=== PATIENT | female | born 1970 | race Caucasian/White ===

== ENCOUNTER → 2016-07-26 | Outpatient (CLI) | payer MEDICARE ==
[~2016-07-26] MED LIST: ALPR.25T PO; ALPR0.25 PO; ASPI-954 PO; BUTA1TAB55 PO; CEFP250T2 PO; CPR500T PO; CYCL10TA9 PO; DEXT10TA9 PO; DICL50TA4 PO; DICY10CA12 PO; DOXY100C42 PO; KETO-22 PO; METH4TAB PO; MILN50TA6 PO; MTP25TSR PO; OMEP20TA2 PO; OXYC-12 PO; SAVELLA PO; TPR100T PO; TRM50T PO; [UNRECOGNIZED DRUG - OTHER] PO; [UNRECOGNIZED DRUG - OTHER] PR
--- NOTE | 2016-07-26 11:39 | Diagnostic Imaging Report ---
PROCEDURE: MRI right joint lower extremity without contrast. TECHNIQUE: Multiplanar, multisequence non contrast-enhanced MRI of the right lower extremity was accomplished. INDICATION: Knee bent sideways and has now developed pain posteriorly and superiorly. FINDINGS: The anterior and posterior cruciate ligaments are intact. Medial collateral ligament is intact. The lateral collateral ligament iliotibial band complex are intact. The quadriceps tendon and patellar ligament are normal. Medial meniscus is intact. The lateral meniscus is intact. There is good preservation of articulating cartilage. The patella is in good alignment with the trochlea. There is no evidence of marrow edema. No evidence of cortical fractures. There is small joint effusion present. No loose bodies are demonstrated. The surrounding muscles and tendons appear normal. No evidence of popliteal cyst. IMPRESSION: 1. There is a small joint effusion present with no internal derangements demonstrated. 2. No evidence of popliteal cyst. Dictated by: Dictated on workstation # [id number]
== END ==
LOC: RAD 10:21
PROVIDERS: ATTEND Nurse Practitioner Adult Health
DX: M25.561 Pain in right knee (principal)
CPT/HCPCS: 73721

== ENCOUNTER 2016-10-22 18:00 | Emergency (ER) | payer MEDICARE ==
[2016-10-22] MEDS ORDERED: NS 100 ML (IVPB) BAG IV ONE (18:15)
[2016-10-22] MEDS ORDERED: CATHETER FLUSH 10 ML SYR IV PRN (18:15)
[2016-10-22] MEDS ORDERED: IOHEXOL 350 MG/ML 150 ML (OMNIPAQUE 350) VIAL IV ONE (18:15)
[2016-10-22] MEDS ORDERED: AZIT250T5 PO (19:46)
[2016-10-22] MEDS ORDERED: DICL35CA PO (19:46)
== END 2016-10-22 19:50 | disposition home or self-care (01) ==
DX: R07.81 Pleurodynia (principal); J45.909 Unspecified asthma, uncomplicated; F32.9 Major depressive disorder, single episode, unspecified; Z86.73 Personal history of transient ischemic attack (TIA), and cerebral infarction without residual deficits; Z86.79 Personal history of other diseases of the circulatory system; Z87.891 Personal history of nicotine dependence

== ENCOUNTER 2016-11-24 12:01 | Emergency (ER) | payer MEDICARE ==
[~2016-11-24] VITALS: Ht 170.2 cm; Wt 95.3 kg
[~2016-11-24 12:01] MED LIST changes: +AZIT250T5 PO; +DICL35CA PO
[2016-11-24 12:29] LABS: BASOPHILS # (AUTO) 0.1 10^3/uL (0.0-0.1); BASOPHILS % (AUTO) 1 % (0-10); EOSINOPHILS # (AUTO) 0.2 10^3/uL (0.0-0.3); EOSINOPHILS % (AUTO) 2 % (0-10); LYMPHOCYTES # (AUTO) 3.3 X 10^3 (1.0-4.0); LYMPHOCYTES % (AUTO) 28 % (12-44); MEAN CORPUSCULAR HEMOGLOBIN 30 PG (25-34); MEAN CORPUSCULAR HGB CONC 34 G/DL (32-36); MEAN CORPUSCULAR VOLUME 90 FL (80-99); MEAN PLATELET VOLUME 9.9 FL (7.4-10.4); MONOCYTES % (AUTO) 9 % (0-12); NEUTROPHILS % (AUTO) 60 % (42-75); PLATELET COUNT 294 10^3/uL (130-400); RED BLOOD COUNT 5.29 10^6/uL (4.35-5.85); RED CELL DISTRIBUTION WIDTH 14.2 % (10.0-14.5); WHITE BLOOD COUNT 11.6 10^3/uL (4.3-11.0)
[2016-11-24] MEDS ORDERED: RX-NITROGLYCERIN 0.4 MG TAB BTL 25'S SL PRN (12:30)
[2016-11-24] MEDS ORDERED: ASPIRIN 81 MG CHEW (CHILDREN'S ASA) PO ONE (12:30)
[2016-11-24] MEDS ORDERED: LISI-552 PO (12:31)
[2016-11-24] MEDS ORDERED: RT-ALBUINH IH (12:31)
[2016-11-24 12:34] LABS: PROTHROMBIN TIME PATIENT 12.9 SEC (12.2-14.7)
[2016-11-24 12:40] LABS: ALANINE AMINOTRANSFERASE 21 U/L (0-55); ALBUMIN 4.1 GM/DL (3.2-4.5); ANION GAP 9 MMOL/L (5-14); ASPARTATE AMINO TRANSFERASE 14 U/L (5-34); BILIRUBIN,TOTAL 0.5 MG/DL (0.1-1.0); BLOOD UREA NITROGEN 12 MG/DL (7-18); BUN/CREATININE RATIO 16; CALCIUM 9.2 MG/DL (8.5-10.1); CARBON DIOXIDE 23 MMOL/L (21-32); CHLORIDE 106 MMOL/L (98-107); CREATININE SERUM 0.77 MG/DL (0.60-1.30); GFR ESTIMATED > 60; GLUCOSE 101 MG/DL (70-105); POTASSIUM 3.6 MMOL/L (3.6-5.0); SODIUM 138 MMOL/L (135-145); TOTAL PROTEIN 7.3 GM/DL (6.4-8.2)
[2016-11-24 12:46] LABS: MYOGLOBIN SERUM 23.8 NG/ML (10.0-92.0)
--- NOTE | 2016-11-24 12:52 | Diagnostic Imaging Report ---
INDICATION: Hypertension. EXAMINATION: Portable upright view of the chest is obtained with comparison made to study of 10/22/2016. FINDINGS: Heart size and pulmonary vascularity are within normal limits, and the lungs are clear, bilaterally. IMPRESSION: Unremarkable chest. Dictated by: Dictated on workstation # [id number]
[2016-11-24] MEDS ORDERED: NS IV 1000 ML 1,000 ML IV ONE (13:08)
--- NOTE | 2016-11-24 13:21 | ED Chest Pain ---
General Chief Complaint: Chest Pain Stated Complaint: sob/abd-chest pain/should pain Nursing Triage Note: pt reports medial epigastric/cp that radiates to l shoulder blade starting at 0830 this am. Nursing Sepsis Screen: No Definite Risk Source: patient Exam Limitations: no limitations History of Present Illness Time seen by provider: 13:00 Initial Comments Here with complaint of epigastric pain that radiates to the left shoulder starting about 830 this morning. Not better with rest, Tums or time. Also notes hypertension and states that makes her red and feel dizzy. Patient does have history of lupus. Reports taking her meds as directed. She is very concerned about heart attack and has nothing else seems to be ruling out per her. Was seen a few weeks ago and diagnosed with pleurisy but she states that she was having a heart attack at the time and they told her to come back if it worsened. She states that it's worse and now. 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 NTG SL LOCOMOTIVE SWITCH OPERATOR: No Associated Symptoms: abdominal pain, No back pain, No fever/chills, No nausea/ vomiting, shortness of breath, No weakness Allergies and Home Medications Allergies Coded Allergies: carbamazepine (Verified Allergy, Unknown, 08/27/15) hydrocodone (Verified Allergy, Unknown, 11/16/08) Home Medications Albuterol Sulfate 1 Puff Puff, 1 PUFF IH Q4H, (Reported) 1 PUFF = 90 MCG Alprazolam 0.25 Mg Tablet, 0.25 MG PO for ANXIETY, (Reported) Azithromycin 250 Mg Tablet, 250 MG PO UD, #6 TAKE 2 TABLETS ON DAY ONE THEN TAKE 1 TABLET DAILY FOR FOUR MORE DAYS Prescribed by: ROMAIN AUGUSTIN on 10/22/161945 Cyclobenzaprine HCl 10 Mg Tablet, 10 MG PO TID, (Reported) Dextroamphetamine/Amphetamine 10 Mg Tablet, 5 MG PO DAILY, (Reported) Diclofenac Submicronized 35 Mg Capsule, 35 MG PO BID PRN, #20 Prescribed by: ROMAIN AUGUSTIN on 10/22/161945 Lisinopril 20 Mg Tablet, 20 MG PO DAILY, (Reported) [Zoverlex] , 35 MG PO PRN, (Reported) Review of Systems Constitutional: see HPI, No chills, No fever, No weakness EENTM: No Symptoms Reported Respiratory: No Symptoms Reported, Denies SOA at Rest, Denies Wheezing Cardiovascular: Chest Pain, Edema, Denies Lightheadedness Gastrointestinal: Abdominal Pain (epigastric), Denies Nausea, Denies Vomiting Genitourinary: No Symptoms Reported Musculoskeletal: see HPI, No joint pain, muscle pain Skin: change in color, No lesions Psychiatric/Neurological: No Symptoms Reported All Other Systems Reviewed Negative Unless Noted: Yes Past Gsetdwl-Fsxamq-Tiuppr Hx Patient Social History Alcohol Use: Rarely Uses Recreational Drug Use: No Smoking Status: Current Everyday Smoker Type Used: Cigarettes Recent Foreign Travel: No Contact w/Someone Who Travel: No Recent Infectious Disease Expo: No Immunizations Up To Date Tetanus Booster (TDap): Less than 5yrs Date of Pneumonia Vaccine: Feb 02, 2012 Seasonal Allergies Seasonal Allergies: Yes Surgeries HX Surgeries: Yes (COLON RESECTION, VAGINAL SEPTUM, ) Surgeries: Appendectomy, Gallbladder, Hysterectomy Respiratory Hx Respiratory Disorders: Yes (Tobaccoism) Respiratory Disorders: Asthma Cardiovascular Hx Cardiac Disorders: Yes (Raynaud's syndrome) Cardiac Disorders: Heart Attack, Hypertension, Palpitations Neurological Hx Neurological Disorders: Yes (HX STROKE) Neurological Disorders: Stroke Reproductive System Hx 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: No Sexually Transmitted Disease: No HIV/AIDS: No 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 Genitourinary Hx Genitourinary Disorders: No Gastrointestinal Hx Gastrointestinal Disorders: Yes (History of perforated colon s/p partial resection) Gastrointestinal Disorders: Diverticulosis, Polyps, Irritable Bowel Musculoskeletal Hx Musculoskeletal Disorders: Yes Musculoskeletal Disorders: Fibromyalgia Endocrine Hx Endocrine Disorders: Yes Endocrine Disorders: Lupus Psychosocial Hx Psychiatric Problems: Yes Behavioral Health Disorders: Depression Reviewed Nursing Assessment Reviewed/Agree w Nursing PMH: Yes Family Medical History Significant Family History: Heart Disease, Cancer Physical Exam Vital Signs Vital Sign - Last 12Hours 11/24/16 12:20 Temp 97.3 Pulse 91 Resp 16 B/P (MAP) 136/97 Pulse Ox 96 O2 Delivery Room Air Capillary Refill : Less Than 3 Seconds General Appearance: WD/WN, Anxious HEENT: PERRL/EOMI, Pharynx Normal Neck: Non Tender, Supple Respiratory: Lungs Clear, Normal Breath Sounds Cardiovascular: No Murmur, Tachycardia Gastrointestinal: Non Tender, Soft Extremity: Normal Range of Motion, Non Tender, No Calf Tenderness, No Pedal Edema, Swelling (reports swelling to her hands) Neurologic/Psychiatric: Alert, Oriented x3 Skin: Warm/Dry, Erythema (reddish coloring to scan overall) Progress/Results/Core Measures Results/Orders Lab Results Laboratory Tests Test 11/24/16 12:10 11/24/16 15:45 Range/Units White Blood Count 11.6 H 4.3-11.0 10^3/uL Red Blood Count 5.29 4.35-5.85 10^6/uL Hemoglobin 16.1 H 11.5-16.0 G/DL Hematocrit 48 35-52 % Mean Corpuscular Volume 90 80-99 FL Mean Corpuscular Hemoglobin 30 25-34 PG Mean Corpuscular Hemoglobin Concent 34 32-36 G/DL Red Cell Distribution Width 14.2 10.0-14.5 % Platelet Count 294 130-400 10^3/uL Mean Platelet Volume 9.9 7.4-10.4 FL Neutrophils (%) (Auto) 60 42-75 % Lymphocytes (%) (Auto) 28 12-44 % Monocytes (%) (Auto) 9 0-12 % Eosinophils (%) (Auto) 2 0-10 % Basophils (%) (Auto) 1 0-10 % Neutrophils # (Auto) 7.0 1.8-7.8 X 10^3 Lymphocytes # (Auto) 3.3 1.0-4.0 X 10^3 Monocytes # (Auto) 1.0 0.0-1.0 X 10^3 Eosinophils # (Auto) 0.2 0.0-0.3 10^3/uL Basophils # (Auto) 0.1 0.0-0.1 10^3/uL Prothrombin Time 12.9 12.2-14.7 SEC INR Comment 1.0 0.8-1.4 Activated Partial Thromboplast Time 29 24-35 SEC D-Dimer 0.30 0.00-0.49 UG/ML Sodium Level 138 135-145 MMOL/L Potassium Level 3.6 3.6-5.0 MMOL/L Chloride Level 106 98-107 MMOL/L Carbon Dioxide Level 23 21-32 MMOL/L Anion Gap 9 5-14 MMOL/L Blood Urea Nitrogen 12 7-18 MG/DL Creatinine 0.77 0.60-1.30 MG/DL Estimat Glomerular Filtration Rate > 60 BUN/Creatinine Ratio 16 Glucose Level 101 70-105 MG/DL Calcium Level 9.2 8.5-10.1 MG/DL Magnesium Level 2.0 1.8-2.4 MG/DL Total Bilirubin 0.5 0.1-1.0 MG/DL Aspartate Amino Transf (AST/SGOT) 14 5-34 U/L Alanine Aminotransferase (ALT/SGPT) 21 0-55 U/L Alkaline Phosphatase 79 40-136 U/L Myoglobin 23.8 20.2 10.0-92.0 NG/ML Troponin I < 0.30 < 0.30 <0.30 NG/ML Total Protein 7.3 6.4-8.2 GM/DL Albumin 4.1 3.2-4.5 GM/DL Amylase Level 63 25-125 U/L Lipase 23 8-78 U/L My Orders Orders - JUAN SYKES MD Cbc With Automated Diff (11/24/16 12:20) Magnesium (11/24/16 12:20) Chest 1 View, Ap/Pa Only (11/24/16 12:20) Ekg Tracing (11/24/16 12:20) Cardiac Profile 1 (11/24/16 12:20) Comprehensive Metabolic Panel (11/24/16 12:20) Myoglobin Serum (11/24/16 12:20) Protime With Inr (11/24/16 12:20) Partial Thromboplastin Time (11/24/16 12:20) O2 (11/24/16 12:20) Monitor-Rhythm Ecg Trace Only (11/24/16 12:20) Aspirin Chewable Tablet (Baby Aspirin Ch (11/24/16 12:30) Rx-Nitroglycerin Sl Tabs (Rx-Nitrostat S (11/24/16 12:30) Saline Lock/Iv-Start (11/24/16 12:20) Ns Iv 1000 Ml (Sodium Chloride 0.9%) (11/24/16 13:08) Fibrin Degradation Products (11/24/16 13:08) Amylase (11/24/16 13:21) Lipase (11/24/16 13:21) Troponin I (11/24/16 14:38) Ekg Tracing (11/24/16 14:38) Myoglobin Serum (11/24/16 14:38) Medications Given in ED Current Medications Medications Dose Ordered Sig/Jatinder Route Start Time Stop Time Status Last Admin Dose Admin Aspirin 324 mg ONCE ONCE PO 11/24/16 12:30 11/24/16 12:31 DC 11/24/16 12:54 324 MG Nitroglycerin 0.4 mg PRN PRN SL 11/24/16 12:30 11/24/16 16:32 DC 11/24/16 12:54 0.4 MG Sodium Chloride 1,000 ml @ 0 mls/hr Q0M ONCE IV 11/24/16 13:08 11/24/16 13:10 DC 11/24/16 14:01 0 MLS/HR Vital Signs/I&O Vital Sign - Last 12Hours 11/24/16 11/24/16 12:20 12:20 Temp 97.3 Pulse 91 Resp 16 B/P (MAP) 136/97 Pulse Ox 96 O2 Delivery Room Air Blood Pressure Mean: 110 Progress Note : Progress Note Seen and evaluated. IV, labs, EKG and chest x-ray ordered. ASA 324 mg by mouth and nitroglycerin sublingual ordered. Normal saline 1 L bolus. We will check a d-dimer and pancreatic enzymes as patient has history of lupus and is having epigastric pain radiating to the left shoulder. Monitor patient. No acute findings. We will recheck her 2 hour troponin and EKG. 1610: Repeat EKG negative. No acute findings. Discharged home with return precautions. Patient verbalize understanding instructions and agreement with plan. ECG Initial ECG Impression Date: Nov 24, 2016 Initial ECG Impression Time: 12:12 Initial ECG Rate: 88 Initial ECG Rhythm: Normal Sinus Initial ECG Comparisson: Unchanged Comment Sinus rhythm with normal axis. No evidence of ST elevation PA. Overall similar to previous of 05/31/14. Interpreted by me. EKG : EKG Time: 15:38 Rate: 74 Rhythm: Normal Sinus ECG Comparisson: Unchanged ECG Impression: Normal Comment Sinus rhythm with left atrial abnormality. Leftward axis. No evidence of ST elevation PA. Similar to previous done earlier today. Interpreted by me. Diagnostic Imaging Diagonstic Imaging: Xray Plain Films/CT/US/NM/MRI: chest Comments NAME: TALITA SAMAYOADiandra Robin [facility] REC#: [id number] PT STATUS: REG ER : 1970 PHYSICIAN: JUAN SYKES MD ADMIT DATE: 11/24/16/ER Draft Date of Exam:11/24/16 CHEST 1 VIEW, AP/PA ONLY INDICATION: Hypertension. EXAMINATION: Portable upright view of the chest is obtained with comparison made to study of 10/22/2016. FINDINGS: Heart size and pulmonary vascularity are within normal limits, and the lungs are clear, bilaterally. IMPRESSION: Unremarkable chest. Dictated on workstation # [id number] Dict: 11/24/16 1247 Trans: 11/24/16 1251 [facility] [id number] Interpreted by: JU PEREZ MD Electronically signed by: Departure Impression Impression: Primary Impression: Chest pain Qualified Codes: R07.9 - Chest pain, unspecified Disposition: ADMITTED INPATIENT Condition: Improved Departure-Patient Inst. Decision time for Depature: 16:12 Referrals: OLAMIDE BLANKENSHIP DO (PCP) Primary Care Physician JUAN CARLOS STEVENSON (Family) Primary Care Physician Patient Instructions: Chest Pain (DC) Add. Discharge Instructions: All discharge instructions reviewed with patient and/or family. Voiced understanding. Continue home medications as directed. Follow up with your Dr. in one to 2 days for recheck. Return for worse pain, fever, vomiting, weakness, breathing problems or other concerns as needed. Copy Copies To 1: OLAMIDE BLANKENSHIP DO Copies To 2: OLIVIA SANTOS MD FACP [facility] JUAN SYKES MD Nov 24, 2016 13:21
[2016-11-24 13:38] LABS: AMYLASE 63 U/L (25-125); LIPASE 23 U/L (8-78)
[2016-11-24 16:27] LABS: MYOGLOBIN SERUM 20.2 NG/ML (10.0-92.0); TROPONIN I < 0.30 NG/ML (<0.30)
[2016-11-24 16:32] VITALS: BP 131/98
== END 2016-11-24 16:32 | disposition other institution (70) ==
LOC: EDUNIT# 12:01 → ER 12:04
DX: R07.9 Chest pain, unspecified (principal); F32.9 Major depressive disorder, single episode, unspecified; I10 Essential (primary) hypertension; I25.2 Old myocardial infarction; J45.909 Unspecified asthma, uncomplicated; F17.210 Nicotine dependence, cigarettes, uncomplicated; Z90.49 Acquired absence of other specified parts of digestive tract; Z86.73 Personal history of transient ischemic attack (TIA), and cerebral infarction without residual deficits; Z90.710 Acquired absence of both cervix and uterus; Z87.19 Personal history of other diseases of the digestive system; Z80.9 Family history of malignant neoplasm, unspecified; Z82.49 Family history of ischemic heart disease and other diseases of the circulatory system
CPT/HCPCS: 36415; 71010; 80053; 82150; 83690; 83735; 83874; 84484; 85025; 85379; 85610; 85730; 93005; 93041; 96360

== ENCOUNTER 2017-02-28 09:44 | Inpatient (IN) | payer MEDICARE ==
[~2017-02-28] VITALS: Ht 170.2 cm; Wt 95.3 kg
[~2017-02-28 09:44] MED LIST changes: +LISI-552 PO; +RT-ALBUINH IH
--- OUTSIDE RECORDS SUMMARY | 2017-02-28 09:49 | XMS REPORT | Clinical Summary ---
Author Author [facility] Organization [facility] Address Unknown Phone Unavailable Care Team Providers Care Heater Tender Name Role Phone PCP Unavailable Source Comments Some departments are not documenting in the electronic medical record. If you do not see the information that you expected, contact Release of Information in the Health Information Management department at [phone] for further assistance in locating additional records.[facility] Allergies Not on File Current Medications Not on file Active Problems Not on file Social History Tobacco Use Types Packs/Day Years Used Date Never Assessed Sex Assigned at Date Recorded Not on file Last Filed Vital Signs Not on file Plan of Treatment Health Maintenance Due Date Last Done Comments PHYSICAL (COMPREHENSIVE) 1977 EXAM PERTUSSIS VACCINE 1981 TETANUS VACCINE 12/05/1987 CERVICAL CANCER SCREENING 2000 BREAST CANCER SCREENING 2010 INFLUENZA VACCINE 12/02/2016 Results Not on filefrom Last 3 Months
--- OUTSIDE RECORDS SUMMARY | 2017-02-28 09:52 | XMS REPORT ---
Author Author JUAN CARLOS STEVENSON Organization [facility] Address [address] [place] [address] Care Team Providers Care Respite Care Provider Name Role Phone PATRICE STEVENSONE Unavailable PROBLEMS Type Condition ICD9-CM Code [id number] Code Onset Dates Condition Status SNOMED Code Problem Somatic complaints, multiple R68.89 Active 934935164 Problem Chronic obstructive pulmonary disease, unspecified COPD type J44.9 Active 01323882 Problem Secondary hypertension I15.9 Active 16210902 Problem Personality disorder F60.9 Active 74353611 Problem Post traumatic stress disorder F43.10 Active 87049628 Problem Major depressive disorder, recurrent, moderate F33.1 Active 168273390 Problem Attention deficit disorder F90.0 Active 551348711 ALLERGIES Substance Reaction Event Type Date Status Tegretol seizure Drug Allergy Jun, Active Hydrocodone-Acetaminophen hives Drug Allergy Jun, Active SOCIAL HISTORY No smoking Hx information available PLAN OF CARE Activity Details Follow Up 3 Months, prn Reason: VITAL SIGNS Height 67 in 2016-06-09 Weight 212 lbs 2016-06-09 Temperature 98.2 degrees Fahrenheit 2016-06-09 Heart Rate 80 bpm 2016-06-09 Respiratory Rate 22 2016-06-09 BMI 33.20 kg/m2 2016-06-09 Blood pressure systolic 112 mmHg 2016-06-09 Blood pressure diastolic 80 mmHg 2016-06-09 MEDICATIONS Medication Instructions Dosage Frequency Start Date End Date Duration Status Lisinopril 10 mg Orally Once a day TAKE ONE TABLET BY MOUTH ONCE DAILY 24h 30 Active Diclofenac Potassium 75 mg Orally Twice a day 1 tablet 12h Nov, Active Proventil HFA 108 (90 Base) MCG/ACT Inhalation every 4 hrs 2 puffs as needed 4h Feb, Active Diclofenac Sodium 75 MG TAKE ONE TABLET BY MOUTH TWICE DAILY 30 Active Zyrtec Allergy 10 mg Orally Once a day 1 tablet 24h Active Wellbutrin XL 300 MG Orally Once a day TAKE ONE TABLET BY MOUTH ONCE DAILY IN THE MORNING 24h 30 Active Albuterol Sulfate (2.5 MG/3ML) 0.083% Inhalation 4 times a day 3 ml 6h Jul, Active RESULTS Name Result Date Reference Range CBC 2016-06-09 WBC 8.8 3.4-10.8 RBC 4.94 3.77-5.28 Hemoglobin 14.8 11.1-15.9 Hematocrit 44.9 34.0-46.6 MCV 91 79-97 MCH 30.0 26.6-33.0 MCHC 33.0 31.5-35.7 RDW 14.1 12.3-15.4 Platelets 300 150-379 Neutrophils 56 Lymphs 35 Monocytes 6 Eos 2 Basos 1 Neutrophils (Absolute) 4.9 1.4-7.0 Lymphs (Absolute) 3.1 0.7-3.1 Monocytes(Absolute) 0.6 0.1-0.9 Eos (Absolute) 0.2 0.0-0.4 Baso (Absolute) 0.1 0.0-0.2 Immature Granulocytes 0 Immature Grans (Abs) 0.0 0.0-0.1 LIPID PANEL 2016-06-09 Cholesterol, Total 212 100-199 Triglycerides 72 0-149 HDL Cholesterol 45 >39 VLDL Cholesterol Hiren 14 5-40 LDL Cholesterol Calc 153 0-99 Comment: CMP 2016-06-09 Glucose, Serum 86 65-99 BUN 13 6-24 Creatinine, Serum 0.66 0.57-1.00 eGFR If NonAfricn Am 107 >59 eGFR If Africn Am 123 >59 BUN/Creatinine Ratio 20 9-23 Sodium, Serum 140 134-144 Potassium, Serum 3.9 3.5-5.2 Chloride, Serum 98 96-106 Carbon Dioxide, Total 18 18-29 Calcium, Serum 9.2 8.7-10.2 Protein, Total, Serum 7.1 6.0-8.5 Albumin, Serum 4.4 3.5-5.5 Globulin, Total 2.7 1.5-4.5 A/G Ratio 1.6 1.1-2.5 Bilirubin, Total <0.2 0.0-1.2 Alkaline Phosphatase, S 88 39-117 AST (SGOT) 15 0-40 ALT (SGPT) 18 0-32 PROCEDURES Procedure Date Ordered Related Diagnosis Body Site LAB NOT BILLED BY [facility] Jun 09, 2016 [facility] VISIT ESTABLISHED PATIENT Jun 09, 2016 VENIPUNCT, ROUTINE* Jun 09, 2016 DEXAMETHASONE 4MG/ML (PER 1 MG) Jun 09, 2016 Office Visit, Est Pt., Level 4 Jun 09, 2016 DEPO MEDROL 40 MG/ML Jun 09, 2016 THER/PROPH/DIAG INJ, SC/IM Jun 09, 2016 IMMUNIZATIONS Vaccine Route Administration Date Status DEXAMETHASONE 4MG/ML (PER 1 MG) Unknown Jun 09, 2016 Administered DEPO MEDROL 40 MG/ML Unknown Jun 09, 2016 Administered
--- OUTSIDE RECORDS SUMMARY | 2017-02-28 09:52 | XMS REPORT ---
Author Author REBECCA KAPLAN Organization [facility] Address [address] [place] [address] Care Team Providers Care Instructional Assistant Name Role Phone REBECCA KAPLAN Unavailable PROBLEMS Type Condition ICD9-CM Code VFL29-LQ Code Onset Dates Condition Status SNOMED Code Problem Somatic complaints, multiple R68.89 Active 474644652 Problem Chronic obstructive pulmonary disease, unspecified COPD type J44.9 Active 63365201 Problem Secondary hypertension I15.9 Active 47083446 Problem Personality disorder F60.9 Active 21866259 Problem Post traumatic stress disorder F43.10 Active 88627481 Problem Major depressive disorder, recurrent, moderate F33.1 Active 876850843 Problem Attention deficit disorder F90.0 Active 307040792 ALLERGIES Substance Reaction Event Type Date Status Tegretol seizure Drug Allergy September, Active Hydrocodone-Acetaminophen hives Drug Allergy September, Active SOCIAL HISTORY Never Assessed PLAN OF CARE Activity Details Follow Up prn Reason: VITAL SIGNS Height 67 in 2016-09-01 Weight 215.6 lbs 2016-09-01 Temperature 97.0 degrees Fahrenheit 2016-09-01 Heart Rate 80 bpm 2016-09-01 Respiratory Rate 18 2016-09-01 BMI 33.76 kg/m2 2016-09-01 Blood pressure systolic 136 mmHg 2016-09-01 Blood pressure diastolic 82 mmHg 2016-09-01 MEDICATIONS Medication Instructions Dosage Frequency Start Date End Date Duration Status Wellbutrin XL 300 MG Orally Once a day TAKE ONE TABLET BY MOUTH ONCE DAILY IN THE MORNING 24h 30 Active Advil Active Ibuprofen Active Proventil HFA 108 (90 Base) MCG/ACT Inhalation every 4 hrs 2 puffs as needed 4h Feb, Active Lisinopril 10 mg Orally Once a day TAKE ONE TABLET BY MOUTH ONCE DAILY 24h 30 Active Albuterol Sulfate (2.5 MG/3ML) 0.083% Inhalation 4 times a day 3 ml 6h Jul, Active Zyrtec Allergy 10 mg Orally Once a day 1 tablet 24h Active Diclofenac Sodium 75 MG TAKE ONE TABLET BY MOUTH TWICE DAILY 30 Active PredniSONE 20 MG Orally Once a day 2 tablet 24h September, September, 5 days Active Tramadol HCl 50 MG Orally every 6 hrs 1 tablet as needed 6h Jul, Active RESULTS No Results PROCEDURES Procedure Date Ordered Result Body Site [facility] VISIT ESTABLISHED PATIENT September 01, 2016 IMMUNIZATIONS No Known Immunizations MEDICAL (GENERAL) HISTORY Type Description Date Medical History migraines Medical History anxiety Medical History lupus Medical History raynauds Medical History fibromyalgia Medical History Ptsd, ADD, ADHD Surgical History appendectomy Surgical History hysterectomy Surgical History cholecystectomy Surgical History perforated colon Surgical History colonscopy every 2 years since 1993 last one 2011 in [place] Surgical History vaginal septum Hospitalization History fibromyalsia [facility] Hospitalization History lupus/reynauds Hospitalization History pleurisy Hospitalization History Depression, ptsd, anxiety, add, adhd
--- OUTSIDE RECORDS SUMMARY | 2017-02-28 09:52 | XMS REPORT ---
Author Author JUAN CARLOS STEVENSON Organization [facility] Address [address] [place] [address] Care Team Providers Care Certified Rehabilitation Counselor Name Role Phone JUAN CARLOS STEVENSON Unavailable PROBLEMS Type Condition ICD9-CM Code FAO73-BZ Code Onset Dates Condition Status SNOMED Code Problem Somatic complaints, multiple R68.89 Active 530181407 Problem Chronic obstructive pulmonary disease, unspecified COPD type J44.9 Active 14543982 Problem Secondary hypertension I15.9 Active 97289736 Problem Personality disorder F60.9 Active 71241051 Problem Post traumatic stress disorder F43.10 Active 30841012 Problem Major depressive disorder, recurrent, moderate F33.1 Active 659018671 Problem Attention deficit disorder F90.0 Active 378703985 ALLERGIES Unknown Allergies SOCIAL HISTORY No smoking Hx information available PLAN OF CARE VITAL SIGNS MEDICATIONS Medication Instructions Dosage Frequency Start Date End Date Duration Status Lisinopril 10 mg TAKE ONE TABLET BY MOUTH ONCE DAILY 30 Active RESULTS No Results PROCEDURES No Known procedures IMMUNIZATIONS No Known Immunizations
--- OUTSIDE RECORDS SUMMARY | 2017-02-28 09:53 | XMS REPORT ---
Author Author REBECCA KAPLAN Organization [facility] Address [address] [place] [address] Care Team Providers Care Metrology Technician Name Role Phone REBECCA KAPLAN Unavailable PROBLEMS Type Condition ICD9-CM Code [id number] Code Onset Dates Condition Status SNOMED Code Problem Somatic complaints, multiple R68.89 Active 442811499 Problem Chronic obstructive pulmonary disease, unspecified COPD type J44.9 Active 39651857 Problem Secondary hypertension I15.9 Active 37924541 Problem Personality disorder F60.9 Active 79914552 Problem Post traumatic stress disorder F43.10 Active 17391538 Problem Major depressive disorder, recurrent, moderate F33.1 Active 562613559 Problem Attention deficit disorder F90.0 Active 159583215 ALLERGIES Substance Reaction Event Type Date Status Tegretol seizure Drug Allergy Jul, Active Hydrocodone-Acetaminophen hives Drug Allergy Jul, Active SOCIAL HISTORY Never Assessed PLAN OF CARE Activity Details Follow Up prn Reason: VITAL SIGNS Height 67 in 2016-07-17 Weight 215.0 lbs 2016-07-17 Temperature 98.2 degrees Fahrenheit 2016-07-17 Heart Rate 92 bpm 2016-07-17 Respiratory Rate 24 2016-07-17 BMI 33.67 kg/m2 2016-07-17 Blood pressure systolic 126 mmHg 2016-07-17 Blood pressure diastolic 76 mmHg 2016-07-17 MEDICATIONS Medication Instructions Dosage Frequency Start Date End Date Duration Status Albuterol Sulfate (2.5 MG/3ML) 0.083% Inhalation 4 times a day 3 ml 6h Jul, Active Lisinopril 10 mg Orally Once a day TAKE ONE TABLET BY MOUTH ONCE DAILY 24h 30 Active Diclofenac Sodium 75 MG TAKE ONE TABLET BY MOUTH TWICE DAILY 30 Active Proventil HFA 108 (90 Base) MCG/ACT Inhalation every 4 hrs 2 puffs as needed 4h Feb, Active Ibuprofen Active Zyrtec Allergy 10 mg Orally Once a day 1 tablet 24h Active Advil Active Wellbutrin XL 300 MG Orally Once a day TAKE ONE TABLET BY MOUTH ONCE DAILY IN THE MORNING 24h 30 Active Diclofenac Potassium 75 mg Orally Twice a day 1 tablet 12h 07 Nov, 2015 Active RESULTS Name Result Date Reference Range Xray : Knee, Right 3 views (IN HOUSE) 2016-07-17 PROCEDURES Procedure Date Ordered Result Body Site X-RAY EXAM OF KNEE, 3 July 17, 2016 CR[facility]ESS [facility] VISIT ESTABLISHED PATIENT July 17, 2016 IMMUNIZATIONS No Known Immunizations MEDICAL (GENERAL) HISTORY Type Description Date Medical History migraines Medical History anxiety Medical History lupus Medical History raynauds Medical History fibromyalgia Medical History Ptsd, ADD, ADHD Surgical History appendectomy Surgical History hysterectomy Surgical History cholecystectomy Surgical History perforated colon Surgical History colonscopy every 2 years since 1993 last one 2011 in [place] Surgical History vaginal septum Hospitalization History fibromyalsia [facility] Hospitalization History lupus/reynauds Hospitalization History pleurisy Hospitalization History Depression, ptsd, anxiety, add, adhd
[2017-02-28] MEDS ORDERED: DEXTROSE 50% 50 ML (IMS) SYR ONE (09:55)
[2017-02-28 10:06] LABS: BASOPHILS # (AUTO) 0.1 10^3/uL (0.0-0.1); BASOPHILS % (AUTO) 0 % (0-10); EOSINOPHILS # (AUTO) 0.2 10^3/uL (0.0-0.3); EOSINOPHILS % (AUTO) 1 % (0-10); LYMPHOCYTES # (AUTO) 2.8 X 10^3 (1.0-4.0); LYMPHOCYTES % (AUTO) 21 % (12-44); MEAN CORPUSCULAR HEMOGLOBIN 31 PG (25-34); MEAN CORPUSCULAR HGB CONC 34 G/DL (32-36); MEAN CORPUSCULAR VOLUME 91 FL (80-99); MEAN PLATELET VOLUME 9.6 FL (7.4-10.4); MONOCYTES # (AUTO) 0.7 X 10^3 (0.0-1.0); MONOCYTES % (AUTO) 5 % (0-12); NEUTROPHILS # (AUTO) 9.6 X 10^3 (1.8-7.8); NEUTROPHILS % (AUTO) 72 % (42-75); PLATELET COUNT 261 10^3/uL (130-400); RED BLOOD COUNT 5.11 10^6/uL (4.35-5.85); RED CELL DISTRIBUTION WIDTH 14.6 % (10.0-14.5); WHITE BLOOD COUNT 13.3 10^3/uL (4.3-11.0)
[2017-02-28 10:09] LABS: PROTHROMBIN TIME PATIENT 13.2 SEC (12.2-14.7)
--- NOTE | 2017-02-28 10:11 | ED Neurological Problem ---
General Chief Complaint: Neuro-Stroke Like Symptoms Stated Complaint: R SIDE FACIAL DROOP/ PAIN IN FACE Source: patient, family Exam Limitations: no limitations History of Present Illness Time seen by provider: 10:06 Initial Comments This 46-year-old white female presents with strokelike symptoms that began approximately 1 hour prior to presentation emergency department. The patient was cutting wood when she developed a right facial palsy and ataxia of her right leg. 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 This has been attributed to the meds used to rx her lupus. The patient denies associated headache, blurred vision, slurred speech, palpitations or chest pain, shortness of breath, nausea, vomiting, or diarrhea. Patient has hypertension, lupus, and depression. Patient suffers from antiphospholipid syndrome. Allergies and Home Medications Allergies Coded Allergies: carbamazepine (Verified Allergy, Unknown, 08/27/15) hydrocodone (Verified Allergy, Unknown, 11/16/08) Home Medications No Active Prescriptions or Reported Meds Constitutional: No chills, No fever Eyes: Denies Blindness, Denies Blurred Vision Ears, Nose, Mouth, Throat: denies ear pain, denies epistaxis Respiratory: No cough, No short of breath Cardiovascular: No chest pain, No palpitations, No syncope Gastrointestinal: No abdominal pain, No diarrhea, No nausea, No vomiting Genitourinary: no symptoms reported Musculoskeletal: no symptoms reported Skin: no symptoms reported, No rash Endocrine: No Symptoms Reported Hematologic/Lymphatic: No Symptoms Reported Past [id number] Hx Patient Social History Type Used: Cigarettes Recent Foreign Travel: No Contact w/Someone Who Travel: No Immunizations Up To Date Tetanus Booster (TDap): Less than 5yrs Date of Pneumonia Vaccine: Feb 02, 2012 Seasonal Allergies Seasonal Allergies: Yes Surgeries History of Surgeries: Yes (COLON RESECTION, VAGINAL SEPTUM, ) Surgeries: Appendectomy, Gallbladder, Hysterectomy Respiratory History of Respiratory Disorde: Yes (Tobaccoism) Respiratory Disorders: Asthma Cardiovascular History of Cardiac Disorders: Yes (Raynaud's syndrome) Cardiac Disorders: Heart Attack, Hypertension, Palpitations Neurological History of Neurological Disord: Yes (HX STROKE) Neurological Disorders: Stroke Reproductive System Hx 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: No Sexually Transmitted Disease: No HIV/AIDS: No [employer] History: Hysterectomy Gastrointestinal History of Gastrointestinal Di: Yes (History of perforated colon s/p partial resection) Gastrointestinal Disorders: Diverticulosis, Polyps, Irritable Bowel Musculoskeletal History of Musculoskeletal Dis: Yes Musculoskeletal Disorders: Fibromyalgia Endocrine History of Endocrine Disorders: Yes Endocrine Disorders: Lupus Psychosocial History of Psychiatric Problem: Yes Behavioral Health Disorders: Depression Reviewed Nursing Assessment Reviewed/Agree w Nursing PMH: Yes Family Medical History Significant Family History: Heart Disease, Cancer Physical Exam Vital Signs Vital Sign - Last 12Hours 02/28/17 09:50 Temp 98.2 Pulse 84 Resp 18 B/P (MAP) 158/107 Pulse Ox 98 O2 Delivery Room Air Capillary Refill : General Appearance: WD/WN, mild distress HEENT: PERRL/EOMI, other (right sided facial weakness) Neck: non-tender, full range of motion, supple Respiratory: chest non-tender, lungs clear, normal breath sounds Cardiovascular: normal peripheral pulses, regular rate, rhythm Gastrointestinal: normal bowel sounds, non tender Back: normal inspection, no CVA tenderness Extremities: other (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.) Neurologic/Psychiatric: facial droop (right side), motor weakness (right hand) Crainal Nerves: normal hearing, normal speech, PERRL Skin: normal color, warm/dry Stroke NIH Stroke Scale Assessment Select: Initial Level of Consciousness: 0=Alert (0), Level of Consciousness- Questions: 0=Answers both month/age (0), LOC Commands: 0=Performs both tasks (0) , Gaze: Normal (0), Visual Avila: 0=No visual loss (0), Facial Movement ( Facial Paresis): 2=Partial paralysis (2), Motor Function-Arms Right: 0=No drift (0), Motor Function-Arms Left: 0=No drift (0), Motor Function-Legs Right: 0=No drift (0), Motor Function-Legs Left: 0=No drift (0), Limb Ataxia: 0=Absent (0), Sensory: 1=Mild to Moderate loss (1), Best Language: 0=No aphasia (0), Dysarthria: 0=Normal (0), Extinction & Inattention: 0=No abnormality (0), Total : 3 Stroke Thrombolytic Exclusion Age 18 or Over: Yes Acute intenal hemorrhage: No History of CVA: Yes Uncontrolled Coagulation Defec: No Intracranial Hemorrhage: No Severe Hypertension: No GI or Bleed: No Subarachnoid Hemorrhage: No Intracranial Neoplasm/Aneurysm: No Oral Anticoagulants: No Surgery or Trauma: No Puncture of Non-Compressible V: No Recent CPR: No Diabetic Hemorrhagic Retinopat: No Organ Biopsy: No Recent Obstetric Delivery: No Glucose: Yes Significant Hepatic Dysfunctio: No NIH Stoke Scale >22: No Bacterial Endocarditis: No Pericarditis: No Platelets: No TPA Contraindication: No Progress/Results/Core Measures Results/Orders Lab Results Laboratory Tests Test 02/28/17 09:50 02/28/17 10:01 Range/Units White Blood Count 13.3 H 4.3-11.0 10^3/uL Red Blood Count 5.11 4.35-5.85 10^6/uL Hemoglobin 15.7 11.5-16.0 G/DL Hematocrit 46 35-52 % Mean Corpuscular Volume 91 80-99 FL Mean Corpuscular Hemoglobin 31 25-34 PG Mean Corpuscular Hemoglobin Concent 34 32-36 G/DL Red Cell Distribution Width 14.6 H 10.0-14.5 % Platelet Count 261 130-400 10^3/uL Mean Platelet Volume 9.6 7.4-10.4 FL Neutrophils (%) (Auto) 72 42-75 % Lymphocytes (%) (Auto) 21 12-44 % Monocytes (%) (Auto) 5 0-12 % Eosinophils (%) (Auto) 1 0-10 % Basophils (%) (Auto) 0 0-10 % Neutrophils # (Auto) 9.6 H 1.8-7.8 X 10^3 Lymphocytes # (Auto) 2.8 1.0-4.0 X 10^3 Monocytes # (Auto) 0.7 0.0-1.0 X 10^3 Eosinophils # (Auto) 0.2 0.0-0.3 10^3/uL Basophils # (Auto) 0.1 0.0-0.1 10^3/uL Prothrombin Time 13.2 12.2-14.7 SEC INR Comment 1.0 0.8-1.4 Activated Partial Thromboplast Time 30 24-35 SEC D-Dimer 0.27 0.00-0.49 UG/ML Sodium Level 138 135-145 MMOL/L Potassium Level 3.9 3.6-5.0 MMOL/L Chloride Level 104 98-107 MMOL/L Carbon Dioxide Level 26 21-32 MMOL/L Anion Gap 8 5-14 MMOL/L Blood Urea Nitrogen 10 7-18 MG/DL Creatinine 0.70 0.60-1.30 MG/DL Estimat Glomerular Filtration Rate > 60 BUN/Creatinine Ratio 14 Glucose Level 88 70-105 MG/DL Calcium Level 8.9 8.5-10.1 MG/DL Total Bilirubin 0.5 0.1-1.0 MG/DL Aspartate Amino Transf (AST/SGOT) 14 5-34 U/L Alanine Aminotransferase (ALT/SGPT) 14 0-55 U/L Alkaline Phosphatase 76 40-136 U/L Troponin I < 0.30 <0.30 NG/ML Total Protein 6.7 6.4-8.2 GM/DL Albumin 3.9 3.2-4.5 GM/DL Glucometer 71 70-110 MG/DL My Orders Orders - WILTON QUIROZ MD Cbc With Automated Diff (02/28/17 09:58) Protime With Inr (02/28/17 09:58) Partial Thromboplastin Time (02/28/17 09:58) Comprehensive Metabolic Panel (02/28/17:58) Fibrin Degradation Products (02/28/17 09:58) Troponin I (02/28/17 09:58) Ua Culture If Indicated (02/28/17 09:58) Chest 1 View, Ap/Pa Only (02/28/17 09:58) Ekg Tracing (02/28/17 09:58) Nothing By Mouth (02/28/17 Lunch) Accucheck Stat ONCE (02/28/17 09:58) Saline Lock/Iv-Start (02/28/17 09:58) Vital Signs - Stroke Q15M (02/28/17 09:58) Ct Head Wo-R/O Stroke (02/28/17 09:58) O2 (02/28/17 09:58) Intake & Output 06,14,22 (02/28/17 09:58) Monitor-Rhythm Ecg Trace Only (02/28/17 09:58) Dysphagia Screening Tool (02/28/17 09:58) Post Thrombolytic Adminstratio (02/28/17 09:58) D50w (Emergency) Syringe (Dextrose 50% 5 (02/28/17 09:55) D50w (Emergency) Syringe (Dextrose 50% 5 (10/28/17 10:15) Fentanyl Injection (Sublimaze Injection (02/28/17 10:30) Fentanyl Injection (Sublimaze Injection (02/28/17 11:00) Medications Given in ED Current Medications Medications Dose Ordered Sig/Jatinder Route Start Time Stop Time Status Last Admin Dose Admin Dextrose 50 ml STK-MED ONCE .ROUTE 02/28/17 09:55 02/28/17 10:04 DC 02/28/17 10:06 50 ML Fentanyl Citrate 50 mcg ONCE ONCE IVP 02/28/17 10:30 02/28/17 10:31 DC 02/28/17 10:26 50 MCG Vital Signs/I&O Vital Sign - Last 12Hours 02/28/17 02/28/17 09:50 10:49 Temp 98.2 Pulse 84 72 Resp 18 18 B/P (MAP) 158/107 158/98 Pulse Ox 98 99 O2 Delivery Room Air Room Air Point of Care Testing Finger Stick Blood Glucose: 71 Blood Glucose Action Taken: RN Notified Progress Note : Time: 10:19 Progress Note The patient was given D50 without improvement in her symptoms. Her random glucose in the emergency department prior to the D50 had been 70. The patient is complaining of a severe headache and increased weakness in the right leg. Patient was given 50 g of fentanyl IV. Patient's EKG demonstrated a sinus rhythm with poor R-wave progression across the precordium. There was a borderline first degree heart block noted. No acute current of injury was present. 10:[address] of the head was unremarkable. I counseled with , neuro at , fortunately during our combined evaluation of the patient the patient's right-sided facial weakness remarkably improved. Appropriately it was the recommendation of neurology not to administer TPA. Departure Communication (Admissions) Time/Spoke to Admitting Phy: 11:[address] Nye Time/Spoke to Consulting Phy: 10:40 Communication/Consulting Dr. Arrieta, neurologist . Impression Impression: Primary Impression: TIA (transient ischemic attack) Qualified Codes: G45.9 - Transient cerebral ischemic attack, unspecified Disposition: ADMITTED INPATIENT Condition: Improved Admissions Decision to Admit Reason: Admit from ER (General) Decision to Admit/Date: Feb 28, 2017 Time/Decision to Admit Time: 11:05 Departure-Patient Inst. Referrals: OLAMIDE BLANKENSHIP DO (PCP) Primary Care Physician JUAN CARLOS STEVENSON (Family) Primary Care Physician Scripts No Active Prescriptions or Reported Meds WILTON QUIROZ MD Feb 28, 2017 10:11
[2017-02-28] MEDS ORDERED: DEXTROSE 50% 50 ML (IMS) SYR IV ONE (10:15)
[2017-02-28 10:19] LABS: ALANINE AMINOTRANSFERASE 14 U/L (0-55); ALBUMIN 3.9 GM/DL (3.2-4.5); ANION GAP 8 MMOL/L (5-14); ASPARTATE AMINO TRANSFERASE 14 U/L (5-34); BILIRUBIN,TOTAL 0.5 MG/DL (0.1-1.0); BLOOD UREA NITROGEN 10 MG/DL (7-18); BUN/CREATININE RATIO 14; CALCIUM 8.9 MG/DL (8.5-10.1); CARBON DIOXIDE 26 MMOL/L (21-32); CHLORIDE 104 MMOL/L (98-107); GFR ESTIMATED > 60; GLUCOSE 88 MG/DL (70-105); POTASSIUM 3.9 MMOL/L (3.6-5.0); SODIUM 138 MMOL/L (135-145); TOTAL PROTEIN 6.7 GM/DL (6.4-8.2)
[2017-02-28 10:24] LABS: TROPONIN I < 0.30 NG/ML (<0.30)
--- NOTE | 2017-02-28 10:24 | Diagnostic Imaging Report ---
INDICATION: Pressure behind the eyes. Dizziness The ventricles are normal in size, shape and position. There is no acute parenchymal hemorrhage, edema or mass. There is no extra-axial mass or hemorrhage. There is no bony abnormality. IMPRESSION: Normal CT of the head. There is no significant change from 10/11/12. Dictated by: Dictated on workstation # [id number]
--- NOTE | 2017-02-28 10:27 | Diagnostic Imaging Report ---
INDICATION: Pressure behind the eyes. Dizziness Portable chest shows normal heart size and vascularity. The lungs are clear. There is no effusion or pneumothorax. There is no bony abnormality. IMPRESSION: Normal chest with no change from 11/24/16. Dictated by: Dictated on workstation # [id number]
[2017-02-28] MEDS ORDERED: fentaNYL INJECTION 100 MCG/2 ML AMP IVP ONE ×2 (10:30→11:00)
[2017-02-28 10:49] VITALS: BP 158/98
[2017-02-28 11:09] LABS: BILIRUBIN,URINE NEGATIVE (NEGATIVE); KETONES,URINE NEGATIVE (NEGATIVE); LEUKOCYTE ESTERASE ,URINE NEGATIVE (NEGATIVE); NITRITE,URINE NEGATIVE (NEGATIVE); PH,URINE 7 (5-9); PROTEIN,URINE 1+ (NEGATIVE); UROBILINOGEN,URINE NORMAL (NORMAL)
[2017-02-28 11:16] LABS: SQUAMOUS EPITHELIAL CELL,UR 25-50 /HPF; WBC,URINE RARE /HPF
--- OUTSIDE RECORDS SUMMARY | 2017-02-28 11:24 | XMS REPORT | Clinical Summary ---
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 If you do not see the information that you expected, contact Release of Information in the Health Information Management department at [phone] for further assistance in locating additional records.[facility] Allergies Not on File Current [...]
[2017-02-28] MEDS ORDERED: PROMETHAZINE INJ 25 MG/ML (PHENERGAN) AMP IVP ONE (11:45)
[2017-02-28] MEDS ORDERED: diphenhydrAMINE 50 MG/ML INJ (BENADRYL) IM ONE (11:45)
[2017-02-28] MEDS ORDERED: diphenhydrAMINE 50 MG/ML INJ (BENADRYL) IVP ONE (12:00)
[2017-02-28 13:00] VITALS: BP 143/87
[2017-02-28] MEDS ORDERED: INFLUENZA TRIvalent 2017-2018 0.5 ML/45 MCG SYR IM ONE (14:30)
[2017-02-28] MEDS: fentaNYL INJECTION 100 MCG/2 ML AMP IV PRN ×2 (14:37→20:30)
[2017-02-28] MEDS ORDERED: PSEU120T53 PO (14:48)
[2017-02-28] MEDS ORDERED: GUAI-836 PO (14:48)
[2017-02-28] MEDS ORDERED: [UNRECOGNIZED DRUG - CODE] NS (14:51)
[2017-02-28] MEDS ORDERED: GUAI100G2 PO (14:51)
[2017-02-28] MEDS ORDERED: ASPI-999 PO (14:51)
[2017-02-28] MEDS ORDERED: GADOBUTROL 10 MMOL/10 ML (GADAVIST) VIAL IV ONE (15:15)
[2017-02-28] MEDS ORDERED: LORazepam INJ 2 MG/ML (ATIVAN) VIAL IVP ONE (15:30)
--- NOTE | 2017-02-28 16:47 | Diagnostic Imaging Report ---
PROCEDURE: MR imaging of the brain without contrast. TECHNIQUE: Multiplanar, multisequence MR imaging of the brain was performed without contrast. INDICATION: TIA. Pressure behind the eyes, dizziness, right-sided weakness. FINDINGS: The ventricles are normal in size, shape and position. There is no diffusion restriction with no acute parenchymal edema, hemorrhage or mass. There is no extra-axial mass or hemorrhage. IMPRESSION: Normal MRI of the brain. Dictated by: Dictated on workstation # [id number]
--- NOTE | 2017-02-28 16:47 | Diagnostic Imaging Report ---
PROCEDURE: MR angiography of the brain without the use of contrast. TECHNIQUE: 3D [id number] non contrast enhanced MR angiography of the head was performed. A source data was reformatted into rotating MIP projections. INDICATION: TIA. Dizziness. Pressure behind the eyes. Right-sided weakness. FINDINGS: The distal vertebral and internal carotid arteries are widely patent. The basilar artery is widely patent. There is no evidence for aneurysm, AVM, neovascularity or major vessel occlusion. IMPRESSION: Normal MR angiography of the brain. Dictated by: Dictated on workstation # [id number]
[2017-02-28 16:59] VITALS: BP 136/85
--- NOTE | 2017-02-28 18:15 | History & Physicial (CHS) ---
CANJUAN MED STUDENT 02/28/17 1814: HPI History of Present Illness: Desiree is a 46-year old female who was admitted to the floor after arriving to the ED this morning with suspected TIA. Patient was outside cutting wood this morning around 8am when she felt severe pain in her right eye that rated a 10/10, as well as experiencing temporary blindness in both eyes, right- sided facial droop and loss of balance. Patient took 2 Aspirin tablets soon thereafter and brought to the ED by her . Patient says her serum glucose was at 70 in the ED and her BP was elevated. Patient underwent a head CT scan and Dr. Colorado identified a clot behind her right eye. Patient was to undergo a MRI this afternoon to determine whether the current clot is new or a residual from previous CVAs. Patient was put on blood thinner medication and was given both Fentanyl and Phenergan for pain. Patient states that neither pain medication seems to have had great effect in diminishing her pain. Patient says vision has returned to both eyes, although the vision in her right eye is "hazy and not in focus." Patient currently rates her right eye pain 7/10 and says it is especially painful with movement. Patient also c/o a "throbbing," generalized BOLAND. Patient explains that whenever she sits up from a supine position, it feels as though her right eyeball "wants to pop out." Patient mentions on ROS that she has been dealing with sinus infection for the past 2 months, as well as dysphagia for last 2 weeks that, at times, feels like a "choking pain." Patient states she is allergic to Hydrocodone. Patient's primary provider is Amanda España at [facility]. Source: patient Exam Limitations: no limitations Date seen by provider: Feb 28, 2017 Time Seen by Provider: 13:30 Attending Physician Rah Sultana MD PCP Shirley Chapman DO Consult Date of Admission Feb 28, 2017 at 11:00 Home Medications Home Medications Reviewed patient Home Medication Reconciliation Form Allergies Coded Allergies: carbamazepine (Verified Allergy, Unknown, 08/27/15) hydrocodone (Verified Allergy, Unknown, 11/16/08) BWZ-[id number]-Auvbhe Hx Patient Social History Marrital Status: Employed/Student: employed Alcohol Use: Occasionally Uses Recreational Drug Use: No (MARIJUANA IN THE PAST) Smoking Status: Current Everyday Smoker Type Used: Cigarettes Recent Foreign Travel: No Contact w/other who traveled: No Recent Infectious Disease Expo: No Physical Abuse Screen: No Sexual Abuse: No Immunizations Up To Date Tetanus Booster (TDap): Less than 5yrs Date of Pneumonia Vaccine: Feb 02, 2012 Past Medical History Patient states she has had 6 previous CVAs, 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 Family Medical History Significant Family History: Heart Disease, Cancer Family History: Asthma SON PATIENT IS ADOPTED Review of Systems (CHC) Constitutional: see HPI, No chills, No dizziness EENTM: see HPI (sinus infection for last 2 months; dysphagia for last 2 weeks that can feel like she's "choking" at times), eye pain (significant right eye pain) Respiratory: No cough, No short of breath Gastrointestinal: No abdominal pain, No constipation, No diarrhea Psychiatric/Neurological: See HPI, Headache Physical Exam-(CHC) Physical Exam Vital Signs VS - Last 72 Hours, by Label 02/28/17 02/28/17 02/28/17 02/28/17 09:50 10:49 12:37 13:00 Temp 98.2 97.4 Pulse 84 72 73 64 Resp 18 18 18 20 B/P (MAP) 158/107 158/98 143/87 Pulse Ox 98 99 98 98 O2 Delivery Room Air Room Air Room Air Room Air 02/28/17 02/28/17 02/28/17 02/28/17 16:59 19:00 19:15 20:00 Temp 98.0 98.4 Pulse 70 89 75 Resp 20 20 B/P (MAP) 136/85 130/80 Pulse Ox 98 96 O2 Delivery Room Air Room Air Room Air 03/01/17 03/01/17 03/01/17 03/01/17 00:00 01:00 04:00 07:00 Temp 96.4 97.5 Pulse 74 73 70 69 Resp 20 18 B/P (MAP) 127/85 97/57 Pulse Ox 92 100 O2 Delivery Room Air Room Air 03/01/17 03/01/17 08:00 09:00 Temp 98.1 Pulse 79 Resp 22 B/P (MAP) 124/82 Pulse Ox 97 O2 Delivery Room Air Room Air Capillary Refill : Less Than 3 Seconds General Appearance: other (Patient is alert, able to communicate and understand her upcoming treatment plan, and has significant right eye pain and headache) Respiratory: lungs clear, no accessory muscle use Cardiovascular: regular rate, rhythm Neurologic/Psychiatric: coldfusion II-XII nml as tested (right eye pain with movement but no discernable loss in range of motion), alert, oriented x 3 Clinical Quality Measures DVT/VTE Risk/Contraindication: Risk Factor Score Per Nursin RFS Level Per Nursing on Admit: 2=Moderate Stroke: Date of last known well: Feb 28, 2017 Copy Copies To 1: RICHMOND PAZ DO Assessment/Plan Assessment/Plan Admission Dx 1.) TIA 2.) Previos CVA and TIA 3.) Previous AL 4.) SLE 5.) Antiphospholipid syndrome Plan 1.) MRI to determine if clot seen on earlier head CT is residual from previous CVAs or new 2.) Continue on blood thinner medication 3.) Manage pain to tolerable level for patient RAH SULTANA MD 03/01/17 1338: HPI History of Present Illness: Reviewed Student's HPI with patient - Vision changes are new, States that she has never had this before. 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) Family Medical History Family History: Asthma SON PATIENT IS ADOPTED Review of Systems (CHC) Constitutional: no symptoms reported EENTM: blurred vision, double vision, vision loss Respiratory: no symptoms reported Cardiovascular: no symptoms reported, No chest pain, No edema, No palpitations Gastrointestinal: no symptoms reported, No nausea Genitourinary: no symptoms reported, No dysuria, No frequency, No hematuria : No Musculoskeletal: no symptoms reported Skin: no symptoms reported, No lesions, No rash Psychiatric/Neurological: Headache Reviewed Test Results Reviewed Test Results Lab Laboratory Tests Test 02/28/17 09:50 02/28/17 10:01 02/28/17 10:55 Range/Units White Blood Count 13.3 H 4.3-11.0 10^3/uL Red Blood Count 5.11 4.35-5.85 10^6/uL Hemoglobin 15.7 11.5-16.0 G/DL Hematocrit 46 35-52 % Mean Corpuscular Volume 91 80-99 FL Mean Corpuscular Hemoglobin 31 25-34 PG Mean Corpuscular Hemoglobin Concent 34 32-36 G/DL Red Cell Distribution Width 14.6 H 10.0-14.5 % Platelet Count 261 130-400 10^3/uL Mean Platelet Volume 9.6 7.4-10.4 FL Neutrophils (%) (Auto) 72 42-75 % Lymphocytes (%) (Auto) 21 12-44 % Monocytes (%) (Auto) 5 0-12 % Eosinophils (%) (Auto) 1 0-10 % Basophils (%) (Auto) 0 0-10 % Neutrophils # (Auto) 9.6 H 1.8-7.8 X 10^3 Lymphocytes # (Auto) 2.8 1.0-4.0 X 10^3 Monocytes # (Auto) 0.7 0.0-1.0 X 10^3 Eosinophils # (Auto) 0.2 0.0-0.3 10^3/uL Basophils # (Auto) 0.1 0.0-0.1 10^3/uL Prothrombin Time 13.2 12.2-14.7 SEC INR Comment 1.0 0.8-1.4 Activated Partial Thromboplast Time 30 24-35 SEC D-Dimer 0.27 0.00-0.49 UG/ML Sodium Level 138 135-145 MMOL/L Potassium Level 3.9 3.6-5.0 MMOL/L Chloride Level 104 98-107 MMOL/L Carbon Dioxide Level 26 21-32 MMOL/L Anion Gap 8 5-14 MMOL/L Blood Urea Nitrogen 10 7-18 MG/DL Creatinine 0.70 0.60-1.30 MG/DL Estimat Glomerular Filtration Rate > 60 BUN/Creatinine Ratio 14 Glucose Level 88 70-105 MG/DL Calcium Level 8.9 8.5-10.1 MG/DL Total Bilirubin 0.5 0.1-1.0 MG/DL Aspartate Amino Transf (AST/SGOT) 14 5-34 U/L Alanine Aminotransferase (ALT/SGPT) 14 0-55 U/L Alkaline Phosphatase 76 40-136 U/L Troponin I < 0.30 <0.30 NG/ML Total Protein 6.7 6.4-8.2 GM/DL Albumin 3.9 3.2-4.5 GM/DL Glucometer 71 70-110 MG/DL Urine Color YELLOW Urine Clarity SLIGHTLY CLOUDY Urine pH 7 5-9 Urine Specific [place] 1.015 L 1.016-1.022 Urine Protein 1+ H NEGATIVE Urine Glucose (UA) 3+ H NEGATIVE Urine Ketones NEGATIVE NEGATIVE Urine Nitrite NEGATIVE NEGATIVE Urine Bilirubin NEGATIVE NEGATIVE Urine Urobilinogen NORMAL NORMAL MG/DL Urine Leukocyte Esterase NEGATIVE NEGATIVE Urine RBC (Auto) 2+ H NEGATIVE Urine RBC 0-2 /HPF Urine WBC RARE /HPF Urine Squamous Epithelial Cells 25-50 H /HPF Urine Crystals NONE /LPF Urine Bacteria FEW H /HPF Urine Casts NONE /LPF Urine Mucus NEGATIVE /LPF Urine Culture Indicated NO Radiology Date of Exam: 02/28/17 CT HEAD WO-R/O STROKE INDICATION: Pressure behind the eyes. Dizziness The ventricles are normal in size, shape and position. There is no acute parenchymal hemorrhage, edema or mass. There is no extra-axial mass or hemorrhage. There is no bony abnormality. IMPRESSION: Normal CT of the head. There is no significant change from 10/11/12. Date of Exam: 02/28/17 MRA NECK W/WO CONTRAST PROCEDURE: MR angiography neck with and without contrast. TECHNIQUE: Pre and post contrast-enhanced MR angiography of the neck was performed. Source data was reformatted into rotating MIP projections. INDICATION: Dizziness and weakness with pressure behind eyes. FINDINGS: The carotid and vertebral arteries are very tortuous causing considerable artifact with MR angiography. Both vertebral arteries are visualized and are symmetrical with normal takeoff. Both vertebral arteries supply the basilar artery. The common carotid arteries show normal takeoff and appear normal. Carotid bifurcations are normal. There is signal loss in the proximal portion of the internal carotid arteries, bilaterally, which may well be due to tortuosity though could not exclude moderate stenosis upwards of 70% within the internal carotid arteries, especially on the left. The internal carotid arteries along the carotid siphons appear widely patent. IMPRESSION: Considerable artifact. Concern is raised of possible hemodynamic stenosis of the internal carotid arteries versus flow artifact from tortuosity. With patient's symptoms, would consider CT angiography of the neck or conventional angiography and/or Doppler imaging for further evaluation. Date of Exam: 02/28/17 MRA HEAD W/O CONTRAST PROCEDURE: MR angiography of the brain without the use of contrast. TECHNIQUE: 3D [id number] non contrast enhanced MR angiography of the head was performed. A source data was reformatted into rotating MIP projections. INDICATION: TIA. Dizziness. Pressure behind the eyes. Right-sided weakness. FINDINGS: The distal vertebral and internal carotid arteries are widely patent. The basilar artery is widely patent. There is no evidence for aneurysm, AVM, neovascularity or major vessel occlusion. IMPRESSION: Normal MR angiography of the brain. Date of Exam: 02/28/17 MRI BRAIN W/O CONTRAST PROCEDURE: MR imaging of the brain without contrast. TECHNIQUE: Multiplanar, multisequence MR imaging of the brain was performed without contrast. INDICATION: TIA. Pressure behind the eyes, dizziness, right-sided weakness. FINDINGS: The ventricles are normal in size, shape and position. There is no diffusion restriction with no acute parenchymal edema, hemorrhage or mass. There is no extra-axial mass or hemorrhage. IMPRESSION: Normal MRI of the brain. Physical Exam-(CHC) Physical Exam Vital Signs VS - Last 72 Hours, by Label 02/28/17 02/28/17 02/28/17 02/28/17 09:50 10:49 12:37 13:00 Temp 98.2 97.4 Pulse 84 72 73 64 Resp 18 18 18 20 B/P (MAP) 158/107 158/98 143/87 Pulse Ox 98 99 98 98 O2 Delivery Room Air Room Air Room Air Room Air 02/28/17 02/28/17 02/28/17 02/28/17 16:59 19:00 19:15 20:00 Temp 98.0 98.4 Pulse 70 89 75 Resp 20 20 B/P (MAP) 136/85 130/80 Pulse Ox 98 96 O2 Delivery Room Air Room Air Room Air 03/01/17 03/01/17 03/01/17 03/01/17 00:00 01:00 04:00 07:00 Temp 96.4 97.5 Pulse 74 73 70 69 Resp 20 18 B/P (MAP) 127/85 97/57 Pulse Ox 92 100 O2 Delivery Room Air Room Air 03/01/17 03/01/17 08:00 09:00 Temp 98.1 Pulse 79 Resp 22 B/P (MAP) 124/82 Pulse Ox 97 O2 Delivery Room Air Room Air General Appearance: WD/WN, no apparent distress HEENT: PERRL/EOMI Neck: non-tender, full range of motion, supple Respiratory: chest non-tender, lungs clear, no accessory muscle use Cardiovascular: normal peripheral pulses, regular rate, rhythm, no murmur Gastrointestinal: normal bowel sounds, non tender, soft Neurologic/Psychiatric: coldfusion II-XII nml as tested (right eye pain with movement but no discernable loss in range of motion), no motor/sensory deficits, alert, normal mood/affect, oriented x 3, No aphasia, No facial droop, other (Patient states that her vision is blurry) Skin: normal color, warm/dry Lymphatic: no adenopathy Copy Copies To 1: RICHMOND PAZ DO Assessment/Plan Assessment/Plan Plan 46 yo F with Lupus and h/o multiple CVAs that was admitted for vision change and concerns for TIA Plan TIA - MRI/MRA head and neck done - Will continue to monitor with neuro checks Vision Changes - Will continue to monitor - Patient likely needs to follow with Eye doctor as outpatient Lupus with APA - Continue blood thinner CAD with h/o AL - Continue daily ASA FEN: Heart Healthy diet DVT: Lovenox Dispo: Continue admission to get MRI completed, if imaging normal will plan to d /c home tomorrow JUAN NORTH MED STUDENT Feb 28, 2017 18:14 RAH SULTANA MD Mar 01, 2017 13:38
[2017-02-28 19:15] VITALS: BP 130/80
[2017-02-28] MEDS ORDERED: NICOTINE POLACRILEX 2 MG (COMMIT) LOZ MM PRN (20:15)
[2017-03-01] VITALS: BP 127/85
[2017-03-01 04:00] VITALS: BP 97/57
[2017-03-01] MEDS: fentaNYL INJECTION 100 MCG/2 ML AMP IV PRN ×2 (04:46→10:42)
[2017-03-01 06:00] VITALS: BP 97/57
[2017-03-01 08:00] VITALS: BP 124/82
--- NOTE | 2017-03-01 12:04 | Discharge Summary ---
Diagnosis/Chief Complaint Date of Admission Feb 28, 2017 at 11:00 Date of Discharge 03/01/2017 Admission Diagnosis Admission Diagnosis Vision changes concerning for TIA Discharge Diagnosis See Above Chief Complaint/HPI Chief Complaint/HPI Desiree is a 46-year old female who was admitted to the floor after arriving to the ED this morning with suspected TIA. Patient was outside cutting wood this morning around 8am when she felt severe pain in her right eye that rated a 10/10, as well as experiencing temporary blindness in both eyes, right- sided facial droop and loss of balance. Patient took 2 Aspirin tablets soon thereafter and brought to the ED by her . Patient says her serum glucose was at 70 in the ED and her BP was elevated. Patient underwent a head CT scan and Dr. [place] identified a clot behind her right eye. Patient was to undergo a MRI this afternoon to determine whether the current clot is new or a residual from previous CVAs. Patient was put on blood thinner medication and was given both Fentanyl and Phenergan for pain. Patient states that neither pain medication seems to have had great effect in diminishing her pain. Patient says vision has returned to both eyes, although the vision in her right eye is "hazy and not in focus." Patient currently rates her right eye pain 7/10 and says it is especially painful with movement. Patient also c/o a "throbbing," generalized BOLAND. Patient explains that whenever she sits up from a supine position, it feels as though her right eyeball "wants to pop out." Patient mentions on ROS that she has been dealing with sinus infection for the past 2 months, as well as dysphagia for last 2 weeks that, at times, feels like a "choking pain." Patient states she is allergic to Hydrocodone. Patient's primary provider is Amanda España at [facility]. Discharge Summary-Simple/Stand Consultations Stroke Center was called in ED Discharge Physical Examination Allergies: Coded Allergies: carbamazepine (Verified Allergy, Unknown, 08/27/15) hydrocodone (Verified Allergy, Unknown, 11/16/08) Vitals & I&Os Vital Sign - Last 12Hours Date Time Temp Pulse Resp B/P (MAP) Pulse Ox O2 Delivery O2 Flow Rate FiO2 03/01/17 09:00 Room Air 03/01/17 08:00 98.1 79 22 124/82 97 General Appearance: Alert, Oriented X3, Cooperative, No Acute Distress HEENT: PERRLA Respiratory: Clear to Auscultation Cardiovascular: Regular Rate, No Murmurs Abdominal: Normal Bowel Sounds, Soft, No Tenderness Extremities: No Edema, No Tenderness/Swelling Skin: No Rashes Neuro: Normal Gait, Normal Speech, Strength at 5/5 X4 Ext, Sensation Intact, Cranial Nerves 3-12 NL, Other (Blurry vision improving, normal field of vision) Psych/Mental Status: Mental Status NL, Mood NL Hospital Course See final discharge diagnosis. Other pending tests Needs: Carotid Ultrasound and Referral Ophtho Discussion & Recommendations 46 yo F with h/o multiple TIAs that presented with vision changes and severe BOLAND. MRI head/Neck was normal except radiology was unable to tell if the carotid' s were stenosed or if they are tortuous and unable to follow. Patient needs followup Carotid Doppler. Vision changes have improved but she is still having some blurry vision, Recommend outpatient referral to Ophtho. Patient was d/c home and will be contacted for close follow up Discharge Condition at discharge stable Instructions to patient/family Please see electronic discharge instructions given to patient. Discharge Medications Reviewed and agree with Discharge Medication list on patient's Discharge Instruction sheet Clinical Quality Measures DVT/VTE Risk/Contraindication: Risk Factor Score Per Nursin RFS Level Per Nursing on Admit: 2=Moderate Stroke: Date of last known well: Feb 28, 2017 Copy Copies To 1: RICHMOND PAZ HOLLY R MD Mar 01, 2017 12:04
--- NOTE | 2017-03-01 12:09 | Discharge Instructions ---
Discharge Inst-[facility] Discharge Medications New, Converted or Re-Newed RX: Other (No new scripts) Continued Medications: Aspirin (Aspirin) 81 Mg Tab.chew 81 MG PO DAILY, #1 TAB Pseudoephedrine HCl (Sudafed 12 Hour) 120 Mg Tablet.er 120 MG PO PRN, #1 TAB Discontinued Medications: Guaifen/Phenyleph/Acetaminophn (Tylenol Sinus Severe Caplet) 1 Each Tablet 1 EACH PO PRN PRN for HEADACHE, #1 TAB Guaifenesin (Mucinex) 100 Mg Gran.pack 100 MG PO PRN, #1 EA Mesal/Menth/Camph/Siber[place] Fir (Vicks Vapoinhaler) 1 Each Inhaler 1 EACH NS PRN, #1 INHALER Patient Instructions Goal/Follow Up Appt: You will be called Thursday for a hospital follow up appt with you PCP Patient Instructions: - Make sure to stay well hydrated - You will be called to get your US scheduled Return to The Hospital For: - TIA symptoms - Intractable headache Activity & Diet Discharge Diet: No Restrictions Activity as Tolerated: Yes Copy Copies To 1: Tena MARIO HOLLY R MD Mar 01, 2017 12:09
[2017-03-01 14:15] VITALS: BP 124/82
== END 2017-03-01 13:00 | disposition home or self-care (01) | DRG 69 ==
LOC: EDUNIT# 09:44 → ER 09:45 → 4TH 11:00 → UNDOADMIN 11:00
PROVIDERS: ADMIT Family Medicine; ATTEND Family Medicine
DX: G45.9 Transient cerebral ischemic attack, unspecified (principal); R51 Headache; D68.61 Antiphospholipid syndrome; M32.9 Systemic lupus erythematosus, unspecified; I25.10 Atherosclerotic heart disease of native coronary artery without angina pectoris; R13.10 Dysphagia, unspecified; F17.210 Nicotine dependence, cigarettes, uncomplicated; I25.2 Old myocardial infarction
CPT/HCPCS: 36415; 70450; 70544; 70549; 70551; 71010; 80053; 81000; 82962; 84484; 85025; 85379; 85610; 85730; 93005; 93041; 96374; 96375; 96376

== ENCOUNTER 2017-03-23 13:39 | Emergency (ER) | payer MEDICARE ==
[~2017-03-23] VITALS: Ht 165.1 cm; Wt 83.9 kg
[~2017-03-23 13:39] MED LIST changes: +ASPI-999 PO; +AZIT250T12 PO; -AZIT250T5 PO; +GUAI-836 PO; +GUAI100G2 PO; +PSEU120T53 PO; +[UNRECOGNIZED DRUG - CODE] NS
--- OUTSIDE RECORDS SUMMARY | 2017-03-23 13:45 | XMS REPORT | Clinical Summary ---
Author Author [facility] Organization [facility] Address Unknown Phone Unavailable Care Team Providers Care Mold Checker Name Role Phone PCP Unavailable Source Comments Some departments are not documenting in the electronic medical record. If you do not see the information that you expected, contact Release of Information in the Health Information Management department at [phone] for further assistance in locating additional records.[facility] Allergies Not on File Current Medications Not [...]
[2017-03-23 13:51] LABS: BASOPHILS # (AUTO) 0.1 10^3/uL (0.0-0.1); BASOPHILS % (AUTO) 1 % (0-10); EOSINOPHILS # (AUTO) 0.2 10^3/uL (0.0-0.3); EOSINOPHILS % (AUTO) 2 % (0-10); LYMPHOCYTES # (AUTO) 3.1 X 10^3 (1.0-4.0); LYMPHOCYTES % (AUTO) 29 % (12-44); MEAN CORPUSCULAR HEMOGLOBIN 31 PG (25-34); MEAN CORPUSCULAR HGB CONC 34 G/DL (32-36); MEAN CORPUSCULAR VOLUME 90 FL (80-99); MEAN PLATELET VOLUME 9.7 FL (7.4-10.4); MONOCYTES # (AUTO) 0.7 X 10^3 (0.0-1.0); MONOCYTES % (AUTO) 6 % (0-12); NEUTROPHILS # (AUTO) 6.6 X 10^3 (1.8-7.8); NEUTROPHILS % (AUTO) 62 % (42-75); PLATELET COUNT 306 10^3/uL (130-400); RED BLOOD COUNT 5.14 10^6/uL (4.35-5.85); RED CELL DISTRIBUTION WIDTH 14.9 % (10.0-14.5); WHITE BLOOD COUNT 10.5 10^3/uL (4.3-11.0)
--- OUTSIDE RECORDS SUMMARY | 2017-03-23 13:52 | XMS REPORT ---
Author Author JUAN CARLOS STEVENSON Organization [facility] Address [address] [place] [address] Care Team Providers Care Real Estate Sales Associate Name Role Phone PATRICE STEVENSONE Unavailable PROBLEMS Type Condition ICD9-CM Code [id number] Code Onset Dates Condition Status SNOMED Code Problem Somatic complaints, multiple R68.89 Active 211573352 Problem Chronic obstructive pulmonary disease, unspecified COPD type J44.9 Active 78606659 Problem Secondary hypertension I15.9 Active 02802797 Problem Personality disorder F60.9 Active 91508219 Problem Post traumatic stress disorder F43.10 Active 81361896 Problem Major depressive disorder, recurrent, moderate F33.1 Active 399699258 Problem Attention deficit disorder F90.0 Active 052262862 ALLERGIES Substance Reaction Event Type Date Status Tegretol seizure Drug Allergy Jul, Active Hydrocodone-Acetaminophen hives Drug Allergy Jul, Active SOCIAL HISTORY Never Assessed PLAN OF CARE Activity Details Follow Up 2 Weeks, Reason:dr. velez VITAL SIGNS Height 67 in 2016-07-24 Weight 208 lbs 2016-07-24 Temperature 98.6 degrees Fahrenheit 2016-07-24 Heart Rate 82 bpm 2016-07-24 Respiratory Rate 18 2016-07-24 BMI 32.57 kg/m2 2016-07-24 Blood pressure systolic 130 mmHg 2016-07-24 Blood pressure diastolic 80 mmHg 2016-07-24 MEDICATIONS Medication Instructions Dosage Frequency Start Date End Date Duration Status Zyrtec Allergy 10 mg Orally Once a day 1 tablet 24h Active Advil Active Ibuprofen Active Tramadol HCl 50 MG Orally every 6 hrs 1 tablet as needed 6h Jul, Active Proventil HFA 108 (90 Base) MCG/ACT Inhalation every 4 hrs 2 puffs as needed 4h Feb, Active Wellbutrin XL 300 MG Orally Once a day TAKE ONE TABLET BY MOUTH ONCE DAILY IN THE MORNING 24h 30 Active Lisinopril 10 mg Orally Once a day TAKE ONE TABLET BY MOUTH ONCE DAILY 24h 30 Active Albuterol Sulfate (2.5 MG/3ML) 0.083% Inhalation 4 times a day 3 ml 6h Jul, Active PredniSONE 20 MG Orally Twice a day 1 tablet 12h Jul, Jul, 7 days Active Diclofenac Sodium 75 MG TAKE ONE TABLET BY MOUTH TWICE DAILY 30 Active RESULTS Name Result Date Reference Range MRI : Knee, Right w/o contrast 2016-07-26 PROCEDURES Procedure Date Ordered Result Body Site [facility] VISIT ESTABLISHED PATIENT July 24, 2016 IMMUNIZATIONS No Known Immunizations MEDICAL (GENERAL) HISTORY Type Description Date Medical History migraines Medical History anxiety Medical History lupus Medical History raynauds Medical History fibromyalgia Medical History Ptsd, ADD, ADHD Surgical History appendectomy Surgical History hysterectomy Surgical History cholecystectomy Surgical History perforated colon Surgical History colonscopy every 2 years since 1993 last one 2011 in [place] Surgical History vaginal septum Hospitalization History fibromyalsia [facility] Hospitalization History lupus/reynauds Hospitalization History pleurisy Hospitalization History Depression, ptsd, anxiety, add, adhd
--- NOTE | 2017-03-23 13:56 | ED Neurological Problem ---
General Chief Complaint: Neurological Problems Stated Complaint: RIGHT SIDE WEAKNESS Nursing Triage Note: ARRIVED VIA WC TO ROOM 08. 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 Nursing Sepsis Screen: No Definite Risk Source: patient, other (son) Exam Limitations: no limitations History of Present Illness Time seen by provider: 13:39 Initial Comments 46-year-old female patient presents to the emergency department with complaints of right arm and right leg numbness/weakness. Symptom onset at 1130 today. Approximately 20 minutes prior to arrival patient noticed right facial drooping and difficulty with speech. Allergies and Home Medications Allergies Coded Allergies: carbamazepine (Verified Allergy, Unknown, 08/27/15) hydrocodone (Verified Allergy, Unknown, 11/16/08) Home Medications Aspirin 81 Mg Tab.chew, 81 MG PO DAILY, #1 Prescribed by: ADALBERTO DIOR on 02/28/17 1451 Pseudoephedrine HCl 120 Mg Tablet.er, 120 MG PO PRN, #1 Prescribed by: ADALBERTO DIOR on 02/28/17 1448 Past Ysjueer-Sjyflx-Vefubu Hx Patient Social History Type Used: Cigarettes Recent Foreign Travel: No Contact w/Someone Who Travel: No Recent Infectious Disease Expo: No Immunizations Up To Date Tetanus Booster (TDap): Less than 5yrs Date of Pneumonia Vaccine: Feb 02, 2012 Seasonal Allergies Seasonal Allergies: Yes Surgeries History of Surgeries: Yes (COLON RESECTION, VAGINAL SEPTUM, ) Surgeries: Appendectomy, Gallbladder, Hysterectomy Respiratory History of Respiratory Disorde: Yes (Tobaccoism) Respiratory Disorders: Asthma Currently Using CPAP: No Currently Using BIPAP: No Cardiovascular History of Cardiac Disorders: Yes (Raynaud's syndrome) Cardiac Disorders: Heart Attack, Hypertension, Palpitations Neurological History of Neurological Disord: Yes (HX STROKE) Neurological Disorders: Stroke Reproductive System Hx 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: No Sexually Transmitted Disease: No 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/AIDS: 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 Genitourinary History of Genitourinary Disor: Yes (STRESS INCONT) Gastrointestinal History of Gastrointestinal Di: Yes (History of perforated colon s/p partial resection) Gastrointestinal Disorders: Diverticulosis, Polyps, Irritable Bowel Musculoskeletal History of Musculoskeletal Dis: Yes Musculoskeletal Disorders: Fibromyalgia Endocrine History of Endocrine Disorders: Yes Endocrine Disorders: Lupus HEENT History of HEENT Disorders: No Cancer History of Cancer: No Psychosocial History of Psychiatric Problem: Yes Behavioral Health Disorders: Depression Blood Transfusions History of Blood Disorders: Yes (ANTIPHOSLIPID PER PATIENT) Family Medical History Significant Family History: Heart Disease, Cancer Family Medial History: Asthma SON PATIENT IS ADOPTED Physical Exam Vital Signs Vital Sign - Last 12Hours 03/23/17 13:39 Temp 98.0 Pulse 104 Resp 18 B/P (MAP) 143/101 Pulse Ox 98 O2 Delivery Room Air Capillary Refill : Less Than 3 Seconds Stroke NIH Stroke Scale Assessment Gaze: Normal (0), Total: Stroke Thrombolytic Exclusion Age 18 or Over: Yes Acute intenal hemorrhage: No History of CVA: Yes Uncontrolled Coagulation Defec: No Intracranial Hemorrhage: No Severe Hypertension: No GI or Bleed: No Subarachnoid Hemorrhage: No Intracranial Neoplasm/Aneurysm: No Oral Anticoagulants: No Surgery or Trauma: No Puncture of Non-Compressible V: No Recent CPR: No Diabetic Hemorrhagic Retinopat: No Organ Biopsy: No Recent Obstetric Delivery: No Glucose: Yes Significant Hepatic Dysfunctio: No NIH Stoke Scale >22: No Bacterial Endocarditis: No Pericarditis: No Platelets: No Progress/Results/Core Measures Results/Orders Lab Results Laboratory Tests Test 03/23/17 13:45 03/23/17 14:00 03/23/17 14:40 Range/Units White Blood Count 10.5 4.3-11.0 10^3/uL Red Blood Count 5.14 4.35-5.85 10^6/uL Hemoglobin 15.9 11.5-16.0 G/DL Hematocrit 46 35-52 % Mean Corpuscular Volume 90 80-99 FL Mean Corpuscular Hemoglobin 31 25-34 PG Mean Corpuscular Hemoglobin Concent 34 32-36 G/DL Red Cell Distribution Width 14.9 H 10.0-14.5 % Platelet Count 306 130-400 10^3/uL Mean Platelet Volume 9.7 7.4-10.4 FL Neutrophils (%) (Auto) 62 42-75 % Lymphocytes (%) (Auto) 29 12-44 % Monocytes (%) (Auto) 6 0-12 % Eosinophils (%) (Auto) 2 0-10 % Basophils (%) (Auto) 1 0-10 % Neutrophils # (Auto) 6.6 1.8-7.8 X 10^3 Lymphocytes # (Auto) 3.1 1.0-4.0 X 10^3 Monocytes # (Auto) 0.7 0.0-1.0 X 10^3 Eosinophils # (Auto) 0.2 0.0-0.3 10^3/uL Basophils # (Auto) 0.1 0.0-0.1 10^3/uL Prothrombin Time 13.0 12.2-14.7 SEC INR Comment 1.0 0.8-1.4 Activated Partial Thromboplast Time 28 24-35 SEC D-Dimer 0.36 0.00-0.49 UG/ML Sodium Level 138 135-145 MMOL/L Potassium Level 3.6 3.6-5.0 MMOL/L Chloride Level 105 98-107 MMOL/L Carbon Dioxide Level 23 21-32 MMOL/L Anion Gap 10 5-14 MMOL/L Blood Urea Nitrogen 13 7-18 MG/DL Creatinine 0.73 0.60-1.30 MG/DL Estimat Glomerular Filtration Rate > 60 BUN/Creatinine Ratio 18 Glucose Level 113 H 70-105 MG/DL Calcium Level 9.0 8.5-10.1 MG/DL Total Bilirubin 0.5 0.1-1.0 MG/DL Aspartate Amino Transf (AST/SGOT) 24 5-34 U/L Alanine Aminotransferase (ALT/SGPT) 30 0-55 U/L Alkaline Phosphatase 75 40-136 U/L Troponin I < 0.30 <0.30 NG/ML Total Protein 7.3 6.4-8.2 GM/DL Albumin 4.1 3.2-4.5 GM/DL Glucometer 126 H 70-110 MG/DL Urine Color YELLOW Urine Clarity CLEAR Urine pH 6 5-9 Urine Specific [place] 1.020 1.016-1.022 Urine Protein NEGATIVE NEGATIVE Urine Glucose (UA) NEGATIVE NEGATIVE Urine Ketones NEGATIVE NEGATIVE Urine Nitrite NEGATIVE NEGATIVE Urine Bilirubin NEGATIVE NEGATIVE Urine Urobilinogen 1 NORMAL MG/DL Urine Leukocyte Esterase 1+ H NEGATIVE Urine RBC (Auto) 1+ H NEGATIVE Urine RBC RARE /HPF Urine WBC NONE /HPF Urine Squamous Epithelial Cells 5-10 /HPF Urine Crystals NONE /LPF Urine Bacteria NEGATIVE /HPF Urine Casts NONE /LPF Urine Mucus NEGATIVE /LPF Urine Culture Indicated NO My Orders Orders - ZANE SAMAYOA Cbc With Automated Diff (03/23/17 13:46) Protime With Inr (03/23/17 13:46) Partial Thromboplastin Time (03/23/17 13:46) Comprehensive Metabolic Panel (03/23/17 13:46) Fibrin Degradation Products (03/23/17 13:46) Troponin I (03/23/17 13:46) Ua Culture If Indicated (03/23/17 13:46) Chest 1 View, Ap/Pa Only (03/23/17 13:46) Ekg Tracing (03/23/17 13:46) Nothing By Mouth (03/23/17 Dinner) Accucheck Stat ONCE (03/23/17 13:46) Saline Lock/Iv-Start (03/23/17 13:46) Saline Lock/Iv-Start (03/23/17 13:46) Vital Signs - Stroke Q15M (03/23/17 13:46) Ct Head Wo-R/O Stroke (03/23/17 13:46) O2 (03/23/17 13:46) Intake & Output 06,14,22 (03/23/17 13:46) Monitor-Rhythm Ecg Trace Only (03/23/17 13:46) Dysphagia Screening Tool (03/23/17 13:46) Fentanyl Injection (Sublimaze Injection (03/23/17 14:31) Mri Brain W/O Contrast (03/23/17 14:58) Lorazepam Injection (Ativan Injection) (03/23/17 15:15) Labetalol Injection (Normodyne Injection (03/23/17 15:15) Medications Given in ED Current Medications Medications Dose Ordered Sig/Jatinder Route Start Time Stop Time Status Last Admin Dose Admin Lorazepam 1 mg ONCE ONCE IVP 03/23/17 15:15 03/23/17 15:16 DC 03/23/17 15:20 1 MG Vital Signs/I&O Vital Sign - Last 12Hours 03/23/17 13:39 Temp 98.0 Pulse 104 Resp 18 B/P (MAP) 143/101 Pulse Ox 98 O2 Delivery Room Air Blood Pressure Mean: 115 Departure Impression Impression: Primary Impression: TIA (transient ischemic attack) Additional Impressions: Arm pain, right Stress reaction H/O systemic lupus erythematosus (SLE) Disposition: 01 HOME, SELF-CARE Condition: Improved Departure-Patient Inst. Decision time for Depature: 17:08 Referrals: OLAMIDE BLANKENSHIP DO (PCP/Family) Primary Care Physician Patient Instructions: Cervical Muscle Strain (DC), Stress, Transient Ischemic Attack (DC) Add. Discharge Instructions: All discharge instructions reviewed with patient and/or family. Voiced understanding. Continue usual home medications. Follow-up with [facility] tomorrow for recheck, call first thing in the morning for appointment time. Return to the emergency department immediately for worsened numbness, weakness, changes in behavior, changes in vision, changes in speech, facial drooping, one-sided weakness, fever, shortness of air, chest pain, vomiting, headache, or any other concerns. Scripts Hydroxyzine Pamoate (Vistaril) 25 Mg Capsule 25 MG PO Q6H Y for ANXIETY, #14 CAP 0 Refills Prov: ZANE SAMAYOA 03/23/17 Work/School Note: Work Release Form Date Seen in the Emergency Department: Mar 23, 2017 Return to Work: Mar 23, 2017 Other Restrictions Listed Below: Please excuse patient's son due to patient's illness. Thank you ZANE SAMAYOA Mar 23, 2017 13:56
--- NOTE | 2017-03-23 14:02 | Diagnostic Imaging Report ---
EXAMINATION: Portable upright radiograph of the chest. INDICATION: Right-sided weakness. FINDINGS: The lungs are clear. The heart size is normal. No effusion or pneumothorax. The mediastinum and je appear unremarkable. IMPRESSION: Unremarkable exam. Dictated by: Dictated on workstation # [id number]
--- NOTE | 2017-03-23 14:04 | Diagnostic Imaging Report ---
INDICATION: Right-sided weakness and left eye pain. Possible stroke. COMPARISON: 02/28/2017. FINDINGS: No acute intracranial hemorrhage, mass effect, or edema is seen. The castillo/white junction is preserved. The ventricles appear normal. No focal abnormality is demonstrated. The paranasal sinuses and mastoids are clear as visualized. IMPRESSION: No evidence of an acute intracranial abnormality. The findings were phoned to the [facility] Emergency Room at the time of dictation by Dr. Nithya Nelson. Dictated by: Dictated on workstation # [id number]
[2017-03-23 14:10] LABS: ALANINE AMINOTRANSFERASE 30 U/L (0-55); ALBUMIN 4.1 GM/DL (3.2-4.5); ANION GAP 10 MMOL/L (5-14); ASPARTATE AMINO TRANSFERASE 24 U/L (5-34); BILIRUBIN,TOTAL 0.5 MG/DL (0.1-1.0); BLOOD UREA NITROGEN 13 MG/DL (7-18); BUN/CREATININE RATIO 18; CARBON DIOXIDE 23 MMOL/L (21-32); CHLORIDE 105 MMOL/L (98-107); CREATININE SERUM 0.73 MG/DL (0.60-1.30); GFR ESTIMATED > 60; GLUCOSE 113 MG/DL (70-105); POTASSIUM 3.6 MMOL/L (3.6-5.0); SODIUM 138 MMOL/L (135-145); TOTAL PROTEIN 7.3 GM/DL (6.4-8.2)
[2017-03-23 14:18] LABS: TROPONIN I < 0.30 NG/ML (<0.30)
[2017-03-23] MEDS ORDERED: fentaNYL INJECTION 100 MCG/2 ML AMP IVP STA (14:31)
[2017-03-23 14:57] LABS: BILIRUBIN,URINE NEGATIVE (NEGATIVE); KETONES,URINE NEGATIVE (NEGATIVE); LEUKOCYTE ESTERASE ,URINE 1+ (NEGATIVE); NITRITE,URINE NEGATIVE (NEGATIVE); PH,URINE 6 (5-9); PROTEIN,URINE NEGATIVE (NEGATIVE); UROBILINOGEN,URINE 1 MG/DL (NORMAL)
[2017-03-23] MEDS ORDERED: LABETALOL HCL 20 MG/4 ML VIAL IV ONE (15:15)
[2017-03-23] MEDS ORDERED: LORazepam INJ 2 MG/ML (ATIVAN) VIAL IVP ONE (15:15)
--- NOTE | 2017-03-23 16:22 | Diagnostic Imaging Report ---
Exam: MRI of the brain without contrast Technique: Multiplanar multisequence MRI of the brain performed without intravenous contrast. Indication: Right-sided weakness. Right-sided facial droop. Slurred speech. FINDINGS: There is no diffusion restriction to suggest an acute infarct or other diffusion abnormality. The castillo-white matter differentiation is preserved with normal signal seen. No demyelinating lesion or brain edema is seen. There is no hydrocephalus. No extra-axial fluid collection seen. The pituitary gland is normal in size. No hypothalamic or pineal region mass. The central vascular flow-voids appear grossly unremarkable. The internal auditory canals and inner ear structures appear unremarkable. The orbits and paranasal sinuses appear symmetric. IMPRESSION: Unremarkable exam. Dictated by: Dictated on workstation # [id number]
[2017-03-23] MEDS ORDERED: HYDR25CA PO (17:09)
[2017-03-23] MEDS ORDERED: ALPR0.25 PO (17:22)
[2017-03-23 17:25] VITALS: BP 131/74
== END 2017-03-23 17:25 | disposition home or self-care (01) ==
LOC: EDUNIT# 13:39 → ER 13:41
DX: G45.9 Transient cerebral ischemic attack, unspecified (principal); F43.9 Reaction to severe stress, unspecified; M79.601 Pain in right arm; K58.9 Irritable bowel syndrome, unspecified; I25.2 Old myocardial infarction; I10 Essential (primary) hypertension; J45.909 Unspecified asthma, uncomplicated; Z90.710 Acquired absence of both cervix and uterus; Z86.73 Personal history of transient ischemic attack (TIA), and cerebral infarction without residual deficits; Z86.19 Personal history of other infectious and parasitic diseases; Z80.9 Family history of malignant neoplasm, unspecified; Z82.49 Family history of ischemic heart disease and other diseases of the circulatory system
CPT/HCPCS: 36415; 70450; 70551; 71010; 80053; 81000; 82962; 84484; 85025; 85379; 85610; 85730; 93005; 93041; 96374; 96375

== ENCOUNTER → 2017-04-02 | Outpatient (CLI) | payer MEDICARE ==
[~2017-04-02] MED LIST changes: +HYDR25CA PO
[2017-04-02 08:24] LABS: ALANINE AMINOTRANSFERASE 18 U/L (0-55); ALBUMIN 4.2 GM/DL (3.2-4.5); ANION GAP 9 MMOL/L (5-14); ASPARTATE AMINO TRANSFERASE 12 U/L (5-34); BILIRUBIN,TOTAL 0.6 MG/DL (0.1-1.0); BLOOD UREA NITROGEN 12 MG/DL (7-18); BUN/CREATININE RATIO 18; CALCIUM 9.2 MG/DL (8.5-10.1); CARBON DIOXIDE 25 MMOL/L (21-32); CHLORIDE 104 MMOL/L (98-107); CHOLESTEROL 216 MG/DL (< 200); CREATININE SERUM 0.68 MG/DL (0.60-1.30); DIRECT LDL 164 MG/DL (1-129); GFR ESTIMATED > 60; GLUCOSE 98 MG/DL (70-105); POTASSIUM 3.9 MMOL/L (3.6-5.0); SODIUM 138 MMOL/L (135-145); TOTAL PROTEIN 7.3 GM/DL (6.4-8.2); TRIGLYCERIDES 96 MG/DL (<150); VLDL CHOLESTEROL 19 MG/DL (5-40); hs C REACTIVE PROTEIN 1.36 MG/DL (0.00-0.50)
[2017-04-02 08:43] LABS: THYROID STIMULATING HORMONE 1.74 UIU/ML (0.35-4.94)
== END ==
LOC: LAB 07:45
PROVIDERS: ATTEND Family Medicine
DX: M32.9 Systemic lupus erythematosus, unspecified (principal); I25.10 Atherosclerotic heart disease of native coronary artery without angina pectoris; G45.9 Transient cerebral ischemic attack, unspecified
CPT/HCPCS: 36415; 80053; 80061; 84443; 85652; 86038; 86141

== ENCOUNTER 2017-04-06 11:30 | Emergency (ER) | payer MEDICARE ==
[~2017-04-06] VITALS: Ht 165.1 cm; Wt 83.9 kg
[2017-04-06 11:30] VITALS: BP 163/98
[2017-04-06] MEDS ORDERED: NITROGLYCERIN 0.4 MG SL TABS BTL 25'S SL PRN (11:45)
[2017-04-06] MEDS ORDERED: ASPIRIN 81 MG CHEW (CHILDREN'S ASA) PO ONE (11:45)
[2017-04-06 11:57] LABS: BASOPHILS # (AUTO) 0.1 10^3/uL (0.0-0.1); BASOPHILS % (AUTO) 1 % (0-10); EOSINOPHILS # (AUTO) 0.4 10^3/uL (0.0-0.3); EOSINOPHILS % (AUTO) 3 % (0-10); LYMPHOCYTES # (AUTO) 3.3 X 10^3 (1.0-4.0); LYMPHOCYTES % (AUTO) 29 % (12-44); MEAN CORPUSCULAR HEMOGLOBIN 30 PG (25-34); MEAN CORPUSCULAR HGB CONC 34 G/DL (32-36); MEAN CORPUSCULAR VOLUME 90 FL (80-99); MONOCYTES # (AUTO) 0.8 X 10^3 (0.0-1.0); MONOCYTES % (AUTO) 7 % (0-12); NEUTROPHILS # (AUTO) 6.9 X 10^3 (1.8-7.8); NEUTROPHILS % (AUTO) 60 % (42-75); PLATELET COUNT 290 10^3/uL (130-400); RED BLOOD COUNT 5.31 10^6/uL (4.35-5.85); RED CELL DISTRIBUTION WIDTH 14.7 % (10.0-14.5); WHITE BLOOD COUNT 11.5 10^3/uL (4.3-11.0)
[2017-04-06 12:04] LABS: PROTHROMBIN TIME PATIENT 12.9 SEC (12.2-14.7)
[2017-04-06] MEDS ORDERED: NS IV 1000 ML 1,000 ML IV ONE ×2 (12:04→14:17)
[2017-04-06] MEDS ORDERED: DIAZEPAM INJ 10 MG/2 ML (VALIUM) SYR IV STA (12:04)
[2017-04-06 12:08] LABS: MAGNESIUM 2.2 MG/DL (1.8-2.4)
--- NOTE | 2017-04-06 12:15 | Diagnostic Imaging Report ---
EXAM: CT head. TECHNIQUE: Noncontrast axial images of the brain were obtained. INDICATION: Tingling in the upper spine and head. FINDINGS: There is no intracranial hemorrhage, edema or mass effect. The brain parenchyma appears unremarkable. No hydrocephalus. The visualized portions of the orbits and paranasal sinuses appear unremarkable. IMPRESSION: Unremarkable study. Dictated by: Dictated on workstation # [id number]
[2017-04-06 12:17] LABS: ALANINE AMINOTRANSFERASE 15 U/L (0-55); ALBUMIN 4.4 GM/DL (3.2-4.5); ANION GAP 11 MMOL/L (5-14); ASPARTATE AMINO TRANSFERASE 16 U/L (5-34); BILIRUBIN,TOTAL 0.4 MG/DL (0.1-1.0); BLOOD UREA NITROGEN 12 MG/DL (7-18); BUN/CREATININE RATIO 16; CALCIUM 9.3 MG/DL (8.5-10.1); CARBON DIOXIDE 22 MMOL/L (21-32); CHLORIDE 105 MMOL/L (98-107); CREATININE SERUM 0.76 MG/DL (0.60-1.30); GFR ESTIMATED > 60; GLUCOSE 95 MG/DL (70-105); POTASSIUM 4.1 MMOL/L (3.6-5.0); SODIUM 138 MMOL/L (135-145); TOTAL PROTEIN 8.4 GM/DL (6.4-8.2)
[2017-04-06 12:23] LABS: MYOGLOBIN SERUM 23.3 NG/ML (10.0-92.0)
--- NOTE | 2017-04-06 12:34 | Diagnostic Imaging Report ---
Portable upright radiograph of the chest. Indication tingling. Findings: The lungs are clear. The heart size is normal. There is no effusion or pneumothorax The mediastinum and je appear unremarkable. Impression: Unremarkable study. Dictated by: Dictated on workstation # [id number]
[2017-04-06] MEDS ORDERED: KETOROLAC 30 MG/ML VIAL IVP STA (14:48)
[2017-04-06 15:10] LABS: BILIRUBIN,URINE NEGATIVE (NEGATIVE); KETONES,URINE NEGATIVE (NEGATIVE); LEUKOCYTE ESTERASE ,URINE NEGATIVE (NEGATIVE); NITRITE,URINE NEGATIVE (NEGATIVE); PH,URINE 6 (5-9); PROTEIN,URINE NEGATIVE (NEGATIVE); UROBILINOGEN,URINE NORMAL (NORMAL)
[2017-04-06] MEDS ORDERED: GABA100C PO (15:52)
--- NOTE | 2017-04-06 15:53 | ED Neurological Problem ---
General Chief Complaint: Neuro-Stroke Like Symptoms Stated Complaint: STROKE SYMPTOMS Nursing Triage Note: pt reports r arm dropping, and speech is forced. pt appears anxious at this time and breathing is rapid. 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 Nursing Sepsis Screen: No Definite Risk Allergies and Home Medications Allergies Coded Allergies: carbamazepine (Verified Allergy, Unknown, 08/27/15) hydrocodone (Verified Allergy, Unknown, 11/16/08) Home Medications Alprazolam 0.25 Mg Tablet, 0.25 MG PO Q6H PRN for ANXIETY, #10 Ref 0 Prescribed by: ZANE SAMAYOA on 03/23/17 1722 Aspirin 81 Mg Tab.chew, 81 MG PO DAILY, #1 Prescribed by: ADALBERTO DIOR on 02/28/17 1451 Hydroxyzine Pamoate 25 Mg Capsule, 25 MG PO Q6H PRN for ANXIETY, #14 Ref 0 Prescribed by: ZANE SAMAYOA on 03/23/17 1709 Pseudoephedrine HCl 120 Mg Tablet.er, 120 MG PO PRN, #1 Prescribed by: ADALBERTO DIOR on 02/28/17 1448 Past Frlhxzj-Yhbwkr-Bnvuuf Hx Patient Social History Alcohol Use: Denies Use Recreational Drug Use: No Smoking Status: Current Everyday Smoker Type Used: Cigarettes Recent Foreign Travel: No Contact w/Someone Who Travel: No Recent Infectious Disease Expo: No Physical Abuse: No Sexual Abuse: No Mistreated: No Fear: No Immunizations Up To Date Tetanus Booster (TDap): Unknown Date of Pneumonia Vaccine: Feb 02, 2012 Seasonal Allergies Seasonal Allergies: Yes Surgeries History of Surgeries: Yes (COLON RESECTION, VAGINAL SEPTUM, ) Surgeries: Appendectomy, Gallbladder, Hysterectomy Respiratory History of Respiratory Disorde: Yes (Tobaccoism) Respiratory Disorders: Asthma Currently Using CPAP: No Currently Using BIPAP: No Cardiovascular History of Cardiac Disorders: Yes (Raynaud's syndrome) Cardiac Disorders: Heart Attack, Hypertension, Palpitations Neurological History of Neurological Disord: Yes (HX STROKE) Neurological Disorders: Stroke Reproductive System : No Hx 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: No Sexually Transmitted Disease: No HIV/AIDS: No 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 Genitourinary History of Genitourinary Disor: Yes (STRESS INCONT) Gastrointestinal History of Gastrointestinal Di: Yes (History of perforated colon s/p partial resection) Gastrointestinal Disorders: Diverticulosis, Polyps, Irritable Bowel Musculoskeletal History of Musculoskeletal Dis: Yes Musculoskeletal Disorders: Fibromyalgia Endocrine History of Endocrine Disorders: Yes Endocrine Disorders: Lupus HEENT History of HEENT Disorders: No Cancer History of Cancer: No Psychosocial History of Psychiatric Problem: Yes Behavioral Health Disorders: Depression Suicide Risk Score: 0 Blood Transfusions History of Blood Disorders: Yes (ANTIPHOSLIPID PER PATIENT) Family Medical History Significant Family History: Heart Disease, Cancer Family Medial History: Asthma SON PATIENT IS ADOPTED Physical Exam Vital Signs Vital Sign - Last 12Hours Capillary Refill : Less Than 3 Seconds Stroke Onset of Symptoms Date of Onset of Symptoms: Apr 06, 2017 NIH Stroke Scale Assessment Level of Consciousness: 0=Alert (0), Level of Consciousness-Questions: 0= Answers both month/age (0), LOC Commands: 0=Performs both tasks (0), Gaze: Normal (0), Visual [place]ila: 0=No visual loss (0), Facial Movement (Facial Paresis ): 0=Normal symmetrical mnt (0), Motor Function-Arms Right: 0=No drift (0), Motor Function-Arms Left: 0=No drift (0), Motor Function-Legs Right: 0=No drift (0), Motor Function-Legs Left: 0=No drift (0), Limb Ataxia: 0=Absent (0), Sensory: 0=Normal:no loss (0), Best Language: 1=Mild to moderat aphasia (1), Dysarthria: 0=Normal (0), Extinction & Inattention: 0=No abnormality (0), Total : Stroke Thrombolytic Exclusion Age 18 or Over: Yes Acute intenal hemorrhage: No History of CVA: Yes Uncontrolled Coagulation Defec: No Intracranial Hemorrhage: No Severe Hypertension: No GI or Bleed: No Subarachnoid Hemorrhage: No Intracranial Neoplasm/Aneurysm: No Oral Anticoagulants: No Surgery or Trauma: No Puncture of Non-Compressible V: No Recent CPR: No Diabetic Hemorrhagic Retinopat: No Organ Biopsy: No Recent Obstetric Delivery: No Glucose: Yes Significant Hepatic Dysfunctio: No NIH Stoke Scale >22: No Bacterial Endocarditis: No Pericarditis: No Improving Symptoms: Yes Platelets: No Progress/Results/Core Measures Results/Orders Lab Results Laboratory Tests Test 04/06/17 11:35 04/06/17 11:43 04/06/17 15:00 Range/Units White Blood Count 11.5 H 4.3-11.0 10^3/uL Red Blood Count 5.31 4.35-5.85 10^6/uL Hemoglobin 16.1 H 11.5-16.0 G/DL Hematocrit 48 35-52 % Mean Corpuscular Volume 90 80-99 FL Mean Corpuscular Hemoglobin 30 25-34 PG Mean Corpuscular Hemoglobin Concent 34 32-36 G/DL Red Cell Distribution Width 14.7 H 10.0-14.5 % Platelet Count 290 130-400 10^3/uL Mean Platelet Volume 10.0 7.4-10.4 FL Neutrophils (%) (Auto) 60 42-75 % Lymphocytes (%) (Auto) 29 12-44 % Monocytes (%) (Auto) 7 0-12 % Eosinophils (%) (Auto) 3 0-10 % Basophils (%) (Auto) 1 0-10 % Neutrophils # (Auto) 6.9 1.8-7.8 X 10^3 Lymphocytes # (Auto) 3.3 1.0-4.0 X 10^3 Monocytes # (Auto) 0.8 0.0-1.0 X 10^3 Eosinophils # (Auto) 0.4 H 0.0-0.3 10^3/uL Basophils # (Auto) 0.1 0.0-0.1 10^3/uL Prothrombin Time 12.9 12.2-14.7 SEC INR Comment 1.0 0.8-1.4 Activated Partial Thromboplast Time 30 24-35 SEC D-Dimer 0.38 0.00-0.49 UG/ML Sodium Level 138 135-145 MMOL/L Potassium Level 4.1 3.6-5.0 MMOL/L Chloride Level 105 98-107 MMOL/L Carbon Dioxide Level 22 21-32 MMOL/L Anion Gap 11 5-14 MMOL/L Blood Urea Nitrogen 12 7-18 MG/DL Creatinine 0.76 0.60-1.30 MG/DL Estimat Glomerular Filtration Rate > 60 BUN/Creatinine Ratio 16 Glucose Level 95 70-105 MG/DL Calcium Level 9.3 8.5-10.1 MG/DL Magnesium Level 2.2 1.8-2.4 MG/DL Total Bilirubin 0.4 0.1-1.0 MG/DL Aspartate Amino Transf (AST/SGOT) 16 5-34 U/L Alanine Aminotransferase (ALT/SGPT) 15 0-55 U/L Alkaline Phosphatase 87 40-136 U/L Myoglobin 23.3 10.0-92.0 NG/ML Troponin I < 0.30 <0.30 NG/ML Total Protein 8.4 H 6.4-8.2 GM/DL Albumin 4.4 3.2-4.5 GM/DL Glucometer 101 70-110 MG/DL Urine Color YELLOW Urine Clarity CLEAR Urine pH 6 5-9 Urine Specific [place] 1.020 1.016-1.022 Urine Protein NEGATIVE NEGATIVE Urine Glucose (UA) NEGATIVE NEGATIVE Urine Ketones NEGATIVE NEGATIVE Urine Nitrite NEGATIVE NEGATIVE Urine Bilirubin NEGATIVE NEGATIVE Urine Urobilinogen NORMAL NORMAL MG/DL Urine Leukocyte Esterase NEGATIVE NEGATIVE Urine RBC (Auto) 2+ H NEGATIVE Urine RBC NONE /HPF Urine WBC NONE /HPF Urine Squamous Epithelial Cells 5-10 /HPF Urine Crystals NONE /LPF Urine Bacteria 2+ /HPF Urine Casts NONE /LPF Urine Mucus NEGATIVE /LPF Urine Culture Indicated NO My Orders Orders - ZANE SAMAYOA Ns Iv 1000 Ml (Sodium Chloride 0.9%) (04/06/17 12:04) Diazepam Injection (Valium Injection) (04/06/17 12:04) Ns Iv 1000 Ml (Sodium Chloride 0.9%) (04/06/17 14:17) Ketorolac Injection (Toradol Injection) (04/06/17 14:48) Medications Given in ED Current Medications Medications Dose Ordered Sig/Jatinder Route Start Time Stop Time Status Last Admin Dose Admin Aspirin 324 mg ONCE ONCE PO 04/06/17 11:45 04/06/17 11:46 DC 04/06/17 12:05 324 MG Sodium Chloride 1,000 ml @ 0 mls/hr Q0M ONCE IV 04/06/17 12:04 04/06/17 12:06 DC 04/06/17 12:12 0 MLS/HR Sodium Chloride 1,000 ml @ 0 mls/hr Q0M ONCE IV 04/06/17 14:17 04/06/17 14:18 DC 04/06/17 14:59 0 MLS/HR Vital Signs/I&O Vital Sign - Last 12Hours 04/06/17 04/06/17 11:30 11:30 Temp 98.0 Pulse 102 102 Resp 27 27 B/P (MAP) 163/98 (119) 163/98 Pulse Ox 100 100 Blood Pressure Mean: 119 Point of Care Testing Finger Stick Blood Glucose: 101 Departure Communication (Admissions) Progress Notes 1537 D/W Dr. Durant Impression Impression: Primary Impression: Chest wall pain Additional Impressions: Ataxia Aphasia Disposition: HOME, SELF-CARE Condition: Improved Departure-Patient Inst. Decision time for Depature: 15:51 Referrals: WASHINGTON DURANT DO (PCP/Family) Primary Care Physician Patient Instructions: Chest Pain (DC), Chest Pain That Is Not Caused by the Heart (DC), Costochondritis (DC), Transient Ischemic Attack (DC) Add. Discharge Instructions: All discharge instructions reviewed with patient and/or family. Voiced understanding. Medications as instructed. Continue usual medications. Follow- up with Dr. Durant tomorrow as previously scheduled. Call his office to confirm your appointment time. Return to the emergency department for worsened symptoms, headache, dizziness, changes in vision, slurred speech, facial drooping, numbness, weakness, one-sided weakness, bowel incontinence, bladder incontinence, shortness of air, seizure, chest pain, or any other concerns. Scripts Gabapentin (Neurontin) 100 Mg Capsule 100 MG PO TID, #21 CAP 0 Refills Prov: ZANE SAMAYOA 04/06/17 Work/School Note: Work Release Form Date Seen in the Emergency Department: Apr 06, 2017 Return to Work: Apr 06, 2017 Restrictions: Need Release from Doctor ZANE SAMAYOA Apr 06, 2017 15:53
[2017-04-06 16:01] VITALS: BP 126/78
== END 2017-04-06 16:01 | disposition home or self-care (01) ==
LOC: EDUNIT# 11:30 → ER 11:32
DX: R07.89 Other chest pain (principal); R27.0 Ataxia, unspecified; R47.01 Aphasia; F32.9 Major depressive disorder, single episode, unspecified; I25.2 Old myocardial infarction; I10 Essential (primary) hypertension; J45.909 Unspecified asthma, uncomplicated; F17.210 Nicotine dependence, cigarettes, uncomplicated; Z90.49 Acquired absence of other specified parts of digestive tract; Z86.73 Personal history of transient ischemic attack (TIA), and cerebral infarction without residual deficits; Z90.710 Acquired absence of both cervix and uterus; Z79.82 Long term (current) use of aspirin; Z82.49 Family history of ischemic heart disease and other diseases of the circulatory system; Z80.9 Family history of malignant neoplasm, unspecified
CPT/HCPCS: 36415; 70450; 71010; 80053; 81000; 82962; 83735; 83874; 84484; 85025; 85379; 85610; 85730; 93005; 93041

== ENCOUNTER 2017-04-30 09:31 | Outpatient (RCR) | payer MEDICARE ==
[~2017-04-30 09:31] MED LIST changes: +GABA100C PO
[2017-07-07] MEDS ORDERED: TRAM50TA2 PO (12:42)
== END 2017-07-29 | disposition home or self-care (01) ==
LOC: CARD 09:31
PROVIDERS: ATTEND Family Medicine
DX: R00.0 Tachycardia, unspecified (principal)
CPT/HCPCS: 93225; 93226

== ENCOUNTER 2017-07-07 11:32 | Emergency (ER) | payer MEDICARE ==
[~2017-07-07] VITALS: Ht 170.2 cm; Wt 95.3 kg
--- OUTSIDE RECORDS SUMMARY | 2017-07-07 11:38 | XMS REPORT | Clinical Summary ---
Author Author [facility] Organization [facility] Address Unknown Phone Unavailable Care Team Providers Care Keg Header Name Role Phone Chucho Headley PCP Source Comments Some departments are not documenting in the electronic medical record. If you do not see the information that you expected, contact Release of Information in the Health Information Management department at [phone] for further assistance in locating additional records.[facility] Allergies Active Allergy Reactions Severity Noted Date Comments Adhesive Tape (Rosins) HIVES Medium 05/08/2017 Hydrocodone ITCHING, AGITATION Low 05/08/2017 Current Medications Prescription Sig. Disp. Refills Start End Date Status Date LOTEMAX 0.5 % ophthalmic INSTILL ONE DROP INTO 0 03/04/20 Active suspension BOTH EYES FOUR TIMES PER 17 DAY FOR 2 WEEKS traMADol (ULTRAM) 50 mg Take 100 mg by mouth Active tablet twice daily. ALPRAZolam (XANAX) 0.25 Take 0.25 mg by mouth Active mg tablet three times daily as needed for Anxiety. pseudoephedrine (SUDAFED) Take 60 mg by mouth every Active 30 mg tablet 4 hours as needed for Congestion. venlafaxine XR (EFFEXOR Take 1 capsule by mouth 30 capsule 5 05/15/19 Active XR) 37.5 mg daily. Take with food. 18 capsuleIndications: Post traumatic stress disorder (PTSD) Active Problems Problem Noted Date Post traumatic stress disorder (PTSD) 05/15/2017 Encounters Date Type Specialty Care Team Description 05/20/2017 Ancillary Radiology Outpatient, Radiologist Diagnosis unknown Orders 05/15/2017 Office Visit Neurology Doyle De La Torre MD Post traumatic stress disorder (PTSD) 05/08/2017 Telephone Neurology Doyle De La Torre MD Pre-Visit Planning ( Dr. 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 Pulse 93 05/15/2017 8:51 AM 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 Temperature - - Respiratory Rate - - Oxygen Saturation 100% 05/15/2017 8:51 AM 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
--- OUTSIDE RECORDS SUMMARY | 2017-07-07 11:38 | XMS REPORT | Continuity of Care Document ---
Author Author [employer] Organization [employer] Address Unknown Phone Unavailable Care Team Providers Care Electrical Controls Assembler Name Role Phone [employer] Unavailable Unavailable Problems Medications Allergies, Adverse Reactions, Alerts Immunizations Results Vital Signs Encounters Location Location Details Encounter Type Encounter Number Reason For Visit Attending Provider ADM Date DC Date Status Source O [id number] WALI FERRELL 12/07/2007 12/07/2007 Active [facility] O 04/06/2017 04/06/2017 Active [facility] OUTPATIENT [id number] DEMAR SULLIVAN 05/15/2017 05/15/2017 Active [facility] Procedures Plan of Care Social History Assessment and Plan Family History Advance Directives Functional Status
--- OUTSIDE RECORDS SUMMARY | 2017-07-07 11:39 | XMS REPORT | Encounter Summary ---
Author Author [facility] Organization [facility] Address Unknown Phone Unavailable Care Team Providers Care Smart Grid Engineer Name Role Phone Chucho Headley PCP Encounter Details Date Type Department Care Team Description 05/20/2017 Ancillary Rad Outpatient, Radiologist Diagnosis unknown Orders [address] [place] [address] Social History Tobacco Use Types Packs/Day Years Used Date Current Every Day Smoker 1 32 Smokeless Tobacco: Never Used Alcohol Use Drinks/Week oz/Week Comments Yes rarely Sex Assigned at Date Recorded Not on file as of this encounter Plan of Treatment Not on fileas of this encounter Results * GENERAL RAD CHEST EXTERNAL IMAGING (04/06/2017 12:15 AM) Narrative This order has been auto finalized and does not contain a result. * CT HEAD EXTERNAL IMAGING (04/06/2017) Narrative This order has been auto finalized and does not contain a result. in this encounter Visit Diagnoses Diagnosis Diagnosis unknown Other unknown and unspecified cause of morbidity or mortality
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
--- OUTSIDE RECORDS SUMMARY | 2017-07-07 11:39 | XMS REPORT | Encounter Summary ---
Author Author [facility] Organization [facility] Address Unknown Phone Unavailable Care Team Providers Care Sales Stock Associate Name Role Phone Chucho Headley DO PCP Reason for Visit * Reason Comments Pre-Visit Planning Dr. De La Torre 05/15/17 Encounter Details Date Type Department Care Team Description 05/08/2017 Telephone [facility] Doyle De La Torre MD Pre- Visit Planning ( [facility] Neurology [address] [facility] [place] 05/15/17) [address] [place] [address] [facility] [address] [place] [address] [phone] Social History Tobacco Use Types Packs/Day Years Used Date Current Every Day Smoker 1 32 Smokeless Tobacco: Never Used Alcohol Use Drinks/Week oz/Week Comments Yes rarely Sex Assigned at Date Recorded Not on file as of this encounter Miscellaneous Notes * Telephone Encounter - Desiree Carvalho RN - 05/08/2017 12:21 PM ENGINEERING SCIENTIST Initial Visit Date: 05/15/17 Reason for Visit: hx stroke x6 since 02/28/17 Is this transfer of care or 2nd opinion? transfer of care Is this as a result of an injury? none Physician Information PCP: Dr. Chucho Guaman Referring Physician: Dr. Colt Grimes Previous Neurologist: none Other providers seen: Dr. Guaman- [facility] Previous Imaging/Procedures: MRI Brain 03/[address] Head 03/2017 records in clinic XRay none EMG none EEG ~10yrs [facility] [place], [place] ED/Hospitalizations: 03/23/2017 & 02/28/2017 both @ [facility], admission on 02/28/17; 05/02/17 [place], [place] ED only Current Meds: none Medications, Allergies, History Updated Clinic address and phone number provided to patient. Appointment date, time and arrival time verified with patient. in this encounter Plan of Treatment Not on fileas of this encounter Visit Diagnoses Not on filein this encounter
--- OUTSIDE RECORDS SUMMARY | 2017-07-07 11:44 | XMS REPORT | Continuity of Care Document ---
Author Author [facility] Address Unknown Phone Unavailable Allergies Active Description Code Type Severity Reaction Onset Reported/Identified Relationship to Patient Clinical Status Yes hydrocodone [id number] Drug Allergy Unknown N/A 11/16/2008 Yes carbamazepine [id number] Drug Allergy Unknown N/A 08/27/2015 Medications There is no data. Problems Date Dx Coded Attending Type Code Diagnosis Diagnosed By 11/29/2010 EVA COHEN PSYD L 300.02 An Gen Anxiety 11/29/2010 EVA COHEN PSYD L 300.02 An Gen Anxiety 11/29/2010 300.02 An Gen Anxiety 09/01/2011 EVA COHEN PSYD L 296.89 Mo Bipolar Ii 09/01/2011 EVA COHEN PSYD L 309.81 AN PTSD 09/01/2011 EVA COHEN PSYD L 296.89 Mo Bipolar Ii 09/01/2011 EVA COHEN PSYD L 309.81 AN PTSD 09/01/2011 296.89 Mo Bipolar Ii 09/01/2011 309.81 AN PTSD 09/17/2011 EVA COHEN PSYD L 300.82 SO SOMATOFORM NOS 09/17/2011 EVA COHEN PSYD L 300.82 SO SOMATOFORM NOS 09/17/2011 300.82 SO SOMATOFORM NOS 10/03/2011 Ot 564.00 UNSPEC CONSTIPATION 10/03/2011 Ot 569.42 ANAL OR RECTAL PAIN 10/03/2011 Ot 789.01 ABDOMINAL PAIN, RIGHT UPPER QUADRANT 10/13/2011 Ot 787.99 OTHER GI SYSTEM SYMPTOMS 10/13/2011 Ot 789.04 ABDOMINAL PAIN, LEFT LOWER QUADRANT 12/02/2011 EVA COHEN PSYD L 296.89 Mo Bipolar Ii 12/02/2011 EVA COHEN PSYD L 296.89 Mo Bipolar Ii 12/02/2011 296.89 Mo Bipolar Ii 12/16/2011 EVA COHEN PSYD L 301.9 PD PERS DIS NOS 12/16/2011 EVA COHEN PSYD ANN L 301.9 PD PERS DIS NOS 12/16/2011 301.9 PD PERS DIS NOS 01/07/2012 EVA COHEN PSYD L 300.01 AN PANIC DIS W/O AGORA 01/07/2012 EVA COHEN PSYD ANN L 300.01 AN PANIC DIS W/O AGORA 01/07/2012 300.01 AN PANIC DIS W/O AGORA 01/25/2012 Ot 784.0 HEADACHE 02/10/2012 Ot 346.90 MIGRAINE UNSPECIFIED W/O INTRACT MGRN W/ 02/10/2012 Ot 791.9 ABN URINE FINDINGS NEC 10/11/2012 SUPRIYA FELIZ, RAYSA Reno Ot 784.0 HEADACHE 10/11/2012 SUPRIYA FELIZ, RAYSA [place] Ot 786.59 CHEST PAIN NEC 10/05/2013 ASHA BRUMFIELD DO Ot 305.1 TOBACCO USE DISORDER 10/05/2013 ASHA BRUMFIELD DO Ot 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 10/05/2013 ASHA BRUMFIELD DO Ot 473.9 CHRONIC SINUSITIS NOS 10/05/2013 ASHA BRUMFIELD DO Ot 493.90 ASTHMA, UNSPECIFIED 10/05/2013 ASHA BRUMFIELD DO Ot 562.10 DIVERTICULOSIS COLON (W/O MENT OF HEMORR 10/05/2013 ASHA BRUMFIELD DO Ot 564.1 IRRITABLE BOWEL SYNDROME 10/05/2013 ASHA BRUMFIELD DO Ot 729.1 MYALGIA AND MYOSITIS NOS 10/05/2013 ASHA BRUMFIELD DO Ot 780.4 DIZZINESS AND GIDDINESS 10/05/2013 ASHA BRUMFIELD DO Ot 780.79 OTH MALAISE FATIGUE 10/05/2013 ASHA BRUMFIELD DO Ot 780.96 GENERALIZED PAIN 10/05/2013 ASHA BRUMFIELD DO Ot 784.0 HEADACHE 03/16/2014 JUAN CARLOS STEVENSON REVIEWER SALES Ot 611.72 05/31/2014 RAYSA EPPS MD Ot 288.60 LEUKOCYTOSIS, UNSPECIFIED 05/31/2014 RAYSA EPPS MD Ot 401.9 HYPERTENSION NOS 05/31/2014 SUPRIYA FELIZ, RAYSA [place] Ot 796.3 LOW BLOOD PRESS READING 11/27/2014 JOSEFINA FELIZ, JANAE Dowd Ot 789.00 12/14/2014 JOSEFINA FELIZ, JANAE Dowd Ot 789.00 08/27/2015 JUAN SYKES MD Ot F17.210 NICOTINE DEPENDENCE, CIGARETTES, UNCOMPL 08/27/2015 JUAN SYKES MD Ot K42.9 UMBILICAL HERNIA WITHOUT OBSTRUCTION OR 08/27/2015 JUAN SYKES MD Ot K57.90 DVRTCLOS OF INTEST, PART UNSP, W/O PERF 08/27/2015 JUAN SYKES MD Ot K59.00 CONSTIPATION, UNSPECIFIED 08/29/2015 JUAN SYKES MD Ot F17.210 NICOTINE DEPENDENCE, CIGARETTES, UNCOMPL 08/29/2015 JUAN SYKES MD, Ot K42.9 UMBILICAL HERNIA WITHOUT OBSTRUCTION OR 08/29/2015 JUAN SYKES MD Ot K57.90 DVRTCLOS OF INTEST, PART UNSP, W/O PERF 08/29/2015 JUAN SYKES MD Ot K59.00 CONSTIPATION, UNSPECIFIED 04/10/2016 Ot 789.02 ABDOMINAL PAIN, LEFT UPPER QUADRANT 04/10/2016 Ot 578.1 BLOOD IN STOOL 04/10/2016 Ot 787.99 OTHER GI SYSTEM SYMPTOMS 04/10/2016 Ot V72.84 EXAM PRE- OPERATIVE NOS 04/10/2016 Ot V76.12 OTH SCREEN MAMMO-MALIGN NEOPLASM OF TRAN 04/10/2016 Ot 793.80 UNSPEC ABNORMAL MAMMOGRAM 04/10/2016 Ot 564.00 UNSPEC CONSTIPATION 04/10/2016 CLARISSE BRODERICK MD Ot 272.4 HYPERLIPIDEMIA NEC/NOS 04/10/2016 CLARISSE BRODERICK MD Ot 397.0 TRICUSPID VALVE DISEASE 04/10/2016 CLARISSE BRODERICK MD Ot 401.9 HYPERTENSION NOS 04/10/2016 CLARISES BRODERICK MD Ot 424.0 MITRAL VALVE DISORDER 04/10/2016 CLARISSE BRODERICK MD Ot 786.50 CHEST PAIN NOS 04/10/2016 CLINT STUART Ot 272.4 HYPERLIPIDEMIA NEC/NOS 04/10/2016 CLINT STUART Ot 305.1 TOBACCO USE DISORDER 04/10/2016 CLINT STUART Ot 401.9 HYPERTENSION NOS 04/10/2016 CLINT STUART Ot 785.1 PALPITATIONS 04/10/2016 CLINT STUART Ot 786.09 RESPIRATORY ABNORM NEC 04/10/2016 JUAN CARLOS STEVENSON REVIEWER SALES Ot 611.72 LUMP OR MASS IN BREAST 04/10/2016 JOSEFINA FELIZ, JANAE Dowd Ot 789.00 ABDOMINAL PAIN, UNSPECIFIED SITE 05/02/2016 ASHWINLESA RODRIGUEZ, JUAN Crowell Ot M25.551 PAIN IN RIGHT HIP 05/02/2016 ASHIWN RODRIGUEZ, JUAN Crowell Ot M25.552 PAIN IN LEFT HIP 08/19/2016 JUAN CARLOS STEVENSON REVIEWER SALES Ot M25.561 PAIN IN RIGHT KNEE 10/22/2016 Ot 789.02 ABDOMINAL PAIN, LEFT UPPER QUADRANT 10/22/2016 Ot 578.1 BLOOD IN STOOL 10/22/2016 Ot 787.99 OTHER GI SYSTEM SYMPTOMS 10/22/2016 Ot V72.84 EXAM PRE- OPERATIVE NOS 10/22/2016 Ot V76.12 OTH SCREEN MAMMO-MALIGN NEOPLASM OF TRAN 10/22/2016 Ot 793.80 UNSPEC ABNORMAL MAMMOGRAM 10/22/2016 Ot 564.00 UNSPEC CONSTIPATION 10/22/2016 CLARISSE BRODERICK MD Ot 272.4 HYPERLIPIDEMIA NEC/NOS 10/22/2016 CLARISSE BRODERICK MD Ot 397.0 TRICUSPID VALVE DISEASE 10/22/2016 CLARISSE BRODERICK MD Ot 401.9 HYPERTENSION NOS 10/22/2016 CLARISSE BRODERICK MD Ot 424.0 MITRAL VALVE DISORDER 10/22/2016 CLARISSE BRODERICK MD Ot 786.50 CHEST PAIN NOS 10/22/2016 CLINT STUART Ot 272.4 HYPERLIPIDEMIA NEC/NOS 10/22/2016 CLINT STUART Ot 305.1 TOBACCO USE DISORDER 10/22/2016 CLINT STUART Ot 401.9 HYPERTENSION NOS 10/22/2016 CLINT STUART Ot 785.1 PALPITATIONS 10/22/2016 CLINT STUART Ot 786.09 RESPIRATORY ABNORM NEC 10/22/2016 JUAN CARLOS STEVENSON REVIEWER SALES Ot 611.72 LUMP OR MASS IN BREAST 10/22/2016 JOSEFINA FELIZ, JANAE Dowd Ot 789.00 ABDOMINAL PAIN, UNSPECIFIED SITE 10/22/2016 ASHWINLESA RODRIGUEZ, JUAN Crowell Ot M25.551 PAIN IN RIGHT HIP 10/22/2016 ASHWIN JENNIFER, JUAN Crowell Ot M25.552 PAIN IN LEFT HIP 10/22/2016 JUAN CARLOS STEVENSON REVIEWER SALES Ot M25.561 PAIN IN RIGHT KNEE 10/22/2016 ROMAIN AUGUSTIN APRN Ot F32.9 MAJOR DEPRESSIVE DISORDER, SINGLE EPISOD 10/22/2016 ROMAIN AUGUSTIN APRN Ot J45.909 UNSPECIFIED ASTHMA, UNCOMPLICATED 10/22/2016 ROMAIN AUGUSTIN APRN Ot R07.81 PLEURODYNIA 10/22/2016 ROMAIN AUGUSTIN APRN Ot R07.9 CHEST PAIN, UNSPECIFIED 10/22/2016 ROMAIN AUGUSTIN APRN Ot 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 TIA (TIA), AND CEREB INFRC W 10/22/2016 ROMAIN AUGUSTIN APRN Ot Z86.79 PERSONAL HISTORY OF OTHER DISEASES OF TH 10/22/2016 ROMAIN AUGUSTIN APRN Ot Z87.891 PERSONAL HISTORY OF NICOTINE DEPENDENCE 11/24/2016 JUAN SYKES MD Ot F17.210 NICOTINE DEPENDENCE, CIGARETTES, UNCOMPL 11/24/2016 JUAN SYKES MD Ot F32.9 MAJOR DEPRESSIVE DISORDER, SINGLE EPISOD 11/24/2016 JUAN SYKES MD Ot I10 ESSENTIAL (PRIMARY) HYPERTENSION 11/24/2016 JUAN SYKES MD Ot I25.2 OLD MYOCARDIAL INFARCTION 11/24/2016 JUAN SYKES MD, Ot J45.909 UNSPECIFIED ASTHMA, UNCOMPLICATED 11/24/2016 JUAN SYKES MD Ot R07.9 CHEST PAIN, UNSPECIFIED 11/24/2016 JUAN SYKES MD Ot R10.13 EPIGASTRIC PAIN 11/24/2016 JUAN SYKES MD Ot Z80.9 FAMILY HISTORY OF MALIGNANT NEOPLASM, UN 11/24/2016 JUAN SYKES MD Ot Z82.49 FAMILY HX OF ISCHEM HEART DIS AND OTH DI 11/24/2016 JUAN SYKES MD Ot 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 TIA (TIA), AND CEREB INFRC W 11/24/2016 JUAN SYKES MD Ot Z87.19 PERSONAL HISTORY OF OTHER DISEASES OF TH 11/24/2016 JUAN SYKES MD Ot Z90.49 ACQUIRED ABSENCE OF OTHER SPECIFIED PART 11/24/2016 JUAN SYKES MD Ot Z90.710 ACQUIRED ABSENCE OF BOTH CERVIX AND UTER 11/25/2016 JUAN SYKES MD Ot F17.210 NICOTINE DEPENDENCE, CIGARETTES, UNCOMPL 11/25/2016 JUAN SYKES MD Ot F32.9 MAJOR DEPRESSIVE DISORDER, SINGLE EPISOD 11/25/2016 JUAN SYKES MD Ot I10 ESSENTIAL (PRIMARY) HYPERTENSION 11/25/2016 JUAN SYKES MD Ot I25.2 OLD MYOCARDIAL INFARCTION 11/25/2016 JUAN SYKES MD Ot J45.909 UNSPECIFIED ASTHMA, UNCOMPLICATED 11/25/2016 JUAN SYKES MD Ot R07.9 CHEST PAIN, UNSPECIFIED 11/25/2016 JUAN SYKES MD Ot R10.13 EPIGASTRIC PAIN 11/25/2016 JUAN SYKES MD Ot Z80.9 FAMILY HISTORY OF MALIGNANT NEOPLASM, UN 11/25/2016 JUAN SYKES MD Ot Z82.49 FAMILY HX OF ISCHEM HEART DIS AND OTH DI 11/25/2016 JUAN SYKES MD Ot 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 TIA (TIA), AND CEREB INFRC W 11/25/2016 JUAN SYKES MD Ot Z87.19 PERSONAL HISTORY OF OTHER DISEASES OF TH 11/25/2016 JUAN SYKES MD Ot Z90.49 ACQUIRED ABSENCE OF OTHER SPECIFIED PART 11/25/2016 JUAN SYKES MD Ot Z90.710 ACQUIRED ABSENCE OF BOTH CERVIX AND UTER 03/01/2017 RAH SULTANA MD Ot D68.61 ANTIPHOSPHOLIPID SYNDROME 03/01/2017 RAH SULTANA MD Ot F17.210 NICOTINE DEPENDENCE, CIGARETTES, UNCOMPL 03/01/2017 RAH SULTANA MD Ot 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 ATTACK, UNSP 03/01/2017 RD FELIZ, RAH Esparza Ot I25.10 ATHSCL HEART DISEASE OF [place] CORONARY 03/01/2017 RD FELIZ, RAH Esparza Ot I25.2 OLD MYOCARDIAL INFARCTION 03/01/2017 RD FELIZ, RAH Esparza Ot M32.9 SYSTEMIC LUPUS ERYTHEMATOSUS, UNSPECIFIE 03/01/2017 RD FELIZ, RHA Esparza Ot R13.10 DYSPHAGIA, UNSPECIFIED 03/01/2017 RAH SULTANA MD Ot R51 HEADACHE 03/03/2017 RAH SULTANA MD Ot 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 ATTACK, UNSP 03/03/2017 RD FELIZ, RAH Esparza Ot 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 ATTACK, UNSP 03/04/2017 RAH SULTANA MD Ot 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 ATTACK, UNSP 03/23/2017 ZANE STEWART Ot F43.9 REACTION TO SEVERE STRESS, UNSPECIFIED 03/23/2017 ZANE STEWART Ot 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 ATTACK, UNSP 03/23/2017 ZANE STEWART Ot I10 ESSENTIAL (PRIMARY) HYPERTENSION 03/23/2017 ZANE STEWART Ot I25.2 OLD MYOCARDIAL INFARCTION 03/23/2017 ZANE STEWART Ot J45.909 UNSPECIFIED ASTHMA, UNCOMPLICATED 03/23/2017 ZANE STEWART Ot K58.9 IRRITABLE BOWEL SYNDROME WITHOUT DIARRHE 03/23/2017 ZANE STEWART Ot M79.601 PAIN IN RIGHT ARM 03/23/2017 ZANE STEWART Ot R53.1 WEAKNESS 03/23/2017 ZANE STEWART Ot Z80.9 FAMILY HISTORY OF MALIGNANT NEOPLASM, UN 03/23/2017 ZANE STEWART Ot Z82.49 FAMILY HX OF ISCHEM HEART DIS AND OTH DI 03/23/2017 ZANE STEWART Ot Z86.19 PERSONAL HISTORY OF OTHER INFECTIOUS AND 03/23/2017 ZANE STEWART Ot 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 TIA (TIA), AND CEREB INFRC W 03/23/2017 ZANE STEWART Ot Z90.710 ACQUIRED ABSENCE OF BOTH CERVIX AND UTER 03/27/2017 GAULT MD, RAH R Ot 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 ATTACK, UNSP 03/31/2017 ZANE STEWART Ot F43.9 REACTION TO SEVERE STRESS, UNSPECIFIED 03/31/2017 ZANE STEWART Ot 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 ATTACK, UNSP 03/31/2017 ZANE STEWART Ot I10 ESSENTIAL (PRIMARY) HYPERTENSION 03/31/2017 ZANE STEWART Ot I25.2 OLD MYOCARDIAL INFARCTION 03/31/2017 ZANE STEWART Ot J45.909 UNSPECIFIED ASTHMA, UNCOMPLICATED 03/31/2017 ZANE STEWART Ot K58.9 IRRITABLE BOWEL SYNDROME WITHOUT DIARRHE 03/31/2017 ZANE STEWART Ot M79.601 PAIN IN RIGHT ARM 03/31/2017 ZANE STEWART Ot R53.1 WEAKNESS 03/31/2017 ZANE STEWART Ot Z80.9 FAMILY HISTORY OF MALIGNANT NEOPLASM, UN 03/31/2017 ZANE STEWART Ot Z82.49 FAMILY HX OF ISCHEM HEART DIS AND OTH DI 03/31/2017 ZANE STEWART Ot Z86.19 PERSONAL HISTORY OF OTHER INFECTIOUS AND 03/31/2017 ZANE STEWART Ot 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 TIA (TIA), AND CEREB INFRC W 03/31/2017 ZANE STEWART Ot Z90.710 ACQUIRED ABSENCE OF BOTH CERVIX AND UTER 04/03/2017 [place] DURANT DO Ot 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 ATTACK, UNSP 04/03/2017 [place] DURANT DO Ot I25.10 ATHSCL HEART DISEASE OF [place] CORONARY 04/03/2017 [place] DURANT DO Ot M32.9 SYSTEMIC LUPUS ERYTHEMATOSUS, UNSPECIFIE 04/06/2017 ZANE STEWART Ot F17.210 NICOTINE DEPENDENCE, CIGARETTES, UNCOMPL 04/06/2017 ZANE STEWART Ot F32.9 MAJOR DEPRESSIVE DISORDER, SINGLE EPISOD 04/06/2017 ZANE STEWART Ot I10 ESSENTIAL (PRIMARY) HYPERTENSION 04/06/2017 ZANE STEWART Ot I25.2 OLD MYOCARDIAL INFARCTION 04/06/2017 ZANE STEWART Ot J45.909 UNSPECIFIED ASTHMA, UNCOMPLICATED 04/06/2017 ZANE STEWART Ot R07.89 OTHER CHEST PAIN 04/06/2017 ZANE STEWART Ot R27.0 ATAXIA, UNSPECIFIED 04/06/2017 ZANE STEWART Ot R29.810 FACIAL WEAKNESS 04/06/2017 ZANE STEWART Ot R47.01 APHASIA 04/06/2017 ZANE STEWART Ot Z79.82 DIRECTOR OPERATIONS BROADCAST (CURRENT) USE OF ASPIRIN 04/06/2017 ZANE STEWART Ot Z80.9 FAMILY HISTORY OF MALIGNANT NEOPLASM, UN 04/06/2017 ZANE STEWART Ot Z82.49 FAMILY HX OF ISCHEM HEART DIS AND OTH DI 04/06/2017 ZANE STEWART Ot 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 TIA (TIA), AND CEREB INFRC W 04/06/2017 ZANE STEWART Ot Z90.49 ACQUIRED ABSENCE OF OTHER SPECIFIED PART 04/06/2017 ZANE STEWART Ot Z90.710 ACQUIRED ABSENCE OF BOTH CERVIX AND UTER 04/08/2017 ZANE STEWART Ot F17.210 NICOTINE DEPENDENCE, CIGARETTES, UNCOMPL 04/08/2017 ZANE STEWART Ot F32.9 MAJOR DEPRESSIVE DISORDER, SINGLE EPISOD 04/08/2017 ZANE STEWART Ot I10 ESSENTIAL (PRIMARY) HYPERTENSION 04/08/2017 ZANE STEWART Ot I25.2 OLD MYOCARDIAL INFARCTION 04/08/2017 ZANE STEWART Ot J45.909 UNSPECIFIED ASTHMA, UNCOMPLICATED 04/08/2017 ZANE STEWART Ot R07.89 OTHER CHEST PAIN 04/08/2017 ZANE STEWART Ot R27.0 ATAXIA, UNSPECIFIED 04/08/2017 ZANE STEWART Ot R29.810 FACIAL WEAKNESS 04/08/2017 ZANE STEWART Ot R47.01 APHASIA 04/08/2017 ZANE STEWART Ot Z79.82 DIRECTOR OPERATIONS BROADCAST (CURRENT) USE OF ASPIRIN 04/08/2017 ZANE STEWART Ot Z80.9 FAMILY HISTORY OF MALIGNANT NEOPLASM, UN 04/08/2017 ZANE STEWART Ot Z82.49 FAMILY HX OF ISCHEM HEART DIS AND OTH DI 04/08/2017 ZANE STEWART Ot 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 TIA (TIA), AND CEREB INFRC W 04/08/2017 ZANE STEWART Ot Z90.49 ACQUIRED ABSENCE OF OTHER SPECIFIED PART 04/08/2017 ZANE STEWART Ot Z90.710 ACQUIRED ABSENCE OF BOTH CERVIX AND UTER 04/24/2017 BHARGVA MONTALVOWASHINGTON Ot 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 ATTACK, UNSP 04/24/2017 BHARGAV MONTALVOWASHINGTON Ot I25.10 ATHSCL HEART DISEASE OF [place] CORONARY 04/24/2017 BHARGAV MONTALV[place] Ot M32.9 SYSTEMIC LUPUS ERYTHEMATOSUS, UNSPECIFIE 04/30/2017 BHARGAV MONTALVOW[place] Ot R00.0 TACHYCARDIA, UNSPECIFIED 05/22/2017 BHARGAV MONTALVO [place] Dowd Ot R00.0 TACHYCARDIA, UNSPECIFIED Procedures Code Description [place] [address] INDIV PSYTX 45/50 MIN 03/05/2012 14031 INDIV PSYTX 45/50 MIN 04/14/2012 12433 INDIV PSYTX 45/50 MIN 04/22/2012 Results Test Result Range Complete blood count (CBC) with automated white blood cell (WBC) differential - 10/22/16 18:06 Blood leukocytes automated count (number/volume) 7.4 10*3/uL 4.3-11.0 Blood erythrocytes automated count (number/volume) 4.80 10*6/uL 4.35-5.85 Venous blood hemoglobin measurement (mass/volume) 14.7 g/dL 11.5-16.0 Blood hematocrit (volume fraction) 44 % 35-52 Automated erythrocyte mean corpuscular volume 92 [foz_us] 80-99 Automated erythrocyte mean corpuscular hemoglobin (mass per erythrocyte) 31 pg 25-34 Automated erythrocyte mean corpuscular hemoglobin concentration measurement ( mass/volume) 33 g/dL 32-36 Automated erythrocyte distribution width ratio 14.3 % 10.0-14.5 Automated blood platelet count (count/volume) 272 10*3/uL 130-400 Automated blood platelet mean volume measurement 10.0 [foz_us] 7.4-10.4 Automated blood neutrophils/100 leukocytes 48 % 42-75 Automated blood lymphocytes/100 leukocytes 42 % 12-44 Blood monocytes/100 leukocytes 8 % 0-12 Automated blood eosinophils/100 leukocytes 2 % 0-10 Automated blood basophils/100 leukocytes 1 % 0-10 Blood neutrophils automated count (number/volume) 3.5 10*3 1.8-7.8 Blood lymphocytes automated count (number/volume) 3.1 10*3 1.0-4.0 Blood monocytes automated count (number/volume) 0.6 10*3 0.0-1.0 Automated eosinophil count 0.1 10*3/uL 0.0-0.3 Automated blood basophil count (count/volume) 0.0 10*3/uL 0.0-0.1 PT panel in platelet poor plasma by coagulation assay - 10/22/16 18:06 Prothrombin time (PT) in platelet poor plasma by coagulation assay 12.9 s 12.2-14.7 INR in platelet poor plasma or blood by coagulation assay 1.0 0.8-1.4 Activated partial thromboplastin time (aPTT) in platelet poor plasma bycoagulation assay - 10/22/16 18:06 Activated partial thromboplastin time (aPTT) in platelet poor plasma bycoagulation assay 30 s 24-35 Comprehensive metabolic panel - 10/22/16 18:06 Serum or plasma sodium measurement (moles/volume) 141 mmol/L 135-145 Serum or plasma potassium measurement (moles/volume) 3.6 mmol/L 3.6-5.0 Serum or plasma chloride measurement (moles/volume) 108 mmol/L 98-107 Carbon dioxide 24 mmol/L 21-32 Serum or plasma anion gap determination (moles/volume) 9 mmol/L 5-14 Serum or plasma urea nitrogen measurement (mass/volume) 13 mg/dL 7-18 Serum or plasma creatinine measurement (mass/volume) 0.73 mg/dL 0.60-1.30 Serum or plasma urea nitrogen/creatinine mass ratio 18 0 -20 Serum or plasma creatinine measurement with calculation of estimated glomerular filtration rate > NRG Serum or plasma glucose measurement (mass/volume) 101 mg/dL 70-105 Serum or plasma calcium measurement (mass/volume) 9.1 mg/dL 8.5-10.1 Serum or plasma total bilirubin measurement (mass/volume) 0.5 mg/dL 0.1-1.0 Serum or plasma alkaline phosphatase measurement (enzymatic activity/volume) 70 U/L 40-136 Serum or plasma aspartate aminotransferase measurement (enzymatic activity/ volume) 14 U/L 5-34 Serum or plasma alanine aminotransferase measurement (enzymatic activity/volume ) 14 U/L 0-55 Serum or plasma protein measurement (mass/volume) 6.8 g/dL 6.4-8.2 Serum or plasma albumin measurement (mass/volume) 4.0 g/dL 3.2-4.5 Magnesium - 10/22/16 18:06 Magnesium 1.8 mg/dL 1.8-2.4 Serum or plasma troponin i.cardiac measurement (mass/volume) - 10/22/16 18:06 Serum or plasma troponin i.cardiac measurement (mass/volume) < ng/ mL <0.30 Myoglobin, serum - 10/22/16 18:06 Myoglobin, serum 34.3 ng/mL 10.0-92.0 Serum or plasma lithium measurement (moles/volume) - 10/22/16 18:06 BNP level < pg/mL <100.0 THYROID STIMULATING HORMONE - 10/22/16 18:06 THYROID STIMULATING HORMONE 1.29 u[iU]/mL 0.35-4.94 Complete blood count (CBC) with automated white blood cell (WBC) differential - 11/24/16 12:10 Blood leukocytes automated count (number/volume) 11.6 10*3/uL 4.3-11.0 Blood erythrocytes automated count (number/volume) 5.29 10*6/uL 4.35-5.85 Venous blood hemoglobin measurement (mass/volume) 16.1 g/dL 11.5-16.0 Blood hematocrit (volume fraction) 48 % 35-52 Automated erythrocyte mean corpuscular volume 90 [foz_us] 80-99 Automated erythrocyte mean corpuscular hemoglobin (mass per erythrocyte) 30 pg 25-34 Automated erythrocyte mean corpuscular hemoglobin concentration measurement ( mass/volume) 34 g/dL 32-36 Automated erythrocyte distribution width ratio 14.2 % 10.0-14.5 Automated blood platelet count (count/volume) 294 10*3/uL 130-400 Automated blood platelet mean volume measurement 9.9 [foz_us] 7.4-10.4 Automated blood neutrophils/100 leukocytes 60 % 42-75 Automated blood lymphocytes/100 leukocytes 28 % 12-44 Blood monocytes/100 leukocytes 9 % 0-12 Automated blood eosinophils/100 leukocytes 2 % 0-10 Automated blood basophils/100 leukocytes 1 % 0-10 Blood neutrophils automated count (number/volume) 7.0 10*3 1.8-7.8 Blood lymphocytes automated count (number/volume) 3.3 10*3 1.0-4.0 Blood monocytes automated count (number/volume) 1.0 10*3 0.0-1.0 Automated eosinophil count 0.2 10*3/uL 0.0-0.3 Automated blood basophil count (count/volume) 0.1 10*3/uL 0.0-0.1 PT panel in platelet poor plasma by coagulation assay - 11/24/16 12:10 Prothrombin time (PT) in platelet poor plasma by coagulation assay 12.9 s 12.2-14.7 INR in platelet poor plasma or blood by coagulation assay 1.0 0.8-1.4 Activated partial thromboplastin time (aPTT) in platelet poor plasma bycoagulation assay - 11/24/16 12:10 Activated partial thromboplastin time (aPTT) in platelet poor plasma bycoagulation assay 29 s 24-35 Comprehensive metabolic panel - 11/24/16 12:10 Serum or plasma sodium measurement (moles/volume) 138 mmol/L 135-145 Serum or plasma potassium measurement (moles/volume) 3.6 mmol/L 3.6-5.0 Serum or plasma chloride measurement (moles/volume) 106 mmol/L 98-107 Carbon dioxide 23 mmol/L 21-32 Serum or plasma anion gap determination (moles/volume) 9 mmol/L 5-14 Serum or plasma urea nitrogen measurement (mass/volume) 12 mg/dL 7-18 Serum or plasma creatinine measurement (mass/volume) 0.77 mg/dL 0.60-1.30 Serum or plasma urea nitrogen/creatinine mass ratio 16 NRG Serum or plasma creatinine measurement with calculation of estimated glomerular filtration rate > NRG Serum or plasma glucose measurement (mass/volume) 101 mg/dL 70-105 Serum or plasma calcium measurement (mass/volume) 9.2 mg/dL 8.5-10.1 Serum or plasma total bilirubin measurement (mass/volume) 0.5 mg/dL 0.1-1.0 Serum or plasma alkaline phosphatase measurement (enzymatic activity/volume) 79 U/L 40-136 Serum or plasma aspartate aminotransferase measurement (enzymatic activity/ volume) 14 U/L 5-34 Serum or plasma alanine aminotransferase measurement (enzymatic activity/volume ) 21 U/L 0-55 Serum or plasma protein measurement (mass/volume) 7.3 g/dL 6.4-8.2 Serum or plasma albumin measurement (mass/volume) 4.1 g/dL 3.2-4.5 Magnesium - 11/24/16 12:10 Magnesium 2.0 mg/dL 1.8-2.4 Serum or plasma troponin i.cardiac measurement (mass/volume) - 11/24/16 12:10 Serum or plasma troponin i.cardiac measurement (mass/volume) < ng/ mL <0.30 Myoglobin, serum - 11/24/16 12:10 Myoglobin, serum 23.8 ng/mL 10.0-92.0 Fibrin D-dimer FEU measurement in platelet poor plasma (mass/volume) - 12:10 Fibrin D-dimer FEU measurement in platelet poor plasma (mass/volume) 0.30 ug/mL 0.00-0.49 Serum or plasma amylase measurement (enzymatic activity/volume) - 11/24/16 12: 10 Serum or plasma amylase measurement (enzymatic activity/volume) 63 U /L 25-125 Lipase - 11/24/16 12:10 Lipase 23 U/L 8-78 Serum or plasma troponin i.cardiac measurement (mass/volume) - 11/24/16 15:45 Serum or plasma troponin i.cardiac measurement (mass/volume) < ng/ mL <0.30 Myoglobin, serum - 11/24/16 15:45 Myoglobin, serum 20.2 ng/mL 10.0-92.0 Complete blood count (CBC) with automated white blood cell (WBC) differential - 02/28/17 09:50 Blood leukocytes automated count (number/volume) 13.3 10*3/uL 4.3-11.0 Blood erythrocytes automated count (number/volume) 5.11 10*6/uL 4.35-5.85 Venous blood hemoglobin measurement (mass/volume) 15.7 g/dL 11.5-16.0 Blood hematocrit (volume fraction) 46 % 35-52 Automated erythrocyte mean corpuscular volume 91 [foz_us] 80-99 Automated erythrocyte mean corpuscular hemoglobin (mass per erythrocyte) 31 pg 25-34 Automated erythrocyte mean corpuscular hemoglobin concentration measurement ( mass/volume) 34 g/dL 32-36 Automated erythrocyte distribution width ratio 14.6 % 10.0-14.5 Automated blood platelet count (count/volume) 261 10*3/uL 130-400 Automated blood platelet mean volume measurement 9.6 [foz_us] 7.4-10.4 Automated blood neutrophils/100 leukocytes 72 % 42-75 Automated blood lymphocytes/100 leukocytes 21 % 12-44 Blood monocytes/100 leukocytes 5 % 0-12 Automated blood eosinophils/100 leukocytes 1 % 0-10 Automated blood basophils/100 leukocytes 0 % 0-10 Blood neutrophils automated count (number/volume) 9.6 10*3 1.8-7.8 Blood lymphocytes automated count (number/volume) 2.8 10*3 1.0-4.0 Blood monocytes automated count (number/volume) 0.7 10*3 0.0-1.0 Automated eosinophil count 0.2 10*3/uL 0.0-0.3 Automated blood basophil count (count/volume) 0.1 10*3/uL 0.0-0.1 PT panel in platelet poor plasma by coagulation assay - 02/28/17 09:50 Prothrombin time (PT) in platelet poor plasma by coagulation assay 13.2 s 12.2-14.7 INR in platelet poor plasma or blood by coagulation assay 1.0 0.8-1.4 Activated partial thromboplastin time (aPTT) in platelet poor plasma bycoagulation assay - 02/28/17 09:50 Activated partial thromboplastin time (aPTT) in platelet poor plasma bycoagulation assay 30 s 24-35 Fibrin D-dimer FEU measurement in platelet poor plasma (mass/volume) - 09:50 Fibrin D-dimer FEU measurement in platelet poor plasma (mass/volume) 0.27 ug/mL 0.00-0.49 Comprehensive metabolic panel - 02/28/17 09:50 Serum or plasma sodium measurement (moles/volume) 138 mmol/L 135-145 Serum or plasma potassium measurement (moles/volume) 3.9 mmol/L 3.6-5.0 Serum or plasma chloride measurement (moles/volume) 104 mmol/L 98-107 Carbon dioxide 26 mmol/L 21-32 Serum or plasma anion gap determination (moles/volume) 8 mmol/L 5-14 Serum or plasma urea nitrogen measurement (mass/volume) 10 mg/dL 7-18 Serum or plasma creatinine measurement (mass/volume) 0.70 mg/dL 0.60-1.30 Serum or plasma urea nitrogen/creatinine mass ratio 14 NRG Serum or plasma creatinine measurement with calculation of estimated glomerular filtration rate > NRG Serum or plasma glucose measurement (mass/volume) 88 mg/dL 70-105 Serum or plasma calcium measurement (mass/volume) 8.9 mg/dL 8.5-10.1 Serum or plasma total bilirubin measurement (mass/volume) 0.5 mg/dL 0.1-1.0 Serum or plasma alkaline phosphatase measurement (enzymatic activity/volume) 76 U/L 40-136 Serum or plasma aspartate aminotransferase measurement (enzymatic activity/ volume) 14 U/L 5-34 Serum or plasma alanine aminotransferase measurement (enzymatic activity/volume ) 14 U/L 0-55 Serum or plasma protein measurement (mass/volume) 6.7 g/dL 6.4-8.2 Serum or plasma albumin measurement (mass/volume) 3.9 g/dL 3.2-4.5 Serum or plasma troponin i.cardiac measurement (mass/volume) - 02/28/17 09:50 Serum or plasma troponin i.cardiac measurement (mass/volume) < ng/ mL <0.30 Capillary blood glucose measurement by glucometer (mass/volume) - 02/28/17 10: 01 Capillary blood glucose measurement by glucometer (mass/volume) 71 mg/dL 70-110 Complete urinalysis with reflex to culture - 02/28/17 10:55 Urine color determination YELLOW NRG Urine clarity determination SLIGHTLY CLOUDY NRG Urine pH measurement by test strip 7 5-9 Specific gravity of urine by test strip 1.015 1.016- 1.022 Urine protein assay by test strip, semi-quantitative 1+ NEGATIVE Urine glucose detection by automated test strip 3+ NEGATIVE Erythrocytes detection in urine sediment by light microscopy 2+ NEGATIVE Urine ketones detection by automated test strip NEGATIVE NEGATIVE Urine nitrite detection by test strip NEGATIVE NEGATIVE Urine total bilirubin detection by test strip NEGATIVE NEGATIVE Urine urobilinogen measurement by automated test strip (mass/volume) NORMAL NORMAL Urine leukocyte esterase detection by dipstick NEGATIVE NEGATIVE Automated urine sediment erythrocyte count by microscopy (number/high power field) [HPF] NRG Automated urine sediment leukocyte count by microscopy (number/high power field ) RARE NRG Bacteria detection in urine sediment by light microscopy FEW NRG Squamous epithelial cells detection in urine sediment by light microscopy 25-50 NRG Crystals detection in urine sediment by light microscopy NONE NRG Casts detection in urine sediment by light microscopy NONE NRG Mucus detection in urine sediment by light microscopy NEGATIVE NRG Complete urinalysis with reflex to culture NO NRG Complete blood count (CBC) with automated white blood cell (WBC) differential - 03/23/17 13:45 Blood leukocytes automated count (number/volume) 10.5 10*3/uL 4.3-11.0 Blood erythrocytes automated count (number/volume) 5.14 10*6/uL 4.35-5.85 Venous blood hemoglobin measurement (mass/volume) 15.9 g/dL 11.5-16.0 Blood hematocrit (volume fraction) 46 % 35-52 Automated erythrocyte mean corpuscular volume 90 [foz_us] 80-99 Automated erythrocyte mean corpuscular hemoglobin (mass per erythrocyte) 31 pg 25-34 Automated erythrocyte mean corpuscular hemoglobin concentration measurement ( mass/volume) 34 g/dL 32-36 Automated erythrocyte distribution width ratio 14.9 % 10.0-14.5 Automated blood platelet count (count/volume) 306 10*3/uL 130-400 Automated blood platelet mean volume measurement 9.7 [foz_us] 7.4-10.4 Automated blood neutrophils/100 leukocytes 62 % 42-75 Automated blood lymphocytes/100 leukocytes 29 % 12-44 Blood monocytes/100 leukocytes 6 % 0-12 Automated blood eosinophils/100 leukocytes 2 % 0-10 Automated blood basophils/100 leukocytes 1 % 0-10 Blood neutrophils automated count (number/volume) 6.6 10*3 1.8-7.8 Blood lymphocytes automated count (number/volume) 3.1 10*3 1.0-4.0 Blood monocytes automated count (number/volume) 0.7 10*3 0.0-1.0 Automated eosinophil count 0.2 10*3/uL 0.0-0.3 Automated blood basophil count (count/volume) 0.1 10*3/uL 0.0-0.1 PT panel in platelet poor plasma by coagulation assay - 03/23/17 13:45 Prothrombin time (PT) in platelet poor plasma by coagulation assay 13.0 s 12.2-14.7 INR in platelet poor plasma or blood by coagulation assay 1.0 0.8-1.4 Activated partial thromboplastin time (aPTT) in platelet poor plasma bycoagulation assay - 03/23/17 13:45 Activated partial thromboplastin time (aPTT) in platelet poor plasma bycoagulation assay 28 s 24-35 Fibrin D-dimer FEU measurement in platelet poor plasma (mass/volume) - 13:45 Fibrin D-dimer FEU measurement in platelet poor plasma (mass/volume) 0.36 ug/mL 0.00-0.49 Comprehensive metabolic panel - 03/23/17 13:45 Serum or plasma sodium measurement (moles/volume) 138 mmol/L 135-145 Serum or plasma potassium measurement (moles/volume) 3.6 mmol/L 3.6-5.0 Serum or plasma chloride measurement (moles/volume) 105 mmol/L 98-107 Carbon dioxide 23 mmol/L 21-32 Serum or plasma anion gap determination (moles/volume) 10 mmol/L 5-14 Serum or plasma urea nitrogen measurement (mass/volume) 13 mg/dL 7-18 Serum or plasma creatinine measurement (mass/volume) 0.73 mg/dL 0.60-1.30 Serum or plasma urea nitrogen/creatinine mass ratio 18 NRG Serum or plasma creatinine measurement with calculation of estimated glomerular filtration rate > NRG Serum or plasma glucose measurement (mass/volume) 113 mg/dL 70-105 Serum or plasma calcium measurement (mass/volume) 9.0 mg/dL 8.5-10.1 Serum or plasma total bilirubin measurement (mass/volume) 0.5 mg/dL 0.1-1.0 Serum or plasma alkaline phosphatase measurement (enzymatic activity/volume) 75 U/L 40-136 Serum or plasma aspartate aminotransferase measurement (enzymatic activity/ volume) 24 U/L 5-34 Serum or plasma alanine aminotransferase measurement (enzymatic activity/volume ) 30 U/L 0-55 Serum or plasma protein measurement (mass/volume) 7.3 g/dL 6.4-8.2 Serum or plasma albumin measurement (mass/volume) 4.1 g/dL 3.2-4.5 Serum or plasma troponin i.cardiac measurement (mass/volume) - 03/23/17 13:45 Serum or plasma troponin i.cardiac measurement (mass/volume) < ng/ mL <0.30 Capillary blood glucose measurement by glucometer (mass/volume) - 03/23/17 14: 00 Capillary blood glucose measurement by glucometer (mass/volume) 126 mg/dL 70-110 Complete urinalysis with reflex to culture - 03/23/17 14:40 Urine color determination YELLOW NRG Urine clarity determination CLEAR NRG Urine pH measurement by test strip 6 5-9 Specific gravity of urine by test strip 1.020 1.016- 1.022 Urine protein assay by test strip, semi-quantitative NEGATIVE NEGATIVE Urine glucose detection by automated test strip NEGATIVE NEGATIVE Erythrocytes detection in urine sediment by light microscopy 1+ NEGATIVE Urine ketones detection by automated test strip NEGATIVE NEGATIVE Urine nitrite detection by test strip NEGATIVE NEGATIVE Urine total bilirubin detection by test strip NEGATIVE NEGATIVE Urine urobilinogen measurement by automated test strip (mass/volume) 1 mg/dL NORMAL Urine leukocyte esterase detection by dipstick 1+ NEGATIVE Automated urine sediment erythrocyte count by microscopy (number/high power field) RARE NRG Automated urine sediment leukocyte count by microscopy (number/high power field ) NONE NRG Bacteria detection in urine sediment by light microscopy NEGATIVE NRG Squamous epithelial cells detection in urine sediment by light microscopy 5-10 NRG Crystals detection in urine sediment by light microscopy NONE NRG Casts detection in urine sediment by light microscopy NONE NRG Mucus detection in urine sediment by light microscopy NEGATIVE NRG Complete urinalysis with reflex to culture NO NRG Erythrocyte sedimentation rate by westergren method - 04/02/17 07:51 Erythrocyte sedimentation rate by westergren method 3 mm 0-20 Comprehensive metabolic panel - 04/02/17 07:51 Serum or plasma sodium measurement (moles/volume) 138 mmol/L 135-145 Serum or plasma potassium measurement (moles/volume) 3.9 mmol/L 3.6-5.0 Serum or plasma chloride measurement (moles/volume) 104 mmol/L 98-107 Carbon dioxide 25 mmol/L 21-32 Serum or plasma anion gap determination (moles/volume) 9 mmol/L 5-14 Serum or plasma urea nitrogen measurement (mass/volume) 12 mg/dL 7-18 Serum or plasma creatinine measurement (mass/volume) 0.68 mg/dL 0.60-1.30 Serum or plasma urea nitrogen/creatinine mass ratio 18 NRG Serum or plasma creatinine measurement with calculation of estimated glomerular filtration rate > NRG Serum or plasma glucose measurement (mass/volume) 98 mg/dL 70-105 Serum or plasma calcium measurement (mass/volume) 9.2 mg/dL 8.5-10.1 Serum or plasma total bilirubin measurement (mass/volume) 0.6 mg/dL 0.1-1.0 Serum or plasma alkaline phosphatase measurement (enzymatic activity/volume) 86 U/L 40-136 Serum or plasma aspartate aminotransferase measurement (enzymatic activity/ volume) 12 U/L 5-34 Serum or plasma alanine aminotransferase measurement (enzymatic activity/volume ) 18 U/L 0-55 Serum or plasma protein measurement (mass/volume) 7.3 g/dL 6.4-8.2 Serum or plasma albumin measurement (mass/volume) 4.2 g/dL 3.2-4.5 Lipid 1996 panel - 04/02/17 07:51 Serum or plasma triglyceride measurement (mass/volume) 96 mg/dL <150 Serum or plasma cholesterol measurement (mass/volume) 216 mg/dL < 200 Serum or plasma cholesterol in HDL measurement (mass/volume) 36 mg/ dL 40-60 Cholesterol in LDL [mass/volume] in serum or plasma by direct assay 164 mg/dL 1-129 Serum or plasma cholesterol in VLDL measurement (mass/volume) 19 mg/ dL 5-40 THYROID STIMULATING HORMONE - 04/02/17 07:51 THYROID STIMULATING HORMONE 1.74 u[iU]/mL 0.35-4.94 Serum or plasma thyrotropin measurement by detection limit <=0.05 miu/l (units/ volume) - 04/02/17 07:51 Serum or plasma thyrotropin measurement by detection limit <=0.05 miu/l (units/ volume) 1.74 u[iU]/mL 0.35-4.94 Serum or plasma C reactive protein measurement (mass/volume) - 04/02/17 07:51 Serum or plasma C reactive protein measurement (mass/volume) 1.36 mg /dL 0.00-0.50 [id number] - 04/02/17 07:51 Screening antinuclear antibody (PAMELA) assay by enzyme immunoassay <1: 80 <1:80 Complete blood count (CBC) with automated white blood cell (WBC) differential - 04/06/17 11:35 Blood leukocytes automated count (number/volume) 11.5 10*3/uL 4.3-11.0 Blood erythrocytes automated count (number/volume) 5.31 10*6/uL 4.35-5.85 Venous blood hemoglobin measurement (mass/volume) 16.1 g/dL 11.5-16.0 Blood hematocrit (volume fraction) 48 % 35-52 Automated erythrocyte mean corpuscular volume 90 [foz_us] 80-99 Automated erythrocyte mean corpuscular hemoglobin (mass per erythrocyte) 30 pg 25-34 Automated erythrocyte mean corpuscular hemoglobin concentration measurement ( mass/volume) 34 g/dL 32-36 Automated erythrocyte distribution width ratio 14.7 % 10.0-14.5 Automated blood platelet count (count/volume) 290 10*3/uL 130-400 Automated blood platelet mean volume measurement 10.0 [foz_us] 7.4-10.4 Automated blood neutrophils/100 leukocytes 60 % 42-75 Automated blood lymphocytes/100 leukocytes 29 % 12-44 Blood monocytes/100 leukocytes 7 % 0-12 Automated blood eosinophils/100 leukocytes 3 % 0-10 Automated blood basophils/100 leukocytes 1 % 0-10 Blood neutrophils automated count (number/volume) 6.9 10*3 1.8-7.8 Blood lymphocytes automated count (number/volume) 3.3 10*3 1.0-4.0 Blood monocytes automated count (number/volume) 0.8 10*3 0.0-1.0 Automated eosinophil count 0.4 10*3/uL 0.0-0.3 Automated blood basophil count (count/volume) 0.1 10*3/uL 0.0-0.1 Magnesium - 04/06/17 11:35 Magnesium 2.2 mg/dL 1.8-2.4 Comprehensive metabolic panel - 04/06/17 11:35 Serum or plasma sodium measurement (moles/volume) 138 mmol/L 135-145 Serum or plasma potassium measurement (moles/volume) 4.1 mmol/L 3.6-5.0 Serum or plasma chloride measurement (moles/volume) 105 mmol/L 98-107 Carbon dioxide 22 mmol/L 21-32 Serum or plasma anion gap determination (moles/volume) 11 mmol/L 5-14 Serum or plasma urea nitrogen measurement (mass/volume) 12 mg/dL 7-18 Serum or plasma creatinine measurement (mass/volume) 0.76 mg/dL 0.60-1.30 Serum or plasma urea nitrogen/creatinine mass ratio 16 NRG Serum or plasma creatinine measurement with calculation of estimated glomerular filtration rate > NRG Serum or plasma glucose measurement (mass/volume) 95 mg/dL 70-105 Serum or plasma calcium measurement (mass/volume) 9.3 mg/dL 8.5-10.1 Serum or plasma total bilirubin measurement (mass/volume) 0.4 mg/dL 0.1-1.0 Serum or plasma alkaline phosphatase measurement (enzymatic activity/volume) 87 U/L 40-136 Serum or plasma aspartate aminotransferase measurement (enzymatic activity/ volume) 16 U/L 5-34 Serum or plasma alanine aminotransferase measurement (enzymatic activity/volume ) 15 U/L 0-55 Serum or plasma protein measurement (mass/volume) 8.4 g/dL 6.4-8.2 Serum or plasma albumin measurement (mass/volume) 4.4 g/dL 3.2-4.5 PT panel in platelet poor plasma by coagulation assay - 04/06/17 11:35 Prothrombin time (PT) in platelet poor plasma by coagulation assay 12.9 s 12.2-14.7 INR in platelet poor plasma or blood by coagulation assay 1.0 0.8-1.4 Activated partial thromboplastin time (aPTT) in platelet poor plasma bycoagulation assay - 04/06/17 11:35 Activated partial thromboplastin time (aPTT) in platelet poor plasma bycoagulation assay 30 s 24-35 Serum or plasma troponin i.cardiac measurement (mass/volume) - 04/06/17 11:35 Serum or plasma troponin i.cardiac measurement (mass/volume) < ng/ mL <0.30 Myoglobin, serum - 04/06/17 11:35 Myoglobin, serum 23.3 ng/mL 10.0-92.0 Fibrin D-dimer FEU measurement in platelet poor plasma (mass/volume) - 11:35 Fibrin D-dimer FEU measurement in platelet poor plasma (mass/volume) 0.38 ug/mL 0.00-0.49 Capillary blood glucose measurement by glucometer (mass/volume) - 04/06/17 11: 43 Capillary blood glucose measurement by glucometer (mass/volume) 101 mg/dL 70-110 Encounters ACCT No. Visit Date/Time Discharge Status Pt. Type Provider Facility Loc./Unit Complaint [id number] 04/22/2012 13:29:00 04/22/2012 23:59:59 CLS Outpatient [id number] 04/08/2012 13:32:00 04/08/2012 23:59:59 CLS Outpatient EVA COHEN PSYD [id number] 03/05/2012 15:41:00 03/05/2012 23:59:59 CLS Outpatient EVA COHEN PSYD [id number] 04/30/2017 09:31:00 04/30/2017 23:59:59 CLS Outpatient WASHINGTON DURANT DO [facility] CARD TACHYCARDIA [id number] 04/06/2017 11:32:00 04/06/2017 16:01:00 DIS Emergency ZANE STEWART [facility] ER STROKE SYMPTOMS [id number] 04/02/2017 07:45:00 04/02/2017 23:59:59 CLS Outpatient WASHINGTON DURANT DO [facility] LAB LUPUS,CAD,TIA [id number] 03/23/2017 13:41:00 03/23/2017 17:25:00 DIS Emergency ZANE STEWART [facility] ER RIGHT SIDE WEAKNESS [id number] 03/04/2017 10:23:00 03/04/2017 23:59:59 CLS Outpatient RAH SULTANA MD [facility] RAD TIA G45.9 [id number] 02/28/2017 11:00:00 03/01/2017 13:00:00 DIS Inpatient RAH SULTANA MD [facility] 4TH ACUTE TIA [id number] 11/24/2016 12:04:00 11/24/2016 16:32:00 DIS Emergency JUAN SYKES MD [facility] ER SOB/ABD-CHEST PAIN/ SHOULDER PAIN [id number] 10/22/2016 18:02:00 10/22/2016 19:50:00 DIS Emergency ROMAIN AUGUSTIN APRN [facility] ER CHEST PAIN [id number] 09/24/2016 08:00:00 09/24/2016 23:59:59 CLS Preadmit DELBERT FELIZ, SIMONE Askew [facility] SDC RIGHT KNEE CHONDROMYLASIA [id number] 09/22/2016 08:00:00 09/22/2016 23:59:59 CLS Preadmit DELBERT FELIZ, SIMONE Askew [facility] PREOP RIGHT KNEE SCOPE [id number] 07/26/2016 10:21:00 07/26/2016 23:59:59 CLS Outpatient JUAN CARLOS STEVENSON [employer] [facility] RAD ACUTE PAIN OF RIGHT KNEE [id number] 04/10/2016 14:37:00 04/10/2016 23:59:59 CLS Outpatient JUAN CHRISTOPHER DC [facility] RAD ACUTE LEFT HIP PAIN [id number] 08/27/2015 14:05:00 08/27/2015 18:40:00 DIS Emergency JUAN SYKES MD [facility] ER CONSTIPATION [id number] 11/20/2014 17:30:00 11/20/2014 23:59:59 CLS Outpatient JANAE ROCHA MD [facility] LAB ABD PAIN [id number] 05/31/2014 07:34:00 05/31/2014 10:13:00 DIS Emergency RAYSA EPPS MD [facility] ER LOW BP [id number] 02/20/2014 09:05:00 02/20/2014 23:59:59 CLS Outpatient JUAN CARLOS STEVENSON [employer] [facility] RAD BREAST LUMP [id number] 10/04/2013 22:53:00 10/05/2013 01:28:00 DIS Emergency ASHA BRUMFIELD DO [facility] ER MULTIPLE COMPLAINTS [id number] 11/03/2012 15:08:00 11/03/2012 23:59:59 CLS Outpatient CLINT STUART [facility] RT DYSPNEA, TOBACCOISM,PALPITATIONS,HTN [id number] 11/02/2012 07:58:00 11/02/2012 23:59:59 CLS Outpatient CLINT STUART [facility] LAB HLP [id number] 10/18/2012 10:25:00 10/18/2012 23:59:59 CLS Outpatient MEGGAN FELIZ, CLARISSE Crowell [facility] CARD CP,HTN,HYPERLIPIDEMIA [id number] 10/11/2012 11:36:00 10/11/2012 16:34:00 DIS Emergency SUPRIYA FELIZ, RAYSA Reno [facility] ER HEAD PAIN ON THE LEFT SIDE/ CP PAIN ON AND OFF [id number] 02/10/2012 09:52:00 Document Registration [id number] 01/25/2012 14:33:00 Document Registration [id number] 12/15/2011 10:20:00 Document Registration [id number] 12/10/2011 10:04:00 Document Registration [id number] 11/27/2011 07:26:00 Document Registration [id number] 10/13/2011 10:55:00 Document Registration [id number] 10/09/2011 13:47:00 Document Registration [id number] 10/03/2011 08:15:00 Document Registration [id number] 07/09/2011 07:58:00 Document Registration
[2017-07-07] MEDS ORDERED: LORazepam INJ 2 MG/ML (ATIVAN) VIAL IVP ONE (11:45)
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
[2017-07-07 11:59] LABS: BASOPHILS # (AUTO) 0.1 10^3/uL (0.0-0.1); BASOPHILS % (AUTO) 1 % (0-10); EOSINOPHILS # (AUTO) 0.1 10^3/uL (0.0-0.3); EOSINOPHILS % (AUTO) 1 % (0-10); HEMATOCRIT 46 % (35-52); HEMOGLOBIN 15.8 G/DL (11.5-16.0); LYMPHOCYTES # (AUTO) 2.6 X 10^3 (1.0-4.0); LYMPHOCYTES % (AUTO) 27 % (12-44); MEAN CORPUSCULAR HEMOGLOBIN 31 PG (25-34); MEAN CORPUSCULAR HGB CONC 34 G/DL (32-36); MEAN CORPUSCULAR VOLUME 90 FL (80-99); MEAN PLATELET VOLUME 9.8 FL (7.4-10.4); MONOCYTES # (AUTO) 0.8 X 10^3 (0.0-1.0); MONOCYTES % (AUTO) 8 % (0-12); NEUTROPHILS # (AUTO) 6.1 X 10^3 (1.8-7.8); NEUTROPHILS % (AUTO) 63 % (42-75); PLATELET COUNT 250 10^3/uL (130-400); RED BLOOD COUNT 5.16 10^6/uL (4.35-5.85); RED CELL DISTRIBUTION WIDTH 14.8 % (10.0-14.5); WHITE BLOOD COUNT 9.7 10^3/uL (4.3-11.0)
[2017-07-07] MEDS ORDERED: ONDANSETRON 4 MG/2 ML (SDV) Z0FRAN IVP ONE (12:15)
[2017-07-07 12:19] LABS: ALANINE AMINOTRANSFERASE 25 U/L (0-55); ALBUMIN 4.1 GM/DL (3.2-4.5); ALKALINE PHOSPHATASE 72 U/L (40-136); BILIRUBIN,TOTAL 0.5 MG/DL (0.1-1.0); BUN/CREATININE RATIO 13; CALCIUM 9.1 MG/DL (8.5-10.1); CARBON DIOXIDE 21 MMOL/L (21-32); CHLORIDE 106 MMOL/L (98-107); CREATININE SERUM 0.78 MG/DL (0.60-1.30); GFR ESTIMATED > 60; GLUCOSE 99 MG/DL (70-105); POTASSIUM 3.8 MMOL/L (3.6-5.0); SODIUM 139 MMOL/L (135-145); TOTAL PROTEIN 7.2 GM/DL (6.4-8.2)
--- NOTE | 2017-07-07 12:36 | Diagnostic Imaging Report ---
EXAMINATION: PA chest obtained at 1213 hours. INDICATION: None given. FINDINGS: The heart and mediastinal silhouette are normal in appearance. There are mild chronic appearing increased interstitial markings which appear similar to the prior study of 04/06/2017. There is no pneumothorax or pleural fluid. IMPRESSION: Mild chronic appearing increased interstitial markings are present which appear similar to the prior study. There is no new infiltrate, pneumothorax, or pleural fluid. Dictated by: Dictated on workstation # [id number]
[2017-07-07] MEDS ORDERED: TRAM50TA2 PO (12:42)
[2017-07-07 12:59] VITALS: BP 107/73
== END 2017-07-07 12:58 | disposition home or self-care (01) ==
LOC: EDUNIT# 11:32 → ER 11:34
DX: R07.89 Other chest pain (principal); I10 Essential (primary) hypertension; F41.9 Anxiety disorder, unspecified; F32.9 Major depressive disorder, single episode, unspecified; I25.10 Atherosclerotic heart disease of native coronary artery without angina pectoris; Z86.73 Personal history of transient ischemic attack (TIA), and cerebral infarction without residual deficits; Z90.710 Acquired absence of both cervix and uterus; Z90.49 Acquired absence of other specified parts of digestive tract; Z79.82 Long term (current) use of aspirin; Z88.5 Allergy status to narcotic agent; Z88.8 Allergy status to other drugs, medicaments and biological substances
CPT/HCPCS: 36415; 71045; 80053; 84484; 85025; 93005; 96374; 96375

== ENCOUNTER 2017-11-03 19:45 | Emergency (ER) | payer MEDICARE ==
[~2017-11-03] VITALS: Ht 170.2 cm; Wt 95.3 kg
[~2017-11-03 19:45] MED LIST changes: +PSEU120T17 PO; -PSEU120T53 PO; +TRAM50TA2 PO
--- NOTE | 2017-11-03 20:07 | ED EENT ---
History of Present Illness General Chief Complaint: Dental Problems/Pain Stated Complaint: MOUTH BLEEDING Source: patient Exam Limitations: no limitations History of Present Illness Date Seen by Provider: Nov 03, 2017 Time Seen by Provider: 20:04 Initial Comments To ER with reports of bleeding from her gums. She had 21 teeth extracted at [facility] in [place] and was fitted for dentures. She states that she is allergic to hydrocodone but she was given hydrocodone for pain control. It causes hives but she is okay as long as she takes Benadryl. She states that she can't swallow because of all the blood in her mouth. Timing/Duration: abrupt Severity: moderate Location: mouth, dental Prearrival Treatment: no prearrival treatment Allergies and Home Medications Allergies Coded Allergies: carbamazepine (Verified Allergy, Unknown, 08/27/15) hydrocodone (Verified Allergy, Unknown, 11/16/08) Home Medications Alprazolam 0.25 Mg Tablet, 0.25 MG PO Q6H PRN for ANXIETY Prescribed by: ZANE SAMAYOA on 03/23/17 1722 Aspirin 81 Mg Tab.chew, 81 MG PO DAILY Prescribed by: ADALBERTO DIOR on 02/28/17 1451 Patient Home Medication List Home Medication List Reviewed: Yes Review of Systems Constitutional: see HPI Eyes: No Symptoms Reported Nose: no symptoms reported Mouth: see HPI, pain Throat: no symptoms reported Respiratory: no symptoms reported Cardiovascular: no symptoms reported Musculoskeletal: no symptoms reported Past Jrnwdyk-Srfduq-Coxcgt Hx Patient Social History Alcohol Use: Denies Use Recreational Drug Use: No Smoking Status: Former Smoker Type Used: Cigarettes Recent Foreign Travel: No Contact w/Someone Who Travel: No Recent Hopitalizations: No Immunizations Up To Date Tetanus Booster (TDap): Unknown Date of Pneumonia Vaccine: Feb 02, 2012 Seasonal Allergies Seasonal Allergies: Yes Past Medical History Surgeries: Yes (COLON RESECTION, VAGINAL SEPTUM, ) Appendectomy, Gallbladder, Hysterectomy Respiratory: Yes (Tobaccoism) Asthma Currently Using CPAP: No Currently Using BIPAP: No Cardiac: Yes (Raynaud's syndrome) Heart Attack, Hypertension, Palpitations Neurological: Yes (HX STROKE) Headaches /Migraines, Stroke 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: 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 Sexually Transmitted Disease: No HIV/AIDS: No Genitourinary: Yes (STRESS INCONT) Gastrointestinal: Yes (History of perforated colon s/p partial resection) Diverticulosis, Polyps, Irritable Bowel Musculoskeletal: Yes Fibromyalgia Endocrine: Yes Lupus HEENT: No Cancer: No Psychosocial: Yes Depression Blood Disorders: Yes (ANTIPHOSLIPID PER PATIENT) Family Medical History Asthma SON PATIENT IS ADOPTED Heart Disease, Cancer Physical Exam Vital Signs Vital Signs - First Documented 11/03/17 19:55 Temp 98.5 Pulse 102 Resp 20 B/P (MAP) 160/111 (127) Pulse Ox 97 O2 Delivery Room Air General Appearance: WD/WN, no apparent distress Eyes: bilateral eye normal inspection, bilateral eye PERRL, bilateral eye EOMI Ears: bilateral ear auricle normal, bilateral ear canal normal, bilateral ear TM normal Mouth/Throat: other (there is clot filling each of the tooth sockets from where the teeth were removed. There is minimal active oozing of blood. I'll soak a 2 x 2 ENTXA and have her bite on this for a bit.) Neck: non-tender, full range of motion Cardiovascular: regular rate, rhythm, no murmur Respiratory: no respiratory distress, no accessory muscle use Gastrointestinal: normal bowel sounds, non tender, soft Neurologic/Psychiatric: alert, oriented x 3 Skin: normal color, warm/dry Progress/Results/Core Measures Results/Orders My Orders Orders - ROMAIN AUGUSTIN APRN Morphine Injection (Morphine Injection (11/03/17 20:15) Tranexamic Acid Injection (Cyklokapron I (11/03/17 20:15) Rx-Oxycodone/Apap 5-325 Mg (Rx-Percocet (11/03/17 20:15) Medications Given in ED Current Medications Medications Dose Ordered Sig/Jatinder Route Start Time Stop Time Status Last Admin Dose Admin Morphine Sulfate 10 mg ONCE ONCE IV 11/03/17 20:15 11/03/17 20:16 DC 11/03/17 20:11 10 MG Oxycodone/ Acetaminophen 1 ea Q4H PRN PO 11/03/17 20:15 11/03/17 20:11 1 EA Tranexamic Acid saturate 2x2 gauze sponge... ONCE ONCE IV 11/03/17 20:15 11/03/17 20:16 DC 11/03/17 20:11 1,000 MG Vital Signs/I&O 11/03/17 19:55 Temp 98.5 Pulse 102 Resp 20 B/P (MAP) 160/111 (127) Pulse Ox 97 O2 Delivery Room Air Departure Communication (Admissions) When discussing what she typically uses for pain control since she is allergic to oxycodone she states Demerol. Advised that we don't like to use that much anymore and asked what she uses at home she states "everybody always thinks I'm a drug seeker!" And becomes very hostile and reviewed. Advised her that I just want to know what kind of pain medication I could prescribe that she could safely tolerate at home. Impression Primary Impression: Postoperative bleeding from mouth Disposition: HOME, SELF-CARE Condition: Improved Departure-Patient Inst. Decision time for Depature: 20:06 Referrals: WASHINGTON DURANT DO (PCP/Family) Primary Care Physician Patient Instructions: NO INSTRUCTIONS GIVEN Add. Discharge Instructions: 1. Pain medication as directed. Return to ER for any concerns All discharge instructions reviewed with patient and/or family. Voiced understanding. Scripts Oxycodone HCl/Acetaminophen (Percocet 5-325 mg Tablet) 1 Each Tablet 1 EACH PO Q6H PRN for PAIN-MODERATE TO SEVERE, #20 TAB Prov: ROMAIN AUGUSTIN APRN 11/03/17 ROMAIN AUGUSTIN APRN Nov 03, 2017 20:07
[2017-11-03] MEDS ORDERED: morphine INJ 10 MG/ML 1ML (SYR OR VIAL) IV ONE (20:15)
[2017-11-03] MEDS ORDERED: TRANEXAMIC ACID 100 MG/ML 10 ML INJECTION IV ONE (20:15)
[2017-11-03] MEDS ORDERED: RX-OXYCODONE/APAP 5-325 MG #4 TAB PK PO PRN (20:15)
[2017-11-03] MEDS ORDERED: OXYC-197 PO (20:39)
[2017-11-03 21:05] VITALS: BP 160/111
== END 2017-11-03 21:05 | disposition home or self-care (01) ==
LOC: EDUNIT# 19:45 → ER 19:46
DX: K91.840 Postprocedural hemorrhage of a digestive system organ or structure following a digestive system procedure (principal); J45.909 Unspecified asthma, uncomplicated; I25.2 Old myocardial infarction; I10 Essential (primary) hypertension; G43.909 Migraine, unspecified, not intractable, without status migrainosus; I73.00 Raynaud's syndrome without gangrene; F32.9 Major depressive disorder, single episode, unspecified; Z82.49 Family history of ischemic heart disease and other diseases of the circulatory system; Z86.010 Personal history of colon polyps; Z86.73 Personal history of transient ischemic attack (TIA), and cerebral infarction without residual deficits; Z88.5 Allergy status to narcotic agent; Z88.8 Allergy status to other drugs, medicaments and biological substances; Z79.82 Long term (current) use of aspirin; Z87.891 Personal history of nicotine dependence; Z90.49 Acquired absence of other specified parts of digestive tract; Z90.710 Acquired absence of both cervix and uterus; Z90.89 Acquired absence of other organs; Z98.890 Other specified postprocedural states
CPT/HCPCS: 96374; 96375; 99284

== ENCOUNTER 2018-05-06 08:47 | Emergency (ER) | payer BC, MEDICARE | END 2018-05-06 11:44 | disposition home or self-care (01) | LOC: ER 08:47 ==

== ENCOUNTER 2018-06-05 02:44 | Emergency (ER) | payer BC, MEDICARE ==
[~2018-06-05] VITALS: Ht 170.2 cm; Wt 72.6 kg
[2018-06-05 02:44] VITALS: BP 137/112
[~2018-06-05 02:44] MED LIST changes: +OXYC1TAB87 PO; +PROM25TA14 PO
[2018-06-05] MEDS ORDERED: LACTATED RINGERS 1,000 ML IV ONE (02:53)
[2018-06-05] MEDS ORDERED: QUET50TA55 (03:05)
[2018-06-05 03:12] LABS: BILIRUBIN,URINE NEGATIVE (NEGATIVE); CLARITY,URINE CLEAR; COLOR,URINE YELLOW; GLUCOSE, URINE (UA) NEGATIVE (NEGATIVE); KETONES,URINE NEGATIVE (NEGATIVE); LEUKOCYTE ESTERASE ,URINE NEGATIVE (NEGATIVE); NITRITE,URINE NEGATIVE (NEGATIVE); PH,URINE 7 (5-9); PROTEIN,URINE NEGATIVE (NEGATIVE); UROBILINOGEN,URINE NORMAL (NORMAL)
[2018-06-05 03:18] LABS: BACTERIA,URINE TRACE /HPF
[2018-06-05 03:22] LABS: AMPHETAMINE SCREEN, URINE NEGATIVE (NEGATIVE); BARBITURATE SCREEN URINE NEGATIVE (NEGATIVE); BENZODIAZEPINES SCREEN URINE NEGATIVE (NEGATIVE); CANNABINOID SCREEN, URINE POSITIVE (NEGATIVE); COCAINE SCREEN URINE NEGATIVE (NEGATIVE); METHADONE STAT NEGATIVE (NEGATIVE); METHAMPHETAMINE SCREEN URINE S NEGATIVE (NEGATIVE); OPIATE SCREEN URINE NEGATIVE (NEGATIVE); OXYCODONE STAT NEGATIVE (NEGATIVE); PROPOXYPHENE STAT NEGATIVE (NEGATIVE); TRICYCLIC ANTIDEPRESSANTS SCRE NEGATIVE (NEGATIVE)
== END 2018-06-05 03:08 | disposition left against medical advice (07) ==
LOC: EDUNIT# 02:44 → ER 02:46
DX: T43.592A Poisoning by other antipsychotics and neuroleptics, intentional self-harm, initial encounter (principal); Z90.710 Acquired absence of both cervix and uterus
CPT/HCPCS: 80306; 81000; 99284

== ENCOUNTER 2018-06-08 13:20 | Emergency (ER) | payer MEDICARE ==
[~2018-06-08] VITALS: Ht 170.2 cm; Wt 77.1 kg
[~2018-06-08 13:20] MED LIST changes: +QUET50TA55
--- OUTSIDE RECORDS SUMMARY | 2018-06-08 13:26 | XMS REPORT ---
Author Author GAURANG RESTREPO [facility] [place] [facility] Address [address] [place] [address] Care Team Providers Care Tapping Machine Operator Name Role Phone LAURO GAURANG Unavailable PROBLEMS Type Condition ICD9-CM Code MHW20-DM Code Onset Dates Condition Status SNOMED Code Problem Major depressive disorder, recurrent, moderate F33.1 Active 297910605 Problem Secondary hypertension I15.9 Active 61500532 Problem Chronic obstructive pulmonary disease, unspecified COPD type J44.9 Active 21769494 Problem Somatic complaints, multiple R68.89 Active 151627511 Problem Personality disorder F60.9 Active 17039498 Problem Attention deficit disorder F90.0 Active 871699510 Problem PTSD (post-traumatic stress disorder) F43.10 Active 63947662 Problem 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 Active 57724869 Problem History of lupus Z87.39 Active 994017423 Problem Hemiparesis of right dominant side due to non-cerebrovascular etiology G81.91 Active 799282902 Problem 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 Active 796461169 Problem Major depressive disorder, single episode, moderate F32.1 Active 121418745 ALLERGIES Substance Reaction Event Type Date Status Tegretol seizure Drug Allergy Mar, Active Hydrocodone-Acetaminophen hives Drug Allergy Mar, Active ENCOUNTERS Encounter Location Date Diagnosis [facility] [id number] [address] Mar, Left lower quadrant pain R10.32 [facility] [address] [address] Oct, [facility] [address] [address] Oct, Dental caries K02.9 and PTSD (post-traumatic stress disorder ) F43.10 [facility] [id number] [place] [address] 45228- 4657 Oct, Pain, dental K08.89 and Dental caries K02.9 [place] [address] [address] Jul, 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 and Post traumatic stress disorder F43.10 [place] [id number] [place] [address] 80587- 0901 Jul, [facility] [id number] [place] [address] 40752 [address]1901 Jul, 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10 [place] [id number] [place] [address] 11964- 0661 Mar, Hemiparesis of right dominant side due to non- cerebrovascular etiology G81.91 and History of lupus Z87.39 [place] [id number] [place] [address] 97972- 0143 Mar, [facility] [address] [address] Jan, Acute non-recurrent maxillary sinusitis J01.00 [place] [id number] [place] [address] 06205- 6871 Nov, [place] [id number] [place] [address] 20845- 5927 Oct, Chest pain on breathing R07.1 ; Chronic obstructive pulmonary disease, unspecified COPD type J44.9 ; Hematuria R31.9 and Secondary hypertension I15.9 [place] [id number] [place] [address] 84894- 1285 Oct, [place] [id number] [place] [address] 05681- 3830 Oct, Chest pain, unspecified type R07.9 [facility] [id number] [place] [address] 98491 -0910 September, Acute middle ear effusion, right H65.191 [place] [id number] [place] [address] 28208- 8804 Aug, [place] [id number] [place] [address] 61116- 8277 Aug, Chronic obstructive pulmonary disease, unspecified COPD type J44.9 [place] [address] [place] [address] 43540- 4783 Jul, Acute pain of right knee M25.561 [facility] [id number] [place] [address] 68531 -0202 Jul, Pain in right knee M25.561 and Pain in left knee M25.562 [place] [id number] [place] [address] 16319- 2876 Jun, Secondary hypertension I15.9 ; Chronic obstructive pulmonary disease, unspecified COPD type J44.9 ; Post traumatic stress disorder F43.10 ; Arthralgia, unspecified joint M25.50 ; Allergy, subsequent encounter T78.40XD and Screening cholesterol level Z13.220 [place] [id number] [address] May, [place] [address] [place] [address] 75608- 4219 Feb, Major depressive disorder, recurrent, moderate F33.1 ; Post traumatic stress disorder F43.10 and Personality disorder F60.9 [place] [address] [place] [address] 33802- 2958 Feb, [place] [id number] [place] [address] 48594- 3517 Jan, Major depressive disorder, recurrent, moderate F33.1 ; Post traumatic stress disorder F43.10 and Personality disorder F60.9 [place] [id number] [place] [address] 22413- 3604 Jan, Bronchitis J40 ; Sinus congestion R09.81 ; Major depressive disorder, recurrent, moderate F33.1 ; Personality disorder F60.9 ; Schizoid personality disorder F60.1 ; Chronic obstructive pulmonary disease, unspecified COPD type J44.9 and Secondary hypertension I15.9 [place] [address] [place] [address] 12270- 6376 Dec, Major depressive disorder, recurrent, moderate F33.1 ; Chronic obstructive pulmonary disease, unspecified COPD type J44.9 ; Muscle pain M79.1 and Secondary hypertension I15.9 [place] [address] [place] [address] 44080- 9329 Dec, Major depressive disorder, recurrent, moderate F33.1 ; Post traumatic stress disorder F43.10 and Personality disorder F60.9 [place] [address] [address] Nov, Major depressive disorder, recurrent, moderate F33.1 ; Post traumatic stress disorder F43.10 and Personality disorder F60.9 [place] [address] [place] [address] 04303- 1413 Nov, Post traumatic stress disorder F43.10 ; Personality disorder F60.9 ; Secondary hypertension I15.9 ; Chronic obstructive pulmonary disease, unspecified COPD type J44.9 and Osteoarthritis, unspecified osteoarthritis type, unspecified site M19.90 [place] [id number] [place] [address] 96217- 8164 Nov, Major depressive disorder, recurrent, moderate F33.1 ; Post traumatic stress disorder F43.10 and Personality disorder F60.9 [place] [address] 74451- 3183 Oct, Major depressive disorder, recurrent, moderate F33.1 ; Post traumatic stress disorder F43.10 and Personality disorder F60.9 [place] [address] 67544- 2445 Oct, Major depressive disorder, recurrent, moderate F33.1 ; Post traumatic stress disorder F43.10 and Personality disorder F60.[address] [address]58- 2288 Oct, Major depressive disorder, recurrent, moderate F33.1 ; Post traumatic stress disorder F43.10 and Personality disorder F60.9 [place] [address] 39157- 0447 Aug, Major depressive disorder, recurrent, moderate F33.1 ; Post traumatic stress disorder F43.10 and Personality disorder F60.9 [place] [id number] [place] [address] 32445- 6316 Jul, [place] [address] 18253- 5077 Jul, Physical exam Z00.[address] 41940- 8329 Jul, [place] [address] 07994- 4293 Jul, Tobacco abuse counseling Z71.6 and Bronchitis J40 [address] 51249- 0735 Jul, [facility] [address] [place] [address] 49342- 9090 Jul, [facility] [id number] [place] [address] 55883 -4851 Jul, Hematuria, unspecified R31.9 and Bronchitis J40 [facility] [id number] [place] [address] 78236- 1710 Jun, Major depressive disorder, recurrent, moderate F33.1 ; Post traumatic stress disorder F43.10 and Personality disorder F60.9 [facility] [id number] [place] [address] 04640- 3259 Jun, Major depressive disorder, recurrent, moderate F33.1 ; Post traumatic stress disorder F43.10 and Personality disorder F60.9 [facility] [id number] [place] [address] 89414- 0265 Jun, [facility] [id number] [place] [address] 24088- 9933 Jun, [facility] [id number] [place] [address] 95544- 3609 Jun, [facility] [id number] [place] [address] 87155- 8071 May, Major depressive disorder, recurrent, moderate F33.1 ; Post traumatic stress disorder F43.10 and Personality disorder F60.9 [facility] [id number] [place] [address] 10815- 1317 May, [facility] [address] [place] [address] 15492- 3038 May, Major depressive disorder, recurrent, moderate F33.1 ; Post- traumatic stress disorder, chronic F43.12 ; Personality disorder F60.9 ; Attention deficit disorder F90.0 and Schizoid personality disorder F60.1 [facility] [id number] [place] [address] 81831- 5700 May, Major depressive disorder, recurrent, moderate F33.1 ; Post traumatic stress disorder F43.10 and Schizoid personality disorder F60.1 [facility] [id number] [place] [address] 23862- 7974 May, [facility] [id number] [place] [address] 40216- 1006 Apr, Attention deficit disorder F90.0 [facility] [id number] [place] [address] 92106- 1484 Apr, Post-traumatic stress disorder, chronic F43.12 and Major depressive disorder, recurrent, moderate F33.1 [facility] [id number] [place] [address] 85200- 2319 Apr, Post traumatic stress disorder F43.10 and Attention deficit disorder F90.0 [facility] [id number] [place] [address] 65137- 3386 Apr, [facility] [id number] [place] [address] 06543- 1866 Apr, [facility] [id number] [place] [address] 47467- 8347 Apr, Post-traumatic stress disorder, chronic F43.12 and Major depressive disorder, recurrent, moderate F33.1 [facility] [address] [place] [address] 45002- 4878 Apr, Post-traumatic stress disorder, chronic F43.12 and Major depressive disorder, recurrent, moderate F33.1 [facility] [address] [place] [address] 04696- 1174 Apr, Major depressive disorder, recurrent, moderate F33.1 and Post traumatic stress disorder F43.10 [facility] [address] [id number] Mar, Dental examination Z01.20 and Dental caries K02.9 [facility] [address] [place] [address] 14133- 8173 Mar, Major depressive disorder, recurrent, moderate F33.1 ; Post- traumatic stress disorder, chronic F43.12 and Personality disorder F60.9 [facility] [id number] [place] [address] 38599- 1095 13 Mar, 2015 Post-traumatic stress disorder, chronic F43.12 and Major depressive disorder, recurrent, moderate F33.1 [facility] [address] 70410- 3482 11 Mar, 2015 Well woman exam Z01.419 ; Personality disorder F60.9 ; Post traumatic stress disorder F43.10 ; Muscle pain M79.1 and Bladder pain R39.89 [facility] [address] 29348- 7198 Mar, Abnormal finding on mammography R92.8 ; Sinusitis J32.9 and Vaginal daisy B37.3 [facility] [address] 90916- 2132 Feb, Abnormal finding on mammography R92.8 [facility] [id number] [place] [address] 45900- 9767 Feb, [facility] [id number] [place] [address] 62737- 6193 Apr, [facility] [id number] [place] [address] 39247- 4731 Apr, [facility] [id number] [place] [address] 19730- 1688 Apr, [facility] [id number] [place] [address] 80229- 4023 Apr, [facility] [address] 30924- 3314 Apr, [facility] [id number] [place] [address] 56468- 7890 Apr, [facility] [address] 32413- 2199 Mar, [facility] [place] [facility] [address] [id number] [place] [address]- 3547 Mar, [facility] [place] [facility] [address] [id number] [place] [address]- 0804 Mar, [facility] [place] [facility] [address] [facility] [id number] [place] [address]- 1214 Mar, [facility] [place] [facility] [address] [id number] [place] [address]- 4063 Feb, [facility] [place] [facility] [address] [id number] [place] [address]- 9581 15 Feb, 2012 [facility] [place] [facility] [address] [id number] [place] [address]- 5490 24 Jan, 2012 [facility] [place] [facility] [id number] [place] [address]- 4497 17 Jan, 2012 [facility] [place] [facility] [address] [id number] [place] [address]- 5456 10 Jan, 2012 [facility] [place] [facility] [address] [id number] [place] [address]- 3467 05 Jan, 2012 [facility] [place] [facility] [address] [facility] [id number] [place] [address]- 3012 Dec, [facility] [place] [facility] [address] [id number] [place] [address]- 3091 14 Dec, 2011 [facility] [place] [facility] [address] [id number] [address]- 7496 Nov, [facility] [place] [facility] [address] [id number] [place] [address]- 8900 Nov, [facility] [place] [facility] [address] [facility] [id number] [place] [address]- 1662 Oct, [facility] [place] [facility] [address] [facility] [id number] [place] [address]- 5368 Oct, [facility] [place] [facility] [address] [id number] [place] [address]- 2546 15 Oct, 2011 [facility] [address] [id number] [place] [address]- 6476 Oct, [facility] [place] [facility] [address] [id number] [place] [address]- 2546 September, [facility] [address] [id number] [place] [address] 2546 September, [facility] [place] [facility] [address] [id number] [place] [address]- 2546 September, [facility] [address] [id number] [place] [address]- 5066 30 Aug, 2011 [facility] [address] [id number] [place] [address]- 4036 Aug, [facility] [address] [id number] [place] [address]- 1996 Aug, [facility] [address] [id number] [place] [address]- 1676 Aug, [facility] [address] [id number] [place] [address]- 6116 Jul, [facility] [address] [id number] [place] [address]- 7406 Jul, [facility] [place] [facility] [address] [id number] [place] [address]- 2546 Jul, [facility] [place] [facility] [address] [id number] [place] [address]- 4536 Jun, [facility] [place] [facility] [address] [id number] [place] [address]- 4986 May, [facility] [place] [facility] [address] [id number] [place] [address]- 2546 May, [facility] [place] [facility] [address] [id number] [place] [address]- 6414 May, [facility] [id number] [address]- 3284 Apr, [facility] [address] 5389 Apr, [facility] [id number] Mar, [facility] [address] [address]- 9358 Mar, [facility] [address] [address]- 6313 Mar, [facility] [address] [place] [address] 606648- 7099 Feb, [facility] [address] [address]- 7330 Feb, IMMUNIZATIONS No Known Immunizations SOCIAL HISTORY Never Assessed REASON FOR VISIT Left Side pain started a few days ago- has been eating a lot of peter [facility] Activity Details Follow Up prn Reason: VITAL SIGNS Height 67 in 2018-03-24 Weight 184.0 lbs 2018-03-24 Temperature 97.6 degrees Fahrenheit 2018-03-24 Heart Rate 92 bpm 2018-03-24 Respiratory Rate 20 2018-03-24 BMI 28.82 kg/m2 2018-03-24 Blood pressure systolic 148 mmHg 2018-03-24 Blood pressure diastolic 94 mmHg 2018-03-24 MEDICATIONS No Known Medications RESULTS Name Result Date Reference Range UA LONG DIP (IN HOUSE) 2018-03-24 Lot # [id number] Exp date 2018-12-01 Clarity clear Color yellow Odor none GLU negative CHARI negative KET negative SG 1.025 BLO negative pH 7.0 Protein negative URO 0.2 NIT negative TRAVIS negative Lot # [id number] Exp date Apr 2018 PROCEDURES Procedure Date Ordered Result Body Site [facility] VISIT ESTABLISHED PATIENT Mar 24, 2018 URINALYSIS, AUTO, W/O SCOPE Mar 24, 2018 INSTRUCTIONS MEDICATIONS ADMINISTERED No Known Medications MEDICAL (GENERAL) HISTORY Type Description Date Medical History anxiety Medical History lupus Medical History raynauds Medical History fibromyalgia Medical History Ptsd, ADD, ADHD Medical History Sjogrens syndrome, with unspecified organ involvement Medical History migraines Medical History asthma Surgical History appendectomy Surgical History hysterectomy Surgical History cholecystectomy Surgical History perforated colon Surgical History colonscopy every 2 years since 1993 last one 2011 in [place] Surgical History vaginal septum Hospitalization History fibromyalsia [facility] Hospitalization History lupus/reynauds Hospitalization History pleurisy Hospitalization History Depression, ptsd, anxiety, add, adhd Hospitalization History Acute TIA - [facility] 02/28/17- Hospitalization History Right sided weakness - ED visit at [facility] 03/23/17
--- OUTSIDE RECORDS SUMMARY | 2018-06-08 13:26 | XMS REPORT | Clinical Summary ---
Author Author [facility] Organization [facility] Address Unknown Phone Unavailable Care Team Providers Care Quality Assurance Nurse Name Role Phone Chucho Headley PCP Source Comments Some departments are not documenting in the electronic medical record. If you do not see the information that you expected, contact Release of Information in the Health Information Management department at [phone] for further assistance in locating additional records.[facility] Allergies Comments Active Allergy Reactions Severity Noted Date Adhesive Tape (Rosins) HIVES Medium 05/08/2017 Hydrocodone ITCHING, Low 05/08/2017 AGITATION Medications End Date Status Medication Sig Dispensed Refills Start Date Active LOTEMAX 0.5 % ophthalmic INSTILL ONE 0 suspension DROP INTO 7 BOTH EYES FOUR TIMES PER DAY FOR 2 WEEKS Active traMADol (ULTRAM) 50 mg Take 100 mg 0 tablet by mouth twice daily. Active ALPRAZolam (XANAX) 0.25 Take 0.25 mg 0 mg tablet by mouth three times daily as needed for Anxiety. Active pseudoephedrine (SUDAFED) Take 60 mg by 0 30 mg tablet mouth every 4 hours as needed for Congestion. Active venlafaxine XR (EFFEXOR Take 1 30 capsule 5 XR) 37.5 mg capsule by 8 capsuleIndications: Post mouth daily. traumatic stress disorder Take with (PTSD) food. Active Problems Problem Noted Date Post traumatic stress disorder (PTSD) 05/15/2017 Family History Medical History Relation Name Comments Cardiovascular Father Migraines Maternal Grandmother Mental Illness Mother Migraines Mother Relation Name Status Comments Father Maternal Grandmother Mother Social History Date Tobacco Use Types Packs/Day Years Used Current Every Day Smoker 1 32 Smokeless Tobacco: Never Used Alcohol Use Drinks/Week oz/Week Comments Yes rarely Sex Assigned at Date Recorded Not on file Industry Job Start Date Occupation Not on file Not on file Not on file Travel End Travel History Travel Start No recent travel history available. Last Filed Vital Signs Time Taken Vital Sign Reading 05/15/2017 8:51 AM [employer]CARE ASSISTANT Blood Pressure 160/99 05/15/2017 8:51 AM DAYCARE ASSISTANT Pulse 93 - Temperature - - Respiratory Rate - 05/15/2017 8:51 AM DAYCARE ASSISTANT Oxygen Saturation 100% - Inhaled Oxygen - Concentration 05/15/2017 8:51 AM DAYCARE ASSISTANT Weight 100.5 kg (221 lb 9.6 oz) 05/15/2017 8:51 AM DAYCARE ASSISTANT Height 172.7 cm (5' 8") 05/15/2017 8:51 AM DAYCARE ASSISTANT Body Mass Index 33.69 Plan of Treatment Health Maintenance Due Date Last Done Comments PHYSICAL (COMPREHENSIVE) 1977 EXAM HIV SCREENING 1985 DTAP/TDAP VACCINES (1 - 1988 Tdap) CERVICAL CANCER SCREENING 2000 BREAST CANCER SCREENING 2010 INFLUENZA VACCINE 12/02/2017 03/01/2017 Results Not on filefrom Last 3 Months Insurance Payer Benefit Subscriber ID Type Phone Address Plan / Group MEDICARE MEDICARE xxxxxxxxxx Medicare PART A AND B Advance Directives Patient has advance care planning documents on file. For more information, please contact: [facility] [address] [place] [address]
--- OUTSIDE RECORDS SUMMARY | 2018-06-08 13:27 | XMS REPORT ---
Author Author SIMONE BOYD Organization [facility] Address [address] [place] [address] Care Team Providers Care Supervising Broker Name Role Phone SIMONE BOYD Unavailable PROBLEMS Type Condition ICD9-CM Code UVE59-EC Code Onset Dates Condition Status SNOMED Code Problem Major depressive disorder, recurrent, moderate F33.1 Active 637042515 Problem Secondary hypertension I15.9 Active 13960491 Problem Chronic obstructive pulmonary disease, unspecified COPD type J44.9 Active 37396668 Problem Somatic complaints, multiple R68.89 Active 099207133 Problem Personality disorder F60.9 Active 97500337 Problem Attention deficit disorder F90.0 Active 827381859 Problem PTSD (post-traumatic stress disorder) F43.10 Active 89431510 Problem 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 Active 91962895 Problem History of lupus Z87.39 Active 728959812 Problem Hemiparesis of right dominant side due to non-cerebrovascular etiology G81.91 Active 429766917 Problem 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 Active 820486273 Problem Major depressive disorder, single episode, moderate F32.1 Active 859655559 ALLERGIES Substance Reaction Event Type Date Status Tegretol seizure Drug Allergy Oct, Active Hydrocodone-Acetaminophen hives Drug Allergy Oct, Active ENCOUNTERS Encounter Location Date Diagnosis [facility] [id number], [place] [address] Oct, [facility] [address], [place] [address] Oct, Dental caries K02.9 and PTSD (post-traumatic stress disorder ) F43.10 [facility] [id number], [place] [address] Oct, Pain, dental K08.89 and Dental caries K02.9 [facility] [id number] [place] [address] 47974- 8525 Jul, 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 and Post traumatic stress disorder F43.10 [facility] [id number] [place] [address] 74545- 6662 Jul, [facility] [id number] [place] [address] 77003 -4291 Jul, 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 and Mouth sores K13.79 [place] [address] 08162- 7235 Mar, 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 [place] [address] 07124- 3644 Mar, Hemiplegia affecting right dominant side, unspecified etiology, unspecified hemiplegia type G81.91 [place] [address] 05696- 0104 Mar, [place] [address] 09239- 5883 Mar, History of lupus Z87.39 [place] [address] 35685- 2747 Mar, Major depressive disorder, single episode, moderate F32.1 and Posttraumatic stress disorder F43.10 [place] [address] 29214- 2001 Mar, Hemiparesis of right dominant side due to non- cerebrovascular etiology G81.91 and History of lupus Z87.39 [place] [id number] [place] [address] 87792- 3758 Mar, [facility] [address] [address] Jan, Acute non-recurrent maxillary sinusitis J01.00 [place] [address] 27483- 4513 Nov, [place] [address] [place] [address] 90776- 1453 Oct, Chest pain on breathing R07.1 ; Chronic obstructive pulmonary disease, unspecified COPD type J44.9 ; Hematuria R31.9 and Secondary hypertension I15.9 [place] [id number] [place] [address] 65772- 7880 Oct, [place] [address] 77500- 4701 Oct, Chest pain, unspecified type R07.9 [facility] [place] [id number] [place] [address] 78770 -3666 September, Acute middle ear effusion, right H65.191 [place] [id number] [place] [address] 33833- 3396 Aug, [address] [address]- 4783 Aug, Chronic obstructive pulmonary disease, unspecified COPD type J44.9 [place] [id number] [place] [address] 53824- 5693 Jul, Acute pain of right knee M25.561 [facility] [address] [address] 00500 -7383 Jul, Pain in right knee M25.561 and Pain in left knee M25.562 [place] [id number] [place] [address] 15613- 5062 Jun, Secondary hypertension I15.9 ; Chronic obstructive pulmonary disease, unspecified COPD type J44.9 ; Post traumatic stress disorder F43.10 ; Arthralgia, unspecified joint M25.50 ; Allergy, subsequent encounter T78.40XD and Screening cholesterol level Z13.220 [place] [address] [address] 02834- 3226 May, [place] [id number] [place] [address] 06343- 3646 Feb, Major depressive disorder, recurrent, moderate F33.1 ; Post traumatic stress disorder F43.10 and Personality disorder F60.9 [place] [id number] [place] [address] 79274- 5004 Feb, [place] [address] [place] [address] 08730- 3526 Jan, Major depressive disorder, recurrent, moderate F33.1 ; Post traumatic stress disorder F43.10 and Personality disorder F60.9 [place] [id number] [place] [address] 40164- 3148 Jan, Bronchitis J40 ; Sinus congestion R09.81 ; Major depressive disorder, recurrent, moderate F33.1 ; Personality disorder F60.9 ; Schizoid personality disorder F60.1 ; Chronic obstructive pulmonary disease, unspecified COPD type J44.9 and Secondary hypertension I15.9 [place] [id number] [place] [address] 67900- 8996 Dec, Major depressive disorder, recurrent, moderate F33.1 ; Chronic obstructive pulmonary disease, unspecified COPD type J44.9 ; Muscle pain M79.1 and Secondary hypertension I15.9 [place] [address] [address] 62483- 1320 Dec, Major depressive disorder, recurrent, moderate F33.1 ; Post traumatic stress disorder F43.10 and Personality disorder F60.9 [place] [address] [address] 04598- 7337 Nov, Major depressive disorder, recurrent, moderate F33.1 ; Post traumatic stress disorder F43.10 and Personality disorder F60.9 [place] [id number] [place] [address] 00506- 5414 Nov, Post traumatic stress disorder F43.10 ; Personality disorder F60.9 ; Secondary hypertension I15.9 ; Chronic obstructive pulmonary disease, unspecified COPD type J44.9 and Osteoarthritis, unspecified osteoarthritis type, unspecified site M19.90 [place] [id number] [place] [address] 87319- 1833 Nov, Major depressive disorder, recurrent, moderate F33.1 ; Post traumatic stress disorder F43.10 and Personality disorder F60.9 [place] [id number] [place] [address] 05282- 6294 Oct, Major depressive disorder, recurrent, moderate F33.1 ; Post traumatic stress disorder F43.10 and Personality disorder F60.9 [place] [address] 44181- 0201 Oct, Major depressive disorder, recurrent, moderate F33.1 ; Post traumatic stress disorder F43.10 and Personality disorder F60.9 [place] [address] 12122- 5318 Oct, Major depressive disorder, recurrent, moderate F33.1 ; Post traumatic stress disorder F43.10 and Personality disorder F60.9 [place] [address] 60969- 9544 Aug, Major depressive disorder, recurrent, moderate F33.1 ; Post traumatic stress disorder F43.10 and Personality disorder F60.9 [place] [id number] [place] [address] 70704- 6332 Jul, [place] [id number] [place] [address] 96865- 2418 Jul, Physical exam Z00.00 [place] [address] 72678- 7732 Jul, [place] [id number] [place] [address] 16988- 6587 Jul, Tobacco abuse counseling Z71.6 and Bronchitis J40 [place] [id number] [place] [address] 24420- 9687 Jul, [place] [address] 42170- 8120 Jul, [facility] [address], [place] [address] Jul, Hematuria, unspecified R31.9 and Bronchitis J40 [facility] [id number] [place] [address] 21006- 0818 Jun, Major depressive disorder, recurrent, moderate F33.1 ; Post traumatic stress disorder F43.10 and Personality disorder F60.9 [facility] [id number] [place] [address] 81977- 1151 Jun, Major depressive disorder, recurrent, moderate F33.1 ; Post traumatic stress disorder F43.10 and Personality disorder F60.9 [facility] [id number] [place] [address] 88481- 2880 Jun, [facility] [id number] [place] [address] 36525- 5215 Jun, [facility] [id number] [place] [address] 88029- 6683 Jun, [facility] [id number] [place] [address] 92985- 1702 May, Major depressive disorder, recurrent, moderate F33.1 ; Post traumatic stress disorder F43.10 and Personality disorder F60.9 [facility] [address] [place] [address] 62220- 0708 May, [facility] [address] [address] 77519- 7877 May, Major depressive disorder, recurrent, moderate F33.1 ; Post- traumatic stress disorder, chronic F43.12 ; Personality disorder F60.9 ; Attention deficit disorder F90.0 and Schizoid personality disorder F60.1 [facility] [address] [address] 22960- 9685 May, Major depressive disorder, recurrent, moderate F33.1 ; Post traumatic stress disorder F43.10 and Schizoid personality disorder F60.1 [facility] [id number], [place] [address] 7271 May, [facility] [id number] [place] [address] 54165- 9182 Apr, Attention deficit disorder F90.0 [facility] [address], [place] [address]- 1465 Apr, Post-traumatic stress disorder, chronic F43.12 and Major depressive disorder, recurrent, moderate F33.1 [facility] [address] [address] 28840- 7987 Apr, Post traumatic stress disorder F43.10 and Attention deficit disorder F90.0 [facility] [address] [place] [address] 43925- 7672 Apr, [facility] [id number] [place] [address] 43179- 6266 Apr, [facility] [id number] [place] [address] 85380- 3517 Apr, Post-traumatic stress disorder, chronic F43.12 and Major depressive disorder, recurrent, moderate F33.1 [facility] [address] [address] 95174- 7402 Apr, Post-traumatic stress disorder, chronic F43.12 and Major depressive disorder, recurrent, moderate F33.1 [facility] [address] [address] 02180- 2361 Apr, Major depressive disorder, recurrent, moderate F33.1 and Post traumatic stress disorder F43.10 [facility] [address] [address] Mar, Dental examination Z01.20 and Dental caries K02.9 [facility] [address], [place] [address]- 3163 Mar, Major depressive disorder, recurrent, moderate F33.1 ; Post- traumatic stress disorder, chronic F43.12 and Personality disorder F60.9 [facility] [id number] [place] [address] 75314- 9578 13 Mar, 2015 Post-traumatic stress disorder, chronic F43.12 and Major depressive disorder, recurrent, moderate F33.1 [facility] [id number] [place] [address] 59019- 8817 Mar, Well woman exam Z01.419 ; Personality disorder F60.9 ; Post traumatic stress disorder F43.10 ; Muscle pain M79.1 and Bladder pain R39.89 [facility] [id number] [place] [address] 40147- 2448 Mar, Abnormal finding on mammography R92.8 ; Sinusitis J32.9 and Vaginal daisy B37.3 [facility] [id number] [place] [address] 74983- 7362 Feb, Abnormal finding on mammography R92.8 [facility] [address] 45606- 3774 Feb, [facility] [id number] [place] [address] 70571- 0722 Apr, [facility] [address] 92192- 8531 Apr, [facility] [id number] [place] [address] 29726- 2600 Apr, [facility] [id number] [place] [address] 12509- 8146 Apr, [facility] [id number] [place] [address] 88399- 254 Apr, [facility] [id number] [place] [address] 34971- 0800 Apr, [facility] [id number] [place] [address] 47728- 2132 Mar, [facility] [id number] [place] [address] 72124- 5005 Mar, [facility] [place] [facility] [address] [id number] [place] [address]- 4652 Mar, [facility] [place] [facility] [address] [id number] [place] [address]- 1388 Mar, [facility] [place] [facility] [address] [id number] [place] [address]- 2000 15 Feb, 2012 [facility] [place] [facility] [id number] [place] [address], [place] [address]- 4130 15 Feb, 2012 [facility] [place] [facility] [address] [id number] [place] [address]- 5027 24 Jan, 2012 [facility] [place] [facility] [address] [id number] [place] [address]- 8798 17 Jan, 2012 [facility] [place] [facility] [address] [id number] [place] [address]- 8825 10 Jan, 2012 [facility] [place] [facility] [address] [id number] [place] [address]- 8386 05 Jan, 2012 [facility] [place] [facility] [address] [id number] [place] [address]- 5618 Dec, [facility] [place] [facility] [address] [id number] [place] [address]- 1706 14 Dec, 2011 [facility] [place] [facility] [address] [id number] [place] [address]- 6933 31 Nov, 2011 [facility] [place] [facility] [address] [id number] [place] [address]- 2096 Nov, [facility] [place] [facility] [address] [id number] [place] [address]- 9643 Oct, [facility] [place] [facility] [address] [id number] [place] [address]- 3824 Oct, [facility] [place] [facility] [address] [id number] [place] [address]- 0507 15 Oct, 2011 [facility] [place] [facility] [address] [id number] [place] [address]- 1616 Oct, [facility] [address] [id number] [place] [address]- 1886 September, [facility] [place] [facility] [address] [id number] [place] [address]- 5466 September, [facility] [place] [facility] [address] [id number] [place] [address]- 2106 September, [facility] [place] [facility] [address] [id number] [place] [address]- 8071 Aug, [facility] [place] [facility] [address] [id number] [place] [address]- 1836 Aug, [facility] [place] [facility] [address] [id number] [place] [address]- 0136 Aug, [facility] [address] [id number] [place] [address]- 9346 Aug, [facility] [place] [facility] [address] [id number] [place] [address]- 2165 Jul, [facility] [place] [facility] [address] [id number] [place] [address]- 7250 Jul, [facility] [place] [facility] [address] [id number] [place] [address]- 9376 Jul, [facility] [place] [facility] [address] [id number] [place] [address]- 1280 Jun, [facility] [place] [facility] [address] [id number] [place] [address]- 1124 May, [facility] [place] [facility] [address] [id number] [place] [address]- 3586 May, [facility] [place] [facility] [address] [id number] [place] [address]- 1746 May, [facility] [place] [facility] [address] [id number] [place] [address]- 6806 Apr, [facility] [place] [facility] [address] [facility] [id number] [place] [address]- 3151 Apr, [facility] [address] [facility] [id number] [address]- 7112 Mar, [facility] [id number], [place] [address]- 0020 Mar, [facility] [address], [place] [address]- 4912 Mar, [facility] [id number], [place] [address]- 0019 Feb, [facility] [address], [place] [address]- 7420 Feb, IMMUNIZATIONS No Known Immunizations SOCIAL HISTORY Never Assessed REASON FOR VISIT tooth pain WB-MA, Broken tooth on the left side of the mouth PLAN OF CARE Activity Details Follow Up prn Reason:tooth pain VITAL SIGNS Height 67 in 2017-10-27 Weight 212 lbs 2017-10-27 Temperature 98 degrees Fahrenheit 2017-10-27 Heart Rate 90 bpm 2017-10-27 Respiratory Rate 20 2017-10-27 BMI 33.20 kg/m2 2017-10-27 Blood pressure systolic 124 mmHg 2017-10-27 Blood pressure diastolic 74 mmHg 2017-10-27 MEDICATIONS Medication Instructions Dosage Frequency Start Date End Date Duration Status Xanax 0.25 MG Orally TID PRN 1 tablet Active Tramadol HCl 50 mg Orally every 6 hrs 1 tablet as needed 6h Not- Taking Fluconazole 150 MG Orally once if needed 1 tablet Oct, Oct, 1 dose Active Plavix 75 MG Orally Once a day as directed 24h Mar, 30 days Not-Taking Amoxicillin 875 MG Orally every 12 hrs 1 tablet 12h Oct, Nov, 10 day(s) Active Diclofenac Sodium 75 MG Orally Twice a day 1 tablet with food or milk 12h Mar, 30 days Not-Taking Tylenol 325 MG Orally every 6 hrs 2 tablets as needed 6h Not- Taking Aspirin 81 MG Orally Once a day 24h Active Seroquel 50 mg Orally twice a day 1 tablet 12h Jul, 05 days Not-Taking HydrOXYzine Pamoate 25 MG Orally every 6 hrs 1 capsule as needed 6h Not-Taking RESULTS No Results PROCEDURES Procedure Date Ordered Result Body Site [facility]ISIT ESTABLISHED PATIENT October 27, 2017 INSTRUCTIONS MEDICATIONS ADMINISTERED No Known Medications MEDICAL [...] years since 1993 last one 2011 in [place] Surgical History vaginal septum Hospitalization History fibromyalsia [facility] Hospitalization History lupus/reynauds Hospitalization History pleurisy Hospitalization History Depression, ptsd, anxiety, add, adhd Hospitalization History Acute TIA - [facility] 02/28/17- Hospitalization History Right sided weakness - ED visit at [facility] 03/23/17
--- OUTSIDE RECORDS SUMMARY | 2018-06-08 13:27 | XMS REPORT ---
Author Author SIMONE BOYD Organization [facility] Address [address] [place] [address] Care Team Providers Care Hat Braider Name Role Phone SIMONE BOYD Unavailable PROBLEMS Type Condition ICD9-CM Code NVF03-GR Code Onset Dates Condition Status SNOMED Code Problem Major depressive disorder, recurrent, moderate F33.1 Active 385702471 Problem Secondary hypertension I15.9 Active 26885302 Problem Chronic obstructive pulmonary disease, unspecified COPD type J44.9 Active 29965493 Problem Somatic complaints, multiple R68.89 Active 830179759 Problem Personality disorder F60.9 Active 80846952 Problem Attention deficit disorder F90.0 Active 588515309 Problem PTSD (post-traumatic stress disorder) F43.10 Active 55354478 Problem 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 Active 91793680 Problem History of lupus Z87.39 Active 162836428 Problem Hemiparesis of right dominant side due to non-cerebrovascular etiology G81.91 Active 164953446 Problem 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 Active 235193567 Problem Major depressive disorder, single episode, moderate F32.1 Active [id number] ALLERGIES No Information ENCOUNTERS Encounter Location Date Diagnosis [facility] [id number] [place] [address] 73560- 4577 Oct, [facility] [address] [address]- 6354 Oct, Dental caries K02.9 and PTSD (post-traumatic stress disorder ) F43.10 [facility] [address] 26452- 2266 Oct, Pain, dental K08.89 and Dental caries K02.9 [facility] [id number] [place] [address] 22803- 3362 Jul, 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 and Post traumatic stress disorder F43.10 [facility] [id number] [place] [address] 52726- 0369 Jul, [facility] [id number] [place] [address] 99101 -0842 Jul, 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 and Mouth sores K13.79 [facility] [address] 58777- 2637 Mar, 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 [facility] [id number] [place] [address] 14327- 1241 Mar, Hemiplegia affecting right dominant side, unspecified etiology, unspecified hemiplegia type G81.91 [facility] [address] 53932- 1343 Mar, [facility] [address] 62976- 5739 Mar, History of lupus Z87.39 [facility] [id number] [place] [address] 85462- 0176 Mar, Major depressive disorder, single episode, moderate F32.1 and Posttraumatic stress disorder F43.10 [facility] [id number] [place] [address] 03884- 0311 Mar, Hemiparesis of right dominant side due to non- cerebrovascular etiology G81.91 and History of lupus Z87.39 [facility] [id number] [place] [address] 96856- 0971 Mar, [facility] [id number] [place] [address] 39093 -0783 Jan, Acute non-recurrent maxillary sinusitis J01.00 [facility] [id number] [place] [address] 79906- 6326 Nov, [place] [facility] [address] 43905- 8568 Oct, Chest pain on breathing R07.1 ; Chronic obstructive pulmonary disease, unspecified COPD type J44.9 ; Hematuria R31.9 and Secondary hypertension I15.9 [facility] [id number] [place] [address] 49669- 8897 Oct, [facility] [address] 55717- 5080 Oct, Chest pain, unspecified type R07.9 [facility] [address] [address] September, Acute middle ear effusion, right H65.[address] 12438- 0648 Aug, [address] 71863- 8548 Aug, Chronic obstructive pulmonary disease, unspecified COPD type J44.[address] 60160- 7517 Jul, Acute pain of right knee M25.561 [id number] [place] [address] 49298 -4144 Jul, Pain in right knee M25.561 and Pain in left knee M25.562 [id number] [place] [address] 26259- 2136 Jun, Secondary hypertension I15.9 ; Chronic obstructive pulmonary disease, unspecified COPD type J44.9 ; Post traumatic stress disorder F43.10 ; Arthralgia, unspecified joint M25.50 ; Allergy, subsequent encounter T78.40XD and Screening cholesterol level Z13.[address] 65301- 8019 May, [address] 80890- 9364 Feb, Major depressive disorder, recurrent, moderate F33.1 ; Post traumatic stress disorder F43.10 and Personality disorder F60.9 [facility] [place] [id number] [place] [address] 87471- 6890 Feb, [facility] [id number] [place] [address] 36793- 1426 Jan, Major depressive disorder, recurrent, moderate F33.1 ; Post traumatic stress disorder F43.10 and Personality disorder F60.9 [facility] [id number] [place] [address] 18300- 3191 Jan, Bronchitis J40 ; Sinus congestion R09.81 ; Major depressive disorder, recurrent, moderate F33.1 ; Personality disorder F60.9 ; Schizoid personality disorder F60.1 ; Chronic obstructive pulmonary disease, unspecified COPD type J44.9 and Secondary hypertension I15.9 [facility] [id number] [place] [address] 85079- 5063 Dec, Major depressive disorder, recurrent, moderate F33.1 ; Chronic obstructive pulmonary disease, unspecified COPD type J44.9 ; Muscle pain M79.1 and Secondary hypertension I15.9 [facility] [id number] [place] [address] 87472- 4132 Dec, Major depressive disorder, recurrent, moderate F33.1 ; Post traumatic stress disorder F43.10 and Personality disorder F60.9 [facility] [id number] [place] [address] 01020- 7792 Nov, Major depressive disorder, recurrent, moderate F33.1 ; Post traumatic stress disorder F43.10 and Personality disorder F60.9 [facility] [id number] [place] [address] 80900- 9493 Nov, Post traumatic stress disorder F43.10 ; Personality disorder F60.9 ; Secondary hypertension I15.9 ; Chronic obstructive pulmonary disease, unspecified COPD type J44.9 and Osteoarthritis, unspecified osteoarthritis type, unspecified site M19.90 [facility] [id number] [place] [address] 73181- 3197 Nov, Major depressive disorder, recurrent, moderate F33.1 ; Post traumatic stress disorder F43.10 and Personality disorder F60.9 [facility] [id number] [place] [address] 07931- 6727 Oct, Major depressive disorder, recurrent, moderate F33.1 ; Post traumatic stress disorder F43.10 and Personality disorder F60.9 [facility] [id number] [place] [address] 49082- 7968 Oct, Major depressive disorder, recurrent, moderate F33.1 ; Post traumatic stress disorder F43.10 and Personality disorder F60.9 [facility] [id number] [place] [address] 06081- 2670 Oct, Major depressive disorder, recurrent, moderate F33.1 ; Post traumatic stress disorder F43.10 and Personality disorder F60.9 [facility] [address] 15607- 4510 Aug, Major depressive disorder, recurrent, moderate F33.1 ; Post traumatic stress disorder F43.10 and Personality disorder F60.9 [facility] [id number] [place] [address] 07561- 4360 Jul, [facility] [address] 77151- 8676 Jul, Physical exam Z00.00 [facility] [id number] [place] [address] 94166- 6938 Jul, [facility] [id number] [place] [address] 64229- 1986 Jul, Tobacco abuse counseling Z71.6 and Bronchitis J40 [facility] [id number] [place] [address] 64329- 1142 Jul, [facility] [id number] [place] [address] 20801- 6817 Jul, [facility] [id number] [place] [address] 12792 -0790 Jul, Hematuria, unspecified R31.9 and Bronchitis J40 [facility] [address] [address] Jun, Major depressive disorder, recurrent, moderate F33.1 ; Post traumatic stress disorder F43.10 and Personality disorder F60.9 [facility] [address] [place] [address] 48426- 1158 Jun, Major depressive disorder, recurrent, moderate F33.1 ; Post traumatic stress disorder F43.10 and Personality disorder F60.9 [facility] [id number] [place] [address] 92034- 7880 Jun, [facility] [id number] [place] [address] 18237- 0489 Jun, [facility] [id number] [place] [address] 92407- 1839 Jun, [facility] [id number] [place] [address] 45711- 2030 May, Major depressive disorder, recurrent, moderate F33.1 ; Post traumatic stress disorder F43.10 and Personality disorder F60.9 [facility] [id number] [place] [address] 04704- 4832 May, [facility] [address] [place] [address] 92104- 8008 May, Major depressive disorder, recurrent, moderate F33.1 ; Post- traumatic stress disorder, chronic F43.12 ; Personality disorder F60.9 ; Attention deficit disorder F90.0 and Schizoid personality disorder F60.1 [facility] [address] [place] [address] 67735- 9434 May, Major depressive disorder, recurrent, moderate F33.1 ; Post traumatic stress disorder F43.10 and Schizoid personality disorder F60.1 [facility] [address] [address]- 9902 May, [facility] [address] [place] [address]- 9543 Apr, Attention deficit disorder F90.0 [facility] [address] [place] [address]- [address]69 Apr, Post-traumatic stress disorder, chronic F43.12 and Major depressive disorder, recurrent, moderate F33.1 [facility] [address] [place] [address] 43640- 7293 Apr, Post traumatic stress disorder F43.10 and Attention deficit disorder F90.0 [facility] [id number] [place] [address] 37757- 8877 Apr, [facility] [id number] [place] [address] 52934- 1254 Apr, [facility] [address] [place] [address] 11500- 7973 Apr, Post-traumatic stress disorder, chronic F43.12 and Major depressive disorder, recurrent, moderate F33.1 [facility] [address] [place] [address] 08354- 8659 Apr, Post-traumatic stress disorder, chronic F43.12 and Major depressive disorder, recurrent, moderate F33.1 [facility] [address] [place] [address] 35314- 0744 Apr, Major depressive disorder, recurrent, moderate F33.1 and Post traumatic stress disorder F43.10 [facility] [address] [place] [address] [id number] 30 Mar, 2015 Dental examination Z01.20 and Dental caries K02.9 [facility] [address] [place] [address] 38244- 6945 Mar, Major depressive disorder, recurrent, moderate F33.1 ; Post- traumatic stress disorder, chronic F43.12 and Personality disorder F60.9 [facility] [address] [place] [address] 34021- 2273 13 Mar, 2015 Post-traumatic stress disorder, chronic F43.12 and Major depressive disorder, recurrent, moderate F33.1 [facility] [id number] [place] [address] 61633- 0892 Mar, Well woman exam Z01.419 ; Personality disorder F60.9 ; Post traumatic stress disorder F43.10 ; Muscle pain M79.1 and Bladder pain R39.89 [facility] [address] 11458- 9587 Mar, Abnormal finding on mammography R92.8 ; Sinusitis J32.9 and Vaginal daisy B37.3 [facility] [address] 108217- 6106 Feb, Abnormal finding on mammography R92.8 [facility] [id number] [place] [address] 13960- 2696 Feb, [facility] [address] 11447- 8256 Apr, [facility] [id number] [place] [address] 16734- 9676 Apr, [facility] [id number] [place] [address] 09101- 1206 Apr, [facility] [id number] [place] [address] 54685- 9426 Apr, [facility] [id number] [place] [address] 68252 2546 Apr, [facility] [id number] [place] [address] 38212 2546 Apr, [facility] [address] 94020- 2206 Mar, [facility] [id number] [place] [address] 35783 2546 Mar, [facility] [id number] [place] [address] 40347- 5424 Mar, [facility] [place] [facility] [address] [id number] [place] [address]- 3474 02 Mar, 2012 [facility] [place] [facility] [address] [id number] [place] [address]- 4486 15 Feb, 2012 [facility] [place] [facility] [address] [id number] [place] [address]- 9381 15 Feb, 2012 [facility] [place] [facility] [address] [id number] [place] [address]- 9063 24 Jan, 2012 [facility] [place] [facility] [address] [id number] [place]231 17 Jan, 2012 [facility] [place] [facility] [address] [id number] [place] [address]- 5159 10 Jan, 2012 [facility] [place] [facility] [address] [id number] [place] [address]- 7550 05 Jan, 2012 [facility] [place] [facility] [address] [id number] [place] [address]- 1346 27 Dec, 2011 [facility] [place] [facility] [address] [id number] [place] [address]- 8699 14 Dec, 2011 [facility] [place] [facility] [address] [facility] [id number] [address]- 6822 Nov, [facility] [place] [facility] [address] [id number], [place] [address]- 4158 Nov, [facility] [place] [facility] [address] [id number], [place] [address]- 5669 Oct, [facility] [place] [facility] [address] [id number] [place] [address]- 9791 Oct, [facility] [place] [facility] [address] [id number] [place] [address]- 0846 Oct, [facility] [place] [facility] [address] [facility] [id number], [place] [address]- 2076 Oct, [facility] [place] [facility] [address] [id number], [place] [address]- 1486 September, [facility] [address] [id number] [place] [address]- 1386 September, [facility] [address] [id number] [place] [address]- 1136 September, [facility] [address] [id number] [place] [address]- 2436 Aug, [facility] [address] [id number] [place] [address]- 0373 Aug, [facility] [address] [id number] [place] [address]- 8156 Aug, [facility] [address] [id number] [place] [address]- 2086 Aug, [facility] [id number] [place] [address]- 6490 Jul, [facility] [address] [id number] [place] [address]- 1508 Jul, [facility] [address] [id number] [place] [address]- 1666 Jul, [facility] [address] [id number] [place] [address]- 4353 Jun, [facility] [address] [id number] [place] [address]- 7266 May, [facility] [place] [facility] [address] [id number] [place] [address]- 5369 May, [facility] [place] [facility] [address] [id number] [place] [address]- 7026 May, [facility] [place] [facility] [address] [id number] [place] [address]- 2366 Apr, [facility] [place] [facility] [address] [id number] [place] [address]- 6754 Apr, [facility] [place] [facility] [address] [facility] [id number] [place] [address]- 8289 Mar, [facility] [address] [facility] [id number], [place] [address]- 6632 Mar, [facility] [address] [facility] [id number], [place] [address] Mar, [facility] [address] [facility] [id number], [place] [address]- 1862 Feb, [facility] [address] [facility] [id number] 2463 Feb, IMMUNIZATIONS No Known Immunizations SOCIAL HISTORY Never Assessed REASON FOR VISIT Refill request PLAN OF CARE VITAL SIGNS MEDICATIONS Unknown Medications RESULTS No Results PROCEDURES No Known procedures INSTRUCTIONS MEDICATIONS ADMINISTERED No Known Medications MEDICAL [...] years since 1993 last one 2011 in [place] Surgical History vaginal septum Hospitalization History fibromyalsia [facility] Hospitalization History lupus/reynauds Hospitalization History pleurisy Hospitalization History Depression, ptsd, anxiety, add, adhd Hospitalization History Acute TIA - [facility] 02/28/17- Hospitalization History Right sided weakness - ED visit at [facility] 03/23/17
--- OUTSIDE RECORDS SUMMARY | 2018-06-08 13:27 | XMS REPORT ---
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 Name Role Phone MICHELLE WILKS Unavailable PROBLEMS Type Condition ICD9-CM Code [id number] Code Onset Dates Condition Status SNOMED Code Problem Major depressive disorder, recurrent, moderate F33.1 Active 754251544 Problem Secondary hypertension I15.9 Active 99802190 Problem Chronic obstructive pulmonary disease, unspecified COPD type J44.9 Active 09906680 Problem Somatic complaints, multiple R68.89 Active 152254596 Problem Personality disorder F60.9 Active 87878657 Problem Attention deficit disorder F90.0 Active 839199989 Problem PTSD (post-traumatic stress disorder) F43.10 Active 74394092 Problem 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 Active 21472244 Problem History of lupus Z87.39 Active 742715629 Problem Hemiparesis of right dominant side due to non-cerebrovascular etiology G81.91 Active 968134826 Problem 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 Active 720176200 Problem Major depressive disorder, single episode, moderate F32.1 Active 759295535 ALLERGIES Substance Reaction Event Type Date Status Tegretol seizure Drug Allergy Oct, Active Hydrocodone-Acetaminophen hives Drug Allergy Oct, Active ENCOUNTERS Encounter Location Date Diagnosis [facility] [place] [id number] [address] Oct, [facility] [place] [address] [id number] [address] Oct, Dental caries K02.9 and PTSD (post-traumatic stress disorder ) F43.10 [facility] [place] [id number] [address] Oct, Pain, dental K08.89 and Dental caries K02.9 [facility] [place] [id number] [place] [address] 52881- 3166 Jul, 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 and Mouth sores K13.79 [place] [address] [address]- [address]24 Mar, 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 [place] [address] [address]17- 5257 Mar, Hemiplegia affecting right dominant side, unspecified etiology, unspecified hemiplegia type G81.91 [place] [address] 29331- 1391 Mar, [place] [address] 55917- 3073 Mar, History of lupus Z87.39 [place] [address] 77513- 3436 Mar, Major depressive disorder, single episode, moderate F32.1 and Posttraumatic stress disorder F43.10 [place] [id number] [place] [address] 18458- 9695 Mar, Hemiparesis of right dominant side due to non- cerebrovascular etiology G81.91 and History of lupus Z87.39 [place] [id number] [place] [address] 73134- 2359 Mar, [facility] [address] [address]397 Jan, Acute non-recurrent maxillary sinusitis J01.00 [place] [id number] [place] [address] 96769- 7964 Nov, [place] [address] [address] Oct, Chest pain on breathing R07.1 ; Chronic obstructive pulmonary disease, unspecified COPD type J44.9 ; Hematuria R31.9 and Secondary hypertension I15.9 [place] [id number] [place] [address] 63773- 2581 Oct, [place] [address] 32966- 5735 Oct, Chest pain, unspecified type R07.[address] [facility] [place] [id number] [place] [address] 80788 -9437 September, Acute middle ear effusion, right H65.191 [place] [id number] [place] [address] 50292- 8713 Aug, [address] [address]25- 0825 Aug, Chronic obstructive pulmonary disease, unspecified COPD type J44.9 [id number] [place] [address] 86747- 3540 Jul, Acute pain of right knee M25.561 [facility] [address] [place] [address] 76571 -4307 Jul, Pain in right knee M25.561 and Pain in left knee M25.562 [id number] [place] [address] 02927- 3242 Jun, Secondary hypertension I15.9 ; Chronic obstructive pulmonary disease, unspecified COPD type J44.9 ; Post traumatic stress disorder F43.10 ; Arthralgia, unspecified joint M25.50 ; Allergy, subsequent encounter T78.40XD and Screening cholesterol level Z13.[address] [place] [address] 24883- 8353 May, [id number] [place] [address] 00495- 0448 Feb, Major depressive disorder, recurrent, moderate F33.1 ; Post traumatic stress disorder F43.10 and Personality disorder F60.9 [place] [id number] [place] [address] 88884- 0851 Feb, [place] [id number] [place] [address] 31339- 7335 Jan, Major depressive disorder, recurrent, moderate F33.1 ; Post traumatic stress disorder F43.10 and Personality disorder F60.9 [place] [id number] [place] [address] 92287- 5059 Jan, Bronchitis J40 ; Sinus congestion R09.81 ; Major depressive disorder, recurrent, moderate F33.1 ; Personality disorder F60.9 ; Schizoid personality disorder F60.1 ; Chronic obstructive pulmonary disease, unspecified COPD type J44.9 and Secondary hypertension I15.9 [place] [id number] [place] [address] 65665- 0063 Dec, Major depressive disorder, recurrent, moderate F33.1 ; Chronic obstructive pulmonary disease, unspecified COPD type J44.9 ; Muscle pain M79.1 and Secondary hypertension I15.9 [place] [id number] [place] [address] 01213- 1068 Dec, Major depressive disorder, recurrent, moderate F33.1 ; Post traumatic stress disorder F43.10 and Personality disorder F60.9 [place] [id number] [place] [address] 00711- 8912 Nov, Major depressive disorder, recurrent, moderate F33.1 ; Post traumatic stress disorder F43.10 and Personality disorder F60.9 [place] [id number] [place] [address] 10518- 9284 Nov, Post traumatic stress disorder F43.10 ; Personality disorder F60.9 ; Secondary hypertension I15.9 ; Chronic obstructive pulmonary disease, unspecified COPD type J44.9 and Osteoarthritis, unspecified osteoarthritis type, unspecified site M19.90 [place] [address] [place] [address]- 5543 Nov, Major depressive disorder, recurrent, moderate F33.1 ; Post traumatic stress disorder F43.10 and Personality disorder F60.9 [facility] [place] [id number] [place] [address] 25197- 0261 Oct, Major depressive disorder, recurrent, moderate F33.1 ; Post traumatic stress disorder F43.10 and Personality disorder F60.9 [place] [id number] [place] [address] 75550- 3017 Oct, Major depressive disorder, recurrent, moderate F33.1 ; Post traumatic stress disorder F43.10 and Personality disorder F60.9 [place] [id number] [place] [address] 22999- 9601 Oct, Major depressive disorder, recurrent, moderate F33.1 ; Post traumatic stress disorder F43.10 and Personality disorder F60.9 [place] [id number] [place] [address] 23194- 9889 Aug, Major depressive disorder, recurrent, moderate F33.1 ; Post traumatic stress disorder F43.10 and Personality disorder F60.9 [facility] [place] [id number] [place] [address] 07513- 0345 Jul, [facility] [place] [id number] [place] [address] 28845- 6638 Jul, Physical exam Z00.00 [place] [id number] [place] [address] 24547- 1393 Jul, [facility] [place] [id number] [place] [address] 16494- 6205 07 Jul, 2015 Tobacco abuse counseling Z71.6 and Bronchitis J40 [facility] [place] [id number] [place] [address] 95227- 6856 Jul, [facility] [place] [id number] [place] [address] 48267- 0024 Jul, [facility] [address] [address] Jul, Hematuria, unspecified R31.9 and Bronchitis J40 [facility] [place] [id number] [place] [address] 59656- 1425 Jun, Major depressive disorder, recurrent, moderate F33.1 ; Post traumatic stress disorder F43.10 and Personality disorder F60.9 [facility] [place] [id number] [place] [address] 93448- 3860 Jun, Major depressive disorder, recurrent, moderate F33.1 ; Post traumatic stress disorder F43.10 and Personality disorder F60.9 [facility] [place] [id number] [place] [address] 50037- 8091 Jun, [facility] [place] [id number] [place] [address] 33724- 6702 Jun, [facility] [place] [id number] [place] [address] 68665- 1876 Jun, [facility] [place] [id number] [place] [address] 06953- 6017 May, Major depressive disorder, recurrent, moderate F33.1 ; Post traumatic stress disorder F43.10 and Personality disorder F60.9 [facility] [place] [address] [place] [address] 46347- 7620 May, [facility] [place] [id number] [place] [address] 33765- 8094 May, Major depressive disorder, recurrent, moderate F33.1 ; Post- traumatic stress disorder, chronic F43.12 ; Personality disorder F60.9 ; Attention deficit disorder F90.0 and Schizoid personality disorder F60.1 [facility] [place] [address] [place] [address] 82077- 3117 May, Major depressive disorder, recurrent, moderate F33.1 ; Post traumatic stress disorder F43.10 and Schizoid personality disorder F60.1 [facility] [place] [id number] [address]- 0446 May, [facility] [place] [id number] [place] [address] 65173- 3538 Apr, Attention deficit disorder F90.0 [facility] [place] [address] [place] [address] 73128- 6395 Apr, Post-traumatic stress disorder, chronic F43.12 and Major depressive disorder, recurrent, moderate F33.1 [facility] [place] [id number] [place] [address] 34259- 0046 Apr, Post traumatic stress disorder F43.10 and Attention deficit disorder F90.0 [facility] [place] [id number] [place] [address] 30334- 0079 Apr, [facility] [place] [id number] [place] [address] 72121- 9667 Apr, [facility] [place] [id number] [place] [address] 28088- 8145 Apr, Post-traumatic stress disorder, chronic F43.12 and Major depressive disorder, recurrent, moderate F33.1 [facility] [place] [address] [place] [address] 10377- 7066 Apr, Post-traumatic stress disorder, chronic F43.12 and Major depressive disorder, recurrent, moderate F33.1 [facility] [place] [id number] [place] [address] 09340- 1457 Apr, Major depressive disorder, recurrent, moderate F33.1 and Post traumatic stress disorder F43.10 [facility] [address] [place] [address] [id number] Mar, Dental examination Z01.20 and Dental caries K02.9 [facility] [place] [address] [place] [address] 43937- 4303 Mar, Major depressive disorder, recurrent, moderate F33.1 ; Post- traumatic stress disorder, chronic F43.12 and Personality disorder F60.9 [facility] [place] [id number] [place] [address] 75294- 4375 13 Mar, 2015 Post-traumatic stress disorder, chronic F43.12 and Major depressive disorder, recurrent, moderate F33.1 [facility] [place] [id number] [place] [address] 93542- 4025 11 Mar, 2015 Well woman exam Z01.419 ; Personality disorder F60.9 ; Post traumatic stress disorder F43.10 ; Muscle pain M79.1 and Bladder pain R39.89 [facility] [place] [id number] [place] [address] 30736- 8495 Mar, Abnormal finding on mammography R92.8 ; Sinusitis J32.9 and Vaginal daisy B37.3 [facility] [place] [id number] [place] [address] 35401- 5331 Feb, Abnormal finding on mammography R92.8 [facility] [place] [address] 91499- 2177 Feb, [facility] [place] [id number] [place] [address] 35429- 7688 Apr, [facility] [place] [id number] [place] [address] 78220- 5817 Apr, [facility] [place] [id number] [place] [address] 89593- 8200 Apr, [facility] [place] [id number] [place] [address] 85090- 4534 Apr, [facility] [place] [id number] [place] [address] 40998- 2543 Apr, [facility] [place] [id number] [place] [address] 02244- 5078 Apr, [facility] [place] [id number] [place] [address] 94219- 8793 Mar, [facility] [place] [id number] [place] [address] 65261- 8829 Mar, [facility] [place] [facility] [address] [id number] [place] [address]- 3864 02 Mar, 2012 [facility] [place] [facility] [address] [id number] [place] [address]- 7779 02 Mar, 2012 [facility] [place] [facility] [address] [id number] [place] [address]- 3126 15 Feb, 2012 [facility] [place] [facility] [address] [id number] [place] [address]- 2481 15 Feb, 2012 [facility] [place] [facility] [address] [id number] [place] [address]- 2963 24 Jan, 2012 [facility] [place] [facility] [address] [id number] [place] [address]- 3145 17 Jan, 2012 [facility] [place] [facility] [address] [id number] [place] [address]- 7207 10 Jan, 2012 [facility] [place] [facility] [address] [id number] [place] [address]- 5143 05 Jan, 2012 [facility] [place] [facility] [address] [id number] [place] [address]- 2224 Dec, [facility] [place] [facility] [address] [id number] [place] [address]- 8417 14 Dec, 2011 [facility] [place] [facility] [address] [id number] [place] [address]- 9688 31 Nov, 2011 [facility] [place] [facility] [address] [id number] [place] [address]- 1060 Nov, [facility] [place] [facility] [address] [id number] [place] [address]- 8591 Oct, [facility] [place] [facility] [address] [id number] [place] [address]- 7962 Oct, [facility] [place] [facility] [address] [id number] [place] [address]- 9580 15 Oct, 2011 [facility] [place] [facility] [address] [id number] [place] [address]- 0756 Oct, [facility] [address] [id number] [place] [address]- 5446 September, [facility] [address] [id number] [place] [address]- 2546 September, [facility] [address] [id number] [place] [address] 2546 September, [facility] [address] [id number] [place] [address]- 9946 Aug, [facility] [address] [id number] [place] [address]- 5356 Aug, [facility] [address] [id number] [place] [address]- 9116 Aug, [facility] [address] [id number] [place] [address]- 3436 Aug, [facility] [place] [facility] [address] [id number] [place] [address]- 3564 Jul, [facility] [address] [id number] [place] [address]- 7566 Jul, [facility] [place] [facility] [address] [id number] [place] [address]- 7606 Jul, [facility] [place] [facility] [address] [id number] [place] [address]- 3881 Jun, [facility] [place] [facility] [address] [id number] [place] [address]- 8635 May, [facility] [place] [facility] [address] [id number] [place] [address]- 4896 May, [facility] [place] [facility] [address] [id number] [place] [address]- 8006 May, [facility] [place] [facility] [address] [id number] [place] [address]- 2896 Apr, [facility] [place] [facility] [address] [facility] [id number] [place] [address]- 0906 Apr, [facility] [place] [address] [facility] [id number] [place] [address]- 0522 Mar, [facility] [place] [id number] [address]- 2968 Mar, [facility] [place] [id number] [address]- 0474 Mar, [facility] [place] [id number] [address]- 5946 Feb, [facility] [place] [id number] [address]- 4701 Feb, IMMUNIZATIONS No Known Immunizations SOCIAL HISTORY Never Assessed REASON FOR VISIT Dental Assessment PLAN OF CARE Activity Details Follow Up AUDREY Reason:dental exam/tx VITAL SIGNS MEDICATIONS Medication Instructions Dosage Frequency Start Date End Date Duration Status Xanax 0.25 MG Orally TID PRN 1 tablet Active Aspirin 81 MG Orally Once a day 24h Active Tramadol HCl 50 mg Orally every 6 hrs 1 tablet as needed 6h Not- Taking HydrOXYzine Pamoate 25 MG Orally every 6 hrs 1 capsule as needed 6h Not-Taking Seroquel 50 mg Orally twice a day 1 tablet 12h Jul, 05 days Not-Taking Tylenol 325 MG Orally every 6 hrs 2 tablets as needed 6h Not- Taking Diclofenac Sodium 75 MG Orally Twice a day 1 tablet with food or milk 12h 09 Mar, 2017 30 days Not-Taking Plavix 75 MG Orally Once a day as directed 24h 21 Mar, 2017 30 days Not-Taking RESULTS No Results PROCEDURES Procedure Date Ordered Result Body Site INTRAORL-PERIAPICAL 1 FILM [id number] October 27, 2017 INTRAORL-PERIAPICAL EA ADD FILM October 27, 2017 Billing Notes on claim October 27, 2017 SCREENING OF A PATIENT October 27, 2017 INSTRUCTIONS MEDICATIONS ADMINISTERED [...] years since 1993 last one 2011 in [place] Surgical History vaginal septum Hospitalization History fibromyalsia [facility] Hospitalization History lupus/reynauds Hospitalization History pleurisy Hospitalization History Depression, ptsd, anxiety, add, adhd Hospitalization History Acute TIA - [facility] 02/28/17- Hospitalization History Right sided weakness - ED visit at [facility] 03/23/17
--- OUTSIDE RECORDS SUMMARY | 2018-06-08 13:28 | XMS REPORT ---
Author Author ANDERS PARKINSON [facility] Address [address] [place] [address] Care Team Providers Care Vision Rehabilitation Therapist Name Role Phone ANDERS PARKINSON Unavailable PROBLEMS Type Condition ICD9-CM Code YXA70-VD Code Onset Dates Condition Status SNOMED Code Problem Major depressive disorder, recurrent, moderate F33.1 Active 111014452 Problem Secondary hypertension I15.9 Active 03530903 Problem Chronic obstructive pulmonary disease, unspecified COPD type J44.9 Active 87832165 Problem Somatic complaints, multiple R68.89 Active 040607611 Problem Personality disorder F60.9 Active 10083116 Problem Attention deficit disorder F90.0 Active 283723532 Problem PTSD (post-traumatic stress disorder) F43.10 Active 86213309 Problem 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 Active 72843444 Problem History of lupus Z87.39 Active 162955894 Problem Hemiparesis of right dominant side due to non-cerebrovascular etiology G81.91 Active 502197122 Problem 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 Active 788618138 Problem Major depressive disorder, single episode, moderate F32.1 Active 832053338 ALLERGIES Substance Reaction Event Type Date Status Tegretol seizure Drug Allergy Jul, Active Hydrocodone-Acetaminophen hives Drug Allergy Jul, Active ENCOUNTERS Encounter Location Date Diagnosis [facility] [address], [place] [address] Oct, [facility] [id number] [place] [address] 73202- 1661 Oct, Dental caries K02.9 and PTSD (post-traumatic stress disorder ) F43.10 [facility] [address], [place] [address] Oct, Pain, dental K08.89 and Dental caries K02.9 [facility] [id number] [place] [address] 96009- 7357 Jul, 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 and Post traumatic stress disorder F43.10 [place] [id number] [place] [address] 90649- 8929 Jul, [facility] [id number] [place] [address] 74630 -9508 Jul, 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 and Mouth sores K13.79 [place] [id number] [place] [address] 07195- 2376 Mar, 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 [place] [address] 40143- 5201 Mar, Hemiplegia affecting right dominant side, unspecified etiology, unspecified hemiplegia type G81.91 [place] [address] 55153- 4653 Mar, [place] [id number] [place] [address] 39887- 0332 Mar, History of lupus Z87.39 [place] [address] 94348- 6920 Mar, Major depressive disorder, single episode, moderate F32.1 and Posttraumatic stress disorder F43.10 [place] [id number] [place] [address] 15755- 7228 Mar, Hemiparesis of right dominant side due to non- cerebrovascular etiology G81.91 and History of lupus Z87.39 [place] [id number] [place] [address] 97436- 9543 Mar, [facility] [id number] [place] [address] 86363 -5084 Jan, Acute non-recurrent maxillary sinusitis J01.00 [place] [id number] [place] [address] 35977- 9241 Nov, [place] [id number] [place] [address] 99161- 4973 Oct, Chest pain on breathing R07.1 ; Chronic obstructive pulmonary disease, unspecified COPD type J44.9 ; Hematuria R31.9 and Secondary hypertension I15.9 [place] [id number] [place] [address] 54975- 1951 Oct, [place] [address] 12109- 0386 Oct, Chest pain, unspecified type R07.9 [facility] [address] 79[address] -5660 September, Acute middle ear effusion, right H65.191 [place] [id number] [place] [address] 30500- 6418 Aug, [place] [address] 67149- 6398 Aug, Chronic obstructive pulmonary disease, unspecified COPD type J44.9 [place] [id number] [place] [address] 90962- 8664 Jul, Acute pain of right knee M25.561 [facility] [place] [id number] [place] [address] 79744 -3284 Jul, Pain in right knee M25.561 and Pain in left knee M25.562 [place] [id number] [place] [address] 76324- 1808 Jun, Secondary hypertension I15.9 ; Chronic obstructive pulmonary disease, unspecified COPD type J44.9 ; Post traumatic stress disorder F43.10 ; Arthralgia, unspecified joint M25.50 ; Allergy, subsequent encounter T78.40XD and Screening cholesterol level Z13.220 [place] [id number] [place] [address] 71823- 2897 May, [place] [address] 05942- 8304 Feb, Major depressive disorder, recurrent, moderate F33.1 ; Post traumatic stress disorder F43.10 and Personality disorder F60.9 [place] [address] [place] [address] 10717- 4510 Feb, [place] [id number] [place] [address] 96744- 1099 Jan, Major depressive disorder, recurrent, moderate F33.1 ; Post traumatic stress disorder F43.10 and Personality disorder F60.9 [place] [address] [place] [address] 45236- 1249 Jan, Bronchitis J40 ; Sinus congestion R09.81 ; Major depressive disorder, recurrent, moderate F33.1 ; Personality disorder F60.9 ; Schizoid personality disorder F60.1 ; Chronic obstructive pulmonary disease, unspecified COPD type J44.9 and Secondary hypertension I15.9 [place] [id number] [place] [address] 26940- 1553 Dec, Major depressive disorder, recurrent, moderate F33.1 ; Chronic obstructive pulmonary disease, unspecified COPD type J44.9 ; Muscle pain M79.1 and Secondary hypertension I15.9 [place] [address] [place] [address] 59778- 3266 Dec, Major depressive disorder, recurrent, moderate F33.1 ; Post traumatic stress disorder F43.10 and Personality disorder F60.9 [place] [address] [place] [address] 69325- 8112 Nov, Major depressive disorder, recurrent, moderate F33.1 ; Post traumatic stress disorder F43.10 and Personality disorder F60.9 [place] [id number] [place] [address] 96089- 3896 Nov, Post traumatic stress disorder F43.10 ; Personality disorder F60.9 ; Secondary hypertension I15.9 ; Chronic obstructive pulmonary disease, unspecified COPD type J44.9 and Osteoarthritis, unspecified osteoarthritis type, unspecified site M19.90 [place] [id number] [place] [address] 00687- 2174 Nov, Major depressive disorder, recurrent, moderate F33.1 ; Post traumatic stress disorder F43.10 and Personality disorder F60.9 [place] [id number] [place] [address] 95103- 6825 Oct, Major depressive disorder, recurrent, moderate F33.1 ; Post traumatic stress disorder F43.10 and Personality disorder F60.9 [place] [id number] [place] [address] 80032- 5692 Oct, Major depressive disorder, recurrent, moderate F33.1 ; Post traumatic stress disorder F43.10 and Personality disorder F60.9 [place] [id number] [place] [address] 16010- 5366 Oct, Major depressive disorder, recurrent, moderate F33.1 ; Post traumatic stress disorder F43.10 and Personality disorder F60.9 [place] [id number] [place] [address] 77990- 7826 Aug, Major depressive disorder, recurrent, moderate F33.1 ; Post traumatic stress disorder F43.10 and Personality disorder F60.9 [place] [id number] [place] [address] 46419- 5887 Jul, [place] [id number] [place] [address] 67809- 2473 Jul, Physical exam Z00.00 [place] [id number] [place] [address] 02721- 6400 Jul, [place] [id number] [place] [address] 07266- 7990 Jul, Tobacco abuse counseling Z71.6 and Bronchitis J40 [place] [id number] [place] [address] 99590- 1314 Jul, [place] [id number] [place] [address] 17965- 2298 Jul, [facility] [address], [place] [address] Jul, Hematuria, unspecified R31.9 and Bronchitis J40 [facility] [address] [place] [address] 56931- 3395 Jun, Major depressive disorder, recurrent, moderate F33.1 ; Post traumatic stress disorder F43.10 and Personality disorder F60.9 [facility] [id number] [place] [address] 56645- 1691 Jun, Major depressive disorder, recurrent, moderate F33.1 ; Post traumatic stress disorder F43.10 and Personality disorder F60.9 [facility] [id number] [place] [address] 89362- 6463 Jun, [facility] [id number] [place] [address] 20063- 9177 Jun, [facility] [id number] [place] [address] 84347- 2274 Jun, [facility] [address] [place] [address] 03836- 6139 May, Major depressive disorder, recurrent, moderate F33.1 ; Post traumatic stress disorder F43.10 and Personality disorder F60.9 [facility] [address] [place] [address] 95435- 2128 May, [facility] [id number] [place] [address]50 May, Major depressive disorder, recurrent, moderate F33.1 ; Post- traumatic stress disorder, chronic F43.12 ; Personality disorder F60.9 ; Attention deficit disorder F90.0 and Schizoid personality disorder F60.1 [facility] [address] [place] [address] 15982- 2212 May, Major depressive disorder, recurrent, moderate F33.1 ; Post traumatic stress disorder F43.10 and Schizoid personality disorder F60.1 [facility] [address], [place] [address]- 9182 May, [facility] [id number] [place] [address] 51163- 4619 Apr, Attention deficit disorder F90.0 [facility] [address] [place] [address] 14079- 8656 Apr, Post-traumatic stress disorder, chronic F43.12 and Major depressive disorder, recurrent, moderate F33.1 [facility] [id number] [place] [address] 83665- 0338 Apr, Post traumatic stress disorder F43.10 and Attention deficit disorder F90.0 [facility] [id number] [place] [address] 54788- 0392 Apr, [facility] [id number] [place] [address] 93881- 6798 Apr, [facility] [id number] [place] [address] 26259- 5109 Apr, Post-traumatic stress disorder, chronic F43.12 and Major depressive disorder, recurrent, moderate F33.1 [facility] [address] [place] [address] 09380- 8809 Apr, Post-traumatic stress disorder, chronic F43.12 and Major depressive disorder, recurrent, moderate F33.1 [facility] [address] [place] [address] 05742- 5367 Apr, Major depressive disorder, recurrent, moderate F33.1 and Post traumatic stress disorder F43.10 [facility] [address] [address] Mar, Dental examination Z01.20 and Dental caries K02.9 [facility] [address], [place] [address]- 8124 Mar, Major depressive disorder, recurrent, moderate F33.1 ; Post- traumatic stress disorder, chronic F43.12 and Personality disorder F60.9 [facility] [id number] [place] [address] 34493- 8909 13 Mar, 2015 Post-traumatic stress disorder, chronic F43.12 and Major depressive disorder, recurrent, moderate F33.1 [facility] [id number] [place] [address] 42578- 2268 11 Mar, 2015 Well woman exam Z01.419 ; Personality disorder F60.9 ; Post traumatic stress disorder F43.10 ; Muscle pain M79.1 and Bladder pain R39.89 [facility] [id number] [place] [address] 21542- 9695 Mar, Abnormal finding on mammography R92.8 ; Sinusitis J32.9 and Vaginal daisy B37.3 [facility] [id number] [place] [address] 97408- 1282 Feb, Abnormal finding on mammography R92.8 [facility] [id number] [place] [address] 49965- 9362 Feb, [facility] [id number] [place] [address] 65886- 8387 Apr, [facility] [id number] [place] [address] 85694- 6206 Apr, [facility] [id number] [place] [address] 70541- 3933 Apr, [facility] [id number] [place] [address] 64271 2546 Apr, [facility] [id number] [place] [address] 32381 2546 Apr, [facility] [address] 17182- 9806 Apr, [facility] [id number] [place] [address] 10882- 2544 Mar, [facility] [id number] [place] [address] 76318- 1107 Mar, [facility] [place] [facility] [address] [id number] [place] [address]- 9299 02 Mar, 2012 [facility] [place] [facility] [address] [id number] [place] [address]- 5613 02 Mar, 2012 [facility] [place] [facility] [address] [id number] [place] [address]- 0203 15 Feb, 2012 [facility] [place] [facility] [address] [id number] [place] [address]- 9520 15 Feb, 2012 [facility] [place] [facility] [address] [id number] [place] [address]- 2133 24 Jan, 2012 [facility] [place] [facility] [address] [id number] [place] [address]- 9644 17 Jan, 2012 [facility] [place] [facility] [address] [id number] [place] [address]- 7091 10 Jan, 2012 [facility] [place] [facility] [address] [id number] [place] [address]- 4763 05 Jan, 2012 [facility] [place] [facility] [address] [id number] [place] [address]- 1469 Dec, [facility] [place] [facility] [address] [id number] [place] [address]- 1995 14 Dec, 2011 [facility] [place] [facility] [address] [id number] [place] [address]- 6894 31 Nov, 2011 [facility] [place] [facility] [address] [id number] [address]- 1919 Nov, [facility] [place] [facility] [address] [id number] [place] [address]- 8503 Oct, [facility] [place] [facility] [address] [id number] [place] [address]- 7033 Oct, [facility] [place] [facility] [address] [id number] [place] [address]- 9348 15 Oct, 2011 [facility] [place] [facility] [address] [id number] [place] [address]- 7747 Oct, [facility] [address] [id number] [place] [address]- 6546 September, [facility] [address] [id number] [place] [address]- 7396 September, [facility] [address] [id number] [place] [address]- 8776 September, [facility] [address] [id number] [place] [address]- 0844 Aug, [facility] [address] [id number] [place] [address]- 9183 Aug, [facility] [address] [id number] [place] [address]- 4616 Aug, [facility] [address] [id number] [place] [address]- 4936 Aug, [facility] [address] [id number] [place] [address]- 0271 Jul, [facility] [address] [id number] [place] [address]- 7562 Jul, [facility] [address] [id number] [place] [address]- 9616 Jul, [facility] [address] [id number] [place] [address]- 6396 Jun, [facility] [place] [facility] [address] [id number] [place] [address]- 4437 May, [facility] [place] [facility] [address] [id number] [place] [address]- 8566 May, [facility] [place] [facility] [address] [id number] [place] [address]- 6866 May, [facility] [address] [id number] [place] [address]- 3356 Apr, [facility] [place] [facility] [address] [facility] [id number], [place] [address]- 4359 Apr, [facility] [address] [facility] [id number] [address]- 3550 Mar, [facility] [id number] [address]- 4583 Mar, [facility] [address] [facility] [id number], [place] [address]- 6749 Mar, [facility] [address] [facility] [id number] [address]- 9356 Feb, [facility] [address] [facility] [id number], [place] [address]- 8539 Feb, IMMUNIZATIONS No Known Immunizations SOCIAL HISTORY Never Assessed REASON FOR VISIT lesions on tongue--tjanssenMA, --lesions for the past 3 weeks, ear ache, throat hurting unable to eat. PLAN OF CARE Activity Details Follow Up prn Reason: VITAL SIGNS Height 67 in 2017-07-24 Weight 209.6 lbs 2017-07-24 Temperature 98.1 degrees Fahrenheit 2017-07-24 Heart Rate 90 bpm 2017-07-24 Respiratory Rate 20 2017-07-24 BMI 32.82 kg/m2 2017-07-24 Blood pressure systolic 168 mmHg 2017-07-24 Blood pressure diastolic 96 mmHg 2017-07-24 MEDICATIONS Medication Instructions Dosage Frequency Start Date End Date Duration Status Aspirin 81 MG Orally Once a day 24h Active HydrOXYzine Pamoate 25 MG Orally every 6 hrs 1 capsule as needed 6h Not-Taking Seroquel 50 mg Orally twice a day 1 tablet 12h Jul, 05 days Active Xanax 0.25 MG Orally TID PRN 1 tablet Active Plavix 75 MG Orally Once a day as directed 24h Mar, 30 days Not-Taking Tylenol 325 MG Orally every 6 hrs 2 tablets as needed 6h Not- Taking Nystatin 629113 UNIT/ML Mouth/Throat Four times a day 4 ml 6h Jul, Aug, 30 day(s) Active Diclofenac Sodium 75 MG Orally Twice a day 1 tablet with food or milk 12h Mar, 30 days Not-Taking Tramadol HCl 50 mg Orally every 6 hrs 1 tablet as needed 6h Active RESULTS No Results PROCEDURES Procedure Date Ordered Result Body Site [facility] VISIT ESTABLISHED PATIENT July 24, 2017 INSTRUCTIONS MEDICATIONS ADMINISTERED No Known Medications [...] years since 1993 last one 2011 in [place] Surgical History vaginal septum Hospitalization History fibromyalsia [facility] Hospitalization History lupus/reynauds Hospitalization History pleurisy Hospitalization History Depression, ptsd, anxiety, add, adhd Hospitalization History Acute TIA - [facility] 02/28/17- Hospitalization History Right sided weakness - ED visit at [facility] 03/23/17
--- OUTSIDE RECORDS SUMMARY | 2018-06-08 13:28 | XMS REPORT ---
Author Author ANDERS PARKINSON [facility] Address [address] [place] [address] Care Team Providers Care Pharmacy Benefits Coordinator Name Role Phone ANDERS PARKINSON Unavailable PROBLEMS Type Condition ICD9-CM Code PEI35-NE Code Onset Dates Condition Status SNOMED Code Problem Major depressive disorder, recurrent, moderate F33.1 Active 944323830 Problem Secondary hypertension I15.9 Active 79331966 Problem Chronic obstructive pulmonary disease, unspecified COPD type J44.9 Active 00886820 Problem Somatic complaints, multiple R68.89 Active 674185837 Problem Personality disorder F60.9 Active 90302256 Problem Attention deficit disorder F90.0 Active 733105112 Problem PTSD (post-traumatic stress disorder) F43.10 Active 37756203 Problem 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 Active 44236955 Problem History of lupus Z87.39 Active 592434240 Problem Hemiparesis of right dominant side due to non-cerebrovascular etiology G81.91 Active 446531765 Problem 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 Active 924139265 Problem Major depressive disorder, single episode, moderate F32.1 Active 051541177 ALLERGIES No Information ENCOUNTERS Encounter Location Date Diagnosis [facility] [id number] [place] [address] 50428- 9943 Oct, [facility] [id number] [place] [address] 48412- 6986 Oct, Dental caries K02.9 and PTSD (post-traumatic stress disorder ) F43.10 [facility] [id number] [place] [address] 31248 -4340 Oct, [facility] [id number] [place] [address] 50411- 5726 Oct, Pain, dental K08.89 and Dental caries K02.9 [place] [id number] [place] [address] 23967- 7436 Jul, 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 and Post traumatic stress disorder F43.10 [place] [id number] [place] [address] 01320- 6824 Jul, [facility] [id number] [place] [address] 66920 -5683 Jul, 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 and Mouth sores K13.79 [place] [address] 30412- 2156 Mar, 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 [place] [address] 834229- 0242 Mar, Hemiplegia affecting right dominant side, unspecified etiology, unspecified hemiplegia type G81.91 [place] [address] 24857- 6144 Mar, [place] [address] 71686- 5961 Mar, History of lupus Z87.39 [place] [address] 05820- 5115 Mar, Major depressive disorder, single episode, moderate F32.1 and Posttraumatic stress disorder F43.10 [place] [id number] [place] [address] 00085- 4570 Mar, Hemiparesis of right dominant side due to non- cerebrovascular etiology G81.91 and History of lupus Z87.39 [place] [id number] [place] [address] 05721- 3637 Mar, [facility] [id number] [place] [address] 72558 -1963 Jan, Acute non-recurrent maxillary sinusitis J01.00 [place] [address] 85803- 2416 Nov, [place] [id number] [place] [address] 54986- 3835 Oct, Chest pain on breathing R07.1 ; Chronic obstructive pulmonary disease, unspecified COPD type J44.9 ; Hematuria R31.9 and Secondary hypertension I15.9 [place] [id number] [place] [address] 60623- 9894 Oct, [place] [address] 20350- 4525 Oct, Chest pain, unspecified type R07.9 [facility] [address] 82845 -5272 September, Acute middle ear effusion, right H65.191 [place] [address] 03428- 6192 Aug, [place] [address] 09447- 0157 Aug, Chronic obstructive pulmonary disease, unspecified COPD type J44.9 [place] [address] 45753- 6432 Jul, Acute pain of right knee M25.561 [facility] [place] [id number] [place] [address] 26072 -5761 Jul, Pain in right knee M25.561 and Pain in left knee M25.562 [place] [address] 02772- 8021 Jun, Secondary hypertension I15.9 ; Chronic obstructive pulmonary disease, unspecified COPD type J44.9 ; Post traumatic stress disorder F43.10 ; Arthralgia, unspecified joint M25.50 ; Allergy, subsequent encounter T78.40XD and Screening cholesterol level Z13.220 [place] [id number] [place] [address] 48134- 5832 May, [place] [address] [place] [address]- 4[address] Feb, Major depressive disorder, recurrent, moderate F33.1 ; Post traumatic stress disorder F43.10 and Personality disorder F60.9 [place] [id number] [place] [address] 99902- 7452 Feb, [place] [id number] [place] [address] 12540- 4516 Jan, Major depressive disorder, recurrent, moderate F33.1 ; Post traumatic stress disorder F43.10 and Personality disorder F60.9 [place] [id number] [place] [address] 45871- 8170 Jan, Bronchitis J40 ; Sinus congestion R09.81 ; Major depressive disorder, recurrent, moderate F33.1 ; Personality disorder F60.9 ; Schizoid personality disorder F60.1 ; Chronic obstructive pulmonary disease, unspecified COPD type J44.9 and Secondary hypertension I15.9 [place] [id number] [place] [address] 33860- 4611 Dec, Major depressive disorder, recurrent, moderate F33.1 ; Chronic obstructive pulmonary disease, unspecified COPD type J44.9 ; Muscle pain M79.1 and Secondary hypertension I15.9 [place] [id number] [place] [address] 88280- 6796 Dec, Major depressive disorder, recurrent, moderate F33.1 ; Post traumatic stress disorder F43.10 and Personality disorder F60.9 [place] [id number] [place] [address] 68008- 9751 Nov, Major depressive disorder, recurrent, moderate F33.1 ; Post traumatic stress disorder F43.10 and Personality disorder F60.9 [place] [id number] [place] [address] 37711- 8113 Nov, Post traumatic stress disorder F43.10 ; Personality disorder F60.9 ; Secondary hypertension I15.9 ; Chronic obstructive pulmonary disease, unspecified COPD type J44.9 and Osteoarthritis, unspecified osteoarthritis type, unspecified site M19.90 [place] [address] [place] [address] 13745- 7648 Nov, Major depressive disorder, recurrent, moderate F33.1 ; Post traumatic stress disorder F43.10 and Personality disorder F60.9 [place] [id number] [place] [address] 58005- 5667 Oct, Major depressive disorder, recurrent, moderate F33.1 ; Post traumatic stress disorder F43.10 and Personality disorder F60.9 [place] [id number] [place] [address] 55234- 3311 Oct, Major depressive disorder, recurrent, moderate F33.1 ; Post traumatic stress disorder F43.10 and Personality disorder F60.9 [place] [id number] [place] [address] 83574- 7459 Oct, Major depressive disorder, recurrent, moderate F33.1 ; Post traumatic stress disorder F43.10 and Personality disorder F60.9 [place] [id number] [place] [address] 73807- 2314 Aug, Major depressive disorder, recurrent, moderate F33.1 ; Post traumatic stress disorder F43.10 and Personality disorder F60.9 [place] [id number] [place] [address] 25025- 3670 Jul, [place] [id number] [place] [address] 50726- 9465 Jul, Physical exam Z00.00 [place] [id number] [place] [address] 02898- 1598 Jul, [place] [id number] [place] [address] 80286- 1311 07 Jul, 2015 Tobacco abuse counseling Z71.6 and Bronchitis J40 [place] [id number] [place] [address] 28104- 6089 Jul, [place] [address] 61925- 7126 Jul, [facility] [address] [address] Jul, Hematuria, unspecified R31.9 and Bronchitis J40 [facility] [address] [place] [address] 66444- 8535 Jun, Major depressive disorder, recurrent, moderate F33.1 ; Post traumatic stress disorder F43.10 and Personality disorder F60.9 [facility] [id number] [place] [address] 11844- 5543 Jun, Major depressive disorder, recurrent, moderate F33.1 ; Post traumatic stress disorder F43.10 and Personality disorder F60.9 [facility] [id number] [place] [address] 11063- 7889 Jun, [facility] [id number] [place] [address] 17626- 1953 Jun, [facility] [id number] [place] [address] 13517- 7183 Jun, [facility] [address] [place] [address] 03711- 3918 May, Major depressive disorder, recurrent, moderate F33.1 ; Post traumatic stress disorder F43.10 and Personality disorder F60.9 [facility] [address] [place] [address] 87278- 7710 May, [facility] [id number] [place] [address] 17105- 4019 May, Major depressive disorder, recurrent, moderate F33.1 ; Post- traumatic stress disorder, chronic F43.12 ; Personality disorder F60.9 ; Attention deficit disorder F90.0 and Schizoid personality disorder F60.1 [facility] [address] [address]- 3964 May, Major depressive disorder, recurrent, moderate F33.1 ; Post traumatic stress disorder F43.10 and Schizoid personality disorder F60.1 [facility] [address] [address]- 8410 May, [facility] [id number] [place] [address] 77497- 1815 Apr, Attention deficit disorder F90.0 [facility] [address] [place] [address] 28352- 9325 Apr, Post-traumatic stress disorder, chronic F43.12 and Major depressive disorder, recurrent, moderate F33.1 [facility] [address] [place] [address] 11693- 3630 Apr, Post traumatic stress disorder F43.10 and Attention deficit disorder F90.0 [facility] [id number] [place] [address] 95348- 0828 Apr, [facility] [id number] [place] [address] 21045- 9441 Apr, [facility] [id number] [place] [address] 43515- 3051 Apr, Post-traumatic stress disorder, chronic F43.12 and Major depressive disorder, recurrent, moderate F33.1 [facility] [address] [place] [address] 33523- 9413 Apr, Post-traumatic stress disorder, chronic F43.12 and Major depressive disorder, recurrent, moderate F33.1 [facility] [address] [place] [address] 56115- 6365 Apr, Major depressive disorder, recurrent, moderate F33.1 and Post traumatic stress disorder F43.10 [facility] [place] [facility] [address] [place] [address] [id number] Mar, 2015 Dental examination Z01.20 and Dental caries K02.9 [facility] [address] [address]- 6019 Mar, Major depressive disorder, recurrent, moderate F33.1 ; Post- traumatic stress disorder, chronic F43.12 and Personality disorder F60.9 [facility] [id number] [place] [address] 25806- 6002 13 Mar, 2015 Post-traumatic stress disorder, chronic F43.12 and Major depressive disorder, recurrent, moderate F33.1 [facility] [id number] [place] [address] 57549- 6236 11 Mar, 2015 Well woman exam Z01.419 ; Personality disorder F60.9 ; Post traumatic stress disorder F43.10 ; Muscle pain M79.1 and Bladder pain R39.89 [facility] [id number] [place] [address] 00593- 9312 Mar, Abnormal finding on mammography R92.8 ; Sinusitis J32.9 and Vaginal daisy B37.3 [facility] [id number] [place] [address] 08161- 2060 Feb, Abnormal finding on mammography R92.8 [facility] [address] 64954- 7745 Feb, [facility] [id number] [place] [address] 94982- 6209 Apr, [facility] [id number] [place] [address] 45143- 0241 Apr, [facility] [id number] [place] [address] 54467- 8177 Apr, [facility] [id number] [place] [address] 27914- 2496 Apr, [facility] [id number] [place] [address] 51592- 2508 Apr, [facility] [address] 10750- 9707 Apr, [facility] [id number] [place] [address] 44454- 3458 Mar, [facility] [address] 75894- 6819 29 Mar, 2012 [facility] [place] [facility] [address] [id number] [place] [address]- 1070 Mar, [facility] [place] [facility] [address] [id number] [place] [address]- 7706 02 Mar, 2012 [facility] [place] [facility] [address] [facility] [id number] [place] [address]- 3186 15 Feb, 2012 [facility] [place] [facility] [address] [id number] [place] [address]- 2480 15 Feb, 2012 [facility] [place] [facility] [address] [id number] [place] [address]- 7780 24 Jan, 2012 [facility] [place] [facility] [address] [id number] [place] [address]- 7665 17 Jan, 2012 [facility] [place] [facility] [address] [id number] [place] [address]- 8409 10 Jan, 2012 [facility] [place] [facility] [address] [id number] [place] [address]- 3378 05 Jan, 2012 [facility] [place] [facility] [address] [id number] [place] [address]- 1079 27 Dec, 2011 [facility] [place] [facility] [address] [id number] [place] [address]- 8734 14 Dec, 2011 [facility] [place] [facility] [address] [id number], [place] [address]- 2545 31 Nov, 2011 [facility] [place] [facility] [address] [id number], [place] [address]- 0544 Nov, [facility] [place] [facility] [address] [id number] [place] [address]- 1019 Oct, [facility] [place] [facility] [address] [facility] [id number] [place] [address]- 3023 20 Oct, 2011 [facility] [place] [facility] [address] [facility] [id number] [place] [address]- 8648 15 Oct, 2011 [facility] [place] [facility] [address] [id number] [place] [address] 2546 Oct, [facility] [address] [id number] [place] [address]- 4036 September, [facility] [address] [id number] [place] [address] 2546 September, [facility] [address] [id number] [place] [address]- 1246 September, [facility] [address] [id number] [place] [address]- 2862 Aug, [facility] [address] [id number] [place] [address]- 8116 Aug, [facility] [address] [id number] [place] [address]- 3886 Aug, [facility] [address] [id number] [place] [address]- 0730 Aug, [facility] [address] [id number] [place] [address]- 5983 Jul, [facility] [address] [id number] [place] [address]- 8517 Jul, [facility] [place] [facility] [address] [id number] [place] [address]- 1881 Jul, [facility] [address] [id number] [place] [address]- 7427 Jun, [facility] [address] [id number] [place] [address]- 7468 May, [facility] [address] [id number] [place] [address]- 7606 May, [facility] [address] [id number] [place] [address]- 2546 May, [facility] [address] [id number] [place] [address]- 7143 Apr, [facility] [address] [facility] [id number], [place] [address]- 3270 Apr, [facility] [address] [facility] [id number], [place] [address]- 9647 Mar, [facility] [address] [facility] [id number], [place] [address]- 9773 Mar, [facility] [address] [facility] [id number][place] 5731 Mar, [facility] [address] [facility] [id number], [place] [address]- 9774 Feb, [facility] [address] [facility] [id number], [place] [address]- 0737 Feb, IMMUNIZATIONS No Known Immunizations SOCIAL HISTORY Never Assessed REASON FOR VISIT BH/AT phone response PLAN OF CARE VITAL SIGNS MEDICATIONS Unknown [...] years since 1993 last one 2011 in [place] Surgical History vaginal septum Hospitalization History fibromyalsia [facility] Hospitalization History lupus/reynauds Hospitalization History pleurisy Hospitalization History Depression, ptsd, anxiety, add, adhd Hospitalization History Acute TIA - [facility] 02/28/17- Hospitalization History Right sided weakness - ED visit at [facility] 03/23/17
--- OUTSIDE RECORDS SUMMARY | 2018-06-08 13:28 | XMS REPORT ---
Author Author EVA COHEN Organization [facility] Address [address] [place] [address] Care Team Providers Care Professor Of Violin Name Role Phone EVA COHEN Unavailable PROBLEMS Type Condition ICD9-CM Code HUL58-TY Code Onset Dates Condition Status SNOMED Code Problem Major depressive disorder, recurrent, moderate F33.1 Active 984315428 Problem Secondary hypertension I15.9 Active 30773436 Problem Chronic obstructive pulmonary disease, unspecified COPD type J44.9 Active 13173815 Problem Somatic complaints, multiple R68.89 Active 933623817 Problem Personality disorder F60.9 Active 02836264 Problem Attention deficit disorder F90.0 Active 444075219 Problem PTSD (post-traumatic stress disorder) F43.10 Active 90565086 Problem 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 Active 45735162 Problem History of lupus Z87.39 Active 570212096 Problem Hemiparesis of right dominant side due to non-cerebrovascular etiology G81.91 Active 733816257 Problem 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 Active 396971992 Problem Major depressive disorder, single episode, moderate F32.1 Active 401886536 ALLERGIES No Information ENCOUNTERS Encounter Location Date Diagnosis [facility] [id number] [place] [address] 16949- 2121 Oct, [facility] [id number] [place] [address] 57689- 7001 Oct, Dental caries K02.9 and PTSD (post-traumatic stress disorder ) F43.10 [facility] [id number] [place] [address] 73904 -4118 Oct, [facility] [id number] [place] [address] 83384- 9287 Oct, Pain, dental K08.89 and Dental caries K02.9 [facility] [id number] [place] [address] 80824- 9963 Jul, 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 and Post traumatic stress disorder F43.10 [facility] [id number] [place] [address] 70757- 3210 Jul, [facility] [id number] [place] [address] 55396 -1167 Jul, 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 and Mouth sores K13.79 [facility] [address] 73277- 1820 Mar, 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 [facility] [address] 998017- 0675 Mar, Hemiplegia affecting right dominant side, unspecified etiology, unspecified hemiplegia type G81.91 [facility] [address] 32864- 2390 Mar, [facility] [address] 22327- 5122 Mar, History of lupus Z87.39 [facility] [address] 38168- 4379 Mar, Major depressive disorder, single episode, moderate F32.1 and Posttraumatic stress disorder F43.10 [facility] [id number] [place] [address] 26498- 3056 Mar, Hemiparesis of right dominant side due to non- cerebrovascular etiology G81.91 and History of lupus Z87.39 [facility] [id number] [place] [address] 22089- 0106 Mar, [facility] [id number] [place] [address] 87722 -7871 Jan, Acute non-recurrent maxillary sinusitis J01.00 [facility] [address] 41171- 0091 Nov, [facility] [id number] [place] [address] 07318- 3663 Oct, Chest pain on breathing R07.1 ; Chronic obstructive pulmonary disease, unspecified COPD type J44.9 ; Hematuria R31.9 and Secondary hypertension I15.9 [facility] [id number] [place] [address] 51658- 0869 Oct, [facility] [address] 03858- 4507 Oct, Chest pain, unspecified type R07.9 [facility] [address] 82529 -4345 September, Acute middle ear effusion, right H65.191 [place] [address] 85428- 3854 Aug, [facility] [address] 17324- 9947 Aug, Chronic obstructive pulmonary disease, unspecified COPD type J44.9 [facility] [address] 79602- 1542 Jul, Acute pain of right knee M25.561 [facility] [place] [id number] [place] [address] 16539 -6135 Jul, Pain in right knee M25.561 and Pain in left knee M25.562 [facility] [address] 84023- 1709 Jun, Secondary hypertension I15.9 ; Chronic obstructive pulmonary disease, unspecified COPD type J44.9 ; Post traumatic stress disorder F43.10 ; Arthralgia, unspecified joint M25.50 ; Allergy, subsequent encounter T78.40XD and Screening cholesterol level Z13.220 [facility] [id number] [place] [address] 70394- 7432 May, [facility] [address] [place] [address] 7556 Feb, Major depressive disorder, recurrent, moderate F33.1 ; Post traumatic stress disorder F43.10 and Personality disorder F60.9 [facility] [id number] [place] [address] 56065- 1514 Feb, [facility] [id number] [place] [address] 76352- 3512 Jan, Major depressive disorder, recurrent, moderate F33.1 ; Post traumatic stress disorder F43.10 and Personality disorder F60.9 [facility] [id number] [place] [address] 82044- 7622 Jan, Bronchitis J40 ; Sinus congestion R09.81 ; Major depressive disorder, recurrent, moderate F33.1 ; Personality disorder F60.9 ; Schizoid personality disorder F60.1 ; Chronic obstructive pulmonary disease, unspecified COPD type J44.9 and Secondary hypertension I15.9 [facility] [id number] [place] [address] 55240- 1174 Dec, Major depressive disorder, recurrent, moderate F33.1 ; Chronic obstructive pulmonary disease, unspecified COPD type J44.9 ; Muscle pain M79.1 and Secondary hypertension I15.9 [facility] [id number] [place] [address] 82469- 0046 Dec, Major depressive disorder, recurrent, moderate F33.1 ; Post traumatic stress disorder F43.10 and Personality disorder F60.9 [facility] [id number] [place] [address] 46369- 7731 Nov, Major depressive disorder, recurrent, moderate F33.1 ; Post traumatic stress disorder F43.10 and Personality disorder F60.9 [facility] [id number] [place] [address] 11676- 3125 Nov, Post traumatic stress disorder F43.10 ; Personality disorder F60.9 ; Secondary hypertension I15.9 ; Chronic obstructive pulmonary disease, unspecified COPD type J44.9 and Osteoarthritis, unspecified osteoarthritis type, unspecified site M19.90 [facility] [address] [place] [address] 15240- 5843 Nov, Major depressive disorder, recurrent, moderate F33.1 ; Post traumatic stress disorder F43.10 and Personality disorder F60.9 [facility] [id number] [place] [address] 01507- 2780 Oct, Major depressive disorder, recurrent, moderate F33.1 ; Post traumatic stress disorder F43.10 and Personality disorder F60.9 [facility] [id number] [place] [address] 02273- 4471 Oct, Major depressive disorder, recurrent, moderate F33.1 ; Post traumatic stress disorder F43.10 and Personality disorder F60.9 [facility] [id number] [place] [address] 33294- 5740 Oct, Major depressive disorder, recurrent, moderate F33.1 ; Post traumatic stress disorder F43.10 and Personality disorder F60.9 [facility] [id number] [place] [address] 08913- 6798 Aug, Major depressive disorder, recurrent, moderate F33.1 ; Post traumatic stress disorder F43.10 and Personality disorder F60.9 [facility] [id number] [place] [address] 59174- 3801 Jul, [facility] [id number] [place] [address] 44746- 8886 Jul, Physical exam Z00.00 [facility] [id number] [place] [address] 95451- 5619 Jul, [facility] [id number] [place] [address] 57351- 0599 07 Jul, 2015 Tobacco abuse counseling Z71.6 and Bronchitis J40 [facility] [id number] [place] [address] 71484- 4362 Jul, [facility] [address] 39980- 8738 Jul, [facility] [address] [address] Jul, Hematuria, unspecified R31.9 and Bronchitis J40 [facility] [address] [place] [address] 47993- 6244 Jun, Major depressive disorder, recurrent, moderate F33.1 ; Post traumatic stress disorder F43.10 and Personality disorder F60.9 [facility] [id number] [place] [address] 43600- 4348 Jun, Major depressive disorder, recurrent, moderate F33.1 ; Post traumatic stress disorder F43.10 and Personality disorder F60.9 [facility] [id number] [place] [address] 32889- 2575 Jun, [facility] [id number] [place] [address] 22302- 9087 Jun, [facility] [id number] [place] [address] 85863- 6715 Jun, [facility] [id number] [place] [address] 38701- 4117 May, Major depressive disorder, recurrent, moderate F33.1 ; Post traumatic stress disorder F43.10 and Personality disorder F60.9 [facility] [address] [place] [address] 12559- 5525 May, [facility] [id number] [place] [address] 49100- 6293 May, Major depressive disorder, recurrent, moderate F33.1 ; Post- traumatic stress disorder, chronic F43.12 ; Personality disorder F60.9 ; Attention deficit disorder F90.0 and Schizoid personality disorder F60.1 [facility] [address] [address]- 7545 May, Major depressive disorder, recurrent, moderate F33.1 ; Post traumatic stress disorder F43.10 and Schizoid personality disorder F60.1 [facility] [address] [address]- 7812 May, [facility] [id number] [place] [address] 01268- 5997 Apr, Attention deficit disorder F90.0 [facility] [address] [place] [address] 31053- 0924 Apr, Post-traumatic stress disorder, chronic F43.12 and Major depressive disorder, recurrent, moderate F33.1 [facility] [address] [place] [address] 64271- 0482 Apr, Post traumatic stress disorder F43.10 and Attention deficit disorder F90.0 [facility] [id number] [place] [address] 33779- 4950 Apr, [facility] [id number] [place] [address] 54669- 2561 Apr, [facility] [id number] [place] [address] 99393- 1344 Apr, Post-traumatic stress disorder, chronic F43.12 and Major depressive disorder, recurrent, moderate F33.1 [facility] [id number] [place] [address] 22023- 3718 Apr, Post-traumatic stress disorder, chronic F43.12 and Major depressive disorder, recurrent, moderate F33.1 [facility] [address] [place] [address] 55058- 3771 Apr, Major depressive disorder, recurrent, moderate F33.1 and Post traumatic stress disorder F43.10 [facility] [address] [place] [address] [id number] 30 Mar, 2015 Dental examination Z01.20 and Dental caries K02.9 [facility] [address] [place] [address]- 8361 Mar, Major depressive disorder, recurrent, moderate F33.1 ; Post- traumatic stress disorder, chronic F43.12 and Personality disorder F60.9 [facility] [id number] [place] [address] 39994- 0839 13 Mar, 2015 Post-traumatic stress disorder, chronic F43.12 and Major depressive disorder, recurrent, moderate F33.1 [facility] [id number] [place] [address] 70162- 9337 11 Mar, 2015 Well woman exam Z01.419 ; Personality disorder F60.9 ; Post traumatic stress disorder F43.10 ; Muscle pain M79.1 and Bladder pain R39.89 [facility] [id number] [place] [address] 30854- 9583 Mar, Abnormal finding on mammography R92.8 ; Sinusitis J32.9 and Vaginal daisy B37.3 [facility] [id number] [place] [address] 26030- 9908 Feb, Abnormal finding on mammography R92.8 [facility] [address] 76103- 6439 Feb, [facility] [id number] [place] [address] 88345- 7138 Apr, [facility] [id number] [place] [address] 09362- 0385 Apr, [facility] [id number] [place] [address] 29074- 6636 Apr, [facility] [id number] [place] [address] 66766- 2452 Apr, [facility] [id number] [place] [address] 54579- 6071 Apr, [facility] [address] 67158- 5043 Apr, [facility] [id number] [place] [address] 70441- 6893 Mar, [facility] [address] 31868- 2242 29 Mar, 2012 [facility] [place] [facility] [address] [id number] [place] [address]- 6031 Mar, [facility] [place] [facility] [address] [id number] [place] [address]- 7706 02 Mar, 2012 [facility] [place] [facility] [address] [facility] [id number] [place] [address]- 3376 15 Feb, 2012 [facility] [place] [facility] [address] [id number] [place] [address]- 5098 15 Feb, 2012 [facility] [place] [facility] [address] [id number] [place] [address]- 8340 24 Jan, 2012 [facility] [place] [facility] [address] [id number] [place] [address]- 7266 17 Jan, 2012 [facility] [place] [facility] [address] [id number] [place] [address]- 2919 10 Jan, 2012 [facility] [place] [facility] [address] [id number] [place] [address]- 8304 05 Jan, 2012 [facility] [place] [facility] [address] [id number] [place] [address]- 8821 27 Dec, 2011 [facility] [place] [facility] [address] [id number] [place] [address]- 4390 14 Dec, 2011 [facility] [place] [facility] [address] [id number], [place] [address]- 5910 31 Nov, 2011 [facility] [place] [facility] [address] [id number], [place] [address]- 2724 Nov, [facility] [place] [facility] [address] [id number] [place] [address]- 8379 Oct, [facility] [place] [facility] [address] [facility] [id number] [place] [address]- 2055 20 Oct, 2011 [facility] [place] [facility] [address] [facility] [id number] [place] [address]- 6026 15 Oct, 2011 [facility] [place] [facility] [address] [id number] [place] [address] 2546 Oct, [facility] [address] [id number] [place] [address]- 9616 September, [facility] [address] [id number] [place] [address] 2546 September, [facility] [address] [id number] [place] [address]- 0296 September, [facility] [address] [id number] [place] [address]- 1718 Aug, [facility] [address] [id number] [place] [address]- 6775 Aug, [facility] [address] [id number] [place] [address]- 5676 Aug, [facility] [address] [id number] [place] [address]- 8013 Aug, [facility] [address] [id number] [place] [address]- 7755 Jul, [facility] [address] [id number] [place] [address]- 3627 Jul, [facility] [address] [id number] [place] [address]- 4263 Jul, [facility] [address] [id number] [place] [address]- 0715 Jun, [facility] [address] [id number] [place] [address]- 5229 May, [facility] [address] [id number] [place] [address]- 8066 May, [facility] [address] [id number] [place] [address]- 2546 May, [facility] [address] [id number] [place] [address]- 5946 Apr, [facility] [address] [facility] [id number], [place] [address]- 4291 Apr, [facility] [address] [facility] [id number], [place] [address]- 6166 Mar, [facility] [address] [facility] [id number], [place] [address]- 4928 Mar, [facility] [address] [facility] [id number], [place] [address]- 4376 Mar, [facility] [address] [facility] [id number], [place] [address]- 1415 Feb, [facility] [address] [facility] [id number], [place] [address]- 4374 Feb, IMMUNIZATIONS No Known Immunizations SOCIAL HISTORY Never Assessed REASON FOR VISIT [facility]ARE Activity Details Follow Up Next available, 2 - 3 Days Reason: VITAL SIGNS MEDICATIONS Unknown Medications RESULTS No Results PROCEDURES Procedure Date Ordered Result Body Site [facility] VISIT MENTAL HEALTH ESTAB PT July 24, 2017 Psychotherapy, patient &/family, 45 minutes, established patient July 24, 2017 INSTRUCTIONS MEDICATIONS ADMINISTERED No [...] years since 1993 last one 2011 in [place] Surgical History vaginal septum Hospitalization History fibromyalsia [facility] Hospitalization History lupus/reynauds Hospitalization History pleurisy Hospitalization History Depression, ptsd, anxiety, add, adhd Hospitalization History Acute TIA - [facility] 02/28/17- Hospitalization History Right sided weakness - ED visit at [facility] 03/23/17
--- OUTSIDE RECORDS SUMMARY | 2018-06-08 13:29 | XMS REPORT ---
Author Author RASHAUN CALDERON Organization [facility] Address [address] [place] [address] Care Team Providers Care Cover Maker Name Role Phone RASHAUN CALDERON Unavailable PROBLEMS Type Condition ICD9-CM Code GZA11-JG Code Onset Dates Condition Status SNOMED Code Problem Major depressive disorder, recurrent, moderate F33.1 Active 659068411 Problem Secondary hypertension I15.9 Active 11470391 Problem Chronic obstructive pulmonary disease, unspecified COPD type J44.9 Active 12999849 Problem Somatic complaints, multiple R68.89 Active 720782990 Problem Post traumatic stress disorder F43.10 Active 65811450 Problem Personality disorder F60.9 Active 80608437 Problem Attention deficit disorder F90.0 Active 218691561 Problem 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 Active 85748721 Problem 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 Active 449002414 Problem History of lupus Z87.39 Active 059548120 Problem Hemiparesis of right dominant side due to non-cerebrovascular etiology G81.91 Active 651797794 Problem Major depressive disorder, single episode, moderate F32.1 Active 150509963 Problem Posttraumatic stress disorder F43.10 Active 20894017 ALLERGIES Substance Reaction Event Type Date Status Tegretol seizure Drug Allergy Mar, Active Hydrocodone-Acetaminophen hives Drug Allergy Mar, Active ENCOUNTERS Encounter Location Date Diagnosis [facility] [id number], [place] [address] Jul, 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91 [place] [address] [address] Mar, [place] [address] [address] Mar, History of lupus Z87.39 [place] [address] [address]- [address]64 Mar, Major depressive disorder, single episode, moderate F32.1 and Posttraumatic stress disorder F43.10 [place] [address] [address]- 1144 Mar, Hemiparesis of right dominant side due to non- cerebrovascular etiology G81.91 and History of lupus Z87.39 [place] [address] [address] Mar, [facility] [id number] [place] [address] Jan, Acute non-recurrent maxillary sinusitis J01.00 [place] [address] [address]- [address] Nov, [place] [address] [address]- [address]758 Oct, Chest pain on breathing R07.1 ; Chronic obstructive pulmonary disease, unspecified COPD type J44.9 ; Hematuria R31.9 and Secondary hypertension I15.9 [place] [address] [address]- [address] Oct, [facility] [address] [address] Oct, Chest pain, unspecified type R07.9 [facility] [id number] [place] [address] September, Acute middle ear effusion, right H65.191 [place] [id number] [place] [address] 74717- 2246 Aug, [place] [address] [address] Aug, Chronic obstructive pulmonary disease, unspecified COPD type J44.9 [place] [id number] [place] [address] 86319- 1122 Jul, Acute pain of right knee M25.561 [facility] [id number] [place] [address]380 -[address]111 Jul, Pain in right knee M25.561 and Pain in left knee M25.562 [place] [id number] [place] [address] 41263- 9166 Jun, Secondary hypertension I15.9 ; Chronic obstructive pulmonary disease, unspecified COPD type J44.9 ; Post traumatic stress disorder F43.10 ; Arthralgia, unspecified joint M25.50 ; Allergy, subsequent encounter T78.40XD and Screening cholesterol level Z13.220 [place] [id number] [place] [address]- 1912 May, [place] [id number] [place] [address] 97035- 6716 Feb, Major depressive disorder, recurrent, moderate F33.1 ; Post traumatic stress disorder F43.10 and Personality disorder F60.9 [place] [id number] [place] [address] 32983- 2705 Feb, [place] [id number] [place] [address] 47349- 5588 Jan, Major depressive disorder, recurrent, moderate F33.1 ; Post traumatic stress disorder F43.10 and Personality disorder F60.9 [place] [address] [place] [address] 19285- 7295 Jan, Bronchitis J40 ; Sinus congestion R09.81 ; Major depressive disorder, recurrent, moderate F33.1 ; Personality disorder F60.9 ; Schizoid personality disorder F60.1 ; Chronic obstructive pulmonary disease, unspecified COPD type J44.9 and Secondary hypertension I15.9 [place] [id number] [place] [address] 74906- 9258 Dec, Major depressive disorder, recurrent, moderate F33.1 ; Chronic obstructive pulmonary disease, unspecified COPD type J44.9 ; Muscle pain M79.1 and Secondary hypertension I15.9 [place] [address] 90503- 4013 Dec, Major depressive disorder, recurrent, moderate F33.1 ; Post traumatic stress disorder F43.10 and Personality disorder F60.9 [place] [address] [address]- 5411 Nov, Major depressive disorder, recurrent, moderate F33.1 ; Post traumatic stress disorder F43.10 and Personality disorder F60.9 [place] [id number] [place] [address] 42030- 9501 Nov, Post traumatic stress disorder F43.10 ; Personality disorder F60.9 ; Secondary hypertension I15.9 ; Chronic obstructive pulmonary disease, unspecified COPD type J44.9 and Osteoarthritis, unspecified osteoarthritis type, unspecified site M19.90 [place] [id number] [place] [address] 88334- 8986 Nov, Major depressive disorder, recurrent, moderate F33.1 ; Post traumatic stress disorder F43.10 and Personality disorder F60.9 [place] [id number] [place] [address] 68171- 5020 Oct, Major depressive disorder, recurrent, moderate F33.1 ; Post traumatic stress disorder F43.10 and Personality disorder F60.9 [place] [address] [place] [address] Oct, Major depressive disorder, recurrent, moderate F33.1 ; Post traumatic stress disorder F43.10 and Personality disorder F60.9 [facility] [id number] [place] [address] 56777- 9621 Oct, Major depressive disorder, recurrent, moderate F33.1 ; Post traumatic stress disorder F43.10 and Personality disorder F60.9 [facility] [id number] [place] [address] 02016- 8199 Aug, Major depressive disorder, recurrent, moderate F33.1 ; Post traumatic stress disorder F43.10 and Personality disorder F60.9 [place] [id number] [place] [address]220- [address] Jul, [place] [address] 9[address]- 4920 Jul, Physical exam Z00.00 [facility] [address] [address]71- 4743 Jul, [facility] [address] [address]68- 5293 Jul, Tobacco abuse counseling Z71.6 and Bronchitis J40 [facility] [id number] [place] [address] 45834- 9229 Jul, [facility] [id number] [place] [address] 42975- 7305 Jul, [facility] [id number] [place] [address] 96062 -2410 Jul, Hematuria, unspecified R31.9 and Bronchitis J40 [facility] [id number] [place] [address] 99396- 5663 Jun, Major depressive disorder, recurrent, moderate F33.1 ; Post traumatic stress disorder F43.10 and Personality disorder F60.9 [facility] [address] 7[address]- 9218 Jun, Major depressive disorder, recurrent, moderate F33.1 ; Post traumatic stress disorder F43.10 and Personality disorder F60.9 [facility] [address] [place] [address] 21372- 6246 Jun, [facility] [address] [place] [address] 62526- 3593 Jun, [facility] [id number] [place] [address] 53970- 0018 Jun, [facility] [address] [place] [address] 29421- 8752 May, Major depressive disorder, recurrent, moderate F33.1 ; Post traumatic stress disorder F43.10 and Personality disorder F60.9 [facility] [address] [place] [address] 29060- 0951 May, [facility] [address] [place] [address] 34894- 3608 May, Major depressive disorder, recurrent, moderate F33.1 ; Post- traumatic stress disorder, chronic F43.12 ; Personality disorder F60.9 ; Attention deficit disorder F90.0 and Schizoid personality disorder F60.1 [facility] [address], [place] [address] May, Major depressive disorder, recurrent, moderate F33.1 ; Post traumatic stress disorder F43.10 and Schizoid personality disorder F60.1 [facility] [address], [place] [address]- [address] May, [facility] [address] [place] [address] 36764- 6025 Apr, Attention deficit disorder F90.0 [facility] [address], [place] [address]- 0131 Apr, Post-traumatic stress disorder, chronic F43.12 and Major depressive disorder, recurrent, moderate F33.1 [facility] [address], [place] [address]- 9537 Apr, Post traumatic stress disorder F43.10 and Attention deficit disorder F90.0 [facility] [address] [place] [address] 22274- 4413 Apr, [facility] [address] [place] [address] 97676- 7886 Apr, [facility] [id number] [place] [address] 95170- 1328 Apr, Post-traumatic stress disorder, chronic F43.12 and Major depressive disorder, recurrent, moderate F33.1 [facility] [address] [place] [address] 74574- 1773 Apr, Post-traumatic stress disorder, chronic F43.12 and Major depressive disorder, recurrent, moderate F33.1 [place] [address] [place] [address] 64081- 6291 Apr, Major depressive disorder, recurrent, moderate F33.1 and Post traumatic stress disorder F43.10 [facility] [address] [place] [address] [id number] 30 Mar, 2015 Dental examination Z01.20 and Dental caries K02.9 [place] [address] [place] [address] 98196- 0003 20 Mar, 2015 Major depressive disorder, recurrent, moderate F33.1 ; Post- traumatic stress disorder, chronic F43.12 and Personality disorder F60.9 [facility] [address] [place] [address] 33512- 9566 13 Mar, 2015 Post-traumatic stress disorder, chronic F43.12 and Major depressive disorder, recurrent, moderate F33.1 [facility] [address] [place] [address] 62367- 7048 11 Mar, 2015 Well woman exam Z01.419 ; Personality disorder F60.9 ; Post traumatic stress disorder F43.10 ; Muscle pain M79.1 and Bladder pain R39.89 [place] [address], [place] [address]- [address] Mar, Abnormal finding on mammography R92.8 ; Sinusitis J32.9 and Vaginal daisy B37.3 [facility] [address], [place] [address]- 65[address] Feb, Abnormal finding on mammography R92.8 [facility] [id number] [place] [address] 84597- 2096 Feb, [facility] [address] [facility] [id number] [place] [address] 27325- 3095 Apr, [facility] [id number] [place] [address] 77251- 1796 Apr, [facility] [id number] [place] [address] 70851- 0089 Apr, [facility] [id number] [place] [address] 75528- 4306 Apr, [facility] [address] [place] [address] 99992- 0148 Apr, [facility] [address] [place] [address] 32877- 2192 Apr, [facility] [address], [place] [address]- 8776 Mar, [facility] [address], [place] [address]- 4312 Mar, [facility] [address], [place] [address]- 9010 Mar, [facility] [id number] [place] [address] 40676- 3876 Mar, [facility] [address], [place] [address]- 7557 Feb, [facility] [address] [place] [address] 85058- 8795 15 Feb, 2012 [facility] [place] [facility] [address] [id number] [place] [address]- 1908 24 Jan, 2012 [facility] [place] [facility] [address] [id number] [place] [address]- 6036 17 Jan, 2012 [facility] [place] [facility] [address] [id number] [place] [address]- 8978 10 Jan, 2012 [facility] [place] [facility] [address] [id number] [place] [address]- 7408 05 Jan, 2012 [facility] [place] [facility] [address] [id number] [place] [address]- 2938 27 Dec, 2011 [facility] [place] [facility] [address] [id number] [place] [address]- 9263 14 Dec, 2011 [facility] [place] [facility] [address] [id number] [place] [address]- 1283 31 Nov, 2011 [facility] [place] [facility] [address] [id number] [place] [address]- 4209 27 Nov, 2011 [facility] [place] [facility] [address] [id number] [place] [address]- 7037 27 Oct, 2011 [facility] [place] [facility] [address] [id number] [place] [address]- 3410 Oct, [facility] [place] [facility] [address] [id number] [place] [address]- 7837 15 Oct, 2011 [facility] [place] [facility] [address] [id number] [address]- 0090 06 Oct, 2011 [facility] [place] [facility] [address] [id number] [place] [address]- 5345 September, [facility] [place] [facility] [address] [id number] [place] [address]- 2556 16 Sep, 2011 [facility] [place] [facility] [address] [id number] [place] [address]- 3230 September, [facility] [place] [facility] [address] [id number] [place] [address]- 8623 30 Aug, 2011 [facility] [address] [id number] [place] [address]- 8106 23 Aug, 2011 [facility] [place] [facility] [address] [id number] [place] [address]- 7446 16 Aug, 2011 [facility] [place] [facility] [address] [id number] [place] [address]- 7686 09 Aug, 2011 [facility] [place] [facility] [address] [id number] [place] [address]- 3336 Jul, [facility] [place] [facility] [address] [id number] [place] [address]- 4504 Jul, [facility] [place] [facility] [address] [id number] [place] [address]- 6627 Jul, [facility] [address] [id number] [place] [address]- 3106 29 Jun, 2011 [facility] [place] [facility] [address] [id number] [place] [address]- 6703 May, [facility] [place] [facility] [address] [id number] [place] [address]- 8355 May, [facility] [place] [facility] [address] [id number] [place] [address]- 9461 May, [facility] [place] [facility] [address] [id number] [place] [address]- 1760 Apr, [facility] [place] [facility] [address] [id number] [place] [address]- 4791 Apr, [facility] [place] [facility] [address] [id number] [place] [address]- 9974 Mar, [facility] [place] [facility] [address] [id number] [place] [address]- 9609 Mar, [facility] [place] [facility] [address] [id number] [place] [address]- 1496 Mar, [facility] [address] [facility] [id number] [place] [address]- 9650 Feb, [facility] [address] [facility] [id number] [address]- 9470 Feb, IMMUNIZATIONS No Known Immunizations SOCIAL HISTORY Never Assessed REASON FOR VISIT Transition of Care- states she had a stroke on Thursday, still has some right sided weekness- Antwan Paige RN, Feels like she is going ''crazy", wants to get back in to see [employer] PLAN OF CARE Activity Details Follow Up Will call after lab Reason: VITAL SIGNS Height 67 in 2017-03-05 Weight 214 lbs 2017-03-05 Temperature 98.0 degrees Fahrenheit 2017-03-05 Heart Rate 78 bpm 2017-03-05 Respiratory Rate 18 2017-03-05 BMI 33.51 kg/m2 2017-03-05 Blood pressure systolic 128 mmHg 2017-03-05 Blood pressure diastolic 78 mmHg 2017-03-05 MEDICATIONS Medication Instructions Dosage Frequency Start Date End Date Duration Status Tylenol 325 MG Orally every 6 hrs 2 tablets as needed 6h Active RESULTS No Results PROCEDURES Procedure Date Ordered Result Body Site Mediacl Visit needs to be added with another visit on the same day Mar 05, 2017 [facility]IT ESTABLISHED PATIENT Mar 05, 2017 INSTRUCTIONS MEDICATIONS ADMINISTERED No Known Medications [...] years since 1993 last one 2011 in [place] Surgical History vaginal septum Hospitalization [facility] Hospitalization History lupus/reynauds Hospitalization History pleurisy Hospitalization History Depression, ptsd, anxiety, add, adhd Hospitalization History Acute TIA - [facility] 02/28/17- Hospitalization History Right sided weakness - ED visit at [facility] 03/23/17
--- OUTSIDE RECORDS SUMMARY | 2018-06-08 13:29 | XMS REPORT ---
Author Author GINA FRANKLIN Organization [facility] Address [address] [place] [address] Care Team Providers Care Surgical Instruments Inspector Name Role Phone GINA FRANKLIN Unavailable PROBLEMS Type Condition ICD9-CM Code QLJ70-UO Code Onset Dates Condition Status SNOMED Code Problem Major depressive disorder, recurrent, moderate F33.1 Active 225568233 Problem Secondary hypertension I15.9 Active 83577494 Problem Chronic obstructive pulmonary disease, unspecified COPD type J44.9 Active 23287030 Problem Somatic complaints, multiple R68.89 Active 223704808 Problem Post traumatic stress disorder F43.10 Active 46111012 Problem Personality disorder F60.9 Active 16494174 Problem Attention deficit disorder F90.0 Active 779611885 Problem 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 Active 76336390 Problem 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 Active 549431941 Problem History of lupus Z87.39 Active 729097606 Problem Hemiparesis of right dominant side due to non-cerebrovascular etiology G81.91 Active 910087116 Problem Major depressive disorder, single episode, moderate F32.1 Active 397435150 Problem Posttraumatic stress disorder F43.10 Active 84434096 ALLERGIES No Information ENCOUNTERS Encounter Location Date Diagnosis [facility] [id number] [place] [address] 23108- 6210 Jul, 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 and Post traumatic stress disorder F43.10 [facility] [id number] [address] Jul, [facility] [id number] [place] [address] 79300 -6909 Jul, 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 and Mouth sores K13.79 [facility] [id number] [place] [address] 93109- 7119 Mar, 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 [facility] [id number] [place] [address] 57818- 5933 Mar, Hemiplegia affecting right dominant side, unspecified etiology, unspecified hemiplegia type G81.91 [facility] [id number] [place] [address] 75852- 3578 Mar, [place] [address] [address]- 0091 Mar, History of lupus Z87.39 [place] [id number] [place] [address] 89590- 2871 Mar, Major depressive disorder, single episode, moderate F32.1 and Posttraumatic stress disorder F43.10 [place] [id number] [place] [address] 64377- 4731 Mar, Hemiparesis of right dominant side due to non- cerebrovascular etiology G81.91 and History of lupus Z87.39 [place] [id number] [place] [address] 17350- 7225 Mar, [facility] [id number] [place] [address] 02468 -0003 Jan, Acute non-recurrent maxillary sinusitis J01.00 [place] [id number] [place] [address] 81773- 3899 Nov, [place] [id number] [place] [address] 38759- 6446 Oct, Chest pain on breathing R07.1 ; Chronic obstructive pulmonary disease, unspecified COPD type J44.9 ; Hematuria R31.9 and Secondary hypertension I15.9 [place] [id number] [place] [address] 97723- 6697 Oct, [place] [id number] [place] [address] 35241- 4070 Oct, Chest pain, unspecified type R07.9 [facility] [id number] [place] [address] 71803 -0818 September, Acute middle ear effusion, right H65.191 [place] [id number] [place] [address] 62035- 6580 Aug, [place] [id number] [place] [address] 39789- 1739 Aug, Chronic obstructive pulmonary disease, unspecified COPD type J44.9 [place] [id number] [place] [address] 63413- 5285 Jul, Acute pain of right knee M25.561 [facility] [address] 46324 -9476 Jul, Pain in right knee M25.561 and Pain in left knee M25.562 [place] [id number] [place] [address] 48939- 5158 Jun, Secondary hypertension I15.9 ; Chronic obstructive pulmonary disease, unspecified COPD type J44.9 ; Post traumatic stress disorder F43.10 ; Arthralgia, unspecified joint M25.50 ; Allergy, subsequent encounter T78.40XD and Screening cholesterol level Z13.220 [place] [id number] [place] [address] 25547- 5899 May, [place] [id number] [place] [address] 12186- 2033 Feb, Major depressive disorder, recurrent, moderate F33.1 ; Post traumatic stress disorder F43.10 and Personality disorder F60.9 [place] [id number] [place] [address] 68982- 4867 Feb, [place] [id number] [place] [address] 23148- 8813 Jan, Major depressive disorder, recurrent, moderate F33.1 ; Post traumatic stress disorder F43.10 and Personality disorder F60.9 [place] [id number] [place] [address] 68107- 3735 Jan, Bronchitis J40 ; Sinus congestion R09.81 ; Major depressive disorder, recurrent, moderate F33.1 ; Personality disorder F60.9 ; Schizoid personality disorder F60.1 ; Chronic obstructive pulmonary disease, unspecified COPD type J44.9 and Secondary hypertension I15.9 [facility] [address] [address] Dec, Major depressive disorder, recurrent, moderate F33.1 ; Chronic obstructive pulmonary disease, unspecified COPD type J44.9 ; Muscle pain M79.1 and Secondary hypertension I15.9 [place] [address] [address]- 7261 Dec, Major depressive disorder, recurrent, moderate F33.1 ; Post traumatic stress disorder F43.10 and Personality disorder F60.9 [place] [address] [address] 3494 Nov, Major depressive disorder, recurrent, moderate F33.1 ; Post traumatic stress disorder F43.10 and Personality disorder F60.9 [place] [address] [address] 7622 Nov, Post traumatic stress disorder F43.10 ; Personality disorder F60.9 ; Secondary hypertension I15.9 ; Chronic obstructive pulmonary disease, unspecified COPD type J44.9 and Osteoarthritis, unspecified osteoarthritis type, unspecified site M19.90 [place] [address] [address]- 0405 Nov, Major depressive disorder, recurrent, moderate F33.1 ; Post traumatic stress disorder F43.10 and Personality disorder F60.9 [place] [address], [place] [address] 3266 Oct, Major depressive disorder, recurrent, moderate F33.1 ; Post traumatic stress disorder F43.10 and Personality disorder F60.9 [facility] [address] [address]- 7324 Oct, Major depressive disorder, recurrent, moderate F33.1 ; Post traumatic stress disorder F43.10 and Personality disorder F60.9 [facility] [id number] [place] [address] 21614- 2999 Oct, Major depressive disorder, recurrent, moderate F33.1 ; Post traumatic stress disorder F43.10 and Personality disorder F60.9 [facility] [id number] [place] [address] 30323- 5518 Aug, Major depressive disorder, recurrent, moderate F33.1 ; Post traumatic stress disorder F43.10 and Personality disorder F60.9 [facility] [address] 9[address]74- 1962 Jul, [facility] [address] 80203- 3616 Jul, Physical exam Z00.00 [place] [address] 16111- 4443 Jul, [facility] [address] 87073- 7562 Jul, Tobacco abuse counseling Z71.6 and Bronchitis J40 [facility] [address] 79558- 9285 Jul, [facility] [id number] [place] [address] 22873- 3342 Jul, [facility] [id number] [place] [address] 11546 -1853 Jul, Hematuria, unspecified R31.9 and Bronchitis J40 [facility] [id number] [place] [address] 09433- 8498 Jun, Major depressive disorder, recurrent, moderate F33.1 ; Post traumatic stress disorder F43.10 and Personality disorder F60.9 [facility] [id number] [place] [address] 17190- 0263 Jun, Major depressive disorder, recurrent, moderate F33.1 ; Post traumatic stress disorder F43.10 and Personality disorder F60.9 [facility] [address], [place] [address]- 2276 Jun, [facility] [id number] [place] [address] 47964- 5576 Jun, [facility] [address], [place] [address]- 3826 Jun, [facility] [id number] [place] [address] 22372- 8099 May, Major depressive disorder, recurrent, moderate F33.1 ; Post traumatic stress disorder F43.10 and Personality disorder F60.9 [facility] [id number] [place] [address] 47121- 0396 May, [facility] [id number] [place] [address] 52562- 0198 May, Major depressive disorder, recurrent, moderate F33.1 ; Post- traumatic stress disorder, chronic F43.12 ; Personality disorder F60.9 ; Attention deficit disorder F90.0 and Schizoid personality disorder F60.1 [facility] [id number] [place] [address] 46458- 0434 May, Major depressive disorder, recurrent, moderate F33.1 ; Post traumatic stress disorder F43.10 and Schizoid personality disorder F60.1 [facility] [address], [place] [address]- 9284 May, [facility] [address], [place] [address]- 3285 Apr, Attention deficit disorder F90.0 [facility] [id number] [place] [address] 78646- 5666 Apr, Post-traumatic stress disorder, chronic F43.12 and Major depressive disorder, recurrent, moderate F33.1 [facility] [address], [place] [address]- 1706 Apr, Post traumatic stress disorder F43.10 and Attention deficit disorder F90.0 [facility] [address], [place] [address]- 7999 Apr, [facility] [id number] [place] [address] 15916- 7815 Apr, [facility] [id number] [place] [address] 16229- 8346 Apr, Post-traumatic stress disorder, chronic F43.12 and Major depressive disorder, recurrent, moderate F33.1 [facility] [address] [place] [address] 37801- 9979 Apr, Post-traumatic stress disorder, chronic F43.12 and Major depressive disorder, recurrent, moderate F33.1 [facility] [address] [place] [address] 66167- 8123 Apr, Major depressive disorder, recurrent, moderate F33.1 and Post traumatic stress disorder F43.10 [facility] [address] [place] [address] [id number] 30 Mar, 2015 Dental examination Z01.20 and Dental caries K02.9 [facility] [id number] [place] [address] 59742- 3001 20 Mar, 2015 Major depressive disorder, recurrent, moderate F33.1 ; Post- traumatic stress disorder, chronic F43.12 and Personality disorder F60.9 [facility] [address] [place] [address] 42087- 4139 13 Mar, 2015 Post-traumatic stress disorder, chronic F43.12 and Major depressive disorder, recurrent, moderate F33.1 [facility] [address] [place] [address] 27595- 1934 11 Mar, 2015 Well woman exam Z01.419 ; Personality disorder F60.9 ; Post traumatic stress disorder F43.10 ; Muscle pain M79.1 and Bladder pain R39.89 [facility] [address] [place] [address] 26022- 2665 Mar, Abnormal finding on mammography R92.8 ; Sinusitis J32.9 and Vaginal daisy B37.3 [facility] [address] [facility] [id number] [place] [address] 60666- 8288 Feb, Abnormal finding on mammography R92.8 [facility] [address] [facility] [id number] [place] [address] 72231- 2436 Feb, [facility] [address] [facility] [id number] [place] [address] 26839- 5656 Apr, [facility] [id number] [place] [address] 82964- 0166 Apr, [facility] [id number] [place] [address], [place] [address]- 5146 Apr, [facility] [id number] [place] [address] 72651- 1313 Apr, [facility] [id number] [place] [address] 45335- 6399 Apr, [facility] [id number] [place] [address] 02755- 2859 Apr, [facility] [id number] [place] [address] 58756- 2627 Mar, [facility] [address], [place] [address]- 5033 Mar, [facility] [id number] [place] [address] 51925- 8379 Mar, [facility] [address] [facility] [id number] [address]- 8596 Mar, [facility] [id number] [place] [address] 07807- 9686 Feb, [facility] [address] [facility] [id number], [place] [address]- 0452 Feb, [facility] [id number] [place] [address] 83043- 3476 24 Jan, 2012 [facility] [place] [facility] [address] [id number] [place] [address]- 2896 17 Jan, 2012 [facility] [place] [facility] [address] [id number] [place] [address]- 4346 10 Jan, 2012 [facility] [place] [facility] [address] [id number] [place] [address] 2546 05 Jan, 2012 [facility] [place] [facility] [address] [id number] [place] [address]- 5023 27 Dec, 2011 [facility] [place] [facility] [address] [id number] [place] [address]- 7890 14 Dec, 2011 [facility] [place] [facility] [address] [id number] [place] [address]- 6677 31 Nov, 2011 [facility] [place] [facility] [address] [id number] [place] [address]- 7283 Nov, [facility] [place] [facility] [address] [id number] [place] [address]- 5933 27 Oct, 2011 [facility] [place] [facility] [address] [id number] [place] [address]- 3477 Oct, [facility] [place] [facility] [address] [id number] [place] [address]- 6517 15 Oct, 2011 [facility] [place] [facility] [address] [id number] [place] [address]- 5113 06 Oct, 2011 [facility] [place] [facility] [address] [id number] [place] [address]- 1834 September, [facility] [place] [facility] [address] [id number] [place] [address]- 7661 16 Sep, 2011 [facility] [place] [facility] [address] [id number] [place] [address]- 0528 September, [facility] [place] [facility] [address] [id number] [place] [address]- 1892 30 Aug, 2011 [facility] [place] [facility] [address] [id number] [place] [address]- 7857 23 Aug, 2011 [facility] [address] [id number] [place] [address]- 2037 16 Aug, 2011 [facility] [address] [id number] [place] [address]- 4406 09 Aug, 2011 [facility] [address] [id number] [place] [address]- 7636 Jul, [facility] [address] [id number] [place] [address]- 3434 14 Jul, 2011 [facility] [address] [id number] [place] [address]- 0118 Jul, [facility] [address] [id number] [place] [address]- 9702 29 Jun, 2011 [facility] [address] [id number] [place] [address]- 9216 May, [facility] [address] [id number] [place] [address]- 3618 May, [facility] [address] [id number] [place] [address]- 8472 May, [facility] [address] [id number] [place] [address]- 7185 Apr, [facility] [address] [id number] [place] [address]- 1877 Apr, [facility] [address] [id number] [place] [address]- 6210 Mar, [facility] [place] [facility] [address] [id number] [place] [address]- 3492 Mar, [facility] [place] [facility] [address] [id number] [place] [address]- 0443 02 Mar, 2011 [facility] [address] [id number] [place] [address]- 2887 Feb, [facility] [address] [facility] [id number] [place] [address] [address]86 Feb, IMMUNIZATIONS No Known Immunizations SOCIAL HISTORY Never Assessed REASON FOR VISIT intake, Depression. PLAN OF CARE Activity Details Follow Up 1 Week Reason:depression VITAL SIGNS MEDICATIONS Medication Instructions Dosage Frequency Start Date End Date Duration Status Aspirin Active RESULTS No Results PROCEDURES Procedure Date Ordered Result Body Site [facility] VISIT MENTAL HEALTH ESTAB PT Mar 05, 2017 Psychotherapy, patient &/family, 45 minutes, established patient Mar 05, 2017 visit needs to be added to the same day medical Mar 05, 2017 INSTRUCTIONS MEDICATIONS ADMINISTERED No [...] years since 1993 last one 2011 in [place] Surgical History vaginal septum Hospitalization History fibromyalsia [facility] Hospitalization History lupus/reynauds Hospitalization History pleurisy Hospitalization History Depression, ptsd, anxiety, add, adhd Hospitalization History Acute TIA - [facility] 02/28/17- Hospitalization History Right sided weakness - ED visit at [facility] 03/23/17
--- OUTSIDE RECORDS SUMMARY | 2018-06-08 13:30 | XMS REPORT ---
Author Author RAH SULTANA Organization [facility] [place] Address [address] [place] [address] Care Team Providers Care Gang Plank Workman Name Role Phone RAH SULTANA Unavailable PROBLEMS Type Condition ICD9-CM Code [id number] Code Onset Dates Condition Status SNOMED Code Problem Major depressive disorder, recurrent, moderate F33.1 Active 189743881 Problem Secondary hypertension I15.9 Active 60405725 Problem Chronic obstructive pulmonary disease, unspecified COPD type J44.9 Active 22072726 Problem Somatic complaints, multiple R68.89 Active 955675256 Problem Post traumatic stress disorder F43.10 Active 03938748 Problem Personality disorder F60.9 Active 40108656 Problem Attention deficit disorder F90.0 Active 866125313 Problem 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 Active 61847505 Problem 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 Active 555894686 Problem History of lupus Z87.39 Active 458735203 Problem Hemiparesis of right dominant side due to non-cerebrovascular etiology G81.91 Active 394709402 Problem Major depressive disorder, single episode, moderate F32.1 Active 084156228 Problem Posttraumatic stress disorder F43.10 Active 24884116 ALLERGIES No Information ENCOUNTERS Encounter Location Date Diagnosis [facility], [place] [id number] [place] [address] 80614- 8844 Jul, 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 and Post traumatic stress disorder F43.10 [facility] [place] [id number] [place] [address] 18573- 5563 Jul, [facility] [id number] [place] [address] 97337 -7846 Jul, 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 and Mouth sores K13.79 [facility] [place] [id number] [place] [address] 45242- 3944 Mar, 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 [place] [id number] [place] [address] 08563- 8835 Mar, Hemiplegia affecting right dominant side, unspecified etiology, unspecified hemiplegia type G81.91 [place] [address] [place] [id number] [place] [address] 85980- 0847 Mar, [place] [address] 64071- 8885 Mar, History of lupus Z87.39 [place] [address] 82510- 3046 Mar, Major depressive disorder, single episode, moderate F32.1 and Posttraumatic stress disorder F43.10 [place] [id number] [place] [address] 66580- 0745 Mar, Hemiparesis of right dominant side due to non- cerebrovascular etiology G81.91 and History of lupus Z87.39 [place] [id number] [place] [address] 40398- 8357 Mar, [facility] [place] [id number] [place] [address] 80158 -8435 Jan, Acute non-recurrent maxillary sinusitis J01.00 [place] [id number] [place] [address] 73666- 1048 Nov, [place] [id number] [place] [address] 17887- 7887 Oct, Chest pain on breathing R07.1 ; Chronic obstructive pulmonary disease, unspecified COPD type J44.9 ; Hematuria R31.9 and Secondary hypertension I15.9 [place] [id number] [place] [address] 71632- 9235 Oct, [place] [id number] [place] [address] 41251- 1952 Oct, Chest pain, unspecified type R07.9 [facility] [id number] [place] [address] 19052 -7720 September, Acute middle ear effusion, right H65.191 [place] [id number] [place] [address] 37673- 9862 Aug, [place] [id number] [place] [address] 52816- 1341 Aug, Chronic obstructive pulmonary disease, unspecified COPD type J44.9 [place] [id number] [place] [address] 65619- 6586 Jul, Acute pain of right knee M25.561 [facility] [id number] [place] [address] 00213 -9452 Jul, Pain in right knee M25.561 and Pain in left knee M25.[address] 13744- 8953 Jun, Secondary hypertension I15.9 ; Chronic obstructive pulmonary disease, unspecified COPD type J44.9 ; Post traumatic stress disorder F43.10 ; Arthralgia, unspecified joint M25.50 ; Allergy, subsequent encounter T78.40XD and Screening cholesterol level Z13.220 [place] [address] [id number] [place] [address] 33395- 4187 May, [place] [id number] [place] [address] 91064- 7317 Feb, Major depressive disorder, recurrent, moderate F33.1 ; Post traumatic stress disorder F43.10 and Personality disorder F60.9 [place] [id number] [place] [address] 56120- 7062 Feb, [place] [id number] [place] [address] 02717- 1992 Jan, Major depressive disorder, recurrent, moderate F33.1 ; Post traumatic stress disorder F43.10 and Personality disorder F60.9 [place] [address] 04999- 7006 Jan, Bronchitis J40 ; Sinus congestion R09.81 ; Major depressive disorder, recurrent, moderate F33.1 ; Personality disorder F60.9 ; Schizoid personality disorder F60.1 ; Chronic obstructive pulmonary disease, unspecified COPD type J44.9 and Secondary hypertension I15.9 [place] [address] [address] 2424 Dec, Major depressive disorder, recurrent, moderate F33.1 ; Chronic obstructive pulmonary disease, unspecified COPD type J44.9 ; Muscle pain M79.1 and Secondary hypertension I15.9 [place] [address] [address]- 8239 Dec, Major depressive disorder, recurrent, moderate F33.1 ; Post traumatic stress disorder F43.10 and Personality disorder F60.9 [place] [address] [address]- 8784 Nov, Major depressive disorder, recurrent, moderate F33.1 ; Post traumatic stress disorder F43.10 and Personality disorder F60.9 [place] [address] [address]- 4941 Nov, Post traumatic stress disorder F43.10 ; Personality disorder F60.9 ; Secondary hypertension I15.9 ; Chronic obstructive pulmonary disease, unspecified COPD type J44.9 and Osteoarthritis, unspecified osteoarthritis type, unspecified site M19.90 [place] [address] [address]- 4828 Nov, Major depressive disorder, recurrent, moderate F33.1 ; Post traumatic stress disorder F43.10 and Personality disorder F60.9 [place] [address] [place] [id number] [address]- 1900 Oct, Major depressive disorder, recurrent, moderate F33.1 ; Post traumatic stress disorder F43.10 and Personality disorder F60.9 [place] [address] [address]- 4846 Oct, Major depressive disorder, recurrent, moderate F33.1 ; Post traumatic stress disorder F43.10 and Personality disorder F60.9 [facility] [place] [id number] [place] [address] 91368- 9425 Oct, Major depressive disorder, recurrent, moderate F33.1 ; Post traumatic stress disorder F43.10 and Personality disorder F60.9 [facility] [place] [id number] [place] [address] 75917- 9524 Aug, Major depressive disorder, recurrent, moderate F33.1 ; Post traumatic stress disorder F43.10 and Personality disorder F60.9 [facility] [place] [id number] [place] [address] 12639- 6549 Jul, [facility] [place] [address] 14022- 9077 Jul, Physical exam Z00.00 [place] [address] 87857- 2624 Jul, [facility] [place] [id number] [place] [address] 66158- 8400 07 Jul, 2015 Tobacco abuse counseling Z71.6 and Bronchitis J40 [facility] [place] [address] [address] [id number] [place] [address] 35947- 1141 Jul, [facility] [place] [id number] [place] [address] 25584- 5757 Jul, [facility] [id number] [place] [address] 28884 -4273 Jul, Hematuria, unspecified R31.9 and Bronchitis J40 [facility] [place] [id number] [place] [address] 54336- 0311 Jun, Major depressive disorder, recurrent, moderate F33.1 ; Post traumatic stress disorder F43.10 and Personality disorder F60.9 [facility] [place] [id number] [place] [address] 58453- 7267 17 Jun, 2015 Major depressive disorder, recurrent, moderate F33.1 ; Post traumatic stress disorder F43.10 and Personality disorder F60.9 [facility] [place] [address] [address]- 5596 Jun, [facility] [place] [address] [address]- 1886 Jun, [facility] [place] [address] [address]- 3966 Jun, [facility] [place] [id number] [place] [address] 82054- 2406 May, Major depressive disorder, recurrent, moderate F33.1 ; Post traumatic stress disorder F43.10 and Personality disorder F60.9 [facility], [place] [address] [address]- 0826 May, [facility] [place] [address] [address]- 7696 May, Major depressive disorder, recurrent, moderate F33.1 ; Post- traumatic stress disorder, chronic F43.12 ; Personality disorder F60.9 ; Attention deficit disorder F90.0 and Schizoid personality disorder F60.1 [facility] [place] [id number] [place] [address] 65021- 5529 May, Major depressive disorder, recurrent, moderate F33.1 ; Post traumatic stress disorder F43.10 and Schizoid personality disorder F60.1 [facility] [place] [address] [address]- 0676 May, [facility] [place] [address] [address]- 5917 Apr, Attention deficit disorder F90.0 [facility] [place] [address] [address]- 2953 Apr, Post-traumatic stress disorder, chronic F43.12 and Major depressive disorder, recurrent, moderate F33.1 [facility] [place] [address] [address]- 5185 Apr, Post traumatic stress disorder F43.10 and Attention deficit disorder F90.0 [facility] [place] [address] [address]- 7879 Apr, [facility] [place] [id number] [place] [address] 40475- 0534 Apr, [facility] [place] [id number] [place] [address] 57824- 9414 Apr, Post-traumatic stress disorder, chronic F43.12 and Major depressive disorder, recurrent, moderate F33.1 [facility] [place] [id number] [place] [address] 70014- 6381 Apr, Post-traumatic stress disorder, chronic F43.12 and Major depressive disorder, recurrent, moderate F33.1 [facility] [place] [id number] [place] [address] 23581- 4767 Apr, Major depressive disorder, recurrent, moderate F33.1 and Post traumatic stress disorder F43.10 [facility] [address] [place] [address] [id number] Mar, 2015 Dental examination Z01.20 and Dental caries K02.9 [place] [address] [address] [id number] [place] [address] 13592- 6262 20 Mar, 2015 Major depressive disorder, recurrent, moderate F33.1 ; Post- traumatic stress disorder, chronic F43.12 and Personality disorder F60.9 [facility] [place] [id number] [place] [address] 85485- 3691 13 Mar, 2015 Post-traumatic stress disorder, chronic F43.12 and Major depressive disorder, recurrent, moderate F33.1 [facility] [place] [id number] [place] [address] 22512- 6226 11 Mar, 2015 Well woman exam Z01.419 ; Personality disorder F60.9 ; Post traumatic stress disorder F43.10 ; Muscle pain M79.1 and Bladder pain R39.89 [facility] [place] [id number] [place] [address] 46128- 5513 Mar, Abnormal finding on mammography R92.8 ; Sinusitis J32.9 and Vaginal daisy B37.3 [facility] [place] [id number] [place] [address] 38322- 6536 Feb, Abnormal finding on mammography R92.8 [facility], [place] [address] [facility] [id number] [place] [address] 031645- 4735 Feb, [facility] [place] [id number] [place] [address] 35299- 4874 Apr, [facility] [place] [address] [facility] [id number] [place] [address] 58076- 0083 Apr, [facility] [place] [id number] [place] [address] 43508- 1220 Apr, [facility] [place] [id number] [place] [address] 66256- 8928 Apr, [facility] [place] [id number] [place] [address] 85396- 6543 Apr, [facility] [place] [id number] [place] [address] 70623- 5969 Apr, [facility] [place] [id number] [place] [address] 54982- 7555 Mar, [facility] [place] [id number] [place] [address] 18867- 4372 Mar, [facility] [place] [id number] [place] [address] 14533- 8622 Mar, [facility] [place] [id number] [place] [address] 54419- 9474 Mar, [facility] [place] [id number] [place] [address] 28117- 1164 Feb, [facility] [place] [id number] [place] [address] 20931- 1480 Feb, [facility] [place] [id number] [place] [address] 13807- 2546 24 Jan, 2012 [facility] [place] [facility] [address] [id number] [place] [address]- 6336 17 Jan, 2012 [facility] [place] [facility] [address] [id number] [place] [address]- 7196 10 Jan, 2012 [facility] [place] [facility] [address] [id number] [place] [address] 2546 05 Jan, 2012 [facility] [place] [facility] [address] [id number] [place] [address]- 3295 27 Dec, 2011 [facility] [place] [facility] [address] [id number] [place] [address]- 1806 14 Dec, 2011 [facility] [place] [facility] [address] [id number] [place] [address]- 7881 31 Nov, 2011 [facility] [place] [facility] [address] [id number] [place] [address]- 5562 Nov, [facility] [place] [facility] [address] [id number] [place] [address]- 2601 Oct, [facility] [place] [facility] [address] [id number] [place] [address]- 7317 Oct, [facility] [place] [facility] [address] [id number] [place] [address]- 9503 15 Oct, 2011 [facility] [place] [facility] [address] [id number] [place] [address]- 8853 06 Oct, 2011 [facility] [place] [facility] [address] [id number] [place] [address]- 5948 September, [facility] [place] [facility] [address] [id number] [place] [address]- 0600 16 Sep, 2011 [facility] [place] [facility] [address] [id number] [place] [address]- 3606 September, [facility] [place] [facility] [address] [id number] [place] [address]- 6233 30 Aug, 2011 [facility] [place] [facility] [address] [id number] [place] [address]- 5090 23 Aug, 2011 [facility] [address] [id number] [place] [address]- 4687 16 Aug, 2011 [facility] [place] [facility] [address] [id number] [place] [address]- 8556 09 Aug, 2011 [facility] [address] [id number] [place] [address]- 2299 Jul, [facility] [address] [id number] [place] [address]- 0017 14 Jul, 2011 [facility] [address] [id number] [place] [address]- 8135 Jul, [facility] [address] [id number] [place] [address]- 3665 29 Jun, 2011 [facility] [address] [id number] [place] [address]- 2822 May, [facility] [address] [id number] [place] [address]- 4710 May, [facility] [address] [id number] [place] [address]- 2220 May, [facility] [address] [id number] [place] [address]- 6749 Apr, [facility] [address] [id number] [place] [address]- 7674 Apr, [facility] [address] [id number] [place] [address]- 7078 Mar, [facility] [place] [facility] [address] [id number] [place] [address]- 3597 Mar, [facility] [place] [facility] [address] [id number] [place] [address] 2546 Mar, [facility] [address] [id number] [place] [address]- 1003 Feb, [facility] [place] [address] [facility] [id number] [place] [address]- 2839 Feb, IMMUNIZATIONS No Known Immunizations SOCIAL HISTORY Never Assessed REASON FOR VISIT Referral PLAN OF CARE VITAL SIGNS MEDICATIONS Unknown [...] years since 1993 last one 2011 in [place] Surgical History vaginal septum Hospitalization History fibromyalsia [facility] Hospitalization History lupus/reynauds Hospitalization History pleurisy Hospitalization History Depression, ptsd, anxiety, add, adhd Hospitalization History Acute TIA - [facility] 02/28/17- Hospitalization History Right sided weakness - ED visit at [facility] 03/23/17
--- OUTSIDE RECORDS SUMMARY | 2018-06-08 13:30 | XMS REPORT ---
Author Author REBECCA KAPLAN [facility] Address [address] [place] [address] Care Team Providers Care Mixing And Dispensing Supervisor Name Role Phone REBECCA KAPLAN Unavailable PROBLEMS Type Condition ICD9-CM Code LOD96-FD Code Onset Dates Condition Status SNOMED Code Problem Major depressive disorder, recurrent, moderate F33.1 Active 258672276 Problem Secondary hypertension I15.9 Active 59054958 Problem Chronic obstructive pulmonary disease, unspecified COPD type J44.9 Active 09306132 Problem Somatic complaints, multiple R68.89 Active 437281442 Problem Post traumatic stress disorder F43.10 Active 00520532 Problem Personality disorder F60.9 Active 59349875 Problem Attention deficit disorder F90.0 Active 155984865 Problem 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 Active 12748376 Problem 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 Active 592693517 Problem History of lupus Z87.39 Active 474503978 Problem Hemiparesis of right dominant side due to non-cerebrovascular etiology G81.91 Active 791289458 Problem Major depressive disorder, single episode, moderate F32.1 Active 691036302 Problem Posttraumatic stress disorder F43.10 Active 22894847 ALLERGIES Substance Reaction Event Type Date Status Tegretol seizure Drug Allergy Jan, Active Hydrocodone-Acetaminophen hives Drug Allergy Jan, Active ENCOUNTERS Encounter Location Date Diagnosis [facility] [address] [facility] [id number] [address] Jul, 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 and Post traumatic stress disorder F43.10 [facility] [address] [id number] [address] Jul, [facility] [address] [id number] [address] Jul, 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 and Mouth sores K13.79 [facility] [id number] [place] [address]75[address] 1289 Mar, 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 [place] [address] [address] Mar, Hemiplegia affecting right dominant side, unspecified etiology, unspecified hemiplegia type G81.91 [facility] [address] [address] Mar, [place] [address] [address] Mar, History of lupus Z87.39 [place] [address] [address] Mar, Major depressive disorder, single episode, moderate F32.1 and Posttraumatic stress disorder F43.10 [place] [address] 00724- 9509 Mar, Hemiparesis of right dominant side due to non- cerebrovascular etiology G81.91 and History of lupus Z87.39 [place] [address] [address] Mar, [facility] [id number] [place] [address] Jan, Acute non-recurrent maxillary sinusitis J01.00 [place] [address] [address]80- [address] Nov, [place] [address] [address] Oct, Chest pain on breathing R07.1 ; Chronic obstructive pulmonary disease, unspecified COPD type J44.9 ; Hematuria R31.9 and Secondary hypertension I15.9 [place] [address] 02[address] Oct, [facility] [address] [address] 8[address] Oct, Chest pain, unspecified type R07.9 [facility] [id number] [place] [address]87 [address] September, Acute middle ear effusion, right H65.191 [place] [id number] [place] [address] 95356- 4459 Aug, [place] [address] 35246- 39[address] Aug, Chronic obstructive pulmonary disease, unspecified COPD type J44.9 [place] [id number] [place] [address] 39914- 4683 Jul, Acute pain of right knee M25.561 [facility] [id number] [place] [address]68 Jul, Pain in right knee M25.561 and Pain in left knee M25.562 [place] [id number] [place] [address] 99943- 4254 Jun, Secondary hypertension I15.9 ; Chronic obstructive pulmonary disease, unspecified COPD type J44.9 ; Post traumatic stress disorder F43.10 ; Arthralgia, unspecified joint M25.50 ; Allergy, subsequent encounter T78.40XD and Screening cholesterol level Z13.220 [place] [address] [place] [address] 88270- 6595 May, [place] [id number] [place] [address] 85158- 8343 Feb, Major depressive disorder, recurrent, moderate F33.1 ; Post traumatic stress disorder F43.10 and Personality disorder F60.9 [place] [id number] [place] [address] 73174- 4492 Feb, [place] [id number] [place] [address] 8[address]60- 2010 Jan, Major depressive disorder, recurrent, moderate F33.1 ; Post traumatic stress disorder F43.10 and Personality disorder F60.9 [place] [address] [place] [address] 50843- 7668 Jan, Bronchitis J40 ; Sinus congestion R09.81 ; Major depressive disorder, recurrent, moderate F33.1 ; Personality disorder F60.9 ; Schizoid personality disorder F60.1 ; Chronic obstructive pulmonary disease, unspecified COPD type J44.9 and Secondary hypertension I15.9 [place] [address] 02504- 2509 Dec, Major depressive disorder, recurrent, moderate F33.1 ; Chronic obstructive pulmonary disease, unspecified COPD type J44.9 ; Muscle pain M79.1 and Secondary hypertension I15.9 [place] [id number] [place] [address] 69759- 8360 Dec, Major depressive disorder, recurrent, moderate F33.1 ; Post traumatic stress disorder F43.10 and Personality disorder F60.9 [place] [id number] [place] [address] 04785- 8241 Nov, Major depressive disorder, recurrent, moderate F33.1 ; Post traumatic stress disorder F43.10 and Personality disorder F60.9 [place] [id number] [place] [address] 59088- 9832 Nov, Post traumatic stress disorder F43.10 ; Personality disorder F60.9 ; Secondary hypertension I15.9 ; Chronic obstructive pulmonary disease, unspecified COPD type J44.9 and Osteoarthritis, unspecified osteoarthritis type, unspecified site M19.90 [place] [id number] [place] [address] 57390- 8515 Nov, Major depressive disorder, recurrent, moderate F33.1 ; Post traumatic stress disorder F43.10 and Personality disorder F60.9 [place] [id number] [place] [address] 21994- 5684 Oct, Major depressive disorder, recurrent, moderate F33.1 ; Post traumatic stress disorder F43.10 and Personality disorder F60.9 [place] [id number] [place] [address] 56488- 5347 Oct, Major depressive disorder, recurrent, moderate F33.1 ; Post traumatic stress disorder F43.10 and Personality disorder F60.9 [facility] [id number] [place] [address] 16025- 7160 13 Oct, 2015 Major depressive disorder, recurrent, moderate F33.1 ; Post traumatic stress disorder F43.10 and Personality disorder F60.9 [place] [address] 62280- 4474 Aug, Major depressive disorder, recurrent, moderate F33.1 ; Post traumatic stress disorder F43.10 and Personality disorder F60.9 [place] [address] 44254- 9867 Jul, [place] [address] 69581- 3575 Jul, Physical exam Z00.00 [place] [address] 55393- 5007 Jul, [place] [address] 99934- 8931 Jul, Tobacco abuse counseling Z71.6 and Bronchitis J40 [place] [id number] [place] [address] 82734- 4571 Jul, [facility] [address] 55926- 1545 Jul, [facility] [id number] [place] [address] 73722 -4480 Jul, Hematuria, unspecified R31.9 and Bronchitis J40 [place] [id number] [place] [address] 37185- 9245 Jun, Major depressive disorder, recurrent, moderate F33.1 ; Post traumatic stress disorder F43.10 and Personality disorder F60.9 [place] [address] 20726- 3850 Jun, Major depressive disorder, recurrent, moderate F33.1 ; Post traumatic stress disorder F43.10 and Personality disorder F60.9 [facility] [address] [address] Jun, [facility] [address] [address] Jun, [facility] [address] [place] [address] 75290- 9967 Jun, [facility] [address] [place] [address] 30041- 2876 May, Major depressive disorder, recurrent, moderate F33.1 ; Post traumatic stress disorder F43.10 and Personality disorder F60.9 [facility] [address] [address] May, [facility] [address] [address] May, Major depressive disorder, recurrent, moderate F33.1 ; Post- traumatic stress disorder, chronic F43.12 ; Personality disorder F60.9 ; Attention deficit disorder F90.0 and Schizoid personality disorder F60.1 [facility] [address] [address] May, Major depressive disorder, recurrent, moderate F33.1 ; Post traumatic stress disorder F43.10 and Schizoid personality disorder F60.1 [facility] [address] [address] May, [facility] [address] [place] [address] 46582- 0807 Apr, Attention deficit disorder F90.0 [facility] [address] [address] 9028 Apr, Post-traumatic stress disorder, chronic F43.12 and Major depressive disorder, recurrent, moderate F33.1 [place] [address] [address]- 2353 Apr, Post traumatic stress disorder F43.10 and Attention deficit disorder F90.0 [facility] [address] [place] [address] Apr, [facility] [address] [place] [address] 01956- 6058 Apr, [facility] [id number] [place] [address] 496019- 5935 Apr, Post-traumatic stress disorder, chronic F43.12 and Major depressive disorder, recurrent, moderate F33.1 [facility] [address] [place] [address] 529594- 7929 08 Apr, 2015 Post-traumatic stress disorder, chronic F43.12 and Major depressive disorder, recurrent, moderate F33.1 [facility] [address] [place] [address] 95202- 0967 Apr, Major depressive disorder, recurrent, moderate F33.1 and Post traumatic stress disorder F43.10 [facility] [address] [place] [address] [id number] 30 Mar, 2015 Dental examination Z01.20 and Dental caries K02.9 [facility] [address] [place] [address] 20683- 6138 20 Mar, 2015 Major depressive disorder, recurrent, moderate F33.1 ; Post- traumatic stress disorder, chronic F43.12 and Personality disorder F60.9 [facility] [address] [place] [address] 04004- 9309 13 Mar, 2015 Post-traumatic stress disorder, chronic F43.12 and Major depressive disorder, recurrent, moderate F33.1 [facility] [address] [place] [address] 22386- 7948 11 Mar, 2015 Well woman exam Z01.419 ; Personality disorder F60.9 ; Post traumatic stress disorder F43.10 ; Muscle pain M79.1 and Bladder pain R39.89 [facility] [address] [facility] [id number] [address] Mar, Abnormal finding on mammography R92.8 ; Sinusitis J32.9 and Vaginal daisy B37.3 [facility] [id number] [place] [address] 04421- 6190 Feb, Abnormal finding on mammography R92.8 [facility] [address] [facility] [id number] [place] [address] 74620- 1932 Feb, [facility] [address] [facility] [id number] [place] [address] 07343- 6775 Apr, [facility] [address] [facility] [id number] [place] [address] 42824- 1253 Apr, [facility] [id number] [place] [address] 11000- 0215 Apr, [facility] [id number] [place] [address] 81690- 3952 Apr, [facility] [id number] [place] [address] 16205- 7585 Apr, [facility] [id number] [place] [address] 30592- 1186 Apr, [facility] [address] [place] [address] 33636- 6171 Mar, [facility] [address] [place] [address] 67418- 8560 Mar, [facility] [address] [place] [address] 72122- 9114 Mar, [facility] [id number] [place] [address] 93827- 4399 Mar, [facility] [id number] [place] [address] 17347- 6340 Feb, [facility] [id number] [place] [address] 08609- 8417 15 Feb, 2012 [facility] [place] [facility] [address] [id number] [place] [address]- 3377 24 Jan, 2012 [facility] [place] [facility] [address] [id number] [place] [address]- 2386 17 Jan, 2012 [facility] [place] [facility] [address] [id number] [place] [address]- 4336 10 Jan, 2012 [facility] [place] [facility] [address] [id number] [place] [address]- 3338 05 Jan, 2012 [facility] [place] [facility] [address] [id number] [place] [address]- 3575 27 Dec, 2011 [facility] [place] [facility] [address] [id number] [place] [address]- 8491 14 Dec, 2011 [facility] [place] [facility] [address] [id number] [place] [address]- 7699 31 Nov, 2011 [facility] [place] [facility] [address] [id number] [place] [address]- 1734 27 Nov, 2011 [facility] [place] [facility] [address] [id number] [place] [address]- 3560 27 Oct, 2011 [facility] [place] [facility] [address] [id number] [place] [address]- 7450 Oct, [facility] [place] [facility] [address] [id number] [place] [address]- 4815 15 Oct, 2011 [facility] [place] [facility] [address] [id number], [place] [address]- 4232 06 Oct, 2011 [facility] [place] [facility] [address] [id number] [place] [address]- 2781 September, [facility] [place] [facility] [address] [id number] [place] [address]- 8137 16 Sep, 2011 [facility] [place] [facility] [address] [id number] [place] [address]- 6356 September, [facility] [place] [facility] [address] [id number] [place] [address]- 3574 30 Aug, 2011 [facility] [address] [id number] [place] [address]- 1004 23 Aug, 2011 [facility] [address] [id number] [place] [address]- 2126 16 Aug, 2011 [facility] [address] [id number] [place] [address]- 5896 09 Aug, 2011 [facility] [address] [id number] [place] [address]- 7292 Jul, [facility] [address] [id number] [place] [address]- 8845 14 Jul, 2011 [facility] [address] [id number] [place] [address]- 9074 Jul, [facility] [address] [id number] [place] [address]- 5838 29 Jun, 2011 [facility] [address] [id number] [place] [address]- 1442 May, [facility] [address] [id number] [place] [address]- 9425 May, [facility] [address] [id number] [place] [address]- 7868 May, [facility] [address] [id number] [place] [address]- 7442 Apr, [facility] [address] [id number] [place] [address]- 1644 Apr, [facility] [place] [facility] [address] [id number] [place] [address]- 9175 Mar, [facility] [place] [facility] [address] [id number] [place] [address]- 2546 Mar, [facility] [address] [id number] [place] [address]- 8609 Mar, [facility] [address] [facility] [id number] [place] [address]- 4926 Feb, [facility] [address] [facility] [id number], [place] [address]- 2546 Feb, IMMUNIZATIONS Vaccine Route Administration Date Status DEXAMETHASONE 4MG/ML (PER 1 MG) IM Intramuscular Jan 23, 2017 Administered DEPO MEDROL 40 MG/ML IM Intramuscular Jan 23, 2017 Administered SOCIAL HISTORY Never Assessed REASON FOR VISIT cough and congestion...thinks it might be allergies. has had this for 3 weeks. also complaining of nausea for the past 3 days. woke up this am with a temp of 100. chantal PLAN OF CARE Activity Details Follow Up prn Reason: VITAL SIGNS Height 67 in 2017-01-23 Weight 216.0 lbs 2017-01-23 Temperature 97.8 degrees Fahrenheit 2017-01-23 Heart Rate 84 bpm 2017-01-23 Respiratory Rate 22 2017-01-23 BMI 33.83 kg/m2 2017-01-23 Blood pressure systolic 130 mmHg 2017-01-23 Blood pressure diastolic 80 mmHg 2017-01-23 MEDICATIONS Medication Instructions Dosage Frequency Start Date End Date Duration Status Augmentin 875-125 MG Orally every 12 hrs 1 tablet 12h Jan, Feb, 10 day(s) Active RESULTS No Results PROCEDURES Procedure Date Ordered Result Body Site DEXAMETHASONE 4MG/ML (PER 1 MG) Jan 23, 2017 THER/PROPH/DIAG INJ, SC/IM Jan 23, 2017 [facility] VISIT ESTABLISHED PATIENT Jan 23, 2017 DEPO MEDROL 40 MG/ML Jan 23, 2017 INSTRUCTIONS MEDICATIONS ADMINISTERED No Known Medications [...] years since 1993 last one 2011 in [place] Surgical History vaginal septum Hospitalization History fibromyalsia [facility] Hospitalization History lupus/reynauds Hospitalization History pleurisy Hospitalization History Depression, ptsd, anxiety, add, adhd Hospitalization History Acute TIA - [facility] 02/28/17- Hospitalization History Right sided weakness - ED visit at [facility] 03/23/17
--- OUTSIDE RECORDS SUMMARY | 2018-06-08 13:31 | XMS REPORT ---
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 Name Role Phone Samaria JUAN CARLOS Unavailable PROBLEMS Type Condition ICD9-CM Code IXT81-MR Code Onset Dates Condition Status SNOMED Code Problem Major depressive disorder, recurrent, moderate F33.1 Active 938917533 Problem Secondary hypertension I15.9 Active 30204704 Problem Chronic obstructive pulmonary disease, unspecified COPD type J44.9 Active 63771087 Problem Somatic complaints, multiple R68.89 Active 480572555 Problem Post traumatic stress disorder F43.10 Active 06696395 Problem Personality disorder F60.9 Active 14472290 Problem Attention deficit disorder F90.0 Active 199396940 Problem 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 Active 88476029 Problem 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 Active 486785805 Problem History of lupus Z87.39 Active 042313565 Problem Hemiparesis of right dominant side due to non-cerebrovascular etiology G81.91 Active 525037723 Problem Major depressive disorder, single episode, moderate F32.1 Active 700308432 Problem Posttraumatic stress disorder F43.10 Active 91382910 ALLERGIES No Information ENCOUNTERS Encounter Location Date Diagnosis [facility] [address], [place] [address] Aug, [facility] [address], [place] [address] Jul, 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 and Post traumatic stress disorder F43.10 [facility] [id number], [place] [address] Jul, [facility] [id number], [place] [address] Jul, 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 and Mouth sores K13.79 [facility] [id number] [place] [address] 58822- 4780 Mar, 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 [place] [id number] [place] [address] 24907- 0818 Mar, Hemiplegia affecting right dominant side, unspecified etiology, unspecified hemiplegia type G81.91 [place] [address] [address]- [address] Mar, [place] [address] [address]- 6[address] Mar, History of lupus Z87.39 [place] [address] [address]- [address] Mar, Major depressive disorder, single episode, moderate F32.1 and Posttraumatic stress disorder F43.10 [place] [address] [address]- 0825 Mar, Hemiparesis of right dominant side due to non- cerebrovascular etiology G81.91 and History of lupus Z87.39 [place] [id number] [place] [address] 67067- 4617 Mar, [facility] [id number] [place] [address] 95627 -1149 Jan, Acute non-recurrent maxillary sinusitis J01.00 [facility] [id number] [place] [address] 25151- 5814 Nov, [facility] [id number] [place] [address] 74665- 0361 Oct, Chest pain on breathing R07.1 ; Chronic obstructive pulmonary disease, unspecified COPD type J44.9 ; Hematuria R31.9 and Secondary hypertension I15.9 [place] [id number] [place] [address] 69264- 0967 Oct, [facility] [id number] [place] [address] 99561- 9209 Oct, Chest pain, unspecified type R07.9 [facility] [place] [id number] [place] [address] 85801 -1267 September, Acute middle ear effusion, right H65.191 [place] [id number] [place] [address] 73825- 6542 Aug, [place] [id number] [place] [address] 14900- 2794 Aug, Chronic obstructive pulmonary disease, unspecified COPD type J44.9 [place] [id number] [place] [address] 48024- 8947 Jul, Acute pain of right knee M25.561 [facility] [id number] [place] [address] 69737 -0942 Jul, Pain in right knee M25.561 and Pain in left knee M25.562 [place] [id number] [place] [address] 65792- 2676 Jun, Secondary hypertension I15.9 ; Chronic obstructive pulmonary disease, unspecified COPD type J44.9 ; Post traumatic stress disorder F43.10 ; Arthralgia, unspecified joint M25.50 ; Allergy, subsequent encounter T78.40XD and Screening cholesterol level Z13.220 [place] [id number] [place] [address] 30225- 2971 May, [place] [id number] [place] [address] 44043- 7265 Feb, Major depressive disorder, recurrent, moderate F33.1 ; Post traumatic stress disorder F43.10 and Personality disorder F60.[address] [place] [address] 87172- 7730 Feb, [address] [place] [address] 92165- 2168 Jan, Major depressive disorder, recurrent, moderate F33.1 ; Post traumatic stress disorder F43.10 and Personality disorder F60.9 [place] [id number] [place] [address] 49368- 2608 Jan, Bronchitis J40 ; Sinus congestion R09.81 ; Major depressive disorder, recurrent, moderate F33.1 ; Personality disorder F60.9 ; Schizoid personality disorder F60.1 ; Chronic obstructive pulmonary disease, unspecified COPD type J44.9 and Secondary hypertension I15.9 [place] [id number] [place] [address] 38868- 6508 Dec, Major depressive disorder, recurrent, moderate F33.1 ; Chronic obstructive pulmonary disease, unspecified COPD type J44.9 ; Muscle pain M79.1 and Secondary hypertension I15.9 [place] [id number] [place] [address] 52951- 6286 Dec, Major depressive disorder, recurrent, moderate F33.1 ; Post traumatic stress disorder F43.10 and Personality disorder F60.9 [place] [id number] [place] [address] 74626- 5408 Nov, Major depressive disorder, recurrent, moderate F33.1 ; Post traumatic stress disorder F43.10 and Personality disorder F60.9 [place] [address] [place] [address] 64818- 1160 Nov, Post traumatic stress disorder F43.10 ; Personality disorder F60.9 ; Secondary hypertension I15.9 ; Chronic obstructive pulmonary disease, unspecified COPD type J44.9 and Osteoarthritis, unspecified osteoarthritis type, unspecified site M19.90 [place] [address] [place] [address] 82641- 6156 Nov, Major depressive disorder, recurrent, moderate F33.1 ; Post traumatic stress disorder F43.10 and Personality disorder F60.9 [place] [address] [place] [address] 50876- 6988 Oct, Major depressive disorder, recurrent, moderate F33.1 ; Post traumatic stress disorder F43.10 and Personality disorder F60.9 [facility] [address], [place] [address] Oct, Major depressive disorder, recurrent, moderate F33.1 ; Post traumatic stress disorder F43.10 and Personality disorder F60.9 [facility] [id number] [place] [address] 12545- 8596 Oct, Major depressive disorder, recurrent, moderate F33.1 ; Post traumatic stress disorder F43.10 and Personality disorder F60.9 [facility] [id number] [place] [address] 99143- 6696 Aug, Major depressive disorder, recurrent, moderate F33.1 ; Post traumatic stress disorder F43.10 and Personality disorder F60.9 [facility] [id number] [place] [address] 69404- 9734 Jul, [facility] [id number] [place] [address] 99698- 7025 Jul, Physical exam Z00.00 [facility] [id number] [place] [address] 10282- 1275 Jul, [facility] [id number] [place] [address] 42241- 1929 Jul, Tobacco abuse counseling Z71.6 and Bronchitis J40 [facility] [id number] [place] [address] 10034- 7463 Jul, [facility] [id number] [place] [address] 82867- 6987 Jul, [facility] [id number] [place] [address] 15193 -0963 Jul, Hematuria, unspecified R31.9 and Bronchitis J40 [facility] [id number] [place] [address] 84034- 0180 Jun, Major depressive disorder, recurrent, moderate F33.1 ; Post traumatic stress disorder F43.10 and Personality disorder F60.9 [facility] [address], [place] [address]- [address] Jun, Major depressive disorder, recurrent, moderate F33.1 ; Post traumatic stress disorder F43.10 and Personality disorder F60.9 [facility] [address], [place] [address]- 1016 Jun, [facility] [id number] [place] [address] 82048- 0266 Jun, [facility] [id number] [place] [address] 44076- 3666 Jun, [facility] [id number] [place] [address] 03378- 2728 May, Major depressive disorder, recurrent, moderate F33.1 ; Post traumatic stress disorder F43.10 and Personality disorder F60.9 [facility] [address], [place] [address]- 4202 May, [facility] [address], [place] [address]- 2074 May, Major depressive disorder, recurrent, moderate F33.1 ; Post- traumatic stress disorder, chronic F43.12 ; Personality disorder F60.9 ; Attention deficit disorder F90.0 and Schizoid personality disorder F60.1 [facility] [address], [place] [address]- 6119 May, Major depressive disorder, recurrent, moderate F33.1 ; Post traumatic stress disorder F43.10 and Schizoid personality disorder F60.1 [facility] [address], [place] [address]- 8996 May, [facility] [address] [place] [address] 98533- 7676 Apr, Attention deficit disorder F90.0 [facility] [address], [place] [address]- 1203 Apr, Post-traumatic stress disorder, chronic F43.12 and Major depressive disorder, recurrent, moderate F33.1 [facility] [address] [place] [address] 22341- 3052 Apr, Post traumatic stress disorder F43.10 and Attention deficit disorder F90.0 [facility] [id number] [place] [address] 91938- 6517 Apr, [facility] [id number] [place] [address] 057502- 2239 Apr, [facility] [id number] [place] [address] 64273- 3960 Apr, Post-traumatic stress disorder, chronic F43.12 and Major depressive disorder, recurrent, moderate F33.1 [facility] [address] [place] [address] 80472- 5082 Apr, Post-traumatic stress disorder, chronic F43.12 and Major depressive disorder, recurrent, moderate F33.1 [facility] [id number] [place] [address] 18761- 8511 Apr, Major depressive disorder, recurrent, moderate F33.1 and Post traumatic stress disorder F43.10 [facility] [address] [place] [address] [id number] 30 Mar, 2015 Dental examination Z01.20 and Dental caries K02.9 [facility] [id number] [place] [address] 76701- 9918 20 Mar, 2015 Major depressive disorder, recurrent, moderate F33.1 ; Post- traumatic stress disorder, chronic F43.12 and Personality disorder F60.9 [facility] [address] [place] [address] 28318- 1371 13 Mar, 2015 Post-traumatic stress disorder, chronic F43.12 and Major depressive disorder, recurrent, moderate F33.1 [facility] [address], [place] [address]- 2832 11 Mar, 2015 Well woman exam Z01.419 ; Personality disorder F60.9 ; Post traumatic stress disorder F43.10 ; Muscle pain M79.1 and Bladder pain R39.89 [facility] [address], [place] [address]- 7851 Mar, Abnormal finding on mammography R92.8 ; Sinusitis J32.9 and Vaginal daisy B37.3 [facility] [id number] [place] [address] 20186- 0629 Feb, Abnormal finding on mammography R92.8 [facility] [id number] [place] [address] 44567- 0894 Feb, [facility] [id number] [place] [address] 52994- 3280 Apr, [facility] [id number] [place] [address] 47593- 7228 Apr, [facility] [id number] [place] [address] 66340- 9702 Apr, [facility] [id number] [place] [address] 19028- 6402 Apr, [facility] [id number] [place] [address] 19017- 0826 Apr, [facility] [id number] [place] [address] 99909- 5403 Apr, [facility] [address], [place] [address]- 8350 Mar, [facility] [id number] [place] [address] 69726- 2541 Mar, [facility] [id number] [place] [address] 27315- 1596 Mar, [facility] [id number] [place] [address] 006163- 5010 Mar, [facility] [address] [address]- 6367 Feb, [facility] [address] [place] [address]- 5360 15 Feb, 2012 [facility] [place] [facility] [address] [id number] [place] [address]- 6246 24 Jan, 2012 [facility] [place] [facility] [address] [id number] [place] [address] 2546 17 Jan, 2012 [facility] [place] [facility] [address] [id number] [place] [address]- 7436 10 Jan, 2012 [facility] [place] [facility] [address] [id number] [place] [address] 2542 05 Jan, 2012 [facility] [place] [facility] [address] [id number] [place] [address]- 5154 27 Dec, 2011 [facility] [place] [facility] [address] [id number] [place] [address]- 5581 14 Dec, 2011 [facility] [place] [facility] [address] [id number] [place] [address]- 4895 31 Nov, 2011 [facility] [place] [facility] [address] [id number] [place] [address]- 2835 27 Nov, 2011 [facility] [place] [facility] [address] [id number] [place] [address]- 7310 27 Oct, 2011 [facility] [place] [facility] [address] [id number] [place] [address]- 6708 20 Oct, 2011 [facility] [place] [facility] [address] [id number] [place] [address]- 1660 15 Oct, 2011 [facility] [place] [facility] [address] [id number] [place] [address]- 3703 06 Oct, 2011 [facility] [place] [facility] [address] [id number] [place] [address]- 3623 September, [facility] [place] [facility] [address] [id number] [place] [address]- 8206 16 Sep, 2011 [facility] [place] [facility] [address] [id number] [place] 1168 September, [facility] [place] [facility] [address] [id number] [place] [address]- 8771 30 Aug, 2011 [facility] [address] [id number] [place] [address]- 2726 23 Aug, 2011 [facility] [address] [id number] [place] [address] 2546 16 Aug, 2011 [facility] [address] [id number] [place] [address] 2546 Aug, [facility] [address] [id number] [place] [address]- 4331 Jul, [facility] [place] [facility] [address] [id number] [place] [address]- 3076 Jul, [facility] [address] [id number] [place] [address]- 5426 Jul, [facility] [address] [id number] [place] [address]- 8263 Jun, [facility] [address] [id number] [place] [address]- 2907 May, [facility] [address] [id number] [place] [address]- 2266 May, [facility] [address] [id number] [place] [address]- 2946 May, [facility] [address] [id number] [place] [address]- 9555 Apr, [facility] [place] [facility] [address] [id number] [place] [address]- 8762 Apr, [facility] [place] [facility] [address] [id number] [place] [address]- 5566 Mar, [facility] [place] [facility] [address] [id number] [place] [address]- 2546 Mar, [facility] [place] [facility] [address] [id number] [place] [address]- 0776 Mar, [facility] [address] [facility] [id number] [place] [address]- 9807 Feb, [facility] [address] [facility] [id number] [place] [address]- 6682 Feb, IMMUNIZATIONS No Known Immunizations SOCIAL HISTORY Never Assessed REASON FOR VISIT Triage--ADaviedRN PLAN OF CARE VITAL SIGNS MEDICATIONS Unknown [...] years since 1993 last one 2011 in [place] Surgical History vaginal septum Hospitalization History [facility] Hospitalization History lupus/reynauds Hospitalization History pleurisy Hospitalization History Depression, ptsd, anxiety, add, adhd Hospitalization History Acute TIA - [facility] 02/28/17- Hospitalization History Right sided weakness - ED visit at [facility] 03/23/17
--- OUTSIDE RECORDS SUMMARY | 2018-06-08 13:31 | XMS REPORT ---
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 Name Role Phone RASHAUN CALDERON Unavailable PROBLEMS Type Condition ICD9-CM Code BZL63-KS Code Onset Dates Condition Status SNOMED Code Problem Major depressive disorder, recurrent, moderate F33.1 Active 422149118 Problem Secondary hypertension I15.9 Active 98016775 Problem Chronic obstructive pulmonary disease, unspecified COPD type J44.9 Active 55886710 Problem Somatic complaints, multiple R68.89 Active 654787958 Problem Post traumatic stress disorder F43.10 Active 22221727 Problem Personality disorder F60.9 Active 97950124 Problem Attention deficit disorder F90.0 Active 021207492 Problem 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 Active 56790272 Problem 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 Active 838390258 Problem History of lupus Z87.39 Active 194372880 Problem Hemiparesis of right dominant side due to non-cerebrovascular etiology G81.91 Active 836028685 Problem Major depressive disorder, single episode, moderate F32.1 Active 928983024 Problem Posttraumatic stress disorder F43.10 Active 71730370 ALLERGIES Substance Reaction Event Type Date Status Tegretol seizure Drug Allergy Mar, Active Hydrocodone-Acetaminophen hives Drug Allergy Mar, Active ENCOUNTERS Encounter Location Date Diagnosis [facility] [id number] [address] Jul, 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 and Post traumatic stress disorder F43.10 [facility] [id number] [address] Jul, [facility] [id number] [address] Jul, 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 and Mouth sores K13.79 [facility] [id number] [place] [address] 59393- 5977 Mar, 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 [place] [address] [address] Mar, Hemiplegia affecting right dominant side, unspecified etiology, unspecified hemiplegia type G81.91 [place] [address] [address]- [address] Mar, [place] [address] [address]- 5136 Mar, History of lupus Z87.39 [place] [address] [address]- [address]65 Mar, Major depressive disorder, single episode, moderate F32.1 and Posttraumatic stress disorder F43.10 [place] [address] [address]- [address]34 Mar, Hemiparesis of right dominant side due to non- cerebrovascular etiology G81.91 and History of lupus Z87.39 [place] [address] [address]- [address] Mar, [facility] [id number] [place] [address]36 [address]8990 Jan, Acute non-recurrent maxillary sinusitis J01.00 [place] [address] 6[address]60- 3121 Nov, [place] [address] [address]41- [address] Oct, Chest pain on breathing R07.1 ; Chronic obstructive pulmonary disease, unspecified COPD type J44.9 ; Hematuria R31.9 and Secondary hypertension I15.9 [place] [address] 29644- 8088 Oct, [facility] [address] [address]- [address] Oct, Chest pain, unspecified type R07.9 [facility] [id number] [place] [address] 99483 -6736 September, Acute middle ear effusion, right H65.191 [place] [id number] [place] [address] 29070- 6612 Aug, [place] [address] 0[address]32- [address] Aug, Chronic obstructive pulmonary disease, unspecified COPD type J44.9 [place] [id number] [place] [address] 46819- 8469 Jul, Acute pain of right knee M25.561 [facility] [id number] [place] [address]31 -7481 Jul, Pain in right knee M25.561 and Pain in left knee M25.562 [place] [id number] [place] [address] 41786- 0494 Jun, Secondary hypertension I15.9 ; Chronic obstructive pulmonary disease, unspecified COPD type J44.9 ; Post traumatic stress disorder F43.10 ; Arthralgia, unspecified joint M25.50 ; Allergy, subsequent encounter T78.40XD and Screening cholesterol level Z13.220 [place] [id number] [place] [address] 67362- 5440 May, [place] [id number] [place] [address] 97888- 8411 Feb, Major depressive disorder, recurrent, moderate F33.1 ; Post traumatic stress disorder F43.10 and Personality disorder F60.9 [place] [id number] [place] [address] 79524- 1839 Feb, [place] [id number] [place] [address] 47654- 9330 Jan, Major depressive disorder, recurrent, moderate F33.1 ; Post traumatic stress disorder F43.10 and Personality disorder F60.9 [place] [id number] [place] [address] 33146- 2232 Jan, Bronchitis J40 ; Sinus congestion R09.81 ; Major depressive disorder, recurrent, moderate F33.1 ; Personality disorder F60.9 ; Schizoid personality disorder F60.1 ; Chronic obstructive pulmonary disease, unspecified COPD type J44.9 and Secondary hypertension I15.9 [place] [id number] [place] [address] 66491- 0396 Dec, Major depressive disorder, recurrent, moderate F33.1 ; Chronic obstructive pulmonary disease, unspecified COPD type J44.9 ; Muscle pain M79.1 and Secondary hypertension I15.9 [place] [address] 74066- 9583 Dec, Major depressive disorder, recurrent, moderate F33.1 ; Post traumatic stress disorder F43.10 and Personality disorder F60.9 [place] [address] 9[address]44- 3560 Nov, Major depressive disorder, recurrent, moderate F33.1 ; Post traumatic stress disorder F43.10 and Personality disorder F60.9 [place] [id number] [place] [address] 95975- 2177 Nov, Post traumatic stress disorder F43.10 ; Personality disorder F60.9 ; Secondary hypertension I15.9 ; Chronic obstructive pulmonary disease, unspecified COPD type J44.9 and Osteoarthritis, unspecified osteoarthritis type, unspecified site M19.90 [place] [id number] [place] [address] 51067- 8871 Nov, Major depressive disorder, recurrent, moderate F33.1 ; Post traumatic stress disorder F43.10 and Personality disorder F60.9 [place] [id number] [place] [address] 96410- 6369 Oct, Major depressive disorder, recurrent, moderate F33.1 ; Post traumatic stress disorder F43.10 and Personality disorder F60.9 [place] [address] [place] [address] Oct, Major depressive disorder, recurrent, moderate F33.1 ; Post traumatic stress disorder F43.10 and Personality disorder F60.9 [facility] [id number] [place] [address] 94876- 2153 Oct, Major depressive disorder, recurrent, moderate F33.1 ; Post traumatic stress disorder F43.10 and Personality disorder F60.9 [facility] [id number] [place] [address] 85660- 2825 Aug, Major depressive disorder, recurrent, moderate F33.1 ; Post traumatic stress disorder F43.10 and Personality disorder F60.9 [place] [id number] [place] [address] 13031- 8205 Jul, [place] [address] [address]50- [address]13 Jul, Physical exam Z00.00 [facility] [address] 75486- 2898 Jul, [facility] [address] 03803- 3938 Jul, Tobacco abuse counseling Z71.6 and Bronchitis J40 [facility] [id number] [place] [address] 48551- 4454 Jul, [facility] [id number] [place] [address] 33539- 5486 Jul, [facility] [id number] [place] [address] 64120 -3976 Jul, Hematuria, unspecified R31.9 and Bronchitis J40 [facility] [id number] [place] [address] 02743- 2313 Jun, Major depressive disorder, recurrent, moderate F33.1 ; Post traumatic stress disorder F43.10 and Personality disorder F60.9 [facility] [address] [address]- [address]7 Jun, Major depressive disorder, recurrent, moderate F33.1 ; Post traumatic stress disorder F43.10 and Personality disorder F60.9 [facility] [address] [place] [address] 69035- 4716 Jun, [facility] [address] [place] [address] 70234- 3901 Jun, [facility] [id number] [place] [address] 08243- 2122 Jun, [facility] [address] [place] [address] 68984- 2980 May, Major depressive disorder, recurrent, moderate F33.1 ; Post traumatic stress disorder F43.10 and Personality disorder F60.9 [facility] [address] [place] [address] 46309- 2890 May, [facility] [address] [place] [address] 11075- 8890 May, Major depressive disorder, recurrent, moderate F33.1 ; Post- traumatic stress disorder, chronic F43.12 ; Personality disorder F60.9 ; Attention deficit disorder F90.0 and Schizoid personality disorder F60.1 [facility] [address] [address] May, Major depressive disorder, recurrent, moderate F33.1 ; Post traumatic stress disorder F43.10 and Schizoid personality disorder F60.1 [facility] [address] [address] May, [facility] [address] [place] [address] 38390- 0789 Apr, Attention deficit disorder F90.0 [facility] [address] [address]- 8286 Apr, Post-traumatic stress disorder, chronic F43.12 and Major depressive disorder, recurrent, moderate F33.1 [facility] [address] [address]- 0977 Apr, Post traumatic stress disorder F43.10 and Attention deficit disorder F90.0 [facility] [address] [place] [address] 23693- 0137 Apr, [facility] [address] [place] [address] 93792- 4689 Apr, [facility] [id number] [place] [address] 76484- 1629 Apr, Post-traumatic stress disorder, chronic F43.12 and Major depressive disorder, recurrent, moderate F33.1 [facility] [address] [place] [address] 43927- 1678 Apr, Post-traumatic stress disorder, chronic F43.12 and Major depressive disorder, recurrent, moderate F33.1 [place] [address] [place] [address] 20738- 2709 Apr, Major depressive disorder, recurrent, moderate F33.1 and Post traumatic stress disorder F43.10 [facility] [address] [place] [address] [id number] 30 Mar, 2015 Dental examination Z01.20 and Dental caries K02.9 [place] [address] [place] [address] 45341- 5707 20 Mar, 2015 Major depressive disorder, recurrent, moderate F33.1 ; Post- traumatic stress disorder, chronic F43.12 and Personality disorder F60.9 [facility] [address] [place] [address] 63171- 1082 13 Mar, 2015 Post-traumatic stress disorder, chronic F43.12 and Major depressive disorder, recurrent, moderate F33.1 [facility] [address] [place] [address] 34714- 1584 11 Mar, 2015 Well woman exam Z01.419 ; Personality disorder F60.9 ; Post traumatic stress disorder F43.10 ; Muscle pain M79.1 and Bladder pain R39.89 [place] [address] [address] Mar, Abnormal finding on mammography R92.8 ; Sinusitis J32.9 and Vaginal daisy B37.3 [facility] [address] [address]- 9076 Feb, Abnormal finding on mammography R92.8 [facility] [id number] [place] [address] 40865- 0286 Feb, [facility] [address] [facility] [id number] [place] [address] 95606- 6639 Apr, [facility] [id number] [place] [address] 46308- 2476 Apr, [facility] [id number] [place] [address] 64122- 8667 Apr, [facility] [id number] [place] [address] 15071- 9958 Apr, [facility] [address] [place] [address] 82529- 4002 Apr, [facility] [address] [place] [address] 72866- 7125 Apr, [facility] [address] [address]- 9910 Mar, [facility] [address] [address]- 0168 Mar, [facility] [address] [address]- 1749 Mar, [facility] [id number] [place] [address] 49856- 3486 Mar, [facility] [address] [address]- 0792 Feb, [facility] [address] [place] [address] 49756- 0269 15 Feb, 2012 [facility] [place] [facility] [address] [id number] [place] [address]- 9707 24 Jan, 2012 [facility] [place] [facility] [address] [id number] [place] [address]- 7826 17 Jan, 2012 [facility] [place] [facility] [address] [id number] [place] [address]- 5152 10 Jan, 2012 [facility] [place] [facility] [address] [id number] [place] [address]- 8546 05 Jan, 2012 [facility] [place] [facility] [address] [id number] [place] [address]- 5491 27 Dec, 2011 [facility] [place] [facility] [address] [id number] [place] [address]- 7722 14 Dec, 2011 [facility] [place] [facility] [address] [id number] [place] [address]- 9236 31 Nov, 2011 [facility] [place] [facility] [address] [id number] [place] [address]- 5663 27 Nov, 2011 [facility] [place] [facility] [address] [id number] [place] [address]- 6557 27 Oct, 2011 [facility] [place] [facility] [address] [id number] [place] [address]- 8338 Oct, [facility] [place] [facility] [address] [id number] [place] [address]- 0977 15 Oct, 2011 [facility] [place] [facility] [address] [id number] [address]- 1285 06 Oct, 2011 [facility] [place] [facility] [address] [id number] [place] [address]- 2952 September, [facility] [place] [facility] [address] [id number] [place] [address]- 3009 16 Sep, 2011 [facility] [place] [facility] [address] [id number] [place] [address]- 1502 September, [facility] [place] [facility] [address] [id number] [place] [address]- 6601 30 Aug, 2011 [facility] [address] [id number] [place] [address]- 6116 23 Aug, 2011 [facility] [place] [facility] [address] [id number] [place] [address]- 7576 16 Aug, 2011 [facility] [place] [facility] [address] [id number] [place] [address]- 5156 09 Aug, 2011 [facility] [place] [facility] [address] [id number] [place] [address]- 0373 Jul, [facility] [place] [facility] [address] [id number] [place] [address]- 2231 Jul, [facility] [place] [facility] [address] [id number] [place] [address]- 1429 Jul, [facility] [address] [id number] [place] [address]- 4266 29 Jun, 2011 [facility] [place] [facility] [address] [id number] [place] [address]- 5218 May, [facility] [place] [facility] [address] [id number] [place] [address]- 9663 May, [facility] [place] [facility] [address] [id number] [place] [address]- 2699 May, [facility] [place] [facility] [address] [id number] [place] [address]- 5099 Apr, [facility] [place] [facility] [address] [id number] [place] [address]- 0616 Apr, [facility] [place] [facility] [address] [id number] [place] [address]- 9680 Mar, [facility] [place] [facility] [address] [id number] [place] [address]- 6913 Mar, [facility] [place] [facility] [address] [id number] [place] [address]- 3613 Mar, [facility] [address] [facility] [id number] [place] [address] Feb, [facility] [address] [facility] [id number] [address] Feb, IMMUNIZATIONS No Known Immunizations SOCIAL HISTORY Never Assessed REASON FOR VISIT [facility] f/u ER 03/23/17 TIA, reports sometimes today feels like it is starting again. Needing referral to [facility] PLAN OF CARE Activity Details Follow Up 4 Weeks Reason: VITAL SIGNS Height 67 in 2017-03-24 Weight 218.8 lbs 2017-03-24 Temperature 98.3 degrees Fahrenheit 2017-03-24 Heart Rate 96 bpm 2017-03-24 Respiratory Rate 18 2017-03-24 BMI 34.27 kg/m2 2017-03-24 Blood pressure systolic 124 mmHg 2017-03-24 Blood pressure diastolic 96 mmHg 2017-03-24 MEDICATIONS Medication Instructions Dosage Frequency Start Date End Date Duration Status Diclofenac Sodium 75 MG Orally Twice a day 1 tablet with food or milk 12h 09 Mar, 2017 30 days Not-Taking HydrOXYzine Pamoate 25 MG Orally every 6 hrs 1 capsule as needed 6h Active Plavix 75 MG Orally Once a day as directed 24h 21 Mar, 2017 30 days Active Tylenol 325 MG Orally every 6 hrs 2 tablets as needed 6h Not- Taking Aspirin 81 MG Orally Once a day 24h Active RESULTS No Results PROCEDURES Procedure Date Ordered Result Body Site [facility] V[facility] ESTABLISHED PATIENT Mar 24, 2017 INSTRUCTIONS MEDICATIONS ADMINISTERED No Known [...] years since 1993 last one 2011 in join Surgical History vaginal septum Hospitalization History [facility] Hospitalization History lupus/reynauds Hospitalization History pleurisy Hospitalization History Depression, ptsd, anxiety, add, adhd Hospitalization History Acute TIA - [facility] 02/28/17- Hospitalization History Right sided weakness - ED visit at [facility] 03/23/17
--- OUTSIDE RECORDS SUMMARY | 2018-06-08 13:32 | XMS REPORT ---
Author Author RASHAUN CALDERON Organization [facility] Address [address] [place] [address] Care Team Providers Care Marble Finisher Name Role Phone RASHAUN CALDERON Unavailable PROBLEMS Type Condition ICD9-CM Code OKZ91-FD Code Onset Dates Condition Status SNOMED Code Problem Major depressive disorder, recurrent, moderate F33.1 Active 846884125 Problem Secondary hypertension I15.9 Active 13084108 Problem Chronic obstructive pulmonary disease, unspecified COPD type J44.9 Active 87417283 Problem Somatic complaints, multiple R68.89 Active 525094693 Problem Post traumatic stress disorder F43.10 Active 89237100 Problem Personality disorder F60.9 Active 15795255 Problem Attention deficit disorder F90.0 Active 526846314 Problem 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 Active 61675333 Problem 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 Active 235687476 Problem History of lupus Z87.39 Active 961270886 Problem Hemiparesis of right dominant side due to non-cerebrovascular etiology G81.91 Active 963331190 Problem Major depressive disorder, single episode, moderate F32.1 Active 753309332 Problem Posttraumatic stress disorder F43.10 Active 26931849 ALLERGIES No Information ENCOUNTERS Encounter Location Date Diagnosis [facility] [id number] [place] [address] 63183- 4125 Jul, 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 and Post traumatic stress disorder F43.10 [facility] [id number] [place] [address] 62565- 1952 Jul, [facility] [id number] [place] [address] 89096 -8433 Jul, 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 and Mouth sores K13.79 [facility] [id number] [place] [address] 22800- 3842 Mar, 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 [place] [address] [id number] [place] [address] 08236- 1628 Mar, Hemiplegia affecting right dominant side, unspecified etiology, unspecified hemiplegia type G81.91 [place] [address] [place] [id number] [place] [address] 47271- 6786 Mar, [place] [address] 03598- 2517 Mar, History of lupus Z87.39 [place] [address] 77882- 5946 Mar, Major depressive disorder, single episode, moderate F32.1 and Posttraumatic stress disorder F43.10 [place] [id number] [place] [address] 53747- 4651 Mar, Hemiparesis of right dominant side due to non- cerebrovascular etiology G81.91 and History of lupus Z87.39 [place] [id number] [place] [address] 47163- 3126 Mar, [facility] [place] [id number] [place] [address] 69723 -1414 Jan, Acute non-recurrent maxillary sinusitis J01.00 [place] [id number] [place] [address] 46491- 7039 Nov, [place] [id number] [place] [address] 47385- 3483 Oct, Chest pain on breathing R07.1 ; Chronic obstructive pulmonary disease, unspecified COPD type J44.9 ; Hematuria R31.9 and Secondary hypertension I15.9 [place] [id number] [place] [address] 78018- 3342 Oct, [place] [id number] [place] [address] 52834- 2995 Oct, Chest pain, unspecified type R07.9 [facility] [id number] [place] [address] 16511 -1120 September, Acute middle ear effusion, right H65.191 [place] [id number] [place] [address] 98161- 1945 Aug, [place] [id number] [place] [address] 48146- 9059 Aug, Chronic obstructive pulmonary disease, unspecified COPD type J44.9 [place] [id number] [place] [address] 39087- 1268 Jul, Acute pain of right knee M25.561 [facility] [id number] [place] [address] 56476 -3552 Jul, Pain in right knee M25.561 and Pain in left knee M25.[address] 41949- 8773 Jun, Secondary hypertension I15.9 ; Chronic obstructive pulmonary disease, unspecified COPD type J44.9 ; Post traumatic stress disorder F43.10 ; Arthralgia, unspecified joint M25.50 ; Allergy, subsequent encounter T78.40XD and Screening cholesterol level Z13.220 [place] [id number] [place] [address] 27176- 0414 May, [place] [id number] [place] [address] 17400- 4158 Feb, Major depressive disorder, recurrent, moderate F33.1 ; Post traumatic stress disorder F43.10 and Personality disorder F60.9 [place] [id number] [place] [address] 53690- 3922 Feb, [place] [id number] [place] [address] 94761- 6778 Jan, Major depressive disorder, recurrent, moderate F33.1 ; Post traumatic stress disorder F43.10 and Personality disorder F60.9 [place] [address] 13828- 5733 Jan, Bronchitis J40 ; Sinus congestion R09.81 ; Major depressive disorder, recurrent, moderate F33.1 ; Personality disorder F60.9 ; Schizoid personality disorder F60.1 ; Chronic obstructive pulmonary disease, unspecified COPD type J44.9 and Secondary hypertension I15.9 [place] [address] [address]- 6303 Dec, Major depressive disorder, recurrent, moderate F33.1 ; Chronic obstructive pulmonary disease, unspecified COPD type J44.9 ; Muscle pain M79.1 and Secondary hypertension I15.9 [place] [address] [address]- 8351 Dec, Major depressive disorder, recurrent, moderate F33.1 ; Post traumatic stress disorder F43.10 and Personality disorder F60.9 [place] [address] [address]- 8561 Nov, Major depressive disorder, recurrent, moderate F33.1 ; Post traumatic stress disorder F43.10 and Personality disorder F60.9 [place] [address] [address]- 9047 Nov, Post traumatic stress disorder F43.10 ; Personality disorder F60.9 ; Secondary hypertension I15.9 ; Chronic obstructive pulmonary disease, unspecified COPD type J44.9 and Osteoarthritis, unspecified osteoarthritis type, unspecified site M19.90 [place] [address] [address]- 1031 Nov, Major depressive disorder, recurrent, moderate F33.1 ; Post traumatic stress disorder F43.10 and Personality disorder F60.9 [place] [address] [id number] [address]- 1604 Oct, Major depressive disorder, recurrent, moderate F33.1 ; Post traumatic stress disorder F43.10 and Personality disorder F60.9 [place] [address] [address]- 5183 Oct, Major depressive disorder, recurrent, moderate F33.1 ; Post traumatic stress disorder F43.10 and Personality disorder F60.9 [facility] [id number] [place] [address] 61225- 1036 Oct, Major depressive disorder, recurrent, moderate F33.1 ; Post traumatic stress disorder F43.10 and Personality disorder F60.9 [facility] [id number] [place] [address] 91636- 0250 Aug, Major depressive disorder, recurrent, moderate F33.1 ; Post traumatic stress disorder F43.10 and Personality disorder F60.9 [facility] [id number] [place] [address] 50891- 3835 Jul, [facility] [address] 95827- 8455 Jul, Physical exam Z00.00 [place] [address] 36548- 6498 Jul, [facility] [id number] [place] [address] 74249- 8984 07 Jul, 2015 Tobacco abuse counseling Z71.6 and Bronchitis J40 [facility] [id number] [place] [address] 45943- 0400 Jul, [facility] [id number] [place] [address] 64540- 1005 Jul, [facility] [id number] [place] [address] 66869 -3513 Jul, Hematuria, unspecified R31.9 and Bronchitis J40 [facility] [id number] [place] [address] 80919- 2173 Jun, Major depressive disorder, recurrent, moderate F33.1 ; Post traumatic stress disorder F43.10 and Personality disorder F60.9 [facility] [address] [place] [address] 36441- 8352 17 Jun, 2015 Major depressive disorder, recurrent, moderate F33.1 ; Post traumatic stress disorder F43.10 and Personality disorder F60.9 [facility] [address] [address]- 2696 Jun, [facility] [address] [address]- 6146 Jun, [facility] [address] [address]- 4456 Jun, [facility] [address] [place] [address] 14121- 8246 May, Major depressive disorder, recurrent, moderate F33.1 ; Post traumatic stress disorder F43.10 and Personality disorder F60.9 [facility] [address] [address]- 8936 May, [facility] [address] [address]- 7129 May, Major depressive disorder, recurrent, moderate F33.1 ; Post- traumatic stress disorder, chronic F43.12 ; Personality disorder F60.9 ; Attention deficit disorder F90.0 and Schizoid personality disorder F60.1 [facility] [address] [place] [address] 02448- 2821 May, Major depressive disorder, recurrent, moderate F33.1 ; Post traumatic stress disorder F43.10 and Schizoid personality disorder F60.1 [facility] [address] [address]- 8956 May, [facility] [address], [place] [address]- 3833 Apr, Attention deficit disorder F90.0 [facility] [address] [address]- 6482 Apr, Post-traumatic stress disorder, chronic F43.12 and Major depressive disorder, recurrent, moderate F33.1 [facility] [address] [address]- 8195 Apr, Post traumatic stress disorder F43.10 and Attention deficit disorder F90.0 [facility] [address] [address]- 3002 Apr, [facility] [address] [place] [address] 61227- 5640 Apr, [facility] [id number] [place] [address] 97000- 0910 Apr, Post-traumatic stress disorder, chronic F43.12 and Major depressive disorder, recurrent, moderate F33.1 [facility] [address] [place] [address] 71485- 1336 Apr, Post-traumatic stress disorder, chronic F43.12 and Major depressive disorder, recurrent, moderate F33.1 [facility] [address] [place] [address] 43669- 2515 Apr, Major depressive disorder, recurrent, moderate F33.1 and Post traumatic stress disorder F43.10 [facility] [address] [place] [address] [id number] 30 Mar, 2015 Dental examination Z01.20 and Dental caries K02.9 [place] [address] [id number] [place] [address] 97822- 2674 20 Mar, 2015 Major depressive disorder, recurrent, moderate F33.1 ; Post- traumatic stress disorder, chronic F43.12 and Personality disorder F60.9 [facility] [address] [place] [address] 57999- 3511 13 Mar, 2015 Post-traumatic stress disorder, chronic F43.12 and Major depressive disorder, recurrent, moderate F33.1 [facility] [address] [place] [address] 76342- 1350 11 Mar, 2015 Well woman exam Z01.419 ; Personality disorder F60.9 ; Post traumatic stress disorder F43.10 ; Muscle pain M79.1 and Bladder pain R39.89 [facility] [id number] [place] [address] 24241- 2005 Mar, Abnormal finding on mammography R92.8 ; Sinusitis J32.9 and Vaginal daisy B37.3 [facility] [id number] [place] [address] 30711- 9850 Feb, Abnormal finding on mammography R92.8 [facility] [address] [facility] [id number] [place] [address] 762753- 1031 Feb, [facility] [id number] [place] [address] 08299- 1027 Apr, [facility] [address] [facility] [id number] [place] [address] 72037- 5202 Apr, [facility] [id number] [place] [address] 50582- 8704 Apr, [facility] [id number] [place] [address] 68915- 2626 Apr, [facility] [id number] [place] [address] 86198- 7041 Apr, [facility] [address] [place] [address] 77601- 4841 Apr, [facility] [id number] [place] [address] 80630- 7828 Mar, [facility] [address] [place] [address] 65807- 6059 Mar, [facility] [id number] [place] [address] 47586- 2788 Mar, [facility] [address] [place] [address] 37690- 0227 Mar, [facility] [id number] [place] [address] 02333- 2968 Feb, [facility] [id number] [place] [address] 53172- 5936 Feb, [facility] [id number] [place] [address] 57042- 2546 24 Jan, 2012 [facility] [place] [facility] [address] [id number] [place] [address]- 6246 17 Jan, 2012 [facility] [place] [facility] [address] [id number] [place] [address]- 2126 10 Jan, 2012 [facility] [place] [facility] [address] [id number] [place] [address] 2546 05 Jan, 2012 [facility] [place] [facility] [address] [id number] [place] [address]- 8692 27 Dec, 2011 [facility] [place] [facility] [address] [id number] [place] [address]- 8155 14 Dec, 2011 [facility] [place] [facility] [address] [id number] [place] [address]- 6916 31 Nov, 2011 [facility] [place] [facility] [address] [id number] [place] [address]- 4610 Nov, [facility] [place] [facility] [address] [id number] [place] [address]- 5859 Oct, [facility] [place] [facility] [address] [id number] [place] [address]- 7251 Oct, [facility] [place] [facility] [address] [id number] [place] [address]- 8663 15 Oct, 2011 [facility] [place] [facility] [address] [id number] [place] [address]- 3427 06 Oct, 2011 [facility] [place] [facility] [address] [id number] [place] [address]- 3939 September, [facility] [place] [facility] [address] [id number] [place] [address]- 0207 16 Sep, 2011 [facility] [place] [facility] [address] [id number] [place] [address]- 6928 September, [facility] [place] [facility] [address] [id number] [place] [address]- 1467 30 Aug, 2011 [facility] [place] [facility] [address] [id number] [place] [address]- 5661 23 Aug, 2011 [facility] [address] [id number] [place] [address]- 4411 16 Aug, 2011 [facility] [place] [facility] [address] [id number] [place] [address]- 4326 09 Aug, 2011 [facility] [address] [id number] [place] [address]- 3738 Jul, [facility] [address] [id number] [place] [address]- 0495 14 Jul, 2011 [facility] [address] [id number] [place] [address]- 9727 Jul, [facility] [address] [id number] [place] [address]- 1037 29 Jun, 2011 [facility] [address] [id number] [place] [address]- 5360 May, [facility] [address] [id number] [place] [address]- 7335 May, [facility] [address] [id number] [place] [address]- 8893 May, [facility] [address] [id number] [place] [address]- 9140 Apr, [facility] [address] [id number] [place] [address]- 5493 Apr, [facility] [address] [id number] [place] [address]- 1086 Mar, [facility] [place] [facility] [address] [id number] [place] [address]- 5473 Mar, [facility] [place] [facility] [address] [id number] [place] [address] 2546 Mar, [facility] [address] [id number] [place] [address]- 1849 Feb, [facility] [address] [facility] [id number] [place] [address]- 6876 Feb, IMMUNIZATIONS No Known Immunizations SOCIAL HISTORY Never Assessed REASON FOR VISIT Lab (walk-in) PLAN OF CARE VITAL SIGNS MEDICATIONS Unknown Medications RESULTS No Results PROCEDURES Procedure Date Ordered Result Body Site LAB NOT BILLED BY [facility] Mar 06, 2017 VENIPUNCT, ROUTINE* Mar 06, 2017 INSTRUCTIONS MEDICATIONS ADMINISTERED No Known Medications [...] years since 1993 last one 2011 in [place] Surgical History vaginal septum Hospitalization History fibromyalsia [facility] Hospitalization History lupus/reynauds Hospitalization History pleurisy Hospitalization History Depression, ptsd, anxiety, add, adhd Hospitalization History Acute TIA - [facility] 02/28/17- Hospitalization History Right sided weakness - ED visit at [facility] 03/23/17
--- OUTSIDE RECORDS SUMMARY | 2018-06-08 13:32 | XMS REPORT ---
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 Sander Name Role Phone akbarGRAHAM JUAN CARLOS Unavailable PROBLEMS Type Condition ICD9-CM Code EHO31-TL Code Onset Dates Condition Status SNOMED Code Problem Major depressive disorder, recurrent, moderate F33.1 Active 068042417 Problem Secondary hypertension I15.9 Active 59536470 Problem Chronic obstructive pulmonary disease, unspecified COPD type J44.9 Active 71509149 Problem Somatic complaints, multiple R68.89 Active 689618768 Problem Post traumatic stress disorder F43.10 Active 71986666 Problem Personality disorder F60.9 Active 28205431 Problem Attention deficit disorder F90.0 Active 531324720 Problem 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 Active 59844555 Problem 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 Active 972997089 Problem History of lupus Z87.39 Active 800684228 Problem Hemiparesis of right dominant side due to non-cerebrovascular etiology G81.91 Active 895310604 Problem Major depressive disorder, single episode, moderate F32.1 Active 442815435 Problem Posttraumatic stress disorder F43.10 Active 87656259 ALLERGIES Substance Reaction Event Type Date Status Tegretol seizure Drug Allergy Oct, Active Hydrocodone-Acetaminophen hives Drug Allergy Oct, Active ENCOUNTERS Encounter Location Date Diagnosis [facility] [id number] [address] Jul, [facility] [address] [address] Jul, 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 and Post traumatic stress disorder F43.10 [facility] [address] [address] Jul, [facility] [id number] [place] [address] Jul, 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 and Mouth sores K13.79 [address] [address] Mar, 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 [place] [address] [address] Mar, Hemiplegia affecting right dominant side, unspecified etiology, unspecified hemiplegia type G81.91 [place] [address] [address]- [address] Mar, [place] [address] [address]- 9[address] Mar, History of lupus Z87.39 [place] [address] [address]- [address] Mar, Major depressive disorder, single episode, moderate F32.1 and Posttraumatic stress disorder F43.10 [place] [address] [address]- [address] Mar, Hemiparesis of right dominant side due to non- cerebrovascular etiology G81.91 and History of lupus Z87.39 [place] [address] [address] Mar, [facility] [address] [address] Jan, Acute non-recurrent maxillary sinusitis J01.00 [place] [address] [address]- 2738 Nov, [place] [address] [address]- [address] Oct, Chest pain on breathing R07.1 ; Chronic obstructive pulmonary disease, unspecified COPD type J44.9 ; Hematuria R31.9 and Secondary hypertension I15.9 [address] [address] [place] [address] Oct, [place] [id number] [place] [address]203- 7320 Oct, Chest pain, unspecified type R07.9 [facility] [id number] [place] [address]68 September, Acute middle ear effusion, right H65.191 [place] [address] [address]- 89[address] Aug, [place] [address] 6[address]97- [address] Aug, Chronic obstructive pulmonary disease, unspecified COPD type J44.9 [place] [id number] [place] [address] 47853- 1211 Jul, Acute pain of right knee M25.561 [facility] [id number] [place] [address] Jul, Pain in right knee M25.561 and Pain in left knee M25.562 [place] [id number] [place] [address] 36303- 7429 Jun, Secondary hypertension I15.9 ; Chronic obstructive pulmonary disease, unspecified COPD type J44.9 ; Post traumatic stress disorder F43.10 ; Arthralgia, unspecified joint M25.50 ; Allergy, subsequent encounter T78.40XD and Screening cholesterol level Z13.220 [place] [id number] [place] [address] 90158- 9578 May, [place] [id number] [place] [address] 20782- 2492 Feb, Major depressive disorder, recurrent, moderate F33.1 ; Post traumatic stress disorder F43.10 and Personality disorder F60.9 [place] [id number] [place] [address] 67180- 1791 Feb, [place] [address] [place] [address] Jan, Major depressive disorder, recurrent, moderate F33.1 ; Post traumatic stress disorder F43.10 and Personality disorder F60.9 [place] [id number] [place] [address] 67616- 1054 Jan, Bronchitis J40 ; Sinus congestion R09.81 ; Major depressive disorder, recurrent, moderate F33.1 ; Personality disorder F60.9 ; Schizoid personality disorder F60.1 ; Chronic obstructive pulmonary disease, unspecified COPD type J44.9 and Secondary hypertension I15.9 [place] [id number] [place] [address] 70191- 8861 Dec, Major depressive disorder, recurrent, moderate F33.1 ; Chronic obstructive pulmonary disease, unspecified COPD type J44.9 ; Muscle pain M79.1 and Secondary hypertension I15.9 [place] [address] 8[address]55- 7661 Dec, Major depressive disorder, recurrent, moderate F33.1 ; Post traumatic stress disorder F43.10 and Personality disorder F60.9 [place] [id number] [place] [address] 69147- 6755 Nov, Major depressive disorder, recurrent, moderate F33.1 ; Post traumatic stress disorder F43.10 and Personality disorder F60.9 [place] [id number] [place] [address] 59426- 8503 Nov, Post traumatic stress disorder F43.10 ; Personality disorder F60.9 ; Secondary hypertension I15.9 ; Chronic obstructive pulmonary disease, unspecified COPD type J44.9 and Osteoarthritis, unspecified osteoarthritis type, unspecified site M19.90 [place] [id number] [place] [address] 05942- 1610 Nov, Major depressive disorder, recurrent, moderate F33.1 ; Post traumatic stress disorder F43.10 and Personality disorder F60.9 [place] [id number] [place] [address] 58429- 7352 Oct, Major depressive disorder, recurrent, moderate F33.1 ; Post traumatic stress disorder F43.10 and Personality disorder F60.9 [facility] [id number] [place] [address] 85803- 2751 Oct, Major depressive disorder, recurrent, moderate F33.1 ; Post traumatic stress disorder F43.10 and Personality disorder F60.9 [place] [address] 17885- 9291 Oct, Major depressive disorder, recurrent, moderate F33.1 ; Post traumatic stress disorder F43.10 and Personality disorder F60.9 [place] [address] [address]- [address]33 Aug, Major depressive disorder, recurrent, moderate F33.1 ; Post traumatic stress disorder F43.10 and Personality disorder F60.9 [facility] [address] [address]- [address] Jul, [facility] [address] 37[address]- [address]84 Jul, Physical exam Z00.00 [place] [address] 17875- 3[address] Jul, [facility] [id number] [place] [address] 80714- 2595 Jul, Tobacco abuse counseling Z71.6 and Bronchitis J40 [place] [id number] [place] [address] 69776- 2338 Jul, [facility] [id number] [place] [address] 34804- 0165 Jul, [facility] [address] 83916 -[address]298 Jul, Hematuria, unspecified R31.9 and Bronchitis J40 [facility] [id number] [place] [address] 88708- 6413 Jun, Major depressive disorder, recurrent, moderate F33.1 ; Post traumatic stress disorder F43.10 and Personality disorder F60.9 [facility] [address] [place] [address] 63091- 9076 Jun, Major depressive disorder, recurrent, moderate F33.1 ; Post traumatic stress disorder F43.10 and Personality disorder F60.9 [facility] [address] [place] [address] 72235- 2096 Jun, [facility] [id number] [place] [address] 65919- 2033 Jun, [facility] [id number] [place] [address] 139163- 5518 Jun, [facility] [id number] [place] [address] May, Major depressive disorder, recurrent, moderate F33.1 ; Post traumatic stress disorder F43.10 and Personality disorder F60.9 [facility] [address] [place] [address] 77821- 1686 May, [facility] [address] [place] [address] 79854- 9657 May, Major depressive disorder, recurrent, moderate F33.1 ; Post- traumatic stress disorder, chronic F43.12 ; Personality disorder F60.9 ; Attention deficit disorder F90.0 and Schizoid personality disorder F60.1 [facility] [address] [place] [address] 78765- 0189 May, Major depressive disorder, recurrent, moderate F33.1 ; Post traumatic stress disorder F43.10 and Schizoid personality disorder F60.1 [facility] [address] [place] [address] 64909- 1755 May, [facility] [address] [place] [address] 68849- 5293 Apr, Attention deficit disorder F90.0 [facility] [id number] [place] [address]- 2546 Apr, Post-traumatic stress disorder, chronic F43.12 and Major depressive disorder, recurrent, moderate F33.1 [facility] [address] [place] [address] 53019- 5217 Apr, Post traumatic stress disorder F43.10 and Attention deficit disorder F90.0 [facility] [id number] [place] [address] 958741- 7687 Apr, [facility] [id number] [place] [address] 86020- 5046 Apr, [facility] [id number] [place] [address] 433481- 2956 Apr, Post-traumatic stress disorder, chronic F43.12 and Major depressive disorder, recurrent, moderate F33.1 [facility] [id number] [place] [address] 60699- 2994 Apr, Post-traumatic stress disorder, chronic F43.12 and Major depressive disorder, recurrent, moderate F33.1 [facility] [address] [place] [address] 60018- 4814 Apr, Major depressive disorder, recurrent, moderate F33.1 and Post traumatic stress disorder F43.10 [facility] [address] [place] [address] [id number] 30 Mar, 2015 Dental examination Z01.20 and Dental caries K02.9 [facility] [address] [place] [address] 17408- 3870 Mar, Major depressive disorder, recurrent, moderate F33.1 ; Post- traumatic stress disorder, chronic F43.12 and Personality disorder F60.9 [facility] [id number] [place] [address] 89801- 5878 13 Mar, 2015 Post-traumatic stress disorder, chronic F43.12 and Major depressive disorder, recurrent, moderate F33.1 [facility] [id number] [place] [address] 95104- 4739 Mar, Well woman exam Z01.419 ; Personality disorder F60.9 ; Post traumatic stress disorder F43.10 ; Muscle pain M79.1 and Bladder pain R39.89 [facility] [id number] [place] [address] 45558- 6616 Mar, Abnormal finding on mammography R92.8 ; Sinusitis J32.9 and Vaginal daisy B37.3 [facility] [address] 87220- 5756 Feb, Abnormal finding on mammography R92.8 [facility] [id number] [place] [address] 84682- 0116 Feb, [facility] [id number] [place] [address] 96658- 6866 Apr, [facility] [address] 91393- 3616 Apr, [facility] [address] 10075- 1349 Apr, [facility] [id number] [place] [address] 49072 2546 Apr, [facility] [id number] [place] [address] 28519 2546 Apr, [facility] [id number] [place] [address] 41779 2546 Apr, [facility] [id number] [place] [address] 61315 254 Mar, [facility] [id number] [place] [address] 70547 2546 Mar, [facility] [id number] [place] [address] 40102- 2546 Mar, [facility] [id number] [place] [address] 92270- 1560 Mar, [facility] [id number] [place] [address] [place] [address]- 7601 15 Feb, 2012 [facility] [place] [facility] [address] [id number] [place] [address]- 2877 15 Feb, 2012 [facility] [place] [facility] [address] [id number] [place] [address]- 0058 24 Jan, 2012 [facility] [place] [facility] [address] [id number] [place] [address]- 0356 17 Jan, 2012 [facility] [place] [facility] [address] [id number] [place] [address]- 8356 10 Jan, 2012 [facility] [place] [facility] [address] [id number] [place] [address]- 9643 05 Jan, 2012 [facility] [place] [facility] [address] [id number] [place] [address]- 1040 27 Dec, 2011 [facility] [place] [facility] [address] [id number] [place] [address]- 2738 14 Dec, 2011 [facility] [place] [facility] [address] [id number] [place] [address]- 0747 31 Nov, 2011 [facility] [place] [facility] [address] [id number] [place] [address]- 6361 Nov, [facility] [place] [facility] [address] [id number] [place] [address]- 2705 Oct, [facility] [place] [facility] [address] [id number] [place] [address]- 8333 Oct, [facility] [place] [facility] [address] [id number] [place] [address]- 7750 15 Oct, 2011 [facility] [place] [facility] [address] [id number] [place] [address]- 6001 06 Oct, 2011 [facility] [place] [facility] [address] [id number] [place] [address]- 4452 September, [facility] [place] [facility] [address] [id number] [place] [address]- 4766 September, [facility] [place] [facility] [address] [id number] [place] [address]- 6209 September, [facility] [place] [facility] [address] [id number] [place] [address]- 4779 30 Aug, 2011 [facility] [place] [facility] [address] [id number] [place] [address]- 1256 23 Aug, 2011 [facility] [place] [facility] [address] [id number] [place] [address]- 5076 16 Aug, 2011 [facility] [place] [facility] [address] [id number] [place] [address]- 1055 Aug, [facility] [place] [facility] [address] [id number] [place] [address]- 7863 Jul, [facility] [place] [facility] [address] [id number] [place] [address]- 6535 Jul, [facility] [place] [facility] [address] [id number] [place] [address]- 1750 Jul, [facility] [place] [facility] [address] [id number] [place] [address]- 5463 Jun, [facility] [place] [facility] [address] [id number] [place] [address]- 3678 May, [facility] [place] [facility] [address] [id number] [place] [address]- 8643 May, [facility] [place] [facility] [address] [id number] [place] [address]- 0695 May, [facility] [place] [facility] [address] [id number] [place] [address]- 9471 Apr, [facility] [place] [facility] [address] [id number] [place] [address]- 9511 Apr, [facility] [place] [facility] [address] [id number] [place] [address]- 0090 Mar, [facility] [place] [facility] [address] [id number] [place] [address]- 6369 Mar, [facility] [address] [facility] [id number] [place] [address]- 5770 Mar, [facility] [address] [facility] [id number] [place] [address]- 5396 Feb, [facility] [address] [facility] [id number] [place] [address]- 1143 Feb, IMMUNIZATIONS No Known Immunizations SOCIAL HISTORY Never Assessed REASON FOR VISIT Hospital f/u- VC-- Antwan Paige RN PLAN OF CARE Activity Details Follow Up 3 Months Reason:htn VITAL SIGNS Height 67 in 2016-10-24 Weight 213 lbs 2016-10-24 Temperature 98.0 degrees Fahrenheit 2016-10-24 Heart Rate 90 bpm 2016-10-24 Respiratory Rate 22 2016-10-24 BMI 33.36 kg/m2 2016-10-24 Blood pressure systolic 134 mmHg 2016-10-24 Blood pressure diastolic 82 mmHg 2016-10-24 MEDICATIONS Medication Instructions Dosage Frequency Start Date End Date Duration Status Diclofenac 35 MG Orally 2 times a day 1 capsule with food or milk as needed 12h Oct, 10 days Active Lisinopril 20 mg Orally Once a day 1 tablet 24h Oct, 30 day(s) Active Zithromax Z-Raymon 250 MG Orally Once a day 2 tablets on the first day, then 1 tablet daily for 4 days 24h Oct, Oct, 5 day(s) Active RESULTS Name Result Date Reference Range UA LONG DIP (IN HOUSE) 2016-10-24 Lot # [id number] Exp date Clarity Clear Color Yellow Odor None GLU Negative CHARI Negative KET Negative SG 1.025 BLO 2+ pH 6.0 Protein Negative URO 0.2 NIT Negative TRAVIS Negative Lot # [id number] Exp date PROCEDURES Procedure Date Ordered Result Body Site URINALYSIS, AUTO, W/O SCOPE October 24, 2016 [facility] VISIT ESTABLISHED PATIENT October 24, 2016 INSTRUCTIONS MEDICATIONS ADMINISTERED No Known Medications MEDICAL [...] years since 1993 last one 2011 in [place] Surgical History vaginal septum Hospitalization History fibromyalsia [facility] Hospitalization History lupus/reynauds Hospitalization History pleurisy Hospitalization History Depression, ptsd, anxiety, add, adhd Hospitalization History Acute TIA - [facility] 02/28/17- Hospitalization History Right sided weakness - ED visit at [facility] 03/23/17
--- OUTSIDE RECORDS SUMMARY | 2018-06-08 13:33 | XMS REPORT ---
Author Author JUAN CARLOS Mera Organization [facility] Address [address] [place] [address] Care Team Providers Care Data Integration Architect Name Role Phone [email or web address] JUAN CARLOS Unavailable PROBLEMS Type Condition ICD9-CM Code CVS18-UR Code Onset Dates Condition Status SNOMED Code Problem Attention deficit disorder F90.0 Active 578783636 Problem Chronic obstructive pulmonary disease, unspecified COPD type J44.9 Active 78988533 Problem Major depressive disorder, recurrent, moderate F33.1 Active 850823445 Problem Somatic complaints, multiple R68.89 Active 891157854 Problem Post traumatic stress disorder F43.10 Active 22080456 Problem Personality disorder F60.9 Active 03937160 Problem 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 Active 743591368 Problem Major depressive disorder, single episode, moderate F32.1 Active 805283805 Problem Hemiparesis of right dominant side due to non-cerebrovascular etiology G81.91 Active 974786079 Problem Secondary hypertension I15.9 Active 84935329 Problem Posttraumatic stress disorder F43.10 Active 03243402 Problem History of lupus Z87.39 Active 264377652 ALLERGIES No Information ENCOUNTERS Encounter Location Date Diagnosis [facility] [id number] [place] [address] 55431- 7701 Mar, 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 [facility] [id number] [place] [address] 96511- 2563 Mar, Hemiplegia affecting right dominant side, unspecified etiology, unspecified hemiplegia type G81.91 [facility] [id number] [place] [address] 88724- 3680 Mar, [facility] [id number] [place] [address] 32890- 6004 Mar, History of lupus Z87.39 [place] [address] [id number] [place] [address] 54716- 8075 Mar, Major depressive disorder, single episode, moderate F32.1 and Posttraumatic stress disorder F43.10 [place] [address] [id number] [place] [address] 39089- 4298 Mar, Hemiparesis of right dominant side due to non- cerebrovascular etiology G81.91 and History of lupus Z87.39 [place] [address] 98501- 4475 Mar, [facility] [place] [address] 71323 -2253 Jan, Acute non-recurrent maxillary sinusitis J01.00 [place] [address] 20826- 3893 Nov, [place] [address] 66949- 1135 Oct, Chest pain on breathing R07.1 ; Chronic obstructive pulmonary disease, unspecified COPD type J44.9 ; Hematuria R31.9 and Secondary hypertension I15.9 [place] [address] 03680- 9284 Oct, [place] [address] [id number] [place] [address] 29181- 1056 Oct, Chest pain, unspecified type R07.9 [facility] [address] [id number] [place] [address] 32070 -0814 September, Acute middle ear effusion, right H65.191 [place] [address] 04579- 8480 Aug, [place] [address] 45619- 7609 Aug, Chronic obstructive pulmonary disease, unspecified COPD type J44.9 [place] [address] 66732- 9905 Jul, Acute pain of right knee M25.561 [facility] [id number] [place] [address] 29709 -2243 Jul, Pain in right knee M25.561 and Pain in left knee M25.562 [facility] [id number] [place] [address] 22993- 4627 Jun, Secondary hypertension I15.9 ; Chronic obstructive pulmonary disease, unspecified COPD type J44.9 ; Post traumatic stress disorder F43.10 ; Arthralgia, unspecified joint M25.50 ; Allergy, subsequent encounter T78.40XD and Screening cholesterol level Z13.220 [place] [address] 41798- 5617 May, [place] [address] [id number] [place] [address] 53098- 2531 Feb, Major depressive disorder, recurrent, moderate F33.1 ; Post traumatic stress disorder F43.10 and Personality disorder F60.9 [place] [address] [id number] [place] [address] 77809- 1765 Feb, [place] [address] [id number] [place] [address] 07941- 0940 Jan, Major depressive disorder, recurrent, moderate F33.1 ; Post traumatic stress disorder F43.10 and Personality disorder F60.9 [place] [address] [id number] [place] [address] 81748- 5327 Jan, Bronchitis J40 ; Sinus congestion R09.81 ; Major depressive disorder, recurrent, moderate F33.1 ; Personality disorder F60.9 ; Schizoid personality disorder F60.1 ; Chronic obstructive pulmonary disease, unspecified COPD type J44.9 and Secondary hypertension I15.9 [facility] [id number] [place] [address] 33888- 1428 Dec, Major depressive disorder, recurrent, moderate F33.1 ; Chronic obstructive pulmonary disease, unspecified COPD type J44.9 ; Muscle pain M79.1 and Secondary hypertension I15.9 [facility] [address] [address] Dec, Major depressive disorder, recurrent, moderate F33.1 ; Post traumatic stress disorder F43.10 and Personality disorder F60.9 [facility] [address] [address] Nov, Major depressive disorder, recurrent, moderate F33.1 ; Post traumatic stress disorder F43.10 and Personality disorder F60.9 [facility] [address] [address] Nov, Post traumatic stress disorder F43.10 ; Personality disorder F60.9 ; Secondary hypertension I15.9 ; Chronic obstructive pulmonary disease, unspecified COPD type J44.9 and Osteoarthritis, unspecified osteoarthritis type, unspecified site M19.90 [place] [address] [address] Nov, Major depressive disorder, recurrent, moderate F33.1 ; Post traumatic stress disorder F43.10 and Personality disorder F60.9 [place] [address] [address] Oct, Major depressive disorder, recurrent, moderate F33.1 ; Post traumatic stress disorder F43.10 and Personality disorder F60.9 [facility] [address] [address] 9787 Oct, Major depressive disorder, recurrent, moderate F33.1 ; Post traumatic stress disorder F43.10 and Personality disorder F60.9 [facility] [address] [address] 0198 Oct, Major depressive disorder, recurrent, moderate F33.1 ; Post traumatic stress disorder F43.10 and Personality disorder F60.9 [facility] [address] [address] 1217 Aug, Major depressive disorder, recurrent, moderate F33.1 ; Post traumatic stress disorder F43.10 and Personality disorder F60.9 [facility] [address] [address] 38[address] Jul, [facility] [address] [place] [id number] [place] [address] 86158- 9239 Jul, Physical exam Z00.00 [facility] [address] [id number] [place] [address] 57117- 6321 Jul, [facility] [address] [id number] [place] [address] 13925- 2304 Jul, Tobacco abuse counseling Z71.6 and Bronchitis J40 [facility] [id number] [place] [address] 87216- 9991 Jul, [facility] [address] [address] [id number] [place] [address] 37891- 9680 Jul, [facility] [id number] [place] [address] 74286 -9427 Jul, Hematuria, unspecified R31.9 and Bronchitis J40 [facility] [id number] [place] [address] 70621- 4414 Jun, Major depressive disorder, recurrent, moderate F33.1 ; Post traumatic stress disorder F43.10 and Personality disorder F60.9 [facility] [id number] [place] [address] 39265- 2646 Jun, Major depressive disorder, recurrent, moderate F33.1 ; Post traumatic stress disorder F43.10 and Personality disorder F60.9 [facility] [id number] [place] [address] 52029- 6023 Jun, [facility] [address] [id number] [place] [address] 92006- 5285 Jun, [facility] [id number] [place] [address] 79964- 9195 Jun, [facility] [id number] [place] [address] 27308- 8663 May, Major depressive disorder, recurrent, moderate F33.1 ; Post traumatic stress disorder F43.10 and Personality disorder F60.9 [facility] [id number] [place] [address] 24718004- 0348 May, [facility] [id number] [place] [address] 96390- 7683 May, Major depressive disorder, recurrent, moderate F33.1 ; Post- traumatic stress disorder, chronic F43.12 ; Personality disorder F60.9 ; Attention deficit disorder F90.0 and Schizoid personality disorder F60.1 [facility] [id number] [place] [address] 77179- 3748 May, Major depressive disorder, recurrent, moderate F33.1 ; Post traumatic stress disorder F43.10 and Schizoid personality disorder F60.1 [facility] [id number] [place] [address] 25781- 7194 May, [facility] [id number] [place] [address] 48851- 0814 Apr, Attention deficit disorder F90.0 [facility] [address] [id number] [place] [address] 39901- 2934 Apr, Post-traumatic stress disorder, chronic F43.12 and Major depressive disorder, recurrent, moderate F33.1 [facility] [id number] [place] [address] 08043- 6119 Apr, Post traumatic stress disorder F43.10 and Attention deficit disorder F90.0 [facility] [id number] [place] [address] 58775- 1336 Apr, [facility] [address] [place] [id number] [place] [address] 95076- 3766 Apr, [facility] [address] [place] [id number] [place] [address] 68895- 6706 Apr, Post-traumatic stress disorder, chronic F43.12 and Major depressive disorder, recurrent, moderate F33.1 [facility] [address] [address]- 2850 08 Apr, 2015 Post-traumatic stress disorder, chronic F43.12 and Major depressive disorder, recurrent, moderate F33.1 [facility] [id number] [place] [address] 46493- 7382 07 Apr, 2015 Major depressive disorder, recurrent, moderate F33.1 and Post traumatic stress disorder F43.10 [facility] [address] [address] 30 Mar, 2015 Dental examination Z01.20 and Dental caries K02.9 [facility] [address] [id number] [place] [address] 21670- 8727 Mar, Major depressive disorder, recurrent, moderate F33.1 ; Post- traumatic stress disorder, chronic F43.12 and Personality disorder F60.9 [facility] [address] [place] [id number] [place] [address] 68918- 0417 Mar, Post-traumatic stress disorder, chronic F43.12 and Major depressive disorder, recurrent, moderate F33.1 [facility] [address] [place] [address] 56423- 4333 11 Mar, 2015 Well woman exam Z01.419 ; Personality disorder F60.9 ; Post traumatic stress disorder F43.10 ; Muscle pain M79.1 and Bladder pain R39.89 [facility] [id number] [place] [address] 60625- 5431 Mar, Abnormal finding on mammography R92.8 ; Sinusitis J32.9 and Vaginal daisy B37.3 [facility] [id number] [place] [address] 34450- 0959 Feb, Abnormal finding on mammography R92.8 [facility] [address] [id number] [place] [address] 10823- 0323 Feb, [facility] [id number] [place] [address] 19252- 3806 Apr, [facility] [address] [id number] [address]- 7004 Apr, [facility] [place] [facility] [address] [id number] [place] [address]- 8606 Apr, [facility] [place] [facility] [address] [id number] [place] [address]- 9246 Apr, [facility] [address] [id number] [place] [address]- 2736 Apr, [facility] [place] [facility] [address] [id number] [place] [address]- 7596 Apr, [facility] [place] [facility] [address] [id number] [place] [address]- 5225 Mar, [facility] [place] [facility] [address] [id number] [place] [address]- 5296 Mar, [facility] [place] [facility] [address] [id number] [place] [address]- 0390 Mar, [facility] [address] [id number] [place] [address]- 6871 Mar, [facility] [place] [facility] [address] [id number] [place] [address]- 8610 Feb, [facility] [place] [facility] [address] [facility] [id number] [place] 0741 15 Feb, 2012 [facility] [place] [facility] [address] [id number] [place] [address]- 3506 24 Jan, 2012 [facility] [place] [facility] [address] [id number] [place] [address] 2546 17 Jan, 2012 [facility] [place] [facility] [address] [id number] [place] [address]- 5246 10 Jan, 2012 [facility] [place] [facility] [address] [id number] [place] [address] 2546 05 Jan, 2012 [facility] [place] [facility] [address] [id number] [place] [address]- 3369 Dec, [facility] [place] [facility] [address] [id number] [place] [address]- 3666 14 Dec, 2011 [facility] [place] [facility] [address] [id number] [place] [address]- 5195 Nov, [facility] [place] [facility] [address] [id number] [place] [address]- 4783 Nov, [facility] [place] [facility] [address] [id number] [place] [address]- 5157 Oct, [facility] [place] [facility] [address] [id number] [place] [address]- 4400 Oct, [facility] [place] [facility] [address] [id number] [place] [address]- 1141 Oct, [facility] [place] [facility] [address] [id number] [place] [address]- 5224 Oct, [facility] [place] [facility] [address] [id number] [place] [address]- 0986 September, [facility] [place] [facility] [address] [id number] [place] [address]- 1270 September, [facility] [place] [facility] [address] [id number] [place] [address]- 2871 September, [facility] [place] [facility] [address] [id number] [place] [address]- 2105 30 Aug, 2011 [facility] [place] [facility] [address] [id number] [place] [address]- 0958 23 Aug, 2011 [facility] [place] [facility] [address] [id number] [place] [address]- 1784 16 Aug, 2011 [facility] [place] [facility] [address] [id number] [place] [address]- 7468 09 Aug, 2011 [facility] [place] [facility] [address] [id number] [place] [address]- 8040 Jul, [facility] [place] [facility] [address] [id number] [address] 2546 Jul, [facility] [address], [place] [address]- 5436 Jul, [facility] [address], [place] [address]- 0386 Jun, [facility] [address] [place] [address]- 2546 May, [facility] [address] [place] [address] 2546 May, [facility] [address] [place] [address]- 6126 May, [facility] [address], [place] [address]- 3966 Apr, [facility] [address], [place] [address]- 6046 Apr, [facility] [address], [place] [address]- 2836 Mar, [facility] [address], [place] [address]- 1356 Mar, [facility] [address], [place] [address] 2546 Mar, [facility] [id number] [address]- 0996 Feb, [facility] [id number] [address]- 2546 Feb, IMMUNIZATIONS No Known Immunizations SOCIAL HISTORY Never Assessed REASON FOR VISIT PLAN OF CARE VITAL SIGNS MEDICATIONS Medication Instructions Dosage Frequency Start Date End Date Duration Status Zithromax Z-Raymon 250 MG Orally Once a day 2 tablets on the first day, then 1 tablet daily for 4 days 24h Oct, Oct, 5 day(s) Active Diclofenac 35 MG Orally 2 times a day 1 capsule with food or milk as needed 12h Oct, 10 days Active RESULTS No Results PROCEDURES No Known [...] years since 1993 last one 2011 in [place] Surgical History vaginal septum Hospitalization History fibromyalsia [facility] Hospitalization History lupus/reynauds Hospitalization History pleurisy Hospitalization History Depression, ptsd, anxiety, add, adhd Hospitalization History Acute TIA - [facility] 02/28/17- Hospitalization History Right sided weakness - ED visit at [facility] 03/23/17
--- OUTSIDE RECORDS SUMMARY | 2018-06-08 13:35 | XMS REPORT ---
Author Author JUAN CARLOS Mera Organization [facility] Address [address] [place] [address] Care Team Providers Care Print Room Worker Name Role Phone akbarLARRY JUAN CARLOS Unavailable PROBLEMS Type Condition ICD9-CM Code HEF02-SI Code Onset Dates Condition Status SNOMED Code Problem Attention deficit disorder F90.0 Active 199127736 Problem Chronic obstructive pulmonary disease, unspecified COPD type J44.9 Active 97842761 Problem Major depressive disorder, recurrent, moderate F33.1 Active 084432851 Problem Somatic complaints, multiple R68.89 Active 846915506 Problem Post traumatic stress disorder F43.10 Active 69645254 Problem Personality disorder F60.9 Active 67736860 Problem 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 Active 109398390 Problem Major depressive disorder, single episode, moderate F32.1 Active 442675843 Problem Hemiparesis of right dominant side due to non-cerebrovascular etiology G81.91 Active 344518766 Problem Secondary hypertension I15.9 Active 06656459 Problem Posttraumatic stress disorder F43.10 Active 65040318 Problem History of lupus Z87.39 Active 399691426 ALLERGIES Substance Reaction Event Type Date Status Tegretol seizure Drug Allergy Oct, Active Hydrocodone-Acetaminophen hives Drug Allergy Oct, Active ENCOUNTERS Encounter Location Date Diagnosis [facility] [id number] [address] Mar, 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 [facility] [address], [place] [address] Mar, Hemiplegia affecting right dominant side, unspecified etiology, unspecified hemiplegia type G81.91 [facility] [id number], [place] [address] Mar, [facility] [id number] [place] [address] Mar, History of lupus Z87.39 [place] [address] [address] Mar, Major depressive disorder, single episode, moderate F32.1 and Posttraumatic stress disorder F43.10 [place] [address] [address] Mar, Hemiparesis of right dominant side due to non- cerebrovascular etiology G81.91 and History of lupus Z87.39 [place] [address] [address] Mar, [facility] [address] [address] Jan, Acute non-recurrent maxillary sinusitis J01.00 [place] [address] [address]- [address] Nov, [place] [address] [address] Oct, Chest pain on breathing R07.1 ; Chronic obstructive pulmonary disease, unspecified COPD type J44.9 ; Hematuria R31.9 and Secondary hypertension I15.9 [place] [address] [address]83 Oct, [place] [address] [address] Oct, Chest pain, unspecified type R07.9 [facility] [id number] [place] [address] September, Acute middle ear effusion, right H65.191 [place] [address] [address] Aug, [place] [address] [address] Aug, Chronic obstructive pulmonary disease, unspecified COPD type J44.9 [facility] [id number] [place] [address] 6[address]38- 8354 Jul, Acute pain of right knee M25.561 [facility] [id number] [place] [address] Jul, Pain in right knee M25.561 and Pain in left knee M25.562 [place] [address] [address] Jun, Secondary hypertension I15.9 ; Chronic obstructive pulmonary disease, unspecified COPD type J44.9 ; Post traumatic stress disorder F43.10 ; Arthralgia, unspecified joint M25.50 ; Allergy, subsequent encounter T78.40XD and Screening cholesterol level Z13.220 [place] [address] [address]- [address] May, [place] [address] [address] Feb, Major depressive disorder, recurrent, moderate F33.1 ; Post traumatic stress disorder F43.10 and Personality disorder F60.9 [place] [address] [address]- [address] Feb, [place] [id number] [place] [address] 34[address]- 4[address] Jan, Major depressive disorder, recurrent, moderate F33.1 ; Post traumatic stress disorder F43.10 and Personality disorder F60.9 [place] [id number] [place] [address]- 4142 Jan, Bronchitis J40 ; Sinus congestion R09.81 ; Major depressive disorder, recurrent, moderate F33.1 ; Personality disorder F60.9 ; Schizoid personality disorder F60.1 ; Chronic obstructive pulmonary disease, unspecified COPD type J44.9 and Secondary hypertension I15.9 [place] [id number] [place] [address] 9[address]85- 0604 Dec, Major depressive disorder, recurrent, moderate F33.1 ; Chronic obstructive pulmonary disease, unspecified COPD type J44.9 ; Muscle pain M79.1 and Secondary hypertension I15.9 [place] [id number] [place] [address] 8[address]- 2299 Dec, Major depressive disorder, recurrent, moderate F33.1 ; Post traumatic stress disorder F43.10 and Personality disorder F60.9 [place] [address] [address]- [address]84 Nov, Major depressive disorder, recurrent, moderate F33.1 ; Post traumatic stress disorder F43.10 and Personality disorder F60.9 [place] [address] [address]37- 3[address] Nov, Post traumatic stress disorder F43.10 ; Personality disorder F60.9 ; Secondary hypertension I15.9 ; Chronic obstructive pulmonary disease, unspecified COPD type J44.9 and Osteoarthritis, unspecified osteoarthritis type, unspecified site M19.90 [place] [id number] [place] [address] 32812- 2174 Nov, Major depressive disorder, recurrent, moderate F33.1 ; Post traumatic stress disorder F43.10 and Personality disorder F60.9 [place] [id number] [place] [address]32- 0520 Oct, Major depressive disorder, recurrent, moderate F33.1 ; Post traumatic stress disorder F43.10 and Personality disorder F60.9 [place] [id number] [place] [address] 48[address]- 6795 Oct, Major depressive disorder, recurrent, moderate F33.1 ; Post traumatic stress disorder F43.10 and Personality disorder F60.9 [place] [id number] [place] [address] 31778- 4170 Oct, Major depressive disorder, recurrent, moderate F33.1 ; Post traumatic stress disorder F43.10 and Personality disorder F60.9 [place] [address] [address]87- 8[address] Aug, Major depressive disorder, recurrent, moderate F33.1 ; Post traumatic stress disorder F43.10 and Personality disorder F60.9 [facility] [id number] [place] [address] 25986- 9958 Jul, [facility] [id number] [place] [address] 27790- 3390 Jul, Physical exam Z00.00 [facility] [address] [address]- 3672 Jul, [facility] [id number] [place] [address] 67851- 5182 Jul, Tobacco abuse counseling Z71.6 and Bronchitis J40 [facility] [id number] [place] [address] 59968- 8947 Jul, [facility] [address] [address]- 2258 Jul, [facility] [id number] [place] [address] 6[address] Jul, Hematuria, unspecified R31.9 and Bronchitis J40 [facility] [id number] [place] [address] 48573- 9142 Jun, Major depressive disorder, recurrent, moderate F33.1 ; Post traumatic stress disorder F43.10 and Personality disorder F60.9 [facility] [id number] [place] [address] 83925- 6646 Jun, Major depressive disorder, recurrent, moderate F33.1 ; Post traumatic stress disorder F43.10 and Personality disorder F60.9 [facility] [id number] [place] [address] 90234- 6661 Jun, [facility] [id number] [place] [address] 81346- 5050 Jun, [facility] [address] 72394- 8629 Jun, [facility] [address], [place] [address] May, Major depressive disorder, recurrent, moderate F33.1 ; Post traumatic stress disorder F43.10 and Personality disorder F60.9 [facility] [address], [place] [address] May, [facility] [id number] [place] [address] 88286- 3861 May, Major depressive disorder, recurrent, moderate F33.1 ; Post- traumatic stress disorder, chronic F43.12 ; Personality disorder F60.9 ; Attention deficit disorder F90.0 and Schizoid personality disorder F60.1 [facility] [address] [place] [address] 88235- 3609 May, Major depressive disorder, recurrent, moderate F33.1 ; Post traumatic stress disorder F43.10 and Schizoid personality disorder F60.1 [facility] [address] [place] [address] 23789- 8070 May, [facility] [address] [place] [address] [id number]- 3490 Apr, Attention deficit disorder F90.0 [facility] [address] [place] [address] [id number]- 6326 Apr, Post-traumatic stress disorder, chronic F43.12 and Major depressive disorder, recurrent, moderate F33.1 [facility] [address] [place] [address] 40191- 4377 Apr, Post traumatic stress disorder F43.10 and Attention deficit disorder F90.0 [facility] [address] [place] [address] 84423- 6936 Apr, [facility] [address] [place] [address] 04391- 6676 Apr, [facility] [id number] [place] [address] 77175- 2096 Apr, Post-traumatic stress disorder, chronic F43.12 and Major depressive disorder, recurrent, moderate F33.1 [facility] [address] [place] [address] 07594- 3237 Apr, Post-traumatic stress disorder, chronic F43.12 and Major depressive disorder, recurrent, moderate F33.1 [facility] [address] [place] [address] 15118- 4567 Apr, Major depressive disorder, recurrent, moderate F33.1 and Post traumatic stress disorder F43.10 [facility] [address] [place] [address] [id number] Mar, 2015 Dental examination Z01.20 and Dental caries K02.9 [facility] [id number] [place] [address] 94059- 3431 Mar, Major depressive disorder, recurrent, moderate F33.1 ; Post- traumatic stress disorder, chronic F43.12 and Personality disorder F60.9 [facility] [id number] [place] [address] 23865- 8719 Mar, Post-traumatic stress disorder, chronic F43.12 and Major depressive disorder, recurrent, moderate F33.1 [facility] [address] [place] [address] 33112- 5034 Mar, Well woman exam Z01.419 ; Personality disorder F60.9 ; Post traumatic stress disorder F43.10 ; Muscle pain M79.1 and Bladder pain R39.89 [facility] [id number] [place] [address] 44853- 7614 Mar, Abnormal finding on mammography R92.8 ; Sinusitis J32.9 and Vaginal daisy B37.3 [facility] [id number] [place] [address] 57158- 7116 Feb, Abnormal finding on mammography R92.8 [facility] [id number] [place] [address] 16304- 1105 Feb, [facility] [address] [place] [address] Apr, [facility] [place] [facility] [address] [id number] [place] [address]- 1096 Apr, [facility] [place] [facility] [address] [id number] [place] [address]- 9626 Apr, [facility] [place] [facility] [address] [id number] [place] [address]- 6686 Apr, [facility] [place] [facility] [address] [id number] [place] [address] 2546 Apr, [facility] [place] [facility] [address] [id number] [place] [address]- 6884 Apr, [facility] [place] [facility] [address] [id number] [place] [address]- 4184 Mar, [facility] [place] [facility] [address] [id number] [place] [address]- 2865 Mar, [facility] [place] [facility] [address] [id number] [place] [address]- 7139 Mar, [facility] [place] [facility] [address] [id number] [place] [address]- 3321 Mar, [facility] [place] [facility] [address] [facility] [id number] [place] [address]- 2428 Feb, [facility] [place] [facility] [address] [id number] [place] [address] 2546 15 Feb, 2012 [facility] [place] [facility] [address] [id number] [place] [address]- 2541 24 Sep2011 [facility] [place] [facility] [address] [id number] [place] [address] 2546 17 Sep2011 [facility] [place] [facility] [address] [facility] [id number] [place] [address]- 2546 10 Sep2011 [facility] [place] [facility] [address] [id number] [place] [address]- 5904 05 Jan, 2012 [facility] [place] [facility] [address] [id number] [place] [address]- 7698 Dec, [facility] [place] [facility] [address] [id number] [place] [address]- 2659 Dec, [facility] [place] [facility] [address] [id number] [place] [address]- 9082 Nov, [facility] [place] [facility] [address] [id number] [place] [address]- 1286 Nov, [facility] [address] [id number] [place] [address]- 5268 Oct, [facility] [place] [facility] [address] [id number] [place] [address]- 4804 Oct, [facility] [address] [id number] [place] [address]- 3576 Oct, [facility] [address] [id number] [place] [address]- 0177 Oct, [facility] [place] [facility] [address] [id number] [place] [address]- 2482 September, [facility] [address] [id number] [place] [address]- 7743 September, [facility] [place] [facility] [address] [id number] [place] [address]- 7367 September, [facility] [place] [facility] [address] [id number] [place] [address]- 6760 30 Aug, 2011 [facility] [place] [facility] [address] [id number] [place] [address]- 9214 23 Aug, 2011 [facility] [place] [facility] [address] [id number] [place] [address]- 2326 16 Aug, 2011 [facility] [place] [facility] [address] [id number] [place] [address]- 3306 Aug, [facility] [place] [facility] [address] [id number] [address]- 5896 Jul, [facility] [address], [place] [address]- 5850 Jul, [facility] [address], [place] [address]- 3196 Jul, [facility] [address], [place] [address]- 3976 Jun, [facility] [address], [place] [address]- 6233 May, [facility] [address], [place] [address]- 5208 May, [facility] [address], [place] [address]- 1416 May, [facility] [address], [place] [address]- 7718 Apr, [facility] [address], [place] [address]- 4542 Apr, [facility] [address] 9146 Mar, [facility] [address], [place] [address]- 1651 Mar, [facility] [address], [place] [address]- 2388 Mar, [facility] [id number] [address]- 2346 Feb, [facility] [address] Feb, IMMUNIZATIONS No Known Immunizations SOCIAL HISTORY Never Assessed REASON FOR VISIT pt feels like her heart is skipping and then feels like it stops and she doesnt feel anything. Her vision is blurry/ almost shadowed.2 PLAN OF CARE Activity Details Follow Up prn Reason: VITAL SIGNS Height 67 in 2016-10-22 Heart Rate 92 bpm 2016-10-22 Respiratory Rate 26 2016-10-22 Oximetry on room air: 95 % 2016-10-22 Blood pressure systolic 160 mmHg 2016-10-22 Blood pressure diastolic 100 mmHg 2016-10-22 MEDICATIONS No Known Medications RESULTS No Results PROCEDURES Procedure Date Ordered Result Body Site EKG, TRACING (IN-HOUSE) 2016-10-22 N/A ELECTROCARDIOGRAM, TRACING October 22, 2016 [facility] VISIT ESTABLISHED PATIENT October 22, 2016 MEASURE BLOOD OXYGEN LEVEL October 22, 2016 INSTRUCTIONS MEDICATIONS ADMINISTERED No Known Medications [...] years since 1993 last one 2011 in [place] Surgical History vaginal septum Hospitalization History fibromyalsia [facility] Hospitalization History lupus/reynauds Hospitalization History pleurisy Hospitalization History Depression, ptsd, anxiety, add, adhd Hospitalization History Acute TIA - [facility] 02/28/17- Hospitalization History Right sided weakness - ED visit at [facility] 03/23/17
--- OUTSIDE RECORDS SUMMARY | 2018-06-08 13:37 | XMS REPORT | Continuity of Care Document ---
Author Author Formerly [facility] Address Unknown Phone Unavailable Allergies Active Description Code Type Severity Reaction Onset Reported/Identified Relationship to Patient Clinical Status Yes hydrocodone [id number] Drug Allergy Unknown N/A 11/16/2008 Yes carbamazepine [id number] Drug Allergy Unknown N/A 08/27/2015 Medications There [...] Ot 784.0 HEADACHE 03/16/2014 JUAN CARLOS STEVENSON GEOGRAPHY FACULTY MEMBER Ot 611.72 05/31/2014 RAYSA EPPS MD Ot [...] BRODERICK MD Ot 401.9 HYPERTENSION NOS 04/10/2016 CLARISSE BRODERICK MD Ot 424.0 MITRAL VALVE DISORDER 04/10/2016 CLARISSE BRODERICK MD Ot 786.50 CHEST PAIN NOS 04/10/2016 CLINT STUART Ot 272.4 HYPERLIPIDEMIA NEC/NOS 04/10/2016 CLINT STUART Ot 305.1 TOBACCO USE DISORDER 04/10/2016 CLINT STUART Ot 401.9 HYPERTENSION NOS 04/10/2016 CLINT STUART Ot 785.1 PALPITATIONS 04/10/2016 CLINT STUART Ot 786.09 RESPIRATORY ABNORM NEC 04/10/2016 JUAN CARLOS STEVENSON GEOGR[employer]HY FACULTY MEMBER Ot 611.72 LUMP OR MASS IN BREAST 04/10/2016 JOSEFINA FELIZ, JANAE Dowd Ot 789.00 ABDOMINAL PAIN, UNSPECIFIED SITE 05/02/2016 ASHWINLESA RODRIGUEZ, JUAN Crowell Ot M25.551 PAIN IN RIGHT HIP 05/02/2016 ASHWIN RODRIGUEZ, JUAN Crowell Ot M25.552 PAIN IN LEFT HIP 08/19/2016 JUAN CARLOS STEVENSON GEOGR[employer]HY FACULTY MEMBER Ot M25.561 PAIN IN RIGHT KNEE 10/22/2016 [...] RESPIRATORY ABNORM NEC 10/22/2016 JUAN CARLOS STEVENSON [employer]OGR[employer]HY FACULTY MEMBER Ot 611.72 LUMP OR MASS IN BREAST 10/22/2016 JOSEFINA FELIZ, JANAE Dowd Ot 789.00 ABDOMINAL PAIN, UNSPECIFIED SITE 10/22/2016 ASHWINLESA RODRIGUEZ, JUAN Crowell Ot M25.551 PAIN IN RIGHT HIP 10/22/2016 ASHWIN JENNIFER, JUAN Crowell Ot M25.552 PAIN IN LEFT HIP 10/22/2016 JUAN CARLOS STEVENSON [employer] FACULTY MEMBER Ot M25.561 PAIN IN RIGHT KNEE 10/22/2016 [...] Esparza Ot I25.10 ATHSCL HEART DISEASE OF [place] CORONARY 03/01/2017 RD FELIZ, RAH Esparza Ot I25.2 OLD MYOCARDIAL INFARCTION 03/01/2017 RD FELIZ, RAH Esparza Ot M32.9 SYSTEMIC LUPUS ERYTHEMATOSUS, UNSPECIFIE 03/01/2017 RD FELIZ, ARH Esparza Ot R13.10 DYSPHAGIA, UNSPECIFIED 03/01/2017 RAH [...] DO Ot I25.10 ATHSCL HEART DISEASE OF [place] CORONARY 04/03/2017 WASHINGTON DURANT DO Ot M32.9 [...] STEWART Ot R29.810 FACIAL WEAKNESS 04/06/2017 ZANE STEWRAT Ot R47.01 APHASIA 04/06/2017 ZANE STEWART Ot Z79.82 CUTTER FIRST (CURRENT) USE OF ASPIRIN 04/06/2017 ZANE STEWART [...] R47.01 APHASIA 04/08/2017 ZANE STEWART Ot Z79.82 CUTTER FIRST (CURRENT) USE OF ASPIRIN 04/08/2017 ZANE STEWART [...] ABSENCE OF BOTH CERVIX AND UTER 04/24/2017 GELLENDER DOWASHINGTON Ot 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 ATTACK, UNSP 04/24/2017 GELLENDER DO, W[place] Dowd Ot I25.10 ATHSCL HEART DISEASE OF [place] CORONARY 04/24/2017 ROCLENDER DO, [place] Dowd Ot M32.9 SYSTEMIC LUPUS ERYTHEMATOSUS, UNSPECIFIE 04/30/2017 ROCLENDER DO, [place] Dowd Ot R00.0 TACHYCARDIA, UNSPECIFIED 05/22/2017 GELLENDER DO, [place] Dowd Ot R00.0 TACHYCARDIA, UNSPECIFIED 07/07/2017 ROMAIN AUGUSTIN APRN Ot F32.9 MAJOR DEPRESSIVE DISORDER, SINGLE EPISOD 07/07/2017 ROMAIN AUGUSTIN APRN Ot F41.9 ANXIETY DISORDER, UNSPECIFIED 07/07/2017 ROMAIN AUGUSTIN APRN Ot I10 ESSENTIAL (PRIMARY) HYPERTENSION 07/07/2017 ROMAIN AUGUSTIN APRN Ot I25.10 ATHSCL HEART DISEASE OF [place] CORONARY 07/07/2017 ROMAIN AUGUSTIN APRN Ot R07.89 OTHER CHEST PAIN 07/07/2017 ROMAIN AUGUSTIN APRN Ot Z79.82 CUTTER FIRST (CURRENT) USE OF ASPIRIN 07/07/2017 ROMAIN AUGUSTIN APRN Ot 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 TIA (TIA), AND CEREB INFRC W 07/07/2017 ROMAIN AUGUSTIN APRN Ot Z88.5 ALLERGY STATUS TO NARCOTIC AGENT STATUS 07/07/2017 ROMAIN AUGUSTIN APRN Ot Z88.8 ALLERGY STATUS TO OTH DRUG/MEDS/BIOL SUB 07/07/2017 ROMAIN AUGUSTIN APRN Ot Z90.49 ACQUIRED ABSENCE OF OTHER SPECIFIED PART 07/07/2017 ROMAIN AUGUSTIN APRN Ot Z90.710 ACQUIRED ABSENCE OF BOTH CERVIX AND UTER 07/09/2017 ROMAIN AUGUSTIN APRN Ot F32.9 MAJOR DEPRESSIVE DISORDER, SINGLE EPISOD 07/09/2017 ROMAIN AUGUSTIN APRN Ot F41.9 ANXIETY DISORDER, UNSPECIFIED 07/09/2017 ROMAIN AUGUSTIN APRN Ot I10 ESSENTIAL (PRIMARY) HYPERTENSION 07/09/2017 ROMAIN AUGUSTIN APRN Ot I25.10 ATHSCL HEART DISEASE OF [place] CORONARY 07/09/2017 ROMAIN AUGUSTIN APRN Ot R07.89 OTHER CHEST PAIN 07/09/2017 ROMAIN AUGUSTIN APRN Ot Z79.82 SENIOR LIVING (CURRENT) USE OF ASPIRIN 07/09/2017 ROMAIN AUGUSTIN APRN Ot 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 TIA (TIA), AND CEREB INFRC W 07/09/2017 ROMAIN AUGUSTIN APRN Ot Z88.5 ALLERGY STATUS TO NARCOTIC AGENT STATUS 07/09/2017 ROMAIN AUGUSTIN APRN Ot Z88.8 ALLERGY STATUS TO OTH DRUG/MEDS/BIOL SUB 07/09/2017 ROMAIN AUGUSTIN APRN Ot Z90.49 ACQUIRED ABSENCE OF OTHER SPECIFIED PART 07/09/2017 ROMAIN AUGUSTIN APRN Ot Z90.710 ACQUIRED ABSENCE OF BOTH CERVIX AND UTER 07/13/2017 ROMAIN AUGUSTIN APRN Ot F32.9 MAJOR DEPRESSIVE DISORDER, SINGLE EPISOD 07/13/2017 ROMAIN AUGUSTIN APRN Ot F41.9 ANXIETY DISORDER, UNSPECIFIED 07/13/2017 ROMAIN AUGUSTIN APRN Ot I10 ESSENTIAL (PRIMARY) HYPERTENSION 07/13/2017 ROMAIN AUGUSTIN APRN Ot I25.10 ATHSCL HEART DISEASE OF [place] CORONARY 07/13/2017 ROMAIN AUGUSTIN APRN Ot R07.89 OTHER CHEST PAIN 07/13/2017 ROMAIN AUGUSTIN APRN Ot Z79.82 SENIOR LIVING (CURRENT) USE OF ASPIRIN 07/13/2017 ROMAIN AUGUSTIN APRN Ot 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 TIA (TIA), AND CEREB INFRC W 07/13/2017 ROMAIN AUGUSTIN APRN Ot Z88.5 ALLERGY STATUS TO NARCOTIC AGENT STATUS 07/13/2017 ROMAIN AUGUSTIN APRN Ot Z88.8 ALLERGY STATUS TO OTH DRUG/MEDS/BIOL SUB 07/13/2017 ROMAIN AUGUSTIN APRN Ot Z90.49 ACQUIRED ABSENCE OF OTHER SPECIFIED PART 07/13/2017 ROMAIN AUGUSTIN APRN Ot Z90.710 ACQUIRED ABSENCE OF BOTH CERVIX AND UTER 07/29/2017 GELLENDER DO, [place] A Ot R00.0 TACHYCARDIA, UNSPECIFIED 07/30/2017 GELLENDER DO, [place] Dowd Ot R00.0 TACHYCARDIA, UNSPECIFIED 11/03/2017 ROMAIN AUGUSTIN APRN Ot F32.9 MAJOR DEPRESSIVE DISORDER, SINGLE EPISOD 11/03/2017 ROMAIN AUGUSTIN APRN Ot G43.909 MIGRAINE, UNSP, NOT INTRACTABLE, WITHOUT 11/03/2017 ROMAIN AUGUSTIN APRN Ot I10 ESSENTIAL (PRIMARY) HYPERTENSION 11/03/2017 ROMAIN AUGUSTIN APRN Ot I25.2 OLD MYOCARDIAL INFARCTION 11/03/2017 ROMAIN AUGUSTIN APRN Ot 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 11/03/2017 ROMAIN AUGUSTIN APRN Ot J45.909 UNSPECIFIED ASTHMA, UNCOMPLICATED 11/03/2017 ROMAIN AUGUSTIN APRN Ot K06.8 OTH DISRD OF GING[place] AND EDENTULOUS ALVE 11/03/2017 ROMAIN AUGUSTIN APRN Ot K91.840 POSTPROC HEMOR OF A DGSTV SYS ORG FOL A 11/03/2017 ROMAIN AUGUSTIN APRN Ot Z79.82 CUTTER FIRST (CURRENT) USE OF ASPIRIN 11/03/2017 ROMAIN AUGUSTIN APRN Ot Z82.49 FAMILY HX OF ISCHEM HEART DIS AND OTH DI 11/03/2017 ROMAIN AUGUSTIN APRN Ot Z86.010 PERSONAL HISTORY OF COLONIC POLYPS 11/03/2017 ROMAIN AUGUSTIN APRN Ot 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 TIA (TIA), AND CEREB INFRC W 11/03/2017 ROMAIN AUGUSTIN APRN Ot Z87.891 PERSONAL HISTORY OF NICOTINE DEPENDENCE 11/03/2017 ROMAIN AUGUSTIN APRN Ot Z88.5 ALLERGY STATUS TO NARCOTIC AGENT STATUS 11/03/2017 ROMAIN AUGUSTIN APRN Ot Z88.8 ALLERGY STATUS TO OTH DRUG/MEDS/BIOL SUB 11/03/2017 ROMAIN AUGUSTIN APRN Ot Z90.49 ACQUIRED ABSENCE OF OTHER SPECIFIED PART 11/03/2017 ROMAIN AUGUSTIN APRN Ot Z90.710 ACQUIRED ABSENCE OF BOTH CERVIX AND UTER 11/03/2017 ROMAIN AUGUSTIN APRN Ot Z90.89 ACQUIRED ABSENCE OF OTHER ORGANS 11/03/2017 ROMAIN AUGUSTIN APRN Ot Z98.890 OTHER SPECIFIED POSTPROCEDURAL STATES 11/05/2017 ROMAIN AUGUSTIN APRN Ot F32.9 MAJOR DEPRESSIVE DISORDER, SINGLE EPISOD 11/05/2017 ROMAIN AUGUSTIN APRN Ot G43.909 MIGRAINE, UNSP, NOT INTRACTABLE, WITHOUT 11/05/2017 ROMAIN AUGUSTIN APRN Ot I10 ESSENTIAL (PRIMARY) HYPERTENSION 11/05/2017 ROMAIN AUGUSTIN APRN Ot I25.2 OLD MYOCARDIAL INFARCTION 11/05/2017 ROMAIN AUGUSTIN APRN Ot 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 11/05/2017 ROMAIN AUGUSTIN APRN Ot J45.909 UNSPECIFIED ASTHMA, UNCOMPLICATED 11/05/2017 ROMAIN AUGUSTIN APRN Ot K06.8 OTH DISRD OF [place] AND EDENTULOUS ALVE 11/05/2017 ROMAIN AUGUSTIN APRN Ot K91.840 POSTPROC HEMOR OF A DGSTV SYS ORG FOL A 11/05/2017 ROMAIN AUGUSTIN APRN Ot Z79.82 CUTTER FIRST (CURRENT) USE OF ASPIRIN 11/05/2017 ROMAIN AUGUSTIN APRN Ot Z82.49 FAMILY HX OF ISCHEM HEART DIS AND OTH DI 11/05/2017 ROMAIN AUGUSTIN APRN Ot Z86.010 PERSONAL HISTORY OF COLONIC POLYPS 11/05/2017 ROMAIN AUGUSTIN APRN Ot 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 TIA (TIA), AND CEREB INFRC W 11/05/2017 ROMAIN AUGUSTIN APRN Ot Z87.891 PERSONAL HISTORY OF NICOTINE DEPENDENCE 11/05/2017 ROMAIN AUGUSTIN APRN Ot Z88.5 ALLERGY STATUS TO NARCOTIC AGENT STATUS 11/05/2017 ROMAIN AUGUSTIN APRN Ot Z88.8 ALLERGY STATUS TO OTH DRUG/MEDS/BIOL SUB 11/05/2017 ROMAIN AUGUSTIN APRN Ot Z90.49 ACQUIRED ABSENCE OF OTHER SPECIFIED PART 11/05/2017 ROMAIN AUGUSTIN APRN Ot Z90.710 ACQUIRED ABSENCE OF BOTH CERVIX AND UTER 11/05/2017 ROMAIN AUGUSTIN APRN Ot Z90.89 ACQUIRED ABSENCE OF OTHER ORGANS 11/05/2017 ROMAIN AUGUSTIN APRN Ot Z98.890 OTHER SPECIFIED POSTPROCEDURAL STATES 03/17/2018 MEGGAN FELIZ, CLARISSE Crowell Ot 272.4 HYPERLIPIDEMIA NEC/NOS 03/17/2018 MEGGAN FELIZ, CLARISSE Crowell Ot 397.0 TRICUSPID VALVE DISEASE 03/17/2018 MEGGAN FELIZ, CLARISSE Crowell Ot 401.9 HYPERTENSION NOS 03/17/2018 MEGGAN FELIZ, CLARISSE Crowell Ot 424.0 MITRAL VALVE DISORDER 03/17/2018 MEGGAN FELIZ, CLARISSE Crowell Ot 786.50 CHEST PAIN NOS 03/17/2018 KEYONNA WESLEY, CLINT K Ot 272.4 HYPERLIPIDEMIA NEC/NOS 03/17/2018 KEYONNA WESLEY, CLINT K Ot 305.1 TOBACCO USE DISORDER 03/17/2018 KEYONNA WESLEY, CLINT K Ot 401.9 HYPERTENSION NOS 03/17/2018 KEYONNA WESLEY, CLINT K Ot 785.1 PALPITATIONS 03/17/2018 KEYONNA WESLEY CLINT K Ot 786.09 RESPIRATORY ABNORM NEC 03/17/2018 JUAN CARLOS STEVENSON GEOGRAPHY FACULTY MEMBER Ot 611.72 LUMP OR MASS IN BREAST 03/17/2018 JOSEFINA FELIZ, JANAE Dowd Ot 789.00 ABDOMINAL PAIN, UNSPECIFIED SITE 03/17/2018 ASHWIN DC, JUAN J Ot M25.551 PAIN IN RIGHT HIP 03/17/2018 ASHWINLESA RODRIGUEZ, JUAN J Ot M25.552 PAIN IN LEFT HIP 03/17/2018 JUAN CARLOS STEVENSON GEOGRAPHY FACULTY MEMBER Ot M25.561 PAIN IN RIGHT KNEE 03/17/2018 RD FELIZ, RAH Esparza Ot 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 ATTACK, UNSP 03/17/2018 WASHINGTON DURANT DO Ot 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 ATTACK, UNSP 03/17/2018 [place] DURANT DO Ot I25.10 ATHSCL HEART DISEASE OF [place] CORONARY 03/17/2018 [place] DURANT DO Ot M32.9 SYSTEMIC LUPUS ERYTHEMATOSUS, UNSPECIFIE 03/17/2018 [place] DURANT DO Ot R00.0 TACHYCARDIA, UNSPECIFIED 05/06/2018 SUPRIYA FELIZ, RAYSA Reno Ot F17.210 NICOTINE DEPENDENCE, CIGARETTES, UNCOMPL 05/06/2018 SUPRIYA FELIZ, RAYSA Reno Ot F32.9 MAJOR DEPRESSIVE DISORDER, SINGLE EPISOD 05/06/2018 SUPRIYA FELIZRAYSA Ot G43.909 MIGRAINE, UNSP, NOT INTRACTABLE, WITHOUT 05/06/2018 RAYSA EPPS MD, Ot I10 ESSENTIAL (PRIMARY) HYPERTENSION 05/06/2018 RAYSA EPPS MD, Ot I25.2 OLD MYOCARDIAL INFARCTION 05/06/2018 RAYSA EPPS MD, Ot 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 05/06/2018 RAYSA EPPS MD, Ot J45.909 UNSPECIFIED ASTHMA, UNCOMPLICATED 05/06/2018 RAYSA EPPS MD, Ot M32.9 SYSTEMIC LUPUS ERYTHEMATOSUS, UNSPECIFIE 05/06/2018 RAYSA EPPS MD, Ot R51 HEADACHE 05/06/2018 RAYSA EPPS MD, Ot S06.0X0A CONCUSSION WITHOUT LOSS OF CONSCIOUSNESS 05/06/2018 RYASA EPPS MD, Ot W22.09XA STRIKING AGAINST OTHER STATIONARY OBJECT 05/06/2018 RAYSA EPPS MD, Ot Z79.82 SENIOR LIVING (CURRENT) USE OF ASPIRIN 05/06/2018 RAYSA EPPS MD, Ot Z82.49 FAMILY HX OF ISCHEM HEART DIS AND OTH DI 05/06/2018 RAYSA EPPS MD, Ot Z86.010 PERSONAL HISTORY OF COLONIC POLYPS 05/06/2018 RAYSA EPPS MD, Ot Z86.69 PERSONAL HISTORY OF DIS OF THE NERVOUS S 05/06/2018 RAYSA EPPS MD, Ot 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 TIA (TIA), AND CEREB INFRC W 05/06/2018 RAYSA EPPS MD, Ot Z87.19 PERSONAL HISTORY OF OTHER DISEASES OF TH 05/06/2018 RAYSA EPPS MD, Ot Z88.5 ALLERGY STATUS TO NARCOTIC AGENT STATUS 05/06/2018 RAYSA EPPS MD, Ot Z88.8 ALLERGY STATUS TO OTH DRUG/MEDS/BIOL SUB 05/06/2018 RAYSA EPPS MD, Ot Z90.49 ACQUIRED ABSENCE OF OTHER SPECIFIED PART 05/06/2018 RAYSA EPPS MD, Ot Z90.710 ACQUIRED ABSENCE OF BOTH CERVIX AND UTER 06/08/2018 MICHELLE DAY DO Ot T43.592A POISONING BY OT ANTIPSYCHOT/NEUROLEPT, 06/08/2018 MICHELLE DAY DO Ot Z90.710 ACQUIRED ABSENCE OF BOTH CERVIX AND UTER Procedures Code Description [place] [address] INDIV PSYTX 45/50 MIN 03/05/2012 73343 INDIV PSYTX 45/50 MIN 04/14/2012 09519 INDIV PSYTX 45/50 MIN 04/22/2012 Results Test Result Range CBC With Differential/Platelet - 06/09/16 13:33 WBC 8.8 x10E3/uL 3.4-10.8 RBC 4.94 x10E6/uL 3.77-5.28 Hemoglobin 14.8 g/dL 11.1-15.9 Hematocrit 44.9 % 34.0-46.6 MCV 91 fL 79-97 MCH 30.0 pg 26.6-33.0 MCHC 33.0 g/dL 31.5-35.7 RDW 14.1 % 12.3-15.4 Platelets 300 x10E3/uL 150-379 Neutrophils 56 % Lymphs 35 % Monocytes 6 % Eos 2 % Basos 1 % Neutrophils (Absolute) 4.9 x10E3/uL 1.4-7.0 Lymphs (Absolute) 3.1 x10E3/uL 0.7-3.1 Monocytes(Absolute) 0.6 x10E3/uL 0.1-0.9 Eos (Absolute) 0.2 x10E3/uL 0.0-0.4 Baso (Absolute) 0.1 x10E3/uL 0.0-0.2 Immature Granulocytes 0 % Immature Grans (Abs) 0.0 x10E3/uL 0.0-0.1 Comp. Metabolic Panel (14) - 06/09/16 13:33 Glucose, Serum 86 mg/dL 65-99 BUN 13 mg/dL 6-24 Creatinine, Serum 0.66 mg/dL 0.57-1.00 eGFR If NonAfricn Am 107 mL/min/1.73 >59 eGFR If Africn Am 123 mL/min/1.73 >59 BUN/Creatinine Ratio 20 9-23 Sodium, Serum 140 mmol/L 134-144 Potassium, Serum 3.9 mmol/L 3.5-5.2 Chloride, Serum 98 mmol/L 96-106 Carbon Dioxide, Total 18 mmol/L 18-29 Calcium, Serum 9.2 mg/dL 8.7-10.2 Protein, Total, Serum 7.1 g/dL 6.0-8.5 Albumin, Serum 4.4 g/dL 3.5-5.5 Globulin, Total 2.7 g/dL 1.5-4.5 A/G Ratio 1.6 1.1-2.5 Bilirubin, Total <0.2 mg/dL 0.0-1.2 Alkaline Phosphatase, S 88 IU/L 39-117 AST (SGOT) 15 IU/L 0-40 ALT (SGPT) 18 IU/L 0-32 Lipid Panel - 06/09/16 13:33 Cholesterol, Total 212 mg/dL 100-199 Triglycerides 72 mg/dL 0-149 HDL Cholesterol 45 mg/dL >39 VLDL Cholesterol Hiren 14 mg/dL 5-40 LDL Cholesterol Calc 153 mg/dL 0-99 Complete blood count (CBC) with automated white [...] urinalysis with reflex to culture NO NRG ESR/SED RATE - 03/06/17 12:00 SED RATE BY MODIFIED WESTERGREN 2 mm/h < OR=20 CCP ANTIBODY - 03/06/17 12:00 CYCLIC CITRULLINATED PEPTIDE (CCP) AB (IGG) <16 UNITS NRG PAMELA ANALYZER - 03/06/17 12:00 PAMELA SCREEN, IFA NEGATIVE NEGATIVE Complete blood count (CBC) with automated white [...] protein measurement (mass/volume) 1.36 mg /dL 0.00-0.50 [id number] - 04/02/17 07:51 Screening antinuclear antibody (PAMELA) [...] measurement by glucometer (mass/volume) 101 mg/dL 70-110 Complete blood count (CBC) with automated white blood cell (WBC) differential - 07/07/17 11:45 Blood leukocytes automated count (number/volume) 9.7 10*3/uL 4.3-11.0 Blood erythrocytes automated count (number/volume) 5.16 10*6/uL 4.35-5.85 Venous blood hemoglobin measurement (mass/volume) 15.8 g/dL 11.5-16.0 Blood hematocrit (volume fraction) 46 % 35-52 Automated erythrocyte mean corpuscular volume 90 [foz_us] 80-99 Automated erythrocyte mean corpuscular hemoglobin (mass per erythrocyte) 31 pg 25-34 Automated erythrocyte mean corpuscular hemoglobin concentration measurement ( mass/volume) 34 g/dL 32-36 Automated erythrocyte distribution width ratio 14.8 % 10.0-14.5 Automated blood platelet count (count/volume) 250 10*3/uL 130-400 Automated blood platelet mean volume measurement 9.8 [foz_us] 7.4-10.4 Automated blood neutrophils/100 leukocytes 63 % 42-75 Automated blood lymphocytes/100 leukocytes 27 % 12-44 Blood monocytes/100 leukocytes 8 % 0-12 Automated blood eosinophils/100 leukocytes 1 % 0-10 Automated blood basophils/100 leukocytes 1 % 0-10 Blood neutrophils automated count (number/volume) 6.1 10*3 1.8-7.8 Blood lymphocytes automated count (number/volume) 2.6 10*3 1.0-4.0 Blood monocytes automated count (number/volume) 0.8 10*3 0.0-1.0 Automated eosinophil count 0.1 10*3/uL 0.0-0.3 Automated blood basophil count (count/volume) 0.1 10*3/uL 0.0-0.1 Comprehensive metabolic panel - 07/07/17 11:45 Serum or plasma sodium measurement (moles/volume) 139 mmol/L 135-145 Serum or plasma potassium measurement (moles/volume) 3.8 mmol/L 3.6-5.0 Serum or plasma chloride measurement (moles/volume) 106 mmol/L 98-107 Carbon dioxide 21 mmol/L 21-32 Serum or plasma anion gap determination (moles/volume) 12 mmol/L 5-14 Serum or plasma urea nitrogen measurement (mass/volume) 10 mg/dL 7-18 Serum or plasma creatinine measurement (mass/volume) 0.78 mg/dL 0.60-1.30 Serum or plasma urea nitrogen/creatinine mass ratio 13 NRG Serum or plasma creatinine measurement with calculation of estimated glomerular filtration rate > NRG Serum or plasma glucose measurement (mass/volume) 99 mg/dL 70-105 Serum or plasma calcium measurement (mass/volume) 9.1 mg/dL 8.5-10.1 Serum or plasma total bilirubin measurement (mass/volume) 0.5 mg/dL 0.1-1.0 Serum or plasma alkaline phosphatase measurement (enzymatic activity/volume) 72 U/L 40-136 Serum or plasma aspartate aminotransferase measurement (enzymatic activity/ volume) 19 U/L 5-34 Serum or plasma alanine aminotransferase measurement (enzymatic activity/volume ) 25 U/L 0-55 Serum or plasma protein measurement (mass/volume) 7.2 g/dL 6.4-8.2 Serum or plasma albumin measurement (mass/volume) 4.1 g/dL 3.2-4.5 Serum or plasma troponin i.cardiac measurement (mass/volume) - 07/07/17 11:45 Serum or plasma troponin i.cardiac measurement (mass/volume) < ng/ mL <0.30 Complete urinalysis with reflex to culture - 06/05/18 03:03 Urine color determination YELLOW NRG Urine clarity determination CLEAR NRG Urine pH measurement by test strip 7 5-9 Specific gravity of urine by test strip 1.005 1.016- 1.022 Urine protein assay by test strip, semi-quantitative NEGATIVE NEGATIVE Urine glucose detection by automated test strip NEGATIVE NEGATIVE Erythrocytes detection in urine sediment by light microscopy NEGATIVE NEGATIVE Urine ketones detection by automated test strip NEGATIVE NEGATIVE Urine nitrite detection by test strip NEGATIVE NEGATIVE Urine total bilirubin detection by test strip NEGATIVE NEGATIVE Urine urobilinogen measurement by automated test strip (mass/volume) NORMAL NORMAL Urine leukocyte esterase detection by dipstick NEGATIVE NEGATIVE Automated urine sediment erythrocyte count by microscopy (number/high power field) NONE NRG Automated urine sediment leukocyte count by microscopy (number/high power field ) NONE NRG Bacteria detection in urine sediment by light microscopy TRACE NRG Squamous epithelial cells detection in urine sediment by light microscopy 2-5 NRG Crystals detection in urine sediment by light microscopy NONE NRG Casts detection in urine sediment by light microscopy NONE NRG Mucus detection in urine sediment by light microscopy NEGATIVE NRG Complete urinalysis with reflex to culture NO NRG Urine drug screening test - 06/05/18 03:03 Urine phencyclidine detection by screening method NEGATIVE NEGATIVE Urine benzodiazepines detection by screening method NEGATIVE NEGATIVE Urine cocaine detection NEGATIVE NEGATIVE Urine amphetamines detection by screening method NEGATIVE NEGATIVE Urine methamphetamine detection by screening method NEGATIVE NEGATIVE Urine cannabinoids detection by screening method POSITIVE NEGATIVE Urine opiates detection by screening method NEGATIVE NEGATIVE Urine barbiturates detection NEGATIVE NEGATIVE Screening urine tricyclic antidepressants detection NEGATIVE NEGATIVE Urine methadone detection by screening method NEGATIVE NEGATIVE Urine oxycodone detection NEGATIVE NEGATIVE Urine propoxyphene detection NEGATIVE NEGATIVE Encounters ACCT No. Visit Date/Time Discharge Status Pt. Type Provider Facility Loc./Unit Complaint [id number] 04/22/2012 13:29:00 04/22/2012 23:59:59 CLS Outpatient [id number] 04/08/2012 13:32:00 04/08/2012 23:59:59 CLS Outpatient EVA COHEN PSYD [id number] 03/05/2012 15:41:00 03/05/2012 23:59:59 CLS Outpatient EVA COHEN PSYD [id number] 06/05/2018 02:46:00 06/05/2018 03:08:00 DIS Outpatient MICHELLE DAY DO [facility] ER OVERDOSE/INTOXICATION [id number] 05/06/2018 08:47:00 05/06/2018 11:44:00 DIS Emergency SUPRIYA FELIZ, RAYSA Reno [facility] ER MIGRAINE;N/V [id number] 11/03/2017 19:46:00 11/03/2017 21:05:00 DIS Emergency ROMAIN AUGUSTIN APRN [facility] ER MOUTH BLEEDING [id number] 07/30/2017 10:00:00 07/30/2017 23:59:59 CLS Preadmit WASHINGTON DURANT DO [facility] CARD TACHYCARDIA [id number] 04/30/2017 09:31:00 07/29/2017 00:01:00 DIS Outpatient WASHINGTON DURANT DO [facility] CARD TACHYCARDIA [id number] 07/07/2017 11:34:00 07/07/2017 12:58:00 DIS Emergency ROMAIN AUGUSTIN APRN [facility] ER CP/ANXIETY [id number] 04/06/2017 11:32:00 04/06/2017 16:01:00 DIS Emergency ZANE STEWART [facility] ER STROKE SYMPTOMS [id number] 04/02/2017 07:45:00 04/02/2017 23:59:59 CLS Outpatient WASHINGTON DURANT DO [facility] LAB LUPUS,CAD,TIA [id number] 03/23/2017 13:41:00 03/23/2017 17:25:00 DIS Emergency ZANE STEWART [facility] ER RIGHT SIDE WEAKNESS [id number] 03/04/2017 10:23:00 03/04/2017 23:59:59 CLS Outpatient RAH SULTANA MD [facility] RAD TIA G45.9 [id number] 02/28/2017 11:00:00 03/01/2017 13:00:00 DIS Inpatient RAH SULTANA MD [facility] 4TH ACUTE TIA [id number] 11/24/2016 12:04:00 11/24/2016 16:32:00 DIS Emergency JUAN SYKES MD [facility] ER SOB/ABD-CHEST PAIN/ SHOULDER PAIN [id number] 10/22/2016 18:02:00 10/22/2016 19:50:00 DIS Emergency ROMAIN AUGUSTIN APRN [facility] ER CHEST PAIN [id number] 09/24/2016 08:00:00 09/24/2016 23:59:59 CLS Preadmit SIMONE MANDUJANO MD [facility] SDC RIGHT KNEE CHONDROMYLASIA [id number] 09/22/2016 08:00:00 09/22/2016 23:59:59 CLS Preadmit SIMONE MANDUJANO MD [facility] PREOP RIGHT KNEE SCOPE [id number] 07/26/2016 10:21:00 07/26/2016 23:59:59 CLS Outpatient JUAN CARLOS STEVENSON [facility] RAD ACUTE PAIN OF RIGHT KNEE [id number] 04/10/2016 14:37:00 04/10/2016 23:59:59 CLS Outpatient JUAN CHRISTOPHER DC [facility] RAD ACUTE LEFT HIP PAIN [id number] 08/27/2015 14:05:00 08/27/2015 18:40:00 DIS Emergency JUAN SYKES MD [facility] ER CONSTIPATION [id number] 11/20/2014 17:30:00 11/20/2014 23:59:59 CLS Outpatient JANAE ROCHA MD [facility] LAB ABD PAIN [id number] 05/31/2014 07:34:00 05/31/2014 10:13:00 DIS Emergency SUPRIYA FELIZ, RAYSA [place] [facility] ER LOW BP [id number] 02/20/2014 09:05:00 02/20/2014 23:59:59 CLS Outpatient JUAN CARLOS STEVENSON [employer]HY [employer]BER [facility] RAD BREAST LUMP [id number] 10/04/2013 22:53:00 10/05/2013 01:28:00 DIS Emergency ASHA BRUMFIELD DO [facility] ER MULTIPLE COMPLAINTS [id number] 11/03/2012 15:08:00 11/03/2012 23:59:59 CLS Outpatient CLINT STUART [facility] RT DYSPNEA, TOBACCOISM,PALPITATIONS,HTN [id number] 11/02/2012 07:58:00 11/02/2012 23:59:59 CLS Outpatient CLINT STUART [facility] LAB HLP [id number] 10/18/2012 10:25:00 10/18/2012 23:59:59 CLS Outpatient CLARISSE BRODERICK MD [facility] CARD CP,HTN,HYPERLIPIDEMIA [id number] 10/11/2012 11:36:00 10/11/2012 16:34:00 DIS Emergency SUPRIYA FELIZ, RAYSA [place] [facility] ER HEAD PAIN ON THE LEFT SIDE/ CP PAIN ON AND OFF [id number] 06/08/2018 15:45:00 PEN Preadmit GELLENWASHINGTON FINK DO [facility] RAD SYNCOPE X 2, HEAD TRAUMA [id number] 06/08/2018 13:21:00 ACT Emergency ONEL FELIZ, JUAN Noriega [facility] ER SOB;POSS BLOOD CLOT IN LUNG [id number] 02/10/2012 09:52:00 Document Registration [id number] 01/25/2012 14:33:00 Document Registration [id number] 12/15/2011 10:20:00 Document Registration [id number] 12/10/2011 10:04:00 Document Registration [id number] 11/27/2011 07:26:00 Document Registration [id number] 10/13/2011 10:55:00 Document Registration [id number] 10/09/2011 13:47:00 Document Registration [id number] 10/03/2011 08:15:00 Document Registration [id number] 07/09/2011 07:58:00 Document Registration [id number] 06/10/2016 08:38:00 Document Registration [id number] 03/24/2018 12:35:00 03/24/2018 23:59:59 [facility] Out[facility] [id number] 03/06/2017 12:00:00 Document Registration
[2018-06-08] MEDS ORDERED: NS IV 1000 ML 1,000 ML IV ONE (13:45)
[2018-06-08 13:56] LABS: BASOPHILS # (AUTO) 0.1 10^3/uL (0.0-0.1); BASOPHILS % (AUTO) 1 % (0-10); EOSINOPHILS # (AUTO) 0.1 10^3/uL (0.0-0.3); EOSINOPHILS % (AUTO) 2 % (0-10); HEMATOCRIT 47 % (35-52); HEMOGLOBIN 15.8 G/DL (11.5-16.0); LYMPHOCYTES # (AUTO) 2.9 X 10^3 (1.0-4.0); LYMPHOCYTES % (AUTO) 37 % (12-44); MEAN CORPUSCULAR HEMOGLOBIN 31 PG (25-34); MEAN CORPUSCULAR HGB CONC 34 G/DL (32-36); MEAN CORPUSCULAR VOLUME 92 FL (80-99); MEAN PLATELET VOLUME 9.8 FL (7.4-10.4); MONOCYTES # (AUTO) 0.8 X 10^3 (0.0-1.0); MONOCYTES % (AUTO) 10 % (0-12); NEUTROPHILS # (AUTO) 4.1 X 10^3 (1.8-7.8); NEUTROPHILS % (AUTO) 52 % (42-75); PLATELET COUNT 297 10^3/uL (130-400); RED CELL DISTRIBUTION WIDTH 15.3 % (10.0-14.5)
[2018-06-08 14:06] LABS: BUN/CREATININE RATIO 17; CALCIUM 9.3 MG/DL (8.5-10.1); CARBON DIOXIDE 20 MMOL/L (21-32); CHLORIDE 108 MMOL/L (98-107); CREATININE SERUM 0.71 MG/DL (0.60-1.30); GFR ESTIMATED > 60; GLUCOSE 101 MG/DL (70-105); SODIUM 141 MMOL/L (135-145)
[2018-06-08 14:07] LABS: ALANINE AMINOTRANSFERASE 11 U/L (0-55); ALBUMIN 4.2 GM/DL (3.2-4.5); ALKALINE PHOSPHATASE 75 U/L (40-136); BILIRUBIN,TOTAL 0.4 MG/DL (0.1-1.0); TOTAL PROTEIN 7.1 GM/DL (6.4-8.2)
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
--- NOTE | 2018-06-08 15:59 | Diagnostic Imaging Report ---
PROCEDURE: CT angiography of the chest with contrast. TECHNIQUE: Multiple contiguous axial images were obtained through the chest after uneventful bolus administration of intravenous contrast. 2D reconstructed CTA MIP acquisitions were also performed. DATE: June 08, 2018. COMPARISON: CT chest of October 22, 2016. INDICATION: 47-year-old female, chest pain. FINDINGS: There is a thin-walled cystic lucency in the left upper lobe on axial image 34. There are additional smaller thin-walled areas of cystic lucency in the upper lobes as well as in the right lower lobe on axial image 83. There are multifocal areas of groundglass lung attenuation with some areas of relative lucency and mild mosaic lung attenuation. There is no identified pulmonary nodule or lung mass. There are dependent linear opacities in the right lower lobe and left lower lobe, consistent with atelectasis. There are very subtle centrilobular opacities in the upper lobes. The central airways are patent. There is no pneumothorax. There is no pleural effusion. The trachea is normal in caliber. There is no bronchiectasis. There is no peripheral honeycombing. The appearance of the lungs is unchanged since October 22, 2016. There is no identified pulmonary embolus. The main pulmonary artery is normal in caliber. The heart is not enlarged. There is no pericardial effusion. There is no evidence of aortic dissection or acute aortic injury. There is a right hilar lymph node on axial image 16 measuring 1.6 cm in short axis. This is unchanged since October 22, 2016. There is an additional right hilar lymph node, unchanged in size, on axial image 65 which measures 12 mm in short axis. There is also a mildly prominent left hilar lymph node measuring 8 mm in short axis on axial image 58 which is unchanged. There is no new or enlarging hilar or mediastinal lymph node. There is no abnormally enlarged axillary lymph node which meets CT size criteria for adenopathy. The patient is status post cholecystectomy. There is no identified acute bony abnormality. IMPRESSION: 1. Multifocal groundglass lung attenuation which is fairly diffuse although with some areas of mild mosaic lung attenuation. There is very subtle centrilobular nodularity in the upper lobes. This appearance is unchanged since October 22, 2016. Particularly given the subtle centrilobular nodules, respiratory bronchiolitis interstitial lung disease would be the favored differential diagnostic considerations in a patient with a history of smoking. Other causes of pneumonitis would be differential diagnostic considerations. 2. Unchanged prominent bilateral hilar lymph nodes which may be related to the lung process. 3. No identified pulmonary embolus or acute cardiopulmonary abnormality. Dictated by: Dictated on workstation # [id number]
[2018-06-08 16:55] VITALS: BP 134/72
== END 2018-06-08 16:55 | disposition home or self-care (01) ==
LOC: EDUNIT# 13:20 → ER 13:21
DX: S09.90XA Unspecified injury of head, initial encounter (principal); R07.89 Other chest pain; J45.909 Unspecified asthma, uncomplicated; I25.2 Old myocardial infarction; I10 Essential (primary) hypertension; M32.9 Systemic lupus erythematosus, unspecified; F32.9 Major depressive disorder, single episode, unspecified; Z86.69 Personal history of other diseases of the nervous system and sense organs; Z86.73 Personal history of transient ischemic attack (TIA), and cerebral infarction without residual deficits; Z90.49 Acquired absence of other specified parts of digestive tract; Z90.710 Acquired absence of both cervix and uterus; Z86.711 Personal history of pulmonary embolism; Z88.8 Allergy status to other drugs, medicaments and biological substances; Z88.5 Allergy status to narcotic agent; W22.8XXA Striking against or struck by other objects, initial encounter
CPT/HCPCS: 36415; 70450; 71275; 80053; 84484; 85025; 85379; 93005

== ENCOUNTER → 2018-08-03 | Outpatient (CLI) | payer MEDICARE ==
--- NOTE | 2018-08-03 13:44 | Diagnostic Imaging Report ---
INDICATION: Worsening neck pain. TECHNIQUE: AP, lateral and odontoid views cervical spine.. CORRELATION STUDY: None FINDINGS: The cervical spinal alignment is anatomic. Cervical thoracic junction limited in visualization. Cervical vertebral body heights and disc spaces overall are fairly well maintained. Lateral masses of C1 and C2 aligned, odontoid intact. Prevertebral soft tissues unremarkable. IMPRESSION: 1. Negative for acute findings of the cervical spine. Dictated by: Dictated on workstation # [id number]
== END ==
LOC: RAD 12:56
PROVIDERS: ATTEND Chiropractor Sports Physician
DX: M54.2 Cervicalgia (principal)
CPT/HCPCS: 72040